=== PATIENT | male | born 1950 | race Caucasian/White ===

== ENCOUNTER → 2017-07-18 | Emergency (ER) | payer OTHER ==
[~2017-07-18] VITALS: Ht 182.9 cm; Wt 159.7 kg
--- NOTE | 2017-07-19 20:21 | EKG ---
[facility] [address] [facility] [place] [address] Signed Sinus rhythm with 1st degree AV block Nonspecific ST and T wave abnormality Abnormal ECG No previous ECGs available Confirmed by ASHIA FREEMAN MD ([id number]) on 07/19/2017 8:21:39 PM Electronically Signed By: ASHIA FREEMAN MD 07/19/172020 PATIENT NAME: ADI KHAN Electrocardiogram DATE OF : 48 PHYSICIAN: ASHIA FREEMAN MD REPORT #: [id number] REPORT IS CONFIDENTIAL AND NOT TO BE RELEASED WITHOUT AUTHORIZATION
--- NOTE | 2017-07-19 20:21 | EKG ---
[facility] [address] [facility] [place] [address] Signed Sinus rhythm with 1st degree AV block Nonspecific ST and T wave abnormality Abnormal ECG When compared with ECG of 18-JUL-2017 17:08, (Unconfirmed) No significant change was found Confirmed by ASHIA FREEMAN MD ([id number]) on 07/19/2017 8:21:43 PM Electronically Signed By: ASHIA FREEMAN MD 07/19/172020 PATIENT NAME: ADI KHAN Electrocardiogram DATE OF : 48 PHYSICIAN: ASHIA FREEMAN MD REPORT #: [id number] REPORT IS CONFIDENTIAL AND NOT TO BE RELEASED WITHOUT AUTHORIZATION
== END | disposition home or self-care (01) ==
LOC: ED 17:04
DX: R07.2 Precordial pain (principal); Z88.8 Allergy status to other drugs, medicaments and biological substances; E66.9 Obesity, unspecified; Z68.42 Body mass index [BMI] 45.0-49.9, adult
CPT/HCPCS: 71010; 80053; 83880; 84484; 85025; 93005; 93010; 96372; 96374; 96375; 99285; J1650; J2270; J3010

== ENCOUNTER 2018-05-07 17:43 | Emergency (ER) | payer OTHER ==
[~2018-05-07] VITALS: Ht 182.9 cm; Wt 149.7 kg
--- OUTSIDE RECORDS SUMMARY | ~2018-05-07 | XMS | Encounter Summary ---
Demographics + + + | Address | [address] | | | [place] [address] | + + + | Home Phone | | + + + | Preferred Language | Unknown | + + + | Marital Status | | + + + | Yarsani Affiliation | [id number] | + + + | Race | Unknown | + + + | Ethnic Group | Unknown | + + + Author + + + | Author | [facility] | | | and [place] | + + + | Organization | [facility] | | | and [place] | + + + | Address | Unknown | + + + | Phone | Unavailable | + + + Support + + + + + | Name | Relationship | Address | Phone | + + + + + | Rosa Fiore | GLENDY | [address] | | | | | [place] [address] | | + + + + + Care Team Providers + +------+ + | Care Roofing Plant Supervisor Name | Role | Phone | + +------+ + | Doug Servin | PCP | | + +------+ + Reason for Visit + + + | Reason | Comments | + + + | Chest Pain | | + + + Encounter Details +--------+ + + + + | Date | Type | Department | Care Team | Description | +--------+ + + + + | 05/06/ | Emergency | [facility] | Masoud Lamb, | Chest pain at rest | | 2018 - | [facility] | MD [address] | (Primary Dx) | | | | CENTER [address] | [place], [place] | | | 05/07/ | | [place], [place] | [address] | | | 2017 | | [address] | | | | | | [phone] | | | +--------+ + + + + Social History + +-------+ +--------+ + | Tobacco Use | Types | Packs/Day | Years | Date | | | | | Used | | + +-------+ +--------+ + | Former Smoker | | 1 | 32 | Quit: 03/21/1998 | + +-------+ +--------+ + + +---+---+---+ | Smokeless Tobacco: | | | | | Never Used | | | | + +---+---+---+ + + +---------+ + | Alcohol Use | Drinks/We | oz/Week | Comments | | | ek | | | + + +---------+ + | No | | | | + + +---------+ + + + + | Sex Assigned at | Date Recorded | | | | + + + | Not on file | | + + + as of this encounter Last Filed Vital Signs + + + + | Vital Sign | Reading | Time Taken | + + + + | Blood Pressure | 143/68 | 05/07/2018299 PDT | + + + + | Pulse | 78 | 05/07/2018326 PDT | + + + + | Temperature | 36.6 C (97.9 F) | 05/07/20188 PDT | + + + + | Respiratory Rate | 15 | 05/07/2018326 PDT | + + + + | Oxygen Saturation | 100% | 05/07/2018326 PDT | + + + + | Inhaled Oxygen | - | - | | Concentration | | | + + + + | Weight | 149.7 kg (330 lb) | 05/07/20188 PDT | + + + + | Height | 182.9 cm (6') | 05/07/20188 PDT | + + + + | Body Mass Index | 44.76 | 05/07/20188 PDT | + + + + in this encounter Discharge Instructions Masoud Lamb MD - 05/07/2018Kelsi if new concerning symptoms Follow-up with primary carein this encounter Medications at Time of Discharge + + +--------+---------+ + + | Medication | Sig. | Disp. | Refills | Start | End Date | | | | | | Date | | + + +--------+---------+ + + | | Take 3 mLs by | | | | | | albuterol-ipratropiu | nebulization 4 times | | | | | | m (DUONEB) 2.5-0.5 | daily as needed. | | | | | | mg/3 mL SOLN | | | | | | + + +--------+---------+ + + | ascorbic acid | Take 500 mg by mouth | | | | | | (VITAMIN C) 500 mg | Daily. | | | | | | tablet | | | | | | + + +--------+---------+ + + | aspirin 81 MG | Take 81 mg by mouth | | | | | | tablet | 2 times daily. | | | | | + + +--------+---------+ + + | | Inhale 2 puffs into | | | | | | budesonide-formotero | the lungs 2 times | | | | | | l (SYMBICORT) | daily. | | | | | | 160-4.5 mcg/puff | | | | | | | inhaler | | | | | | + + +--------+---------+ + + | buPROPion | Take 200 mg by mouth | | | | | | (WELLBUTRIN SR) 200 | Daily. | | | | | | MG 12 hr tablet | | | | | | + + +--------+---------+ + + | carBAMazepine | Take 200 mg by mouth | | | | | | (TEGRETOL XR) 200 mg | 3 times daily. For | | | | | | 12 hr tablet | mood | | | | | + + +--------+---------+ + + | cholecalciferol | Take 1,000 Units by | | | | | | (VITAMIN D-3) 1,000 | mouth 2 times daily. | | | | | | units capsule | | | | | | + + +--------+---------+ + + | cyanocobalamin | Take 500 mcg by | | | | | | (VITAMIN B-12) 500 | mouth Daily. | | | | | | mcg tablet | | | | | | + + +--------+---------+ + + | docusate-senna | Take 1 tablet by | | | | | | (SENOKOT-S) 50-8.6 | mouth Twice daily | | | | | | mg per tablet | breakfast/Bedtime. | | | | | + + +--------+---------+ + + | ferrous sulfate | Take 325 mg by mouth | | | | | | 325 mg tablet | 3 times daily. | | | | | + + +--------+---------+ + + | fish oil 1,000 mg | Take 1,000 mg by | | | | | | capsule | mouth 2 times daily. | | | | | + + +--------+---------+ + + | FLUoxetine | Take 20 mg by mouth | | | | | | (PROZAC) 20 mg | every morning. | | | | | | capsule | | | | | | + + +--------+---------+ + + | insulin aspart | Inject 38 Units | | | | | | (NOVOLOG PENFILL) | under the skin 3 | | | | | | 100 units/mL | times daily (before | | | | | | injection cartridge | meals). 07/19/17 - | | | | | | | recent reduction in | | | | | | | dose to 25 units TID | | | | | | | with meals | | | | | + + +--------+---------+ + + | insulin NPH | Inject 56 Units | | | | | | (HUMULIN N KWIKPEN) | under the skin 2 | | | | | | 100 units/mL | times daily (before | | | | | | injection pen | meals). Recent | | | | | | | reduction in dose to | | | | | | | 40 units twice | | | | | | | daily | | | | | + + +--------+---------+ + + | | Inhale 1 puff into | | | | | | Ipratropium-Albutero | the lungs 4 times | | | | | | l (COMBIVENT IN) | daily. May take 2 | | | | | | | extra puffs per day | | | | | | | as needed | | | | | + + +--------+---------+ + + | isosorbide | Take 120 mg by mouth | | | | | | mononitrate (IMDUR) | Daily. | | | | | | 60 mg ER tablet | | | | | | + + +--------+---------+ + + | liraglutide | Inject 1.2 mg under | | | | | | (VICTOZA) 18 mg/3 mL | the skin Daily. | | | | | | injection | | | | | | + + +--------+---------+ + + | metoprolol | Take 100 mg by mouth | | | | | | succinate | Daily. | | | | | | (TOPROL-XL) 200 mg | | | | | | | ER tablet | | | | | | + + +--------+---------+ + + | morphine (MSIR) 15 | Take 0.5-1 tablets | 30 | 0 | 11/20 | | | mg tablet | by mouth every 4 | tablet | | 17 | | | | hours as needed for | | | | | | | Pain. | | | | | + + +--------+---------+ + + | Multiple Vitamin | Take 1 capsule by | | | | | | (MULTIVITAMIN) | mouth Daily. | | | | | | capsule | | | | | | + + +--------+---------+ + + | nitroglycerin | Place 0.4 mg under | | | | | | (NITROSTAT) 0.4 mg | the tongue every 5 | | | | | | SL tablet | minutes as needed | | | | | | | for Chest pain. | | | | | + + +--------+---------+ + + | nortriptyline | Take 25 mg by mouth | | | | | | (PAMELOR) 25 mg | nightly. | | | | | | capsule | | | | | | + + +--------+---------+ + + | pantoprazole | Take 40 mg by mouth | | | | | | (PROTONIX) 40 mg | 2 times daily | | | | | | tablet | (before meals). | | | | | + + +--------+---------+ + + | rosuvastatin | Take 40 mg by mouth | | | | | | (CRESTOR) 40 MG | nightly. | | | | | | tablet | | | | | | + + +--------+---------+ + + | torsemide | Take 1 tablet by | 30 | 4 | 04/07/20 | | | (DEMADEX) 10 mg | mouth Daily. | tablet | | 17 | | | tablet | | | | | | + + +--------+---------+ + + as of this encounter Plan of Treatment + +--------+ + + | Name | Priori | Associated Diagnoses | Date/Time | | | ty | | | + +--------+ + + | ED INFORMATION EXCHANGE | Routin | | 05/07/2018 0002 PDT | | | e | | | + +--------+ + + as of this encounter Procedures + +--------+ + + + | Procedure Name | Priori | Date/Time | Associated Diagnosis | Comments | | | ty | | | | + +--------+ + + + | TROPONIN I | Add-On | 05/07/2018 | | Results for this | | | | 0233 PDT | | procedure are in the | | | | | | results section. | + +--------+ + + + | XR CHEST AP PORTABLE | STAT | 05/07/2018 | | Results for this | | | | 0044 PDT | | procedure are in the | | | | | | results section. | + +--------+ + + + | EXTRA BLUE TOP TUBE | Routin | 05/07/2018 | | Results for this | | | e | 0032 PDT | | procedure are in the | | | | | | results section. | + +--------+ + + + | ECG 12 LEAD | STAT | 05/07/2018 | | Results for this | | | | 0025 PDT | | procedure are in the | | | | | | results section. | + +--------+ + + + | TROPONIN I | STAT | 05/07/2018 | | Results for this | | | | 0015 PDT | | procedure are in the | | | | | | results section. | + +--------+ + + + | CBC WITH | STAT | 05/07/2018 | | Results for this | | DIFFERENTIAL | | 0015 PDT | | procedure are in the | | | | | | results section. | + +--------+ + + + | B TYPE NATRIURETIC | STAT | 05/07/2018 | | Results for this | | PEPTIDE | | 0015 PDT | | procedure are in the | | | | | | results section. | + +--------+ + + + | COMPREHENSIVE | STAT | 05/07/2018 | | Results for this | | METABOLIC PANEL | | 0015 PDT | | procedure are in the | | | | | | results section. | + +--------+ + + + | ED INFORMATION | Routin | 05/07/2018 | | | | EXCHANGE | e | 0002 PDT | | | + +--------+ + + + +---+--------+ | | | | | Proced | | | ure | | | Note - | | | Matthew, | | | Lab In | | | | | | Hlseve | | | n - | | | | | | 2017 | | | 0003 | | | PDT | | | Format | | | ting | | | of | | | this | | | note | | | may be | | | | | | differ | | | ent | | | from | | | the | | | origin | | | al.MATTHEW | | | [id number] | | | ADI | | | [id number] | | | [id number] | | | This | | | patien | | | t has | | | regist | | | ered | | | at the | | | | | | Provid | | | ence | | | [facility] | [facility] | [facility] | [facility] | | | [facility] | | | | | | Emerge | | | ncy | | | Depart | | | ment | | | For | | | more | | | inform | | | ation | | | visit: | | | | | | https: | | | //secu | | | [email or web address] | | | ecarep | | | [email or web address] | | | m/[email or web address] | | | ent/2a | | | [id number] | | | -a3ce- | | | [id number] | | | 3f0-bb | | | [id number] | | | [id number] | | | Securi | | | ty | | | Events | | | No | | | recent | | | | | | Securi | | | ty | | | Events | | | | | | curren | | | tly on | | | | | | fileED | | | Care | | | Guidel | | | nubia | | | from | | | Good | | | [facility] | | | rd | | | Health | | | Care | | | System | | | Last | | | Update | | | d: | | | 5/16/1 | | | 7 1:11 | | | PM | | | Care | | | Coordi | | | nation | | | :This | | | patien | | | t has | | | been | | | identi | | | fied | | | as | | | having | | | or | | | moreDe | | | partme | | | nt | | | visits | | | in | | | this | | | calend | | | ar | | | year.P | | | atient | | | | | | requir | | | es | | | educat | | | ion on | | | | | | approp | | | riate | | | ED | | | usage. | | | Emphas | | | ize | | | the | | | import | | | ance | | | of | | | using | | | outpat | | | ient | | | medica | | | l | | | servic | | | es for | | | the | | | treatm | | | ent of | | | | | | chroni | | | c | | | condit | | | ions.P | | | lease | | | contac | | | t | | | Commun | | | ity | | | Health | | | | | | Worker | | | , | | | Summer | | | , at | | | [phone] | | | [phone] | | | or | | | [phone] | | | [phone] | | | if | | | patien | | | t is | | | seen | | | in | | | ED.The | | | se are | | | | | | guidel | | | nubia | | | and | | | the | | | provid | | | er | | | should | | | | | | exerci | | | se | | | clinic | | | al | | | judgme | | | nt | | | when | | | provid | | | ing | | | care.R | | | ecent | | | Emerge | | | ncy | | | Depart | | | ment | | | Visit | | | Summar | | | yAdmit | | | Date | | | Facili | | | ty | | | City | | | State | | | Type | | | Major | | | Type | | | Diagno | | | ses or | | | Chief | | | | | | Compla | | | int | | | Aug | | | 22, | | | 2018 | | | Provid | | | ence | | | [facility] | [place] | | | [place] | | | Emerge | | | ncy | | | Emerge | | | ncy | | | Aug | | | 21, | | | 2018 | | | [facility] | | | r | | | [facility] | | | [facility] | | | - | | | [place] | | | [place] | | | [facility] | | | [place] | | | Emerge | | | ncy | | | Emerge | | | ncy | | | Chief | | | Compla | | | int: | | | High | | | blood | | | pressu | | | re | | | Aug | | | 17, | | | 2018 | | | [place] | | | r | | | [facility] | | | [facility] | | | - | | | [place] | | | r | | | [facility] 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 | | | es | | | mellit | | | us | | | withou | | | t | | | compli | | | cation | | | s | | | Athero | | | sclero | | | tic | | | heart | | | diseas | | | e of | | | [place] | | | | | | fletcher | | | ry | | | artery | | | | | | withou | | | t | | | angina | | | | | | pector | | | is | | | Locali | | | zed | | | edema | | | | | | Gastro | | | -esoph | | | ageal | | | reflux | | | | | | diseas | | | e | | | withou | | | t | | | esopha | | | gitis | | | | | | Hyperl | | | ipidem | | | ia, | | | unspec | | | ified | | | | | | Other | | | long | | | term | | | (curre | | | nt) | | | drug | | | therap | | | y | | | Chroni | | | c | | | obstru | | | ctive | | | pulmon | | | gideon | | | diseas | | | e, | | | unspec | | | ified | | | | | | Periph | | | eral | | | vascul | | | ar | | | diseas | | | e, | | | unspec | | | ified | | | | | | Morbid | | | | | | (sever | | | e) | | | obesit | | | y due | | | to | | | excess | | | | | | calori | | | es | | | Aug | | | 14, | | | 2018 | | | [facility] | | | r | | | [facility] | | | [facility] | | | - | | | [place] | | | [place] | | | [facility] | [place] | | | Emerge | | | ncy | | | Emerge | | | ncy | | | | | | Allerg | | | y | | | status | | | to | | | other | | | drugs, | | | | | | medica | | | ments | | | and | | | biolog | | | ical | | | substa | | | nces | | | status | | | | | | Athero | | | sclero | | | tic | | | heart | | | diseas | | | e of | | | [place] | | | | | | fletcher | | | ry | | | artery | | | with | | | unspec | | | ified | | | angina | | | | | | pector | | | is | | | Gastro | | | -esoph | | | ageal | | | reflux | | | | | | diseas | | | e | | | withou | | | t | | | esopha | | | gitis | | | | | | Chroni | | | c | | | obstru | | | ctive | | | pulmon | | | gideon | | | diseas | | | e, | | | unspec | | | ified | | | | | | Other | | | long | | | term | | | (curre | | | nt) | | | drug | | | therap | | | y | | | Hyperl | | | ipidem | | | ia, | | | unspec | | | ified | | | | | | Obesit | | | y, | | | unspec | | | ified | | | | | | Venous | | | | | | insuff | | | icienc | | | y | | | (chron | | | ic) | | | (perip | | | heral) | | | | | | Locali | | | zed | | | edema | | | | | | Long | | | term | | | (curre | | | nt) | | | use of | | | | | | insuli | | | n Aug | | | 1, | | | 2018 | | | [facility] | | | r | | | [facility] | | | [facility] | | | - | | | [place] | | | [place] | | | [facility] | [place] | | | Emerge | | | ncy | | | Emerge | | | ncy | | | Long | | | term | | | (curre | | | nt) | | | use of | | | | | | insuli | | | n | | | Obesit | | | y, | | | unspec | | | ified | | | | | | Other | | | long | | | term | | | (curre | | | nt) | | | drug | | | therap | | | y | | | Chroni | | | c | | | obstru | | | ctive | | | pulmon | | | gideon | | | diseas | | | e, | | | unspec | | | ified | | | | | | Allerg | | | y | | | status | | | to | | | other | | | drugs, | | | | | | medica | | | ments | | | and | | | biolog | | | ical | | | substa | | | nces | | | status | | | | | | Type 2 | | | | | | diabet | | | es | | | mellit | | | us | | | withou | | | t | | | compli | | | cation | | | s | | | Venous | | | | | | insuff | | | icienc | | | y | | | (chron | | | ic) | | | (perip | | | heral) | | | | | | Hyperl | | | ipidem | | | ia, | | | unspec | | | ified | | | | | | Locali | | | zed | | | edema | | | | | | Athero | | | sclero | | | tic | | | heart | | | diseas | | | e of | | | [place] | | | | | | fletcher | | | ry | | | artery | | | with | | | other | | | forms | | | of | | | angina | | | | | | pector | | | is | | | Jose | | | 15, | | | 2018 | | | [facility] | | | r | | | [facility] | | | [facility] | | | - | | | [facility] | | | [place] | | | [facility] | [place] | | | Emerge | | | ncy | | | Emerge | | | ncy | | | | | | Chroni | | | c | | | obstru | | | ctive | | | pulmon | | | gideon | | | diseas | | | e, | | | unspec | | | ified | | | | | | Long | | | term | | | (curre | | | nt) | | | use of | | | | | | insuli | | | n | | | Weakne | | | ss | | | Depend | | | ence | | | on | | | supple | | | mental | | | | | | oxygen | | | | | | Fall | | | from | | | chair, | | | | | | initia | | | l | | | encoun | | | ter | | | | | | Unspec | | | ified | | | place | | | in | | | unspec | | | ified | | | non-in | | | stitut | | | ional | | | (priva | | | te) | | | reside | | | nce as | | | the | | | place | | | of | | | occurr | | | ence | | | of the | | | | | | thermostat machine tender | | | al | | | cause | | | | | | Athero | | | sclero | | | tic | | | heart | | | diseas | | | e of | | | [place] | | | | | | fletcher | | | ry | | | artery | | | | | | withou | | | t | | | angina | | | | | | pector | | | is | | | Dehydr | | | ation | | | | | | Type 2 | | | | | | diabet | | | es | | | mellit | | | us | | | withou | | | t | | | compli | | | cation | | | s | | | Unspec | | | ified | | | abdomi | | | nal | | | pain | | | Jose | | | 13, | | | 2018 | | | [facility] | | | [facility] | | | [facility] | | | [facility] | | | - | | | [facility] | | | [facility] | | | [facility] | [place] | | | Emerge | | | ncy | | | Emerge | | | ncy | | | | | | Dorsal | | | nasrin, | | | unspec | | | ified | | | | | | Athero | | | sclero | | | tic | | | heart | | | diseas | | | e of | | | [place] | | | | | | fletcher | | | ry | | | artery | | | | | | withou | | | t | | | angina | | | | | | pector | | | is | | | Urinar | | | y | | | tract | | | infect | | | ion, | | | site | | | not | | | specif | | | ied | | | | | | Depend | | | ence | | | on | | | supple | | | mental | | | | | | oxygen | | | | | | Chroni | | | c | | | obstru | | | ctive | | | pulmon | | | gideon | | | diseas | | | e, | | | unspec | | | ified | | | Low | | | back | | | pain | | | | | | Morbid | | | | | | (sever | | | e) | | | obesit | | | y due | | | to | | | excess | | | | | | calori | | | es | | | Type 2 | | | | | | diabet | | | es | | | mellit | | | us | | | withou | | | t | | | compli | | | cation | | | s Jose | | | 6, | | | 2018 | | | [facility] | | | [facility] | | [facility] | | | [facility] | | | [facility] | | | [facility] | | | | | | [facility] | | | [place] | | | Emerge | | | ncy | | | Emerge | | | ncy | | | Chief | | | Compla | | | int: | | | CHEST | | | PAIN | | | Jose 2, | | | 2018 | | | [facility] | | | | | | [facility] | | | [facility] | | | [facility] | [place] | | | [place] | | | Emerge | | | ncy | | | Emerge | | | ncy | | | Flank | | | Pain | | | | | | Tubulo | | | -inter | | | stitia | | | l | | | nephri | | | tis, | | | not | | | specif | | | ied as | | | acute | | | or | | | chroni | | | c | | | Hyperk | | | alemia | | | | | | Chroni | | | c | | | kidney | | | | | | diseas | | | e, | | | unspec | | | ified | | | [place] | | | 30, | | | 2018 | | | [facility] | | | r | | | [facility] | | | [facility] | | | - | | | [facility] | | | [facility] | | | [facility] | [place] | | | Emerge | | | ncy | | | Emerge | | | ncy | | | Other | | | long | | | term | | | (curre | | | nt) | | | drug | | | therap | | | y | | | Epista | | | xis | | | Type | | | 2 | | | diabet | | | es | | | mellit | | | us | | | withou | | | t | | | compli | | | cation | | | s | | | Chroni | | | c | | | obstru | | | ctive | | | pulmon | | | gideon | | | diseas | | | e, | | | unspec | | | ified | | | | | | Long | | | term | | | (curre | | | nt) | | | use of | | | | | | insuli | | | n | | | Other | | | hyperl | | | ipidem | | | ia | | | Athero | | | sclero | | | tic | | | heart | | | diseas | | | e of | | | [place] | | | | | | fletcher | | | ry | | | artery | | | | | | withou | | | t | | | angina | | | | | | pector | | | is | | | [place] | | | 25, | | | 2018 | | | [facility] | | | r | | | [facility] | | | [facility] | | | - | | | [facility] | | | [facility] | | | [facility] | [place] | | | Emerge | | | ncy | | | Emerge | | | ncy | | | | | | Headac | | | he | | | Type 2 | | | | | | diabet | | | es | | | mellit | | | us | | | with | | | hypogl | | | ycemia | | | | | | withou | | | t coma | | | | | | Cerebr | | | al | | | infarc | | | tion, | | | unspec | | | ified | | | | | | Chroni | | | c | | | obstru | | | ctive | | | pulmon | | | gideon | | | diseas | | | e, | | | unspec | | | ified | | | | | | Long | | | term | | | (curre | | | nt) | | | use of | | | | | | insuli | | | n | | | Gastro | | | -esoph | | | ageal | | | reflux | | | | | | diseas | | | e | | | withou | | | t | | | esopha | | | gitis | | | | | | Locali | | | zed | | | edema | | | | | | Essent | | | ial | | | (prima | | | ry) | | | hypert | | | ension | | | | | | Hyperl | | | ipidem | | | ia, | | | unspec | | | ified | | | | | | Athero | | | sclero | | | tic | | | heart | | | diseas | | | e of | | | [place] | | | | | | fletcher | | | ry | | | artery | | | | | | withou | | | t | | | angina | | | | | | pector | | | is | | | [place] | | | 18, | | | 2018 | | | [facility] | | | r | | | [facility] | | | [facility] | | | - | | | [facility] | | | r | | | [place] | [place] | [place] | | | Emerge | | | ncy | | | Emerge | | | ncy | | | | | | Gastro | | | -esoph | | | ageal | | | reflux | | | | | | diseas | | | e | | | withou | | | t | | | esopha | | | gitis | | | | | | Allerg | | | y | | | status | | | to | | | other | | | drugs, | | | | | | medica | | | ments | | | and | | | biolog | | | ical | | | substa | | | nces | | | status | | | | | | Hyperl | | | ipidem | | | ia, | | | unspec | | | ified | | | | | | Other | | | long | | | term | | | (curre | | | nt) | | | drug | | | therap | | | y | | | Chroni | | | c | | | obstru | | | ctive | | | pulmon | | | gideon | | | diseas | | | e, | | | unspec | | | ified | | | | | | 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 | | | [place] | | | Emerge | | | ncy | | | Emerge | | | ncy | | | Chief | | | Compla | | | int: | | | CHEST | | | PAIN | | | May | | | 27, | | | 2018 | | | [facility] | | | r | | | [facility] | | | [facility] | | | - | | | [facility] | | | r | | | [facility] | | | [place] | | | Emerge | | | ncy | | | Emerge | | | ncy | | | | | | Chroni | | | c | | | obstru | | | ctive | | | pulmon | | | gideon | | | diseas | | | e, | | | unspec | | | ified | | | | | | Athero | | | sclero | | | tic | | | heart | | | diseas | | | e of | | | [place] | | | | | | fletcher | | | ry | | | artery | | | | | | withou | | | t | | | angina | | | | | | pector | | | is | | | Other | | | chest | | | pain | | | | | | Cough | | | | | | Type 2 | | | | | | diabet | | | es | | | mellit | | | us | | | withou | | | t | | | compli | | | cation | | | s | | | Hyperl | | | ipidem | | | ia, | | | unspec | | | ified | | | | | | Other | | | long | | | term | | | (curre | | | nt) | | | drug | | | therap | | | y | | | Venous | | | | | | insuff | | | icienc | | | y | | | (chron | | | ic) | | | (perip | | | heral) | | | | | | Locali | | | zed | | | edema | | | | | | Allerg | | | y | | | status | | | to | | | other | | | drugs, | | | | | | medica | | | ments | | | and | | | biolog | | | ical | | | substa | | | nces | | | status | | | E.D. | | | Visit | | | Count | | | (12 | | | mo.)Fa | | | cility | | | | | | Visits | | | Low | | | Acuity | | | Good | | | [facility] | | | rd | | | Health | | | Care | | | System | | | 6 0 | | | [facility] | | | | | | Region | | | al | | | Medica | | | l | | | Center | | | 1 0 | | | [facility] | | | r | | | [facility] | | | al | | | Hospit | | | al - | | | [facility] | | | r 19 0 | | | | | | Provid | | | ence | | | [facility] | | | [facility] | [facility] | [facility] | | | l | | | Center | | | 2 0 | | | [facility] [place] | | | y | | | Hospit | | | al 1 0 | | | Total | | | 29 0 | | | Note: | | | Visits | | | | | | indica | | | te | | | total | | | known | | | visits | | | . | | | Medica | | | id Low | | | | | | Acuity | | | Dx | | | are | | | the | | | number | | | of | | | primar | | | y | | | diagno | | | ses on | | | the | | | Medica | | | id's | | | Low | | | Acuity | | | dx | | | list. | | | | | | Recent | | | | | | Inpati | | | ent | | | Visit | | | [place] | | | yAdmit | | | Date | | | Facili | | | ty | | | City | | | State | | | Type | | | Major | | | Type | | | Diagno | | | ses or | | | Chief | | | | | | Compla | | | int | | | Jose 2, | | | 2018 | | | [facility] | | | | | | [facility] | | | al | | | [facility] | | | [place] | | | [place] | | | Genera | | | l | | | Medici | | | ne | | | Inpati | | | ent | | | | | | Hyperk | | | alemia | | | | | | Tubulo | | | -inter | | | stitia | | | l | | | nephri | | | tis, | | | not | | | specif | | | ied as | | | acute | | | or | | | chroni | | | c | | | Chroni | | | c | | | kidney | | | | | | diseas | | | e, | | | unspec | | | ified | | | [place] | | | 25, | | | 2018 | | | [facility] | | | | | | [facility] | | | al | | | [facility] | | | [place] | | | [place] | | | Genera | | | l | | | Medici | | | ne | | | Inpati | | | ent | | | | | | stroke | | | | | | Illnes | | | s, | | | unspec | | | ified | | | | | | Hyperk | | | alemia | | | PDMP | | | | | | Report | | | PDMP | | | query | | | found | | | no | | | report | | | .Care | | | Provid | | | ersPro | | | vider | | | PRC | | | Type | | | Phone | | | Fax | | | Servic | | | e | | | Dates | | | Summer | | | | | | Martinez, | | | CHW | | | Case | | | or | | | Care | | | Manage | | | r | | | [phone] | | | [phone] | | | 04 | | | [phone] | | | [phone] | | | 10 | | | Curren | | | t | | | Criter | | | ia met | | | Care | | | | | | Guidel | | | nubia | | | 4 | | | visits | | | in 60 | | | 3 | | | Facili | | | ties | | | in | | | 60Know | | | n | | | Aliase | | | sNo | | | known | | | aliase | | | s. The | | | above | | | | | | inform | | | ation | | | is | | | provid | | | ed for | | | the | | | sole | | | purpos | | | e of | | | patien | | | t | | | treatm | | | ent. | | | Use of | | | this | | | inform | | | ation | | | beyond | | | the | | | terms | | | of | | | Data | | | Sharin | | | g | | | Memora | | | ndum | | | of | | | Unders | | | tandin | | | g and | | | Licens | | | e | | | Agreem | | | ent is | | | | | | prohib | | | ited. | | | In | | | certai | | | n | | | cases | | | not | | | all | | | visits | | | may | | | be | | | repres | | | ented. | | | | | | Consul | | | t the | | | aforem | | | ention | | | ed | | | facili | | | ties | | | for | | | additi | | | onal | | | inform | | | ation. | | | 2018 | | | [facility] | | | tive | | | Medica | | | l | | | [employer] | | | logies | | | , [employer] | | | - | | | [place] | | | [place] | | | [place], | | | [place] - | | | [email or web address] | | | ollect | | | ivemed | | | icalte | | | [email or web address] | | | | +---+--------+ in this encounter Results Troponin I (05/07/2018 0233) + + + + + | Component | Value | Ref Range | Performed At | + + + + + | Troponin I | 0.01Comment: Reference | <0.06 ng/mL | [facility] | | | Ranges:0.00-0.06 = | | [facility] | | | NORMAL>0.06 = | | CENTER - | | | SUSPICIOUS FOR | | LABORATORY | | | MYOCARDIAL DAMAGE NOTE: | | | | | Values greater than 0.50 | | | | | ng/mL have been shown | | | | | to be strongly | | | | | associated with acute | | | | | myocardial infarction. | | | | | The [employer] | | | | | Cardiology (ACC) | | | | | recommends a decision | | | | | limit of 0.06 ng/mL for | | | | | this assay. Results | | | | | greater than 0.06 can | | | | | reflect a pre-infarct | | | | | acute coronary syndrome, | | | | | but can also reflect | | | | | myocardial necrosis or | | | | | injury that is not due | | | | | to coronary artery | | | | | disease. Some of | | | | | these causes are sepsis, | | | | | hypocolemia, atrial | | | | | fibrillation, heart | | | | | failure, pulmonary | | | | | embolism, myocarditis, | | | | | myocardial contusion, | | | | | and renal | | | | | failure. The | | | | | diagnosis of myocardial | | | | | infarction should be | | | | | based on a combination | | | | | of the patient's | | | | | clinical presentation | | | | | and the clinical | | | | | laboratory test results | | | | | (especially serial | | | | | troponin levels). | | | + + + + + + + | Specimen | + + | Blood | + + + + + + + | Performing | Address | City/State/Zipcode | Phone Number | | Organization | | | | + + + + + | [facility] | [address] | [place], [place] | [phone] | | [facility] | | [address] | | | - LABORATORY | | | | + + + + + | [facility] | [address] | [place], [place] | | | [facility] | | [address] | | | - LABORATORY | | | | + + + + + XR Chest AP Portable (05/07/2018 0044) + + + | Narrative | Performed At | + + + | XR CHEST AP PORTABLE 05/07/2018 12:44 AM HISTORY: CHEST PAIN. | [facility] | | COMPARISON: 05/07/2017 Findings: The bilateral lungs are clear | | | with no evidence for pleural effusion or pneumothorax. Heart is | | | mildly enlarged. Evidence of prior cardiac surgery. Aortic | | | calcifications are present. Mediastinum is unremarkable. No acute | | | osseous or soft tissue abnormality identified. IMPRESSION - No | | | acute intrathoracic abnormality identified. Stable mild | | | cardiomegaly. No evidence of pulmonary edema at this time. | | | Dictated and Signed by: Yayo Mota MD Electronically signed: | | | 05/07/2018 9:49 AM | | + + + + + | Procedure Note | + + | Matthew, Rad Results In - 05/07/2018 0952 PDT XR CHEST AP PORTABLE 05/07/2018 12:44 AM | | | | HISTORY: CHEST PAIN. | | | | COMPARISON: 05/07/2017 | | | | Findings: | | The bilateral lungs are clear with no evidence for pleural effusion or | | pneumothorax. Heart is mildly enlarged. Evidence of prior cardiac surgery. | | Aortic calcifications are present. Mediastinum is unremarkable. No acute osseous | | or soft tissue abnormality identified. | | | | IMPRESSION - | | No acute intrathoracic abnormality identified. | | | | Stable mild cardiomegaly. No evidence of pulmonary edema at this time. | | | | Dictated and Signed by: Yayo Mota MD | | Electronically signed: 05/07/2018 9:49 AM | + + + +---------+ + + | Performing | Address | City/State/[facility] | Phone Number | | Organization | | | | + +---------+ + + | [facility] | | | | + +---------+ + + Extra Blue Top Tube (05/07/2018 0032) + +-------+ + + | Component | Value | Ref Range | Performed At | + +-------+ + + | Extra Blue Top Tube | Done | | [facility] | | | | | [facility] | | | | | CENTER - | | | | | LABORATORY | + +-------+ + + + + | Specimen | + + | Blood | + + + + + + + | Performing | Address | City/State/Zipcode | Phone Number | | Organization | | | | + + + + + | [facility] | [address] | [place] | [phone] | | [facility] | | [address] | | | - LABORATORY | | | | + + + + + | [facility] | [address] | [place] | | | [facility] | | [address] | | | - LABORATORY | | | | + + + + + ECG 12 lead (05/07/2018 0025) + + + + + | Component | Value | Ref Range | Performed At | + + + + + | VENTRICULAR RATE EKG | 92 | BPM | [facility] | + + + + + | ATRIAL RATE | 92 | BPM | [facility] | + + + + + | P-R INTERVAL | 240 | ms | [facility] | + + + + + | QRS DURATION | 100 | ms | [facility] | + + + + + | Q-T INTERVAL | 382 | ms | [facility] | + + + + + | Q-T INTERVAL | 472 | ms | [facility] | | (CORRECTED) | | | | + + + + + | QRS AXIS | -21 | degrees | [facility] | + + + + + | T AXIS | 66 | degrees | [facility] | + + + + + | INTERPRETATION TEXT | Normal sinus rhythm with | | [facility] | | | 1st degree AV blockWhen | | | | | compared with ECG of | | | | | 07-MAY-2017 | | | | | 19:35,Borderline | | | | | criteria for Inferior | | | | | infarct , age | | | | | undetermined is no | | | | | longer present Confirmed | | | | | by RADHA UMANZOR MD | | | | | ([id number]) on 05/07/2018 | | | | | 7:13:32 AM | | | + + + + + + + + | Narrative | Performed At | + + + | | | + + + + +---------+ + + | Performing | Address | City/State/Zipcode | Phone Number | | Organization | | | | + +---------+ + + | [facility] | | | | + +---------+ + + Troponin I (05/07/201814) + + + + + | Component | Value | Ref Range | Performed At | + + + + + | Troponin I | 0.01Comment: Reference | <0.06 ng/mL | [facility] | | | Ranges:0.00-0.06 = | | [facility] | | | NORMAL>0.06 = | | CENTER - | | | SUSPICIOUS FOR | | LABORATORY | | | MYOCARDIAL DAMAGE NOTE: | | | | | Values greater than 0.50 | | | | | ng/mL have been shown | | | | | to be strongly | | | | | associated with acute | | | | | myocardial infarction. | | | | | The [employer] | | | | | Cardiology (ACC) | | | | | recommends a decision | | | | | limit of 0.06 ng/mL for | | | | | this assay. Results | | | | | greater than 0.06 can | | | | | reflect a pre-infarct | | | | | acute coronary syndrome, | | | | | but can also reflect | | | | | myocardial necrosis or | | | | | injury that is not due | | | | | to coronary artery | | | | | disease. Some of | | | | | these causes are sepsis, | | | | | hypocolemia, atrial | | | | | fibrillation, heart | | | | | failure, pulmonary | | | | | embolism, myocarditis, | | | | | myocardial contusion, | | | | | and renal | | | | | failure. The | | | | | diagnosis of myocardial | | | | | infarction should be | | | | | based on a combination | | | | | of the patient's | | | | | clinical presentation | | | | | and the clinical | | | | | laboratory test results | | | | | (especially serial | | | | | troponin levels). | | | + + + + + + + | Specimen | + + | Blood | + + + + + + + | Performing | Address | City/State/Zipcode | Phone Number | | Organization | | | | + + + + + | [facility] | [address] | [place] | [phone] | | [facility] | | [address] | | | - LABORATORY | | | | + + + + + | [facility] | [address] | [place], [place] | | | [facility] | | [address] | | | - LABORATORY | | | | + + + + + B Type Natriuretic Peptide (05/07/2018 0015) + +-------+ + + | Component | Value | Ref Range | Performed At | + +-------+ + + | BNP | 94 | <100 pg/mL | [facility] | | | | | [facility] | | | | | CENTER - | | | | | LABORATORY | + +-------+ + + + + | Specimen | + + | Blood | + + + + + + + | Performing | Address | City/State/Zipcode | Phone Number | | Organization | | | | + + + + + | [facility] | [address] | [place] | [phone] | | [facility] | | [address] | | | - LABORATORY | | | | + + + + + | [facility] | [address] | [place] | | | [facility] | | [address] | | | - LABORATORY | | | | + + + + + Comprehensive Metabolic Panel (05/07/2018 0015) + + + + + | Component | Value | Ref Range | Performed At | + + + + + | NA | 139 | 136 - 149 mmol/L | [facility] | | | | | [facility] | | | | | CENTER - | | | | | LABORATORY | + + + + + | K | 4.8 | 3.5 - 5.1 mmol/L | [facility] | | | | | [facility] | | | | | CENTER - | | | | | LABORATORY | + + + + + | CL | 105 | 98 - 109 mmol/L | [facility] | | | | | [facility] | | | | | CENTER - | | | | | LABORATORY | + + + + + | CO2 | 27 | 24 - 31 mmol/L | [facility] | | | | | [facility] | | | | | CENTER - | | | | | LABORATORY | + + + + + | ANION GAP | 7 | 3 - 16 mmol/L | [facility] | | | | | [facility] | | | | | CENTER - | | | | | LABORATORY | + + + + + | GLUCOSE | 228 (H) | 70 - 109 mg/dL | [facility] | | | | | [facility] | | | | | CENTER - | | | | | LABORATORY | + + + + + | BUN | 15 | 7 - 18 mg/dL | [facility]. | | | | | [facility] | | | | | CENTER - | | | | | LABORATORY | + + + + + | Creatinine, | 1.29 | 0.60 - 1.30 mg/dL | [facility]. | | Serum/Plasma | | | [facility] | | | | | CENTER - | | | | | LABORATORY | + + + + + | eGFR if not | 55 (L)Comment: | >=60 mL/min/1.73m2 | [facility]. | | TANZANIAN | GLOMERULAR FILTRATION | | [facility] | | | RATE,ESTIMATED mL/min | | CENTER - | | | /1.94e3Owcj than 60 | | LABORATORY | | | Chronic kidney | | | | | disease,if found over a | | | | | 3-month period.Less than | | | | | 15 Kidney | | | | | failureFor | | | | | Americans,multiply the | | | | | calculated GFR by 1.21. | | | | | | | | + + + + + | CALCIUM | 8.4 | 8.3 - 10.5 mg/dL | [facility] | | | | | [facility] | | | | | CENTER - | | | | | LABORATORY | + + + + + | ALBUMIN | 2.9 (L) | 3.2 - 5.0 g/dL | [facility] | | | | | [facility] | | | | | CENTER - | | | | | LABORATORY | + + + + + | Bilirubin Total | 0.6Comment: This is an | 0.1 - 1.5 mg/dL | [facility] | | | appended report. These | | [facility] | | | results have been | | CENTER - | | | appended to a previously | | LABORATORY | | | preliminary verified | | | | | report. | | | + + + + + | Total protein | 5.7 (L) | 6.0 - 7.8 g/dL | [facility] | | | | | [facility] | | | | | CENTER - | | | | | LABORATORY | + + + + + | AST | 29Comment: This is an | 10 - 42 U/L | [facility] | | | appended report. These | | [facility] | | | results have been | | CENTER - | | | appended to a previously | | LABORATORY | | | preliminary verified | | | | | report. | | | + + + + + | ALT | 17Comment: This is an | 6 - 45 U/L | [facility] | | | appended report. These | | [facility] | | | results have been | | CENTER - | | | appended to a previously | | LABORATORY | | | preliminary verified | | | | | report. | | | + + + + + | ALK PHOS | 75Comment: This is an | 40 - 110 U/L | [facility] | | | appended report. These | | [facility] | | | results have been | | CENTER - | | | appended to a previously | | LABORATORY | | | preliminary verified | | | | | report. | | | + + + + + | GLOBULIN | 2.8 | 2.1 - 3.8 g/dL | [facility] | | | | | [facility] | | | | | CENTER - | | | | | LABORATORY | + + + + + | Albumin/Globulin | 1.0 | 0.8 - 2.0 | [facility] | | ratio | | | [facility] | | | | | CENTER - | | | | | LABORATORY | + + + + + | BUN/CREA | 11.6 | | [facility] | | | | | [facility] | | | | | CENTER - | | | | | LABORATORY | + + + + + + + | Specimen | + + | Blood | + + + + + + + | Performing | Address | City/State/Zipcode | Phone Number | | Organization | | | | + + + + + | [facility] | [address] | [place], [place] | [phone] | | [facility] | | [address] | | | - LABORATORY | | | | + + + + + | [facility] | [address] | [place], [place] | | | [facility] | | [address] | | | - LABORATORY | | | | + + + + + CBC with Differential (05/07/2018 0015) + + + + + | Component | Value | Ref Range | Performed At | + + + + + | WBC | 8.0 | 4.0 - 11.0 K/uL | [facility] | | | | | [facility] | | | | | CENTER - | | | | | LABORATORY | + + + + + | RBC | 3.85 (L) | 4.30 - 5.70 M/uL | [facility] | | | | | [facility] | | | | | CENTER - | | | | | LABORATORY | + + + + + | Hgb | 12.6 (L) | 13.5 - 18.0 g/dL | [facility] | | | | | [facility] | | | | | CENTER - | | | | | LABORATORY | + + + + + | Hct | 36.6 (L) | 40.0 - 51.0 % | [facility] | | | | | [facility] | | | | | CENTER - | | | | | LABORATORY | + + + + + | MCV | 95.0 | 83.0 - 101.0 fL | [facility] | | | | | [facility] | | | | | CENTER - | | | | | LABORATORY | + + + + + | MCH | 32.7 | 28.0 - 35.0 pg | [facility] | | | | | [facility] | | | | | CENTER - | | | | | LABORATORY | + + + + + | MCHC | 34.4 | 32.0 - 36.0 g/dL | [facility] | | | | | [facility] | | | | | CENTER - | | | | | LABORATORY | + + + + + | RDW-CV | 13.9 | <15.0 % | [facility] | | | | | [facility] | | | | | CENTER - | | | | | LABORATORY | + + + + + | Platelet Count | 133 (L) | 140 - 440 K/uL | [facility] | | | | | [facility] | | | | | CENTER - | | | | | LABORATORY | + + + + + | MPV | 8.7 | fL | [facility] | | | | | [facility] | | | | | CENTER - | | | | | LABORATORY | + + + + + | % Neutrophils | 69.4 | 45.0 - 82.0 % | [facility] | | | | | [facility] | | | | | CENTER - | | | | | LABORATORY | + + + + + | % Lymphocytes | 17.2 (L) | 20.0 - 45.0 % | [facility] | | | | | [facility] | | | | | CENTER - | | | | | LABORATORY | + + + + + | % Monocytes | 10.2 | 4.0 - 12.0 % | [facility] | | | | | [facility] | | | | | CENTER - | | | | | LABORATORY | + + + + + | % Eosinophils | 2.5 | 0.0 - 5.0 % | [facility] | | | | | [facility] | | | | | CENTER - | | | | | LABORATORY | + + + + + | % Basophils | 0.7 | 0.0 - 1.0 % | [facility] | | | | | [facility] | | | | | CENTER - | | | | | LABORATORY | + + + + + | Absolute Neutrophils | 5.50 | 1.80 - 8.50 K/uL | [facility] | | | | | [facility] | | | | | CENTER - | | | | | LABORATORY | + + + + + | Absolute Lymphocytes | 1.40 | 0.60 - 3.20 K/uL | [facility] | | | | | [facility] | | | | | CENTER - | | | | | LABORATORY | + + + + + | Absolute Monocytes | 0.80 | 0.00 - 1.00 K/uL | [facility] | | | | | [facility] | | | | | CENTER - | | | | | LABORATORY | + + + + + | Absolute Eosinophils | 0.20 | 0.00 - 0.40 K/uL | [facility] | | | | | [facility] | | | | | CENTER - | | | | | LABORATORY | + + + + + | Absolute Basophils | 0.10 | 0.00 - 0.10 K/uL | [facility] | | | | | [facility] | | | | | CENTER - | | | | | LABORATORY | + + + + + + + | Specimen | + + | Blood | + + + + + + + | Performing | Address | City/State/Zipcode | Phone Number | | Organization | | | | + + + + + | [facility] | [address] | [place] | [phone] | | [facility] | | [address] | | | - LABORATORY | | | | + + + + + | [facility] | [address] | [place] | | | [facility] | | [address] | | | - LABORATORY | | | | + + + + + in this encounter Visit Diagnoses + + | Diagnosis | + + | Chest pain at rest - Primary | + + | Chest pain, unspecified | + + Administered Medications + +--------+ +--------+------+------+ | Medication Order | MAR | Action | Dose | Rate | Site | | | Action | Date | | | | + +--------+ +--------+------+------+ | fentaNYL (PF) injection 50 mcg | Given | | 50 mcg | | | | 50 mcg, Intravenous, EVERY 30 | | 8 1:01 | | | | | MIN PRN, Pain, Starting Araceli | | PDT | | | | | 05/07/18 at 0018 | | | | | | + +--------+ +--------+------+------+ +-------+ +--------+---+---+ | Given | | 50 mcg | | | | | 8 2:35 | | | | | | PDT | | | | +-------+ +--------+---+---+ +---+---+ | | | +---+---+ in this encounter"
--- OUTSIDE RECORDS SUMMARY | ~2018-05-07 | XMS | Encounter Summary ---
Demographics + + + | Address | [address] | | | [place] [address] | + + + | Home Phone | | + + + | Preferred Language | Unknown | + + + | Marital Status | | + + + | Hinduism Affiliation | 1073 | + + + | Race | Unknown | + + + | Ethnic Group | Unknown | + + + Author + + + | Author | [facility] [employer] | + + + | Organization | [email or web address] | + + + | Address | Unknown | + + + | Phone | Unavailable | + + + Support + + + + + | Name | Relationship | Address | Phone | + + + + + | Rosa Fiore | ECON | [address] | | | | | [place] [address] | | + + + + + Care Team Providers + +------+ + | Care Technology Adoption Manager Name | Role | Phone | + +------+ + | Vincent Finch | PCP | | + +------+ + Reason for Visit MRI/CAT Scan (Routine) + +--------+ + + + + | Status | Reason | Specialty | Diagnoses / | Referred By | Referred To | | | | | Procedures | Contact | Contact | + +--------+ + + + + | Pending | | Radiology | Diagnoses | See, | | | Review | | | Other | Medical | | | | | | headache | Record | | | | | | syndrome | | | | | | | Procedures | | | | | | | CT head | | | | | | | without | | | | | | | contrast | | | + +--------+ + + + + Encounter Details +--------+ + + + + | Date | Type | Department | Care Team | Description | +--------+ + + + + | 03/09/ | Hospital | [facility] | See, Medical | Other headache | | 2018 | Encounter | [facility] | Record | syndrome | | | | RADIOLOGY [address] | | | | | | [place] [address] | | | | | | [phone] | | | +--------+ + + + + Social History + +-------+ +--------+ + | Tobacco Use | Types | Packs/Day | Years | Date | | | | | Used | | + +-------+ +--------+ + | Former Smoker | | | | Quit: 12/23/1997 | + +-------+ +--------+ + + +---+---+---+ [...] + + + as of this encounter Medications at Time of Discharge + + + +---------+ + + | Medication | Sig. | Disp. | Refills | Start | End Date | | | | | | Date | | + + + +---------+ + + | acetaminophen | Take 1,000 mg by | | | | | | (TYLENOL) 500 MG | mouth daily. | | | | | | tablet | | | | | | + + + +---------+ + + | | Inhale 2 puffs into | | | | | | budesonide-formotero | the lungs 2 (two) | | | | | | l (SYMBICORT) | times daily as | | | | | | 160-4.5 MCG/ACT | needed. | | | | | | inhaler | | | | | | + + + +---------+ + + | buPROPion | Take 200 mg by mouth | | | | | | (WELLBUTRIN SR) 200 | every morning. | | | | | | MG 12 hr tablet | | | | | | + + + +---------+ + + | carBAMazepine | Take 200 mg by mouth | | | | | | (TEGRETOL) 200 MG | 3 (three) times | | | | | | tablet | daily. | | | | | + + + +---------+ + + | Cholecalciferol | Take 1,000 Units by | | | | | | 1000 UNITS capsule | mouth daily. | | | | | + + + +---------+ + + | cyanocobalamin | Take 1,000 mcg by | | | | | | (VITAMIN B-12) 500 | mouth daily. | | | | | | MCG tablet | | | | | | + + + +---------+ + + | ferrous sulfate, | Take 325 mg by mouth | | | | | | 65 FE, 325 (65 FE) | 2 (two) times | | | | | | MG tablet | daily. | | | | | + + + +---------+ + + | fluoxetine | Take 20 mg by mouth | | | | | | (PROZAC) 20 MG | daily. | | | | | | tablet | | | | | | + + + +---------+ + + | insulin aspart | Inject 35 Units into | | | | | | (NOVOLOG) 100 | the skin 3 (three) | | | | | | UNIT/ML injection | times daily before | | | | | | | meals. | | | | | + + + +---------+ + + | isosorbide | Take 1 tablet by | 30 | 11 | 03/06/20 | | | mononitrate (IMDUR) | mouth daily. | tablet | | 17 | | | 120 MG 24 hr tablet | | | | | | + + + +---------+ + + | liraglutide | Inject 1.2 mg into | | | | | | (VICTOZA) 18 MG/3ML | the skin daily. | | | | | | injection | | | | | | + + + +---------+ + + | metoprolol | Take 100 mg by mouth | | | | | | (TOPROL-XL) 200 MG | daily. | | | | | | 24 hr tablet | | | | | | + + + +---------+ + + | Multiple Vitamin | Take 1 capsule by | | | | | | (MULTIVITAMIN) | mouth daily. | | | | | | capsule | | | | | | + + + +---------+ + + | nortriptyline | Take 25 mg by mouth | | | | | | (PAMELOR) 25 MG | nightly. | | | | | | capsule | | | | | | + + + +---------+ + + | pantoprazole | Take 40 mg by mouth | | | | | | (PROTONIX) 40 MG | 2 (two) times daily. | | | | | | tablet | | | | | | + + + +---------+ + + | rosuvastatin | Take 40 mg by mouth | | | | | | (CRESTOR) 40 MG | daily. | | | | | | tablet | | | | | | + + + +---------+ + + | tamsulosin | Take 1 capsule by | 30 | 0 | 03/12/20 | | | (FLOMAX) 0.4 MG | mouth After dinner | capsule | | 18 | | | capsule | for 30 days. | | | | | + + + +---------+ + + | nitroGLYCERIN | Place 1 tablet under | 30 | 0 | 04/30/20 | | | (NITROSTAT) 0.4 MG | the tongue every 5 | tablet | | 17 | | | SL tablet | (five) minutes as | | | | | | | needed for Chest | | | | | | | pain (hold for SBP | | | | | | | less than 100). | | | | | + + + +---------+ + + | | Take 3 mLs by | 360 mL | 0 | 03/12/20 | | | ipratropium-albutero | nebulization every 6 | | | 18 | 8 | | l (DUO-NEB) 0.5-2.5 | (six) hours as | | | | | | mg/3mL | needed for up to 30 | | | | | | | days. | | | | | + + + +---------+ + + | insulin NPH, | Inject 25 Units into | | | | | | human, (HUMULIN) 100 | the skin 2 (two) | | | | 8 | | UNIT/ML injection | times daily before | | | | | | | meals. | | | | | + + + +---------+ + + | predniSONE | Take 2 tablets by | 20 | 0 | 03/12/20 | | | (DELTASONE) 20 MG | mouth daily with | tablet | | 18 | 8 | | tablet | breakfast for 10 | | | | | | | days. 40mg x 2days, | | | | | | | 30mg x2 days, 20mg | | | | | | | x2 days, 10mg x2 | | | | | | | days. 10mg qod x2 | | | | | | | doses. Then stop. | | | | | + + + +---------+ + + | amLODIPine | Take 1 tablet by | 30 | 11 | 03/06/20 | | | (NORVASC) 10 MG | mouth daily. | tablet | | 17 | 8 | | tablet | | | | | | + + + +---------+ + + | ammonium lactate | Apply topically | 385 g | | 01/10/20 | | | (AMLACTIN) 12 % | daily. Apply to | | | 14 | 8 | | cream | bilateral legs daily | | | | | | | after cleaning with | | | | | | | skin wipes. | | | | | + + + +---------+ + + | ascorbic acid | Take 500 mg by mouth | | | | | | (VITAMIN C) 500 MG | daily. | | | | 8 | | tablet | | | | | | + + + +---------+ + + | Ascorbic Acid | Take 500 mg by mouth | | | | | | (VITAMIN C) 500 MG | daily. | | | | 8 | | tablet | | | | | | + + + +---------+ + + | aspirin 81 MG | Take 81 mg by mouth | | | | | | tablet | daily. | | | | 8 | + + + +---------+ + + | aspirin 81 MG | Take 81 mg by mouth | | | | | | tablet | every morning. | | | | 8 | + + + +---------+ + + | clopidogrel | Take 1 tablet by | 30 | 0 | 04/30/20 | | | (PLAVIX) 75 MG | mouth daily. | tablet | | 17 | 8 | | tablet | | | | | | + + + +---------+ + + | famotidine | Take 1 tablet by | 60 | 11 | 01/10/20 | | | (PEPCID) 20 MG | mouth 2 (two) times | tablet | | 14 | 8 | | tablet | daily. | | | | | + + + +---------+ + + | fish oil-omega-3 | Take 1 g by mouth 2 | | | | | | fatty acids 1000 MG | (two) times daily. | | | | 8 | | capsule | | | | | | + + + +---------+ + + | guaifenesin | Take 200 mg by mouth | | | | | | (MUCINEX) 600 MG 12 | as needed. | | | | 8 | | hr tablet | | | | | | + + + +---------+ + + | insulin aspart | Inject 38 Units into | | | | | | (NOVOLOG) 100 | the skin. | | | | 8 | | UNIT/ML injection | | | | | | + + + +---------+ + + | insulin glargine | Inject 43 Units into | 15 mL | 0 | 03/12/20 | | | (LANTUS) 100 UNIT/ML | the skin nightly | | | 18 | 8 | | injection | for 30 days. | | | | | + + + +---------+ + + | insulin lispro, | Inject 30 Units into | 27 mL | 0 | 03/12/20 | | | human, (HUMALOG) 100 | the skin 3 (three) | | | 18 | 8 | | UNIT/ML injection | times daily before | | | | | | | meals for 30 days. | | | | | + + + +---------+ + + | insulin NPH | Inject 66 Units into | 15 mL | | 01/10/20 | | | (NOVOLIN N) 100 | the skin 2 (two) | | | 14 | 8 | | UNIT/ML | times daily before | | | | | | injectionIndications | meals. Indications: | | | | | | : Type 2 Diabetes | Type 2 Diabetes | | | | | | Mellitus | | | | | | + + + +---------+ + + | | Inhale 1 puff into | | | | | | ipratropium-albutero | the lungs. | | | | 8 | | l (DUO-NEB) 0.5-2.5 | | | | | | | mg/3mL | | | | | | + + + +---------+ + + | | Take 3 mLs by | | | | | | ipratropium-albutero | nebulization 4 | | | | 8 | | l (DUONEB) 0.5-2.5 | (four) times daily | | | | | | mg/3mL | as needed. | | | | | + + + +---------+ + + | metoprolol 75 MG | Take 150 mg by mouth | 120 | 5 | 03/06/20 | | | TABSIndications: | 2 (two) times | tablet | | 17 | 8 | | Essential | daily. | | | | | | hypertension | | | | | | + + + +---------+ + + | morphine (MSIR) 15 | Take 7.5-15 mg by | | | 07/20/20 | | | MG tablet | mouth every 4 (four) | | | 17 | 8 | | | hours as needed. | | | | | + + + +---------+ + + | nortriptyline | Take 25 mg by mouth | | | | | | (PAMELOR) 25 MG | nightly. | | | | 8 | | capsule | | | | | | + + + +---------+ + + | omeprazole | Take 40 mg by mouth | | | | | | (PRILOSEC) 40 MG | 2 (two) times daily | | | | 8 | | capsule | before meals. | | | | | + + + +---------+ + + | ranolazine | Take 1 tablet by | 60 | 0 | 03/06/20 | | | (RANEXA) 500 MG 12 | mouth 2 (two) times | tablet | | 17 | 8 | | hr tablet | daily. | | | | | + + + +---------+ + + | senna (SENOKOT) | Take 1 tablet by | | | | | | 8.6 MG tablet | mouth 2 (two) times | | | | 8 | | | daily. | | | | | + + + +---------+ + + | senna-docusate | Take 1 tablet by | | | | | | (PERICOLACE) 8.6-50 | mouth. | | | | 8 | | MG per tablet | | | | | | + + + +---------+ + + | torsemide | Take 10 mg by mouth. | | | 04/07/20 | | | (DEMADEX) 10 MG | | | | 17 | 8 | | tablet | | | | | | + + + +---------+ + + as of this encounter Plan of Treatment Not on fileas of this encounter Procedures + +--------+ + + + | Procedure Name | Priori | Date/Time | Associated Diagnosis | Comments | | | ty | | | | + +--------+ + + + | CT HEAD WO CONTRAST | Routin | 03/09/2018 | Other headache | Results for this | | | e | 11:56 AM | syndrome | procedure are in the | | | | PDT | | results section. | + +--------+ + + + in this encounter Results CT head without contrast (03/09/2018 11:56 AM) + + + | Narrative | Performed At | + + + | This is a non-reportable procedure without a radiologist report and | [facility] | | is used for image storage only | RADIOLOGY | + + + + + + + + | Performing | Address | City/State/Zipcode | Phone Number | | Organization | | | | + + + + + | [facility] | [address] | [place] [address] | | + + + + + in this encounter Visit Diagnoses + + | Diagnosis | + + | Other headache syndrome | + +"
--- OUTSIDE RECORDS SUMMARY | ~2018-05-07 | XMS | Clinical Summary ---
Demographics + + + | Address | [address] | | | [place] [address] | + + + | Home Phone | | + + + | Preferred Language | Unknown | + + + | Marital Status | | + + + | Congregation Affiliation | 1073 | + + + | Race | Unknown | + + + | Ethnic Group | Unknown | + + + Author + + + | Author | [facility] | + + + | Organization | [facility] | + + + | Address | Unknown | + + + | Phone | Unavailable | + + + Support + + + + + | Name | Relationship | Address | Phone | + + + + + | Rosa Fiore | ECON | [address] | | | | | [place] [address] | | + + + + + Care Team Providers + +------+ + | Care Green House Manager Name | Role | Phone | + +------+ + | Vincent Finch | PP | | + +------+ + Allergies + + + + + + | Active Allergy | Reactions | Severity | Noted | Comments | | | | | Date | | + + + + + + | Diltiazem | Syncope | Low | 09/15/19 | | | | | | 13 | | + + + + + + | Hydrochlorothiazide | Other (See Comments) | High | 12/24/19 | collapses | | | | | 12 | | + + + + + + | Metformin | Other (See Comments) | Medium | 01/01/20 | Unknown to pt | | | | | 14 | | + + + + + + | Nitrous Oxide | Anaphylaxis | High | 12/24/19 | | | | | | 12 | | + + + + + + | Carisoprodol | Hallucinations | High | 12/24/19 | | | | | | 12 | | + + + + + + Current Medications + + + +---------+------+------+-------+ | Prescription | Sig. | Disp. | Refills | Star | End | Statu | | | | | | t | Date | s | | | | | | Date | | | + + + +---------+------+------+-------+ | buPROPion | Take 200 mg by mouth | | | | | Activ | | (WELLBUTRIN SR) 200 | every morning. | | | | | e | | MG 12 hr tablet | | | | | | | + + + +---------+------+------+-------+ | Multiple Vitamin | Take 1 capsule by | | | | | Activ | | (MULTIVITAMIN) | mouth daily. | | | | | e | | capsule | | | | | | | + + + +---------+------+------+-------+ | acetaminophen | Take 1,000 mg by | | | | | Activ | | (TYLENOL) 500 MG | mouth daily. | | | | | e | | tablet | | | | | | | + + + +---------+------+------+-------+ | fluoxetine | Take 20 mg by mouth | | | | | Activ | | (PROZAC) 20 MG | daily. | | | | | e | | tablet | | | | | | | + + + +---------+------+------+-------+ | rosuvastatin | Take 40 mg by mouth | | | | | Activ | | (CRESTOR) 40 MG | daily. | | | | | e | | tablet | | | | | | | + + + +---------+------+------+-------+ | ferrous sulfate, | Take 325 mg by mouth | | | | | Activ | | 65 FE, 325 (65 FE) | 2 (two) times | | | | | e | | MG tablet | daily. | | | | | | + + + +---------+------+------+-------+ | | Inhale 2 puffs into | | | | | Activ | | budesonide-formotero | the lungs 2 (two) | | | | | e | | l (SYMBICORT) | times daily as | | | | | | | 160-4.5 MCG/ACT | needed. | | | | | | | inhaler | | | | | | | + + + +---------+------+------+-------+ | Cholecalciferol | Take 1,000 Units by | | | | | Activ | | 1000 UNITS capsule | mouth daily. | | | | | e | + + + +---------+------+------+-------+ | carBAMazepine | Take 200 mg by mouth | | | | | Activ | | (TEGRETOL) 200 MG | 3 (three) times | | | | | e | | tablet | daily. | | | | | | + + + +---------+------+------+-------+ | cyanocobalamin | Take 1,000 mcg by | | | | | Activ | | (VITAMIN B-12) 500 | mouth daily. | | | | | e | | MCG tablet | | | | | | | + + + +---------+------+------+-------+ | insulin aspart | Inject 35 Units into | | | | | Activ | | (NOVOLOG) 100 | the skin 3 (three) | | | | | e | | UNIT/ML injection | times daily before | | | | | | | | meals. | | | | | | + + + +---------+------+------+-------+ | liraglutide | Inject 1.2 mg into | | | | | Activ | | (VICTOZA) 18 MG/3ML | the skin daily. | | | | | e | | injection | | | | | | | + + + +---------+------+------+-------+ | isosorbide | Take 1 tablet by | 30 | 11 | 06/2 | | Activ | | mononitrate (IMDUR) | mouth daily. | tablet | | 2/20 | | e | | 120 MG 24 hr tablet | | | | 17 | | | + + + +---------+------+------+-------+ | nitroGLYCERIN | Place 1 tablet under | 30 | 0 | 08/1 | | Activ | | (NITROSTAT) 0.4 MG | the tongue every 5 | tablet | | 6/20 | | e | | SL tablet | (five) minutes as | | | 17 | | | | | needed for Chest | | | | | | | | pain (hold for SBP | | | | | | | | less than 100). | | | | | | + + + +---------+------+------+-------+ | tamsulosin | Take 1 capsule by | 30 | 0 | 06/2 | | Activ | | (FLOMAX) 0.4 MG | mouth After dinner | capsule | | 8/20 | | e | | capsule | for 30 days. | | | 18 | | | + + + +---------+------+------+-------+ | metoprolol | Take 100 mg by mouth | | | | | Activ | | (TOPROL-XL) 200 MG | daily. | | | | | e | | 24 hr tablet | | | | | | | + + + +---------+------+------+-------+ | pantoprazole | Take 40 mg by mouth | | | | | Activ | | (PROTONIX) 40 MG | 2 (two) times daily. | | | | | e | | tablet | | | | | | | + + + +---------+------+------+-------+ | nortriptyline | Take 25 mg by mouth | | | | | Activ | | (PAMELOR) 25 MG | nightly. | | | | | e | | capsule | | | | | | | + + + +---------+------+------+-------+ | aspirin 81 MG | Take 81 mg by mouth | | | | | Activ | | tablet | daily. | | | | | e | + + + +---------+------+------+-------+ | ranitidine | Take 150 mg by mouth | | | | | Activ | | (ZANTAC) 150 MG | 2 (two) times | | | | | e | | tablet | daily. | | | | | | + + + +---------+------+------+-------+ | Probiotic Product | Take 2 tablets by | | | | | Activ | | (ACIDOPHILUS) CHEW | mouth 3 (three) | | | | | e | | | times daily. | | | | | | + + + +---------+------+------+-------+ | Magnesium Oxide | Take 420 mg by mouth | | | | | Activ | | 420 MG TABS | 2 (two) times | | | | | e | | | daily. | | | | | | + + + +---------+------+------+-------+ | morphine (MSIR) 15 | Take 15 mg by mouth | | | | | Activ | | MG tablet | every 4 (four) hours | | | | | e | | | as needed for Pain. | | | | | | + + + +---------+------+------+-------+ | insulin NPH, | Inject 30 Units into | 15 mL | 12 | 07/0 | | Activ | | human, (HUMULIN) 100 | the skin 2 (two) | | | 5/20 | | e | | UNIT/ML injection | times daily before | | | 18 | | | | | meals. | | | | | | + + + +---------+------+------+-------+ | doxycycline | Take 1 tablet by | 20 | 0 | 07/0 | | Activ | | (ADOXA) 100 MG | mouth 2 (two) times | tablet | | 5/20 | | e | | tablet | daily. | | | 18 | | | + + + +---------+------+------+-------+ | | Take 3 mLs by | 360 mL | 0 | 06/2 | 07/2 | Expir | | ipratropium-albutero | nebulization every 6 | | | 8/20 | 8/20 | ed | | l (DUO-NEB) 0.5-2.5 | (six) hours as | | | 18 | 18 | | | mg/3mL | needed for up to 30 | | | | | | | | days. | | | | | | + + + +---------+------+------+-------+ Active Problems + + + | Problem | Noted Date | + + + | Pyelonephritis | 03/16/2018 | + + + | IDDM (insulin dependent diabetes mellitus) (HCC) | 03/16/2018 | + + + | Morbid obesity (HCC) | 03/16/2018 | + + + | COPD (chronic obstructive pulmonary disease) (HCC) | 03/16/2018 | + + + | HTN (hypertension) | 03/16/2018 | + + + | CKD (chronic kidney disease) stage 3, GFR 30-59 ml/min | 03/16/2018 | + + + | CAD (coronary artery disease) | 03/16/2018 | + + + | CORDELL (obstructive sleep apnea) | 03/16/2018 | + + + | Hyperkalemia | 03/16/2018 | + + + | Slurred speech | 03/09/2018 | + + + | Morbid obesity (HCC) | 03/09/2018 | + + + | Urinary tract infection, site not specified | 04/29/2017 | + + + | Angina at rest (HCC) | 03/06/2017 | + + + | Precordial pain | 03/03/2017 | + + + | COPD (chronic obstructive pulmonary disease) | 03/03/2017 | + + + | Chronic kidney disease, stage III (moderate) | 03/03/2017 | + + + | Syncope and collapse | 03/03/2017 | + + + | BMI 45.0-49.9, adult | 03/03/2017 | + + + | Infection of skin of toes | 03/03/2017 | + + + | CORDELL (obstructive sleep apnea) | 03/03/2017 | + + + | Prolonged Q-T interval on ECG | 03/03/2017 | + + + | Acute chest pain | 06/13/2016 | + + + | Coronary artery disease involving coronary bypass graft of diomede | 06/13/2016 | | heart with angina pectoris (HCC) | | + + + | Venous ulcer of right leg | 06/13/2016 | + + + | Thrombocytopenia, unspecified | 06/13/2016 | + + + | Chronic diastolic heart failure (HCC) | 06/13/2016 | + + + | DJD (degenerative joint disease) Chronic Back Pain | 12/02/2014 | + + + | HLD (hyperlipidemia) | 12/02/2014 | + + + | S/P CABG (coronary artery bypass graft) 1997 [facility] cath 2 | 12/02/2014 | | years ago no stents | | + + + | CKD (chronic kidney disease) stage 3, GFR 30-59 ml/min | 10/01/2013 | + + + | CKD (chronic kidney disease) stage 3, GFR 30-59 ml/min | 10/01/2013 | + + + | H/O asbestosis | 07/12/2013 | + + + | COPD bronchitis (HCC) | 12/24/2011 | + + + | DM (diabetes mellitus) | 12/24/2011 | + + + | HTN (hypertension) | 12/24/2011 | + + + Resolved Problems + + + + | Problem | Noted | Resolved | | | Date | Date | + + + + | Septic shock(785.52) | 12/03/19 | | | | 15 | 5 | + + + + | Fever, unspecified | 12/03/19 | | | | 15 | 5 | + + + + | MEAGAN (acute kidney injury) | 01/06/20 | | | | 14 | 5 | + + + + | Hyperkalemia | 01/06/20 | | | | 14 | 5 | + + + + | Elevated LFTs | 01/05/20 | | | | 14 | 5 | + + + + | Pulmonary nodule | 01/05/20 | | | | 14 | 5 | + + + + | Fadia infection of flexural skin | 10/04/19 | | | | 14 | 5 | + + + + | Acute bronchitis | 10/03/19 | | | | 14 | 5 | + + + + | Angina pectoris (HCC) | 10/03/19 | | | | 14 | 5 | + + + + | Leukocytosis, unspecified | 10/01/19 | | | | 14 | 4 | + + + + | Thrombocytopenia, unspecified | 10/01/19 | | | | 14 | 5 | + + + + | CORDELL (obstructive sleep apnea) | 10/01/19 | | | | 14 | 5 | + + + + | Bacterial pneumonia, unspecified | 09/30/19 | | | | 14 | 4 | + + + + | CAD (coronary artery disease) | 09/30/19 | | | | 14 | 5 | + + + + | COPD exacerbation | 09/30/19 | | | | 14 | 5 | + + + + | Seizure disorder (HCC) | 09/30/19 | | | | 14 | 5 | + + + + | Left leg cellulitis | 09/30/19 | | | | 14 | 4 | + + + + | NSTEMI (non-ST elevated myocardial infarction) | 07/10/20 | | | | 13 | 5 | + + + + | Altered mental status | 09/15/19 | | | | 13 | 5 | + + + + | Seizure (HCC) | 09/15/19 | | | | 13 | 5 | + + + + | Cardiac enzymes elevated | 12/25/19 | | | | 12 | 5 | + + + + | Acute posthemorrhagic anemia | 12/24/19 | | | | 12 | 5 | + + + + | GIB (gastrointestinal bleeding) | 12/24/19 | | | | 12 | 5 | + + + + | CAD of autologous bypass graft | 12/24/19 | | | | 12 | 5 | + + + + Encounters +--------+ + + + + | Date | Type | Specialty | Care Team | Description | +--------+ + + + + | 03/16/ | Hospital | | Ryley Stafford | Pyelonephritis | | 2018 - | Encounter | | MD Fadi Owens | (Primary Dx); | | | | | Orlando Gama MD | Chronic kidney | | 03/19/ | | | | disease, unspecified | | 2017 | | | | CKD stage; | | | | | | Hyperkalemia | +--------+ + + + + +---+ + | | Discharge | | | Summaries | | | - Fadi | | | Orlando | | | MD Natan - | | | 03/19/2018 | | | 2:27 PM | | | PDT | | | Formatting | | | of this | | | note may be | | | different | | | from the | | | original.[facility] | [facility]: | | | Hospitalist | | | Physician | | | Discharge | | | Summary Pt: | | | Adi A | | | White | | | AGE/SEX: 67 | | | y.o. | | | male | | | MRN: | | | [id number] | | | OM: | | | [id number] | | | PCP: | | | Vincent | | | Stef | | | | | | : | | | 1950 | | | Admit date: | | | | | | 03/16/2018Dis | | | charge date | | | and time: | | | 03/19/18 | | | Admitting | | | Physician: | | | Abir S | | | Oskar-Kader | | | , MD | | | Discharge | | | Physician: | | | Orlando K | | | Piryani, | | | MDConsults: | | | Primary | | | Discharge | | | Diagnoses: | | | Principal | | | Problem: | | | Pyelonephri | | | tisActive | | | Problems: | | | IDDM | | | (insulin | | | dependent | | | diabetes | | | mellitus) | | | (HCC) | | | Morbid | | | obesity | | | (HCC) COPD | | | (chronic | | | obstructive | | | pulmonary | | | disease) | | | (HCC) HTN | | | (hypertensi | | | on) CKD | | | (chronic | | | kidney | | | disease) | | | stage 3, | | | GFR 30-59 | | | ml/min CAD | | | (coronary | | | artery | | | disease) | | | CORDELL | | | (obstructiv | | | e sleep | | | apnea) | | | Hyperkalemi | | | aResolved | | | Problems: | | | * No | | | resolved | | | hospital | | | problems. | | | *Secondary | | | Discharge | | | Diagnoses: | | | Discharged | | | Condition: | | | | | | stableSigni | | | ficant | | | Diagnostic | | | Studies: | | | Ct Renal | | | Stone | | | StudyAddend | | | um Date: | | | 03/16/2018 | | | Addendum: | | | There is a | | | typographic | | | al error. | | | Patient is | | | male gender | | | and | | | therefore | | | has not had | | | a | | | hysterectom | | | y. Seminal | | | vesicles | | | and limited | | | portions | | | the base | | | the penis | | | visualized | | | are grossly | | | normal. | | | Electronica | | | lly signed | | | by Prashant T | | | Laron, | | | MD on | | | 03/16/2018 | | | 9:06 | | | PMResult | | | Date: | | | 03/16/20181. | | | No | | | calcified | | | stones or | | | hydronephro | | | sis. 2. | | | Bilateral | | | perinephric | | | stranding | | | and | | | infiltrativ | | | e change | | | could | | | suggest a | | | bilateral | | | pyelonephri | | | tis. | | | Correlate | | | with | | | urinalysis. | | | 3. | | | Exophytic | | | cyst right | | | kidney | | | lower pole | | | 4. Sigmoid | | | | | | diverticulo | | | sis. 5. | | | Bibasilar | | | subsegmenta | | | l | | | atelectasis | | | 6. Prior | | | cholecystec | | | ariana and | | | hysterectom | | | y. | | | Electronica | | | lly signed | | | by Prashant T | | | Laron, | | | MD on | | | 03/16/2018 | | | 8:39 PMHPI | | | and | | | Hospital | | | Course: | | | Mr. 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 At that | | | time he had | | | a Novoa | | | catheter | | | for urinary | | | retention. | | | He | | | presented | | | to | | | emergency | | | department | | | 3 days ago | | | with | | | bilateral | | | flank pain | | | and | | | difficult | | | urination. | | | He denied | | | any fever. | | | White count | | | was | | | minimally | | | elevated at | | | 14.98 with | | | left | | | shift. CT | | | of abdomen | | | showed | | | evidence of | | | bilateral | | | perinephric | | | stranding | | | and | | | infiltrativ | | | e changes | | | suggesting | | | bilateral | | | pyelonephri | | | tis. Urine | | | was also | | | suggestive | | | of UTI and | | | in fact | | | culture | | | grew | | | Staphylococ | | | cus lentus. | | | There was | | | no evidence | | | of | | | hydronephro | | | sis.HOSPITA | | | L COURSE: | | | The | | | patient | | | was | | | initially | | | started on | | | IV | | | ceftriaxone | | | . Novoa | | | catheter | | | was | | | reinserted. | | | This | | | improved | | | the | | | patient's | | | symptoms | | | and flank | | | pain | | | resolved. | | | White count | | | also | | | normalized. | | | This | | | morning | | | Novoa | | | catheter | | | was removed | | | and the | | | patient | | | has since | | | removal | | | patient has | | | urinated | | | multiple | | | times | | | without | | | much | | | difficulty. | | | In my | | | opinion the | | | patient | | | developed | | | complicated | | | UTI and | | | bilateral | | | pyelonephri | | | tis due to | | | recent | | | catheter | | | placement. | | | Plan is to | | | send the | | | patient | | | home on | | | oral | | | doxycycline | | | as per | | | urine | | | culture | | | sensitivity | | | report. He | | | will | | | receive 10 | | | days of | | | oral | | | doxycycline | | | to | | | complete a | | | 2-week | | | course of | | | antibiotics | | | for his | | | pyelonephri | | | tis. The | | | patient | | | has | | | elevation | | | of blood | | | sugars and | | | most | | | readings | | | are around | | | 200. The | | | patient | | | does not | | | follow diet | | | and I | | | advised him | | | to be | | | compliant | | | with | | | dietary | | | management | | | of | | | diabetes. I | | | will | | | increase | | | the dose of | | | Humulin-N | | | from 25 | | | units to 30 | | | units and | | | will resume | | | Victoza | | | upon | | | discharge. | | | The | | | patient's | | | potassium | | | was 5.6 but | | | then | | | normalized | | | and most | | | recent | | | potassium | | | yesterday | | | was 4.6. | | | The patient | | | is much | | | improved | | | hence is | | | discharged | | | home on | | | oral | | | doxycycline | | | . The | | | patient is | | | advised to | | | come to | | | the | | | emergency | | | department | | | in case he | | | goes into | | | acute | | | urinary | | | retention, | | | otherwise | | | he will | | | follow with | | | primary | | | care | | | physician | | | in about 1 | | | week from | | | now and I | | | will | | | instruct | | | PCP to | | | refer him | | | to | | | urologist | | | for further | | | management | | | of | | | urologic | | | symptoms.Di | | | scharge | | | Vitals: | | | Vitals: | | | 03/19/18 | | | 0320 | | | 03/19/18 | | | 0742 | | | 03/19/18 | | | 0829 | | | 03/19/18 | | | 1207 BP: | | | 166/79 | | | 137/65 | | | 151/78 BP | | | Location: | | | Right | | | forearm | | | Right upper | | | arm Right | | | forearm | | | Pulse: 73 | | | 53 77 72 | | | Resp: 20 16 | | | 20 Temp: | | | 98.2 F | | | (36.8 C) | | | 98.2 F | | | (36.8 C) | | | 97.8 F | | | (36.6 C) | | | TempSrc: | | | Oral Oral | | | Oral SpO2: | | | 94% 94% | | | 98% Weight: | | | 153.3 kg | | | (337 lb | | | 14.4 oz) | | | Height: | | | Discharge | | | Exam: | | | Constitutio | | | nal: Alert | | | and | | | oriented to | | | person, | | | place, and | | | time. | | | Appears | | | well-develo | | | ped and | | | well-nouris | | | hed. Obese. | | | | | | Cardiovascu | | | lar: Normal | | | rate, | | | regular | | | rhythm, | | | normal | | | heart | | | sounds with | | | S1 and S2 | | | and intact | | | distal | | | pulses. | | | Exam | | | reveals no | | | gallop and | | | no friction | | | rub. No | | | murmur | | | heard.Pulmo | | | nary/Chest: | | | Effort | | | normal and | | | breath | | | sounds | | | normal. No | | | stridor. No | | | | | | respiratory | | | distress. | | | no | | | wheezes. no | | | rales. | | | exhibits no | | | | | | tenderness. | | | Abdominal: | | | Soft. | | | Bowel | | | sounds are | | | normal. | | | exhibits no | | | distension | | | and no | | | mass. There | | | is no | | | tenderness. | | | There is | | | no rebound | | | and no | | | guarding. | | | Musculoskel | | | etal: | | | Normal | | | range of | | | motion.exhi | | | bits no | | | tenderness. | | | exhibits | | | trace | | | bilateral | | | LE edema. | | | | | | Neurologica | | | l: Alert | | | and | | | oriented to | | | person, | | | place, and | | | time. No | | | cranial | | | nerve | | | deficit. | | | Exhibits | | | diminished | | | muscle | | | tone. | | | Coordinatio | | | n | | | normal.Skin | | | : Skin is | | | warm and | | | dry. No | | | rash noted. | | | No | | | erythema. | | | No pallor. | | | Psychiatric | | | : Has a | | | normal mood | | | and | | | affect. | | | Behavior is | | | normal. | | | Judgment | | | normal. | | | LABS: | | | Recent | | | LabsLab | | | | | | 0 | | | | | | 8 | | | | | | 5 WBC 9.01 | | | 11.53* | | | 14.98* HGB | | | 12.7* 12.4* | | | 12.0* HCT | | | 37.4* 37.3* | | | 35.9* PLT | | | 113* 117* | | | 110* | | | NEUTOPHILPC | | | T 69.14 | | | 79.60 89.10 | | | MONOPCT | | | 9.99 7.38 | | | 5.19 Recent | | | [facility] | | | | | | 0 | | | | | | 8 | | | | | | 5 NA 137 | | | 137 137 K | | | 4.6 4.5 | | | 5.6* CL 103 | | | 103 103 | | | CO2 27 25 | | | 27 BUN 33* | | | 35* 34* | | | CREATININE | | | 1.5* 1.5* | | | 1.5* PROT | | | -- -- | | | 6.0* | | | BILITOT -- | | | -- 0.2 | | | ALT -- | | | -- 51 AST | | | -- -- | | | 29 Invalid | | | input(s): | | | LABALBURece | | | nt LabsLab | | | | | | 8 MG 2.0 No | | | results | | | for | | | input(s): | | | AMYLASE in | | | the last | | | 168 | | | hours.No | | | results for | | | input(s): | | | PHART, | | | PO2ART, | | | [id number], | | | [id number], | | | BEART in | | | the last | | | 168 | | | hours.Recen | | | t [facility] | | | | | | 5 APTT 26 | | | INR 0.9 | | | Recent | | | LabsLab | | | | | | 1 | | | | | | 0 | | | | | | 4 | | | | | | 5 CKTOTAL | | | -- -- | | | -- 149 | | | TROPONINI | | | <0.020 | | | <0.020 | | | <0.020 0.02 | | | CKMBINDEX | | | -- -- | | | -- 5.0 | | | Disposition | | | : Home or | | | Self | | | CarePatient | | | | | | Instruction | | | s: | | | Medication | | | List You | | | have not | | | been | | | prescribed | | | any | | | medications | | | . Activity: | | | activity | | | as | | | toleratedDi | | | et: | | | diabetic | | | dietWound | | | Care: not | | | applicableT | | | otal time | | | of | | | discharge: | | | 35 minutes. | | | This | | | included | | | talking to | | | patient, | | | examining | | | patient, | | | discussing | | | outpatient | | | plan of | | | care, | | | reconciling | | | home | | | medications | | | and | | | dictating | | | discharge | | | summary.Fol | | | low-up with | | | PCP in 1 | | | week. | | | Signed:Sure | | | sh K | | | Minhi, | | | MD | | | :27 PM | +---+ + +--------+ +---+ + + | 03/09/ | Hospital | | Bruce Anne MD | Hyperkalemia | | 2017 - | Encounter | | | (Primary Dx); | | | | | | Diagnosis unknown | | 03/13/ | | | | | | 2017 | | | | | +--------+ +---+ + + +---+ + | | Discharge | | | Summaries | | | - Ton, Bruce | | | A, MD - | | | 03/12/2018 | | | 12:19 PM | | | PDT | | | Formatting | | | of this | | | note may be | | | different | | | from the | | | original.[facility] | | [facility]: | | | Hospitalist | | | Discharge | | | SummaryDate | | | of | | | Admission: | | | | | | 03/09/2018Da | | | te of | | | Discharge: | | | | | | 03/12/2018.D | | | ischarge | | | Provider: | | | Bruce A Ton, | | | | | | MDTreatment | | | Team: | | | Consulting | | | Physician: | | | Sai | | | Arif, | | | MDAdmitting | | | Provider: | | | Bruce A Ton, | | | | | | MDDischarge | | | Diagnoses: | | | | | | Principal | | | Problem: | | | Slurred | | | speechActiv | | | e Problems: | | | DM | | | (diabetes | | | mellitus) | | | HTN | | | (hypertensi | | | on) | | | Coronary | | | artery | | | disease | | | involving | | | coronary | | | bypass | | | graft of | | | diomede | | | heart with | | | angina | | | pectoris | | | (HCC) | | | Chronic | | | diastolic | | | heart | | | failure | | | (HCC) | | | Morbid | | | obesity | | | (HCC) CKD | | | (chronic | | | kidney | | | disease) | | | stage 3, | | | GFR 30-59 | | | ml/minResol | | | bharath | | | Problems: | | | Seizure | | | disorder | | | (HCC)Proced | | | ures: * No | | | surgery | | | found | | | *BRIEF | | | HISTORY OF | | | PRESENTATIO | | | N: | | | Adi A | | | White is a | | | 67 y.o. | | | male who | | | per H&P: | | | The patient | | | is a 67 | | | y.o. male | | | with | | | significant | | | past | | | medical | | | history of | | | CAD with | | | CABG x4, | | | COPD and | | | asthma with | | | a | | | stenosis, | | | hearing | | | loss, HTN, | | | T2DM, h/o | | | seizures, | | | CKD stage | | | III, | | | presented | | | with direct | | | [facility] | | [facility] [place] | | | for the | | | concern of | | | stroke. | | | There was | | | also | | | concern | | | that it | | | could also | | | be | | | hypoglycemi | | | c event. | | | There's no | | | MRI | | | capability | | | there and | | | so pt came | | | to [facility] | | | for MRI | | | capability. | | | He started | | | having | | | garbled | | | speech | | | since last | | | night, and | | | presented | | | to ER in | | | [place] | | | around 0300 | | | hours with | | | | | | significant | | | garbled | | | speech. | | | Patient was | | | able to | | | follow | | | commands | | | weakly but | | | equally, | | | according | | | to their | | | record. | | | Generalized | | | and not | | | focal | | | weakness | | | was noted | | | on initial | | | presentatio | | | n. | | | According | | | to patient | | | he did not | | | feel | | | weakness of | | | one side | | | versus the | | | other | | | during this | | | morning. | | | He does not | | | recall | | | dropping | | | things. | | | Denies any | | | fever or | | | chills he | | | denies any | | | diaphoresis | | | with this, | | | he denies | | | any chest | | | pain with | | | this.Pt | | | with | | | history of | | | CVAs x4 in | | | the past. | | | Pt denies | | | any Nausea, | | | vomiting, | | | fever, | | | chills, wt | | | loss, wt | | | gain. In | | | Rogers | | | last was | | | done and | | | shows CK of | | | 268, | | | troponin | | | was | | | negative. | | | D-dimer in | | | the normal | | | range. UA | | | was | | | relatively | | | normal. The | | | rest of | | | CBC BMP | | | were | | | relatively | | | normal. No | | | leukocytosi | | | s noted. No | | | renal | | | insufficien | | | cy noted. | | | EKG shows | | | first-degre | | | e AV block | | | otherwise | | | sinus.On | | | review of | | | system | | | patient | | | denies any | | | weight loss | | | or weight | | | gain. | | | Although he | | | is quite | | | debilitated | | | . He can | | | only walk | | | about 5-10 | | | feet. | | | Sleep, | | | appetite, | | | has been | | | relatively | | | the same. | | | Although he | | | sleeps at | | | times are | | | not good. | | | He is not | | | aware of | | | any | | | snoring. | | | Patient | | | occasionall | | | y complains | | | of pain in | | | the left | | | side of | | | abdomen.He | | | uses I | | | wheelchair | | | for | | | mobility. | | | Patient | | | rarely | | | leaves his | | | house. | | | does most | | | cooking.Dur | | | ing my | | | encounter | | | patient in | | | room 7122 | | | he was | | | quite | | | shortness | | | of breath | | | and quite | | | dyspneic | | | just laying | | | in bed. | | | Audible | | | wheezes | | | were noted. | | | Use of | | | accessory | | | muscles | | | were also | | | evident. | | | Although | | | patient can | | | still | | | speaks in | | | complete | | | sentences. | | | Both are | | | encounter | | | patient he | | | speech is | | | much clear | | | and very | | | HOSPITAL | | | COURSE: | | | Slurred | | | speech: | | | Resolved on | | | | | | presentatio | | | n | | | yesterday. | | | aspirin and | | | Plavix | | | that he has | | | been | | | taking from | | | home. | | | Pending MRI | | | study. | | | However | | | renal | | | status is | | | compromised | | | . Plan for | | | MRI of the | | | head | | | 03/10.03/11: | | | MRI | | | negative | | | for acute | | | strokes. H | | | yperkalemia | | | : 03/10 | | | Status post | | | Lasix and | | | Kayexalate. | | | Still | | | elevated. | | | Will give | | | another | | | dose of | | | lasix and | | | check pot | | | at 1800 | | | hours. 03/11 | | | improved | | | with lasix. | | | Will give | | | another | | | dose today. | | | Recheck | | | bmp at | | | 1500. MRI | | | done and | | | showed no | | | acute | | | ischemic | | | changes. | | | 03/12: | | | Resolved.Re | | | nal | | | insufficien | | | cy: On | | | chronic | | | kidney | | | disease: | | | 03/10 | | | Continue IV | | | fluids for | | | now.03/11 | | | Stop IVFs, | | | give | | | another | | | dose of | | | lasix. | | | Renal | | | status | | | improving. | | | Hypertensi | | | on: | | | Presently | | | controlled | | | at this | | | time. Not | | | elevated as | | | would be | | | expected in | | | subacute | | | stroke.Urin | | | gideon | | | retention: | | | We will | | | need to | | | continue | | | with Novoa | | | catheter. | | | Flomax was | | | added by | | | nephrology | | | Dr. Keys. | | | Will need | | | to see | | | urology DrKaden | | | Jamel in | | | an | | | outpatient | | | basis for | | | further | | | evaluations | | | . Chest | | | pain: | | | Patient | | | repeatedly | | | complain of | | | chest pain | | | at times, | | | workup has | | | been | | | negative; | | | most likely | | | esophageal | | | spasms. | | | Patient | | | continues | | | to have | | | intermitten | | | t pain | | | chest pain | | | during the | | | hospital | | | stay | | | despite | | | being on | | | Ranexa. | | | Therefore | | | in the | | | setting of | | | recurrent | | | chest pain | | | most likely | | | of | | | esophageal | | | and GI | | | source | | | rather than | | | cardiac. | | | We will | | | stop Ranexa | | | due to | | | risks and | | | benefits of | | | | | | polypharmac | | | y. Type II | | | diabetes: | | | Continue | | | blood sugar | | | checks; | | | A1c 7.9. | | | Consult | | | diabetic | | | education.H | | | istory of | | | Renal | | | insufficien | | | cy; | | | continue to | | | monitor | | | renal | | | status. BS | | | quite | | | elevated; | | | pt is also | | | eating. | | | Will start | | | lantus 40 | | | units bid. | | | Pt takes 66 | | | units NPH | | | bid. 03/11: | | | Blood sugar | | | still | | | quite | | | elevated. | | | We will add | | | daytime | | | insulin | | | Humalog of | | | 30 units | | | for meals | | | and | | | decrease | | | Lantus to | | | daily bid | | | 43 | | | units.03/12: | | | Insulin | | | regimen was | | | changed to | | | Lantus | | | with 3 | | | times a day | | | short | | | acting | | | insulin. | | | Will | | | continue | | | this in an | | | outpatient | | | basis since | | | it appears | | | that his | | | NPH twice a | | | day may | | | not be a | | | sufficient. | | | He will | | | need to | | | continue | | | blood sugar | | | checks at | | | least 3 | | | times a day | | | prior to | | | short | | | acting | | | insulin | | | injection. | | | COPD | | | exacerbatio | | | n: We will | | | start | | | DuoNeb's. | | | Add | | | steroids | | | IV. | | | Improving. | | | Changed to | | | q12 hours.. | | | Stable. | | | Patient has | | | been on | | | Florinef. | | | IV steroid | | | be stopped | | | prior to | | | discharge | | | and | | | continue | | | with | | | prednisone | | | taper. We | | | will also | | | prescribe | | | DuoNeb an | | | outpatient | | | basis. | | | Patient | | | initially | | | presented | | | with | | | significant | | | | | | respiratory | | | | | | difficulty. | | | Coronary | | | artery | | | disease | | | with | | | history of | | | CABG | | | 1997 5 | | | vessels. L | | | ast echo | | | was March | | | 2014. Last | | | heart | | | catheter | | | was [place] | | | 2016. | | | Repeated | | | echo on | | | 03/03/2017 | | | shows | | | normal EF | | | with mild | | | concentric | | | left | | | ventricular | | | | | | hypertrophy | | | . Mild | | | stenosis. | | | Will repeat | | | echo | | | today. EF | | | then was | | | 60-65 | | | percent.Cruz | | | ypharmacy: | | | This is a | | | quite | | | significant | | | concern | | | and | | | therefore | | | will try to | | | taper down | | | some his | | | medications | | | . Disposit | | | ion: | | | resolution | | | of renal | | | function | | | and | | | hyperkalemi | | | a, possibly | | | discharge | | | 03/12. | | | However I | | | am quite | | | concerned | | | about his | | | overall | | | medical and | | | clinical | | | condition | | | as he can | | | decompensat | | | e quite | | | rapidly and | | | an | | | outpatient | | | basis. | | | Patient is | | | a fragile | | | individual | | | with | | | multiple | | | medical | | | issues | | | chronically | | | .Past | | | Medical | | | History | | | Diagnosis | | | Date | | | Anxiety | | | | | | | | | Asbestosis( | | | 501) | | | Asthma | | | | | | CHF | | | (congestive | | | heart | | | failure) | | | (HCC) | | | CKD | | | (chronic | | | kidney | | | disease) | | | stage 3, | | | GFR 30-59 | | | ml/min | | | 10/01/2013 | | | | | | COPD | | | (chronic | | | obstructive | | | pulmonary | | | disease) | | | (HCC) | | | Coronary | | | artery | | | disease | | | Diabetes | | | mellitus | | | type II | | | H/O | | | asbestosis | | | 07/12/2013 | | | | | | Hearing | | | loss | | | | | | Hemorrhage | | | of | | | gastrointes | | | tinal | | | tract, | | | unspecified | | | | | | HLD | | | (hyperlipid | | | emia) | | | 12/02/2014 | | | | | | | | | Hypertensio | | | n | | | Joint | | | pain | | | [place], old | | | | | | Other | | | chronic | | | pain | | | Seizure | | | (HCC) | | | 09/15/2012 | | | Sleep | | | apnea | | | | | | Unspecified | | | visual | | | disturbance | | | Past | | | Surgical | | | History | | | Procedure | | | Laterality | | | Date | | | CARDIAC | | | SURGERY | | | | | | | | | CHOLECYSTEC | | | ARIANA | | | | | | COLONOSCOPY | | | | | | | | | COLONOSCOPY | | | WITH EGD | | | N/A | | | 12/25/2011 | | | Procedure: | | | COLONOSCOPY | | | W/ EGD; | | | Surgeon: | | | Hoyeol | | | MD Hardik; | | | Location: | | | [facility] | | | ENDOSCOPY; | | | Service: | | | Gastroenter | | | ology; | | | Laterality: | | | N/A; | | | CORONARY | | | ARTERY | | | BYPASS | | | GRAFT | | | HARDWARE | | | REMOVAL | | | | | | HERNIA | | | REPAIR | | | INGUINAL | | | HERNIA | | | REPAIR | | | SHOULDER | | | SURGERY | | | | | | | | | TONSILLECTO | | | MY | | | | | | undescended | | | testicle | | | surgery | | | | | | UNLISTED | | | PROCEDURE | | | ARTHROSCOPY | | | r | | | shoulder | | | Allergies | | | Allergen | | | Reactions | | | | | | | | | Hydrochloro | | | thiazide | | | Other (See | | | Comments) | | | collapses | | | | | | Nitrous | | | Oxide | | | Anaphylaxis | | | | | | Soma | | | [Carisoprod | | | ol] | | | Hallucinati | | | ons | | | Metformin | | | Other (See | | | Comments) | | | Unknown | | | to pt | | | Diltiazem | | | Syncope | | | Prescriptio | | | ns Prior to | | | Admission | | | Medication | | | Sig | | | Dispense | | | Refill Last | | | Dose | | | | | | acetaminoph | | | en | | | (TYLENOL) | | | 500 MG | | | tablet Take | | | 1,000 mg | | | by mouth 3 | | | (three) | | | times | | | daily. | | | at unknown | | | | | | | | | amLODIPine | | | (NORVASC) | | | 10 MG | | | tablet Take | | | 1 tablet | | | by mouth | | | daily. 30 | | | tablet 11 | | | at unknown | | | | | | ammonium | | | lactate | | | (AMLACTIN) | | | 12 % cream | | | Apply | | | topically | | | daily. | | | Apply to | | | bilateral | | | legs daily | | | after | | | cleaning | | | with skin | | | wipes. 385 | | | g Unknown | | | at Unknown | | | time | | | ascorbic | | | acid | | | (VITAMIN C) | | | 500 MG | | | tablet Take | | | 500 mg by | | | mouth | | | daily. | | | at unknown | | | | | | aspirin | | | 81 MG | | | tablet Take | | | 81 mg by | | | mouth | | | daily. | | | at unknown | | | | | | | | | budesonide- | | | formoterol | | | (SYMBICORT) | | | 160-4.5 | | | MCG/ACT | | | inhaler | | | Inhale 2 | | | puffs into | | | the lungs 2 | | | (two) | | | times | | | daily. | | | at unknown | | | | | | buPROPion | | | | | | (WELLBUTRIN | | | SR) 100 MG | | | 12 hr | | | tablet Take | | | 200 mg by | | | mouth every | | | morning. | | | at | | | unknown | | | | | | carBAMazepi | | | ne | | | (TEGRETOL) | | | 200 MG | | | tablet Take | | | 200 mg by | | | mouth 3 | | | (three) | | | times | | | daily. | | | at unknown | | | | | | | | | Cholecalcif | | | jessica 1000 | | | UNITS | | | capsule | | | Take 1,000 | | | Units by | | | mouth 2 | | | (two) times | | | daily. | | | at unknown | | | | | | | | | clopidogrel | | | (PLAVIX) | | | 75 MG | | | tablet Take | | | 1 tablet | | | by mouth | | | daily. 30 | | | tablet 0 | | | | | | | | | cyanocobala | | | min | | | (VITAMIN | | | B-12) 500 | | | MCG tablet | | | Take 500 | | | mcg by | | | mouth | | | daily. | | | at unknown | | | | | | FERROUS | | | SULFATE PO | | | Take 325 mg | | | by mouth 3 | | | (three) | | | times | | | daily. | | | at unknown | | | | | | fish | | | oil-omega-3 | | | fatty | | | acids 1000 | | | MG capsule | | | Take 1 g by | | | mouth 2 | | | (two) times | | | daily. | | | at unknown | | | | | | | | | fluoxetine | | | (PROZAC) 20 | | | MG tablet | | | Take 20 mg | | | by mouth | | | daily. | | | at unknown | | | | | | | | | guaifenesin | | | (MUCINEX) | | | 600 MG 12 | | | hr tablet | | | Take 200 mg | | | by mouth | | | as needed. | | | at | | | unknown | | | insulin | | | aspart | | | (NOVOLOG) | | | 100 UNIT/ML | | | injection | | | Inject 36 | | | Units into | | | the skin 3 | | | (three) | | | times daily | | | before | | | meals. | | | at unknown | | | | | | | | | ipratropium | | | -albuterol | | | (DUONEB) | | | 0.5-2.5 | | | mg/3mL Take | | | 3 mLs by | | | nebulizatio | | | n 4 (four) | | | times daily | | | as needed. | | | at | | | unknown | | | | | | isosorbide | | | mononitrate | | | (IMDUR) | | | 120 MG 24 | | | hr tablet | | | Take 1 | | | tablet by | | | mouth | | | daily. 30 | | | tablet 11 | | | at unknown | | | | | | | | | liraglutide | | | (VICTOZA) | | | 18 MG/3ML | | | injection | | | Inject 1.2 | | | mg into the | | | skin | | | daily. | | | at unknown | | | | | | | | | metoprolol | | | 75 MG TABS | | | Take 150 mg | | | by mouth 2 | | | (two) | | | times | | | daily. 120 | | | tablet 5 | | | at unknown | | | | | | Multiple | | | Vitamin | | | (MULTIVITAM | | | IN) capsule | | | Take 1 | | | capsule by | | | mouth | | | daily. | | | at unknown | | | | | | | | | nitroGLYCER | | | IN | | | (NITROSTAT) | | | 0.4 MG SL | | | tablet | | | Place 1 | | | tablet | | | under the | | | tongue | | | every 5 | | | (five) | | | minutes as | | | needed for | | | Chest pain | | | (hold for | | | SBP less | | | than 100). | | | 30 tablet 0 | | | | | | | | | omeprazole | | | (PRILOSEC) | | | 40 MG | | | capsule | | | Take 40 mg | | | by mouth 2 | | | (two) times | | | daily | | | before | | | meals. | | | at unknown | | | | | | | | | rosuvastati | | | n (CRESTOR) | | | 40 MG | | | tablet Take | | | 40 mg by | | | mouth | | | daily. | | | at unknown | | | | | | senna | | | (SENOKOT) | | | 8.6 MG | | | tablet Take | | | 1 tablet | | | by mouth 2 | | | (two) times | | | daily. | | | at unknown | | | DISCHARGE | | | EXAMVital | | | Signs:BP | | | 140/70 (BP | | | Location: | | | Right upper | | | arm) | | | | Pulse 86 | | | | Temp 97.7 | | | F (36.5 | | | C) (Oral) | | | | Resp 22 | | | | Ht | | | 1.829 m | | | (6') | Wt | | | 157.4 kg | | | (347 lb) | | | | SpO2 98% | | | | BMI 47.06 | | | kg/m | | | General | | | Appearance: | | | | | | Encountered | | | patient in | | | room 7122 | | | sitting in | | | bed eating | | | and | | | comfortable | | | . No | | | apparent | | | distress. | | | Conversive | | | and | | | appropriate | | | to place | | | and | | | person.HEEN | | | T: | | | Normocephal | | | ic, | | | atraumatic, | | | pupils | | | EOMI, | | | PERRLA. | | | Nose: no | | | septal | | | deviation | | | or | | | discharge | | | noted. | | | Ears: | | | normal | | | size, | | | location, | | | and | | | contour. | | | Throat dry | | | and without | | | | | | exudates.NE | | | CK: is | | | supple, | | | full ROM, | | | nontender.L | | | UNGS: | | | Difficult | | | to assess | | | habitus to | | | auscultatio | | | n | | | bilaterally | | | with no | | | obvious | | | wheezing, | | | No rales or | | | rhonchi | | | audible. No | | | | | | tachypneaHE | | | ART: S1S2, | | | Regular | | | rate and | | | rhythm | | | without | | | murmurs, | | | gallops or | | | rubs.ABDOME | | | N: Morbidly | | | obese | | | Bowel sound | | | is | | | normoactive | | | , abdomen | | | is soft, | | | non-tender | | | non-distend | | | ed ,no mass | | | | | | palpable.EX | | | TREMITIES: | | | Mild | | | pitting | | | lateral | | | lower | | | extermity | | | edema, | | | Muscle | | | strength | | | quite weak | | | bilaterally | | | . | | | Hyperkerato | | | sis of the | | | lower | | | extremity | | | skin.NEURO: | | | Cranial | | | Nerves 2-12 | | | appears | | | intact, | | | Gait not | | | tested, | | | PSYCH: | | | Alert, | | | awake and | | | Oriented | | | x3. SKIN: | | | No | | | significant | | | bruises, | | | rashes, | | | lesions, or | | | | | | ulcers.DATA | | | Recent | | | [facility] | | | 03/10/17653 | | | 6 | | | 03/09/28537 | | | 4 WBC 9.23 | | | 6.22 RBC | | | 4.37 4.17* | | | HGB 14.2 | | | 13.4 HCT | | | 42.3 40.1 | | | MCV 96.8 | | | 96.3 MCH | | | 32.6 32.2 | | | MCHC 33.6 | | | 33.4 RDW | | | 47.7 49.0 | | | PLT 144* | | | 120* MPV | | | 10.1 8.0 | | | NEUTOPHILPC | | | T 89.64 -- | | | MONOPCT | | | 1.59 -- | | | Recent | | | [facility] | | | | | | 8 | | | | | | 1 | | | | | | 3 NA 133* | | | < > -- < | | | > -- K | | | 4.7 < > | | | -- < > | | | -- CL 100 | | | < > -- | | | < > -- | | | CO2 27 < > | | | -- < > | | | -- | | | ANIONGAP 11 | | | < > -- | | | < > -- | | | GLUF 230* | | | < > -- < | | | > -- BUN | | | 33* < > | | | -- < > | | | -- | | | CREATININE | | | 1.5* < > | | | -- < > | | | -- BCR 22 | | | < > -- | | | < > -- CA | | | 8.2* < > | | | -- < > | | | -- EGFR | | | 47* < > | | | -- < > | | | -- PHOS | | | -- -- | | | -- -- | | | 3.4 MG -- | | | -- -- | | | -- 2.0 | | | BNP -- | | | -- 480* | | | -- -- < | | | > = values | | | in this | | | interval | | | not | | | displayed.R | | | ecent | | | [facility] | | | | | | 6 HGBA1C | | | 7.6* | | | LABGLYC 171 | | | No results | | | for | | | input(s): | | | APTT, INR, | | | PTT in the | | | last 168 | | | hours.No | | | results for | | | input(s): | | | TSH, | | | T3FREE, | | | FREET4 in | | | the last | | | 168 | | | hours.Recen | | | t [facility] | | | | | | 9 | | | | | | 4 CKTOTAL | | | -- -- | | | 192 | | | TROPONINI | | | <0.020 < > | | | <0.020 < > | | | = values | | | in this | | | interval | | | not | | | displayed.H | | | DL CHOL | | | Date Value | | | Ref Range | | | Status | | | 04/29/2017 | | | 39 (L) >40 | | | mg/dL Final | | | | | | CHOLESTEROL | | | Date Value | | | Ref Range | | | Status | | | 04/29/2017 | | | 150 <200 | | | mg/dL Final | | | Ct Head | | | Without | | | ContrastRes | | | ult Date: | | | 03/09/2018Th | | | is is a | | | non-reporta | | | ble | | | procedure | | | without a | | | radiologist | | | report and | | | is used | | | for image | | | storage | | | onlyMri | | | Brain | | | Without | | | ContrastRes | | | ult Date: | | | 03/10/2018MA | | | RK A WHITE | | | MRI BRAIN | | | WO CONTRAST | | | 03/10/2018 | | | 3:45 PM | | | HISTORY: 67 | | | years. | | | Male. | | | Garbled | | | speech. | | | Assess for | | | stroke. | | | TECHNIQUE: | | | Imaging was | | | performed | | | on a 1.5 | | | Karen MRI | | | system. | | | Multiplanar | | | sequences | | | were | | | acquired | | | according | | | to a | | | standard | | | department | | | protocol | | | without | | | contrast. | | | COMPARISON: | | | Outside CT | | | head | | | 03/09/2018 | | | [facility] | | [facility] stroke | | | 09/15/2012 | | | FINDINGS: | | | Moderate | | | diffuse | | | cerebral | | | atrophy is | | | seen with | | | enlarged | | | cisterns | | | and sulci. | | | The DWI | | | sequence | | | shows no | | | evidence of | | | acute | | | ischemia or | | | infarct. | | | The T2* GRE | | | sequence | | | does not | | | show low | | | signal | | | material to | | | suggest | | | microhemorr | | | hages or | | | calcificati | | | on within | | | the brain | | | parenchyma. | | | A few | | | scattered | | | foci of | | | chronic | | | microvascul | | | ar ischemic | | | gliosis | | | are noted | | | in the | | | bihemispher | | | ic frontal | | | lobe white | | | matter and | | | central | | | nicholas | | | typical of | | | the | | | combination | | | of | | | long-standi | | | ng | | | hypertensio | | | n and | | | diabetes. | | | This is | | | concordant | | | with the | | | patient's | | | medical | | | history and | | | appears | | | largely | | | unchanged | | | from | | | September | | | 2012. No | | | extraaxial | | | fluid | | | collections | | | are noted. | | | The | | | midline | | | structures | | | including | | | the corpus | | | callosum, | | | nicholas, | | | cerebellar | | | vermis, | | | pineal | | | gland and | | | pituitary | | | are normal. | | | No masses | | | are seen | | | in the | | | region of | | | the | | | cerebellopo | | | ntine | | | angles or | | | internal | | | auditory | | | canals. | | | The orbits | | | and their | | | contents | | | are normal. | | | The | | | paranasal | | | sinuses are | | | well | | | aerated. | | | No | | | air-fluid | | | levels or | | | mucosal | | | thickening | | | is noted. | | | No fluid | | | seen in the | | | mastoids. | | | The | | | osseous | | | structures | | | of the | | | calvaria | | | and upper | | | cervical | | | spine | | | demonstrate | | | normal | | | bone marrow | | | signal | | | intensity. | | | The soft | | | tissues of | | | the | | | oropharynx | | | and upper | | | neck appear | | | normal on | | | the | | | sagittal | | | sequences. | | | The | | | intracrania | | | l arteries | | | demonstrate | | | normal | | | flow voids | | | on the T2 | | | sequence. | | | No large | | | aneurysm is | | | noted. | | | The dural | | | venous | | | sinuses | | | also | | | demonstrate | | | normal | | | flow-voids. | | | 1. No | | | acute | | | intracrania | | | l finding | | | such as | | | infarct, | | | ischemia or | | | | | | hemorrhage. | | | 2. | | | Minimal | | | chronic | | | microvascul | | | ar ischemic | | | scoliosis | | | in the | | | frontal | | | lobe white | | | matter and | | | central | | | nicholas | | | largely | | | unchanged | | | from | | | September | | | 2012. This | | | is | | | concordant | | | with the | | | patient's | | | history of | | | diabetes | | | and | | | hypertensio | | | n. 3. | | | Moderate | | | cerebral | | | atrophy. | | | [employer] | | | lly signed | | | by Naga | | | Iuliano, DO | | | on | | | 03/10/2018 | | | 4:38 PMXr | | | Chest 1 | | | ViewResult | | | Date: | | | 03/09/2018MA | | | RK A WHITE | | | XR CHEST 1 | | | VIEW | | | 03/09/2018 | | | 10:19 PM | | | HISTORY: | | | Chest pain. | | | TECHNIQUE: | | | Frontal | | | chest | | | radiograph | | | 2209 hours. | | | | | | COMPARISON: | | | Chest | | | radiographs | | | , most | | | recent | | | April 28, | | | 2016. | | | FINDINGS: | | | Low lung | | | volumes. | | | Mild | | | strandy | | | opacities | | | at the lung | | | bases | | | suggesting | | | subsegmenta | | | l | | | atelectasis | | | . No lung | | | mass or | | | significant | | | focal | | | region of | | | consolidati | | | on. Normal | | | pulmonary | | | vasculature | | | when | | | accounting | | | for low | | | lung | | | volumes. | | | Intact | | | median | | | sternotomy | | | wires and | | | left | | | mediastinal | | | clips. | | | Suture | | | anchors in | | | the right | | | humerus | | | proximally. | | | Probable | | | surgical | | | foreshorten | | | ing of the | | | right | | | distal | | | clavicle. | | | 1. Chronic | | | findings, | | | as above | | | without | | | acute | | | disease. | | | Electronica | | | lly signed | | | by Raf C | | | Koskinen, | | | MD on | | | 03/09/2018 | | | 10:29 PMUs | | | Kidneys And | | | | | | BladderResu | | | lt Date: | | | 03/09/2018MA | | | RK A WHITE | | | US KIDNEYS | | | AND BLADDER | | | 03/09/2018 | | | 11:25 PM | | | HISTORY: 67 | | | years. | | | Male. | | | Acute renal | | | | | | insufficien | | | cy. | | | TECHNIQUE: | | | Sonographic | | | evaluation | | | of the | | | kidneys and | | | urinary | | | bladder, | | | using a | | | 4-MHz | | | curved | | | array | | | transducer. | | | | | | COMPARISON: | | | CT abdomen | | | dated | | | October 13, | | | 2012.. | | | FINDINGS: | | | Imaging is | | | very | | | limited due | | | to patient | | | body | | | habitus and | | | overlying | | | bowel gas. | | | Right | | | Kidney: | | | 12.1 cm | | | greatest | | | longitudina | | | l | | | dimension. | | | There is no | | | gross | | | evidence of | | | | | | hydronephro | | | sis or | | | renal mass. | | | No large | | | nephroliths | | | are | | | identified. | | | Left | | | Kidney: | | | 12.6 cm | | | greatest | | | longitudina | | | l | | | dimension. | | | There is no | | | gross | | | evidence of | | | | | | hydronephro | | | sis or | | | renal mass. | | | No large | | | nephroliths | | | are | | | identified. | | | The | | | urinary | | | bladder is | | | nondistende | | | d due to an | | | indwelling | | | Novoa | | | catheter. | | | 1. Very | | | limited | | | study due | | | to patient | | | body | | | habitus and | | | overlying | | | bowel gas. | | | 2. No | | | gross | | | evidence of | | | | | | hydronephro | | | sis. 3. | | | Indwelling | | | Novoa | | | catheter | | | with | | | nondistende | | | d urinary | | | bladder. | | | Electronica | | | lly signed | | | by Raf C | | | Koskinen, | | | MD on | | | 03/09/2018 | | | 11:35 | | | PMEcho | | | Cardiac | | | Adult With | | | ContrastRes | | | ult Date: | | | 03/10/2018Pa | | | tient Name: | | | WHITE, | | | ADI Date | | | of : | | | 1950 | | | Accession: | | | [id number] | | | Performing | | | Physician: | | | Dejan | | | Zuroske MD | | | | | | | | | | | | | | | | | | | | | INDICATIONS | | | | | | | | | SHORTNESS | | | OF BREATH | | | CONCLUSIONS | | | | | | | | | 1. This | | | was a | | | technically | | | difficult | | | study with | | | suboptimal | | | views. 2. | | | Overall | | | left | | | ventricular | | | systolic | | | function is | | | normal | | | with, an EF | | | between 60 | | | - 65 %. 3. | | | The right | | | ventricle | | | is normal | | | in size. 4. | | | The left | | | atrial size | | | is normal. | | | 5. Trace | | | amount of | | | aortic | | | regurgitati | | | on. 6. | | | Moderate | | | aortic | | | stenosis | | | with | | | peak/mean | | | pressure | | | gradient of | | | 35.26mmHg | | | / | | | 22.84mmHg, | | | the aortic | | | valve area | | | by | | | continuity | | | equation is | | | | | | 1.2cm | | | . 7. Mild | | | mitral | | | regurgitati | | | on is | | | present. 8. | | | There is | | | mild | | | pulmonary | | | hypertensio | | | n. 9. The | | | right | | | ventricular | | | systolic | | | pressure | | | (pulmonary | | | artery | | | systolic | | | pressure), | | | as measured | | | by | | | Doppler, is | | | 36-41 | | | mmHg. 10. | | | Compared to | | | the | | | findings of | | | the prior | | | study | | | 02/2017, | | | the degree | | | of aortic | | | stenosis | | | has | | | increased. | | | FINDINGS | | | -------- | | | ECG rhythm: | | | Sinus | | | rhythm. | | | Study: A | | | 2-dimension | | | al | | | transthorac | | | ic | | | echocardiog | | | raheem with | | | m-mode, | | | spectral | | | and color | | | flow | | | Doppler was | | | perfomed. | | | Study: This | | | was a | | | technically | | | difficult | | | study with | | | suboptimal | | | views. Left | | | Ventricle: | | | Overall | | | left | | | ventricular | | | systolic | | | function is | | | normal | | | with, an EF | | | between 60 | | | - 65 %. | | | Left | | | Ventricle: | | | The left | | | ventricle | | | cavity size | | | is normal. | | | Left | | | Ventricle: | | | Left | | | ventricular | | | wall | | | thickness | | | is normal. | | | Left | | | Ventricle: | | | Poor tissue | | | doppler | | | signal | | | prevents | | | accurate | | | assessment | | | of | | | diastolic | | | function. | | | Right | | | Ventricle: | | | The right | | | ventricle | | | is normal | | | in size. | | | Left | | | Atrium: The | | | left | | | atrial size | | | is normal | | | Left | | | Atrium: , | | | and the LA | | | measures | | | 4.8cm. | | | Right | | | Atrium: The | | | right | | | atrium is | | | normal in | | | size. | | | Aortic | | | Valve: The | | | aortic | | | valve is | | | trileaflet. | | | Aortic | | | Valve: The | | | aortic | | | valve is | | | moderately | | | calcified. | | | Aortic | | | Valve: | | | Trace | | | amount of | | | aortic | | | regurgitati | | | on. Aortic | | | Valve: | | | Moderate | | | aortic | | | stenosis | | | with | | | peak/mean | | | pressure | | | gradient of | | | 35.26mmHg | | | / | | | 22.84mmHg, | | | the aortic | | | valve area | | | by | | | continuity | | | equation is | | | | | | 1.2cm | | | . Mitral | | | Valve: The | | | mitral | | | valve is | | | normal. | | | Mitral | | | Valve: Mild | | | mitral | | | regurgitati | | | on is | | | present. | | | Mitral | | | Valve: | | | Moderate | | | mitral | | | annular | | | calcificati | | | on present. | | | Tricuspid | | | Valve: The | | | tricuspid | | | valve | | | appears | | | structurall | | | y normal. | | | Tricuspid | | | Valve: Mild | | | tricuspid | | | regurgitati | | | on present. | | | Tricuspid | | | Valve: | | | There is | | | mild | | | pulmonary | | | hypertensio | | | n. | | | Tricuspid | | | Valve: The | | | right | | | ventricular | | | systolic | | | pressure | | | (pulmonary | | | artery | | | systolic | | | pressure), | | | as measured | | | by | | | Doppler, is | | | 36-41 | | | mmHg. | | | Pulmonic | | | Valve: The | | | pulmonic | | | valve was | | | not well | | | visualized. | | | Pulmonic | | | Valve: | | | Trace | | | pulmonic | | | regurgitati | | | on. | | | Pericardium | | | : There is | | | a trivial | | | echo free | | | space | | | (possibly | | | fat pad) or | | | | | | pericardial | | | effusion | | | present. | | | Pericardium | | | : Anterior | | | echo free | | | space | | | present. | | | IVC/Hepatic | | | Veins: The | | | IVC is | | | normal size | | | | | | (1.5-2.5cm) | | | and | | | collapses | | | >50% | | | with sniff, | | | consistent | | | with | | | central | | | venous | | | pressures | | | of | | | 5-10mmHg. | | | Contrast: | | | Poor | | | visualizati | | | on. | | | Definity | | | was used to | | | opacify | | | the left | | | ventricular | | | chamber | | | and improve | | | | | | delineation | | | of the | | | endocardial | | | border. | | | General | | | comments: | | | Compared to | | | the | | | findings of | | | the prior | | | study | | | 02/2017, | | | the degree | | | of aortic | | | stenosis | | | has | | | increased. | | | MEASUREMENT | | | S | | | | | | -- MOIRA | | | Planimetry: | | | 1.82 cm2 | | | AVAI | | | Planimetry: | | | 0.00 | | | cm2/m2 Ao | | | asc: 2.54 | | | cm Ao | | | sinus: | | | 3.23 cm Ao | | | st junct: | | | 2.79 cm | | | IVC: 2.01 | | | cm LA | | | Major: | | | 5.03 cm | | | EDV(Teich): | | | 88.54 ml | | | IVSd: | | | 1.22 cm | | | LVIDd: | | | 4.41 cm | | | LVPWd: | | | 1.30 cm | | | LVOT Diam: | | | 2.11 cm | | | %FS: | | | 33.08 % | | | EF(Teich): | | | 61.85 % | | | ESV(Teich): | | | 33.77 ml | | | IVSs: | | | 1.41 cm | | | LVIDs: | | | 2.95 cm | | | LVPWs: | | | 1.61 cm | | | SV(Teich): | | | 54.77 ml | | | RA Major: | | | 4.34 cm | | | RVIDd: | | | 3.26 cm | | | LAESV(A-L): | | | 60.29 ml | | | LAESV | | | Index | | | (A-L): | | | 22.58 ml/m2 | | | LAAs A2C: | | | 19.85 cm2 | | | LAESV A-L | | | A2C: | | | 61.06 ml | | | LALs A2C: | | | 5.48 cm | | | LAAs A4C: | | | 19.60 cm2 | | | LAESV A-L | | | A4C: | | | 57.28 ml | | | LALs A4C: | | | 5.69 cm Ao | | | Diam: | | | 4.03 cm AV | | | Cusp: | | | 1.26 cm LA | | | Diam: | | | 4.75 cm | | | LA/Ao: | | | 1.17 IVC | | | diameter: | | | 2.12 cm | | | IVC | | | collapse: | | | 0.84 cm | | | IVC % | | | collapse: | | | 57.87 % | | | HR: 95.98 | | | BPM AV | | | maxPG: | | | 35.25 mmHg | | | AV meanPG: | | | 22.83 | | | mmHg AV | | | Vmax: | | | 2.96 m/s AV | | | Vmean: | | | 2.31 m/s AV | | | VTI: | | | 66.03 cm | | | MOIRA Vmax: | | | 1.35 cm2 | | | MOIRA (VTI): | | | 1.17 cm2 | | | AVAI Vmax: | | | 0.00 | | | cm2/m2 AVAI | | | (VTI): | | | 0.00 cm2/m2 | | | LVCI Dopp: | | | 2.85 | | | l/minm2 | | | LVCO Dopp: | | | 7.63 | | | l/min HR: | | | 98.22 BPM | | | LVOT maxPG: | | | 5.26 | | | mmHg LVOT | | | meanPG: | | | 3.37 mmHg | | | LVSI Dopp: | | | 29.11 | | | ml/m2 LVSV | | | Dopp: | | | 77.72 ml | | | LVOT Vmax: | | | 1.14 m/s | | | LVOT Vmean: | | | 0.87 m/s | | | LVOT VTI: | | | 22.19 cm | | | MV maxPG: | | | 19.60 mmHg | | | MV meanPG: | | | 9.70 | | | mmHg MV | | | Vmax: | | | 2.21 m/s MV | | | Vmean: | | | 1.39 m/s MV | | | VTI: | | | 39.72 cm | | | MVA (VTI): | | | 1.95 cm2 | | | Septal e': | | | 0.12 m/s | | | Lateral e': | | | 0.15 m/s | | | HR: | | | 95.98 BPM | | | PV maxPG: | | | 2.98 mmHg | | | PV meanPG: | | | 1.64 mmHg | | | PV Vmax: | | | 0.86 m/s | | | PV Vmean: | | | 0.60 m/s | | | PV VTI: | | | 15.97 cm | | | RAP: 3 | | | mmHg RVSP: | | | 34.04 | | | mmHg TR | | | maxPG: | | | 31.04 mmHg | | | TR Vmax: | | | 2.78 m/s | | | [employer] Engineer | | | : K[facility] | | | Authenticat | | | ed by: Dejan | | | Jyotike MD | | | Report | | | Date/Time: | | | 03-10-2018 | | | 17:45:14 1. | | | This was a | | | | | | technically | | | difficult | | | study with | | | suboptimal | | | views. 2. | | | Overall | | | left | | | ventricular | | | systolic | | | function is | | | normal | | | with, an EF | | | between 60 | | | - 65 %. 3. | | | The right | | | ventricle | | | is normal | | | in size. 4. | | | The left | | | atrial size | | | is normal. | | | 5. Trace | | | amount of | | | aortic | | | regurgitati | | | on. 6. | | | Moderate | | | aortic | | | stenosis | | | with | | | peak/mean | | | pressure | | | gradient of | | | 35.26mmHg | | | / | | | 22.84mmHg, | | | the aortic | | | valve area | | | by | | | continuity | | | equation is | | | | | | 1.2cm | | | . 7. Mild | | | mitral | | | regurgitati | | | on is | | | present. 8. | | | There is | | | mild | | | pulmonary | | | hypertensio | | | n. 9. The | | | right | | | ventricular | | | systolic | | | pressure | | | (pulmonary | | | artery | | | systolic | | | pressure), | | | as measured | | | by | | | Doppler, is | | | 36-41 | | | mmHg. 10. | | | Compared to | | | the | | | findings of | | | the prior | | | study | | | 02/2017, | | | the degree | | | of aortic | | | stenosis | | | has | | | increased.P | | | LANDischarg | | | e to home | | | in stable | | | condition.C | | | ode Status: | | | Full | | | CodeDischar | | | ge | | | Instruction | | | sBasic | | | metabolic | | | panel | | | Standing | | | Status: | | | Future | | | Standing | | | Exp. Date: | | | 03/12/19 | | | Follow | | | up:Vincent | | | Stef, | | | PA[address] | | | [place] | | | [address] | | | [place] | | | [phone] | | | [phone] | | | weekPatrick | | | W Jamel, | | | [address] | | [address] | | | [address] | | | [place] | | | [id number] | | | [phone] | | | weekurinary | | | | | | retentionFa | | | napoleon Arif, | | | [id number] | | | [place] | | | [place] | | | [place] | | | [phone] | | | [phone] | | | weeksCKD | | | Medication | | | List START | | | taking | | | these | | | medications | | | insulin | | | glargine | | | 100 UNIT/ML | | | | | | injectionQT | | | Y: 15 | | | mLRefills: | | | 0Commonly | | | known as: | | | LANTUSInjec | | | t 43 Units | | | into the | | | skin | | | nightly for | | | 30 days. | | | insulin | | | lispro | | | (human) 100 | | | UNIT/ML | | | injectionQT | | | Y: 27 | | | mLRefills: | | | 0Commonly | | | known as: | | | HUMALOGInje | | | ct 30 Units | | | into the | | | skin 3 | | | (three) | | | times daily | | | before | | | meals for | | | 30 days. | | | predniSONE | | | 20 MG | | | tabletQTY: | | | 20 | | | tabletRefil | | | ls: | | | 0Commonly | | | known as: | | | DELTASONETa | | | ke 2 | | | tablets by | | | mouth daily | | | with | | | breakfast | | | for 10 | | | days. 40mg | | | x 2days, | | | 30mg x2 | | | days, 20mg | | | x2 days, | | | 10mg x2 | | | days. 10mg | | | qod x2 | | | doses. Then | | | stop. | | | tamsulosin | | | 0.4 MG | | | capsuleQTY: | | | 30 | | | capsuleRefi | | | lls: | | | 0Commonly | | | known as: | | | FLOMAXTake | | | 1 capsule | | | by mouth | | | After | | | dinner for | | | 30 days. | | | CHANGE how | | | you take | | | these | | | medications | | | * DUONEB | | | 0.5-2.5 | | | mg/3mLRefil | | | ls: | | | 0Generic | | | drug: | | | ipratropium | | | -albuterolW | | | hat | | | changed: | | | Another | | | medication | | | with the | | | same name | | | was added. | | | Make sure | | | you | | | understand | | | how and | | | when to | | | take each. | | | * | | | ipratropium | | | -albuterol | | | 0.5-2.5 | | | mg/3mLQTY: | | | 360 | | | mLRefills: | | | 0Doctor's | | | comments: | | | Please | | | provide | | | home | | | deviceCommo | | | nly known | | | as: | | | DUO-NEBTake | | | 3 mLs by | | | nebulizatio | | | n every 6 | | | (six) hours | | | as needed | | | for up to | | | 30 | | | days.What | | | changed: | | | You were | | | already | | | taking a | | | medication | | | with the | | | same name, | | | and this | | | prescriptio | | | n was | | | added. Make | | | sure you | | | understand | | | how and | | | when to | | | take each. | | | * This | | | list has 2 | | | medication( | | | s) that are | | | the same | | | as other | | | medications | | | prescribed | | | for you. | | | Read the | | | directions | | | carefully, | | | and ask | | | your doctor | | | or other | | | care | | | provider to | | | review | | | them with | | | you. | | | CONTINUE | | | taking | | | these | | | medications | | | | | | acetaminoph | | | en 500 MG | | | tabletRefil | | | ls: | | | 0Commonly | | | known as: | | | TYLENOL | | | amLODIPine | | | 10 MG | | | tabletQTY: | | | 30 | | | tabletRefil | | | ls: | | | 11Commonly | | | known as: | | | NORVASCTake | | | 1 tablet | | | by mouth | | | daily. | | | ammonium | | | lactate 12 | | | % creamQTY: | | | 385 | | | gRefills: | | | 0Commonly | | | known as: | | | AMLACTINApp | | | ly | | | topically | | | daily. | | | Apply to | | | bilateral | | | legs daily | | | after | | | cleaning | | | with skin | | | wipes. | | | ascorbic | | | acid 500 MG | | | | | | tabletRefil | | | ls: | | | 0Commonly | | | known as: | | | VITAMIN C | | | aspirin 81 | | | MG | | | tabletRefil | | | ls: 0 | | | budesonide- | | | formoterol | | | 160-4.5 | | | MCG/ACT | | | inhalerRefi | | | lls: | | | 0Commonly | | | known as: | | | SYMBICORT | | | buPROPion | | | 100 MG 12 | | | hr | | | tabletRefil | | | ls: | | | 0Commonly | | | known as: | | | WELLBUTRIN | | | SR | | | carBAMazepi | | | ne 200 MG | | | tabletRefil | | | ls: | | | 0Commonly | | | known as: | | | TEGretol | | | Cholecalcif | | | jessica 1000 | | | units | | | capsuleRefi | | | lls: 0 | | | clopidogrel | | | 75 MG | | | tabletQTY: | | | 30 | | | tabletRefil | | | ls: | | | 0Commonly | | | known as: | | | PLAVIXTake | | | 1 tablet by | | | mouth | | | daily. | | | cyanocobala | | | min 500 MCG | | | | | | tabletRefil | | | ls: | | | 0Commonly | | | known as: | | | VITAMIN | | | B-12 | | | FERROUS | | | SULFATE | | | PORefills: | | | 0 fish | | | oil-omega-3 | | | fatty | | | acids 1000 | | | MG | | | capsuleRefi | | | lls: 0 | | | FLUoxetine | | | 20 MG | | | tabletRefil | | | ls: | | | 0Commonly | | | known as: | | | PROzac | | | guaiFENesin | | | 600 MG 12 | | | hr | | | tabletRefil | | | ls: | | | 0Commonly | | | known as: | | | MUCINEX | | | insulin | | | aspart 100 | | | UNIT/ML | | | injectionRe | | | fills: | | | 0Commonly | | | known as: | | | NOVOLOG | | | isosorbide | | | mononitrate | | | 120 MG 24 | | | hr | | | tabletQTY: | | | 30 | | | tabletRefil | | | ls: | | | 11Commonly | | | known as: | | | IMDURTake 1 | | | tablet by | | | mouth | | | daily. | | | liraglutide | | | 18 MG/3ML | | | injectionRe | | | fills: | | | 0Commonly | | | known as: | | | VICTOZA | | | Metoprolol | | | Tartrate 75 | | | MG | | | TabsQTY: | | | 120 | | | tabletRefil | | | ls: 5For | | | diagnoses: | | | Essential | | | hypertensio | | | nTake 150 | | | mg by mouth | | | 2 (two) | | | times | | | daily. | | | multivitami | | | n | | | capsuleRefi | | | lls: 0 | | | nitroGLYCER | | | IN 0.4 MG | | | SL | | | tabletQTY: | | | 30 | | | tabletRefil | | | ls: | | | 0Commonly | | | known as: | | | NITROSTATPl | | | nicki 1 | | | tablet | | | under the | | | tongue | | | every 5 | | | (five) | | | minutes as | | | needed for | | | Chest pain | | | (hold for | | | SBP less | | | than 100). | | | omeprazole | | | 40 MG | | | capsuleRefi | | | lls: | | | 0Commonly | | | known as: | | | PRILOSEC | | | rosuvastati | | | n 40 MG | | | tabletRefil | | | ls: | | | 0Commonly | | | known as: | | | CRESTOR | | | senna 8.6 | | | MG | | | tabletRefil | | | ls: | | | 0Commonly | | | known as: | | | SENOKOT | | | You might | | | also be | | | taking | | | other | | | medications | | | not listed | | | above. If | | | you have | | | questions | | | about any | | | of your | | | other | | | medications | | | , talk to | | | the person | | | who | | | prescribed | | | them or | | | your | | | Primary | | | Care | | | Provider. | | | STOP | | | taking | | | these | | | medications | | | | | | famotidine | | | 20 MG | | | tabletCommo | | | nly known | | | as: PEPCID | | | insulin | | | NPH 100 | | | UNIT/ML | | | injectionCo | | | mmonly | | | known as: | | | HUMULIN | | | N,NOVOLIN N | | | | | | nortriptyli | | | ne 25 MG | | | capsuleComm | | | only known | | | as: | | | PAMELOR | | | ranolazine | | | 500 MG 12 | | | hr | | | tabletCommo | | | nly known | | | as: RANEXA | | | Where to | | | Get Your | | | Medications | | | You can | | | get these | | | medications | | | from any | | | pharmacy | | | Bring a | | | paper | | | prescriptio | | | n for each | | | of these | | | medications | | | insulin | | | glargine | | | 100 UNIT/ML | | | | | | injection | | | insulin | | | lispro | | | (human) 100 | | | UNIT/ML | | | injection | | | | | | ipratropium | | | -albuterol | | | 0.5-2.5 | | | mg/3mL | | | predniSONE | | | 20 MG | | | tablet | | | tamsulosin | | | 0.4 MG | | | capsule | | | Discharge | | | took 58 | | | minutes, to | | | include | | | final | | | examination | | | , | | | discussion | | | of | | | admission, | | | and | | | preparation | | | of | | | prescriptio | | | ns, | | | instruction | | | s for | | | on-going | | | care, | | | follow-up | | | and | | | documentati | | | on of | | | discharge | | | summary.Tereso | | | t A Ton, | | | MD03/12/2018 | +---+ + +--------+ +---+ + + | 03/09/ | Hospital | | See, Medical | Other headache | | 2018 | Encounter | | Record | syndrome | +--------+ +---+ + + | 03/09/ | Procedure | | | | | 2017 | Pass | | | | +--------+ +---+ + + | 03/09/ | Ancillary | | See, Medical | Other headache | | 2018 | Orders | | Record | syndrome | +--------+ +---+ + + from Last 3 Months Immunizations + + + + | Name | Dates Previously Given | Next Due | + + + + | INFLUENZA PF, | 06/15/2016 | | | QUADRIVALENT | | | | (PED/ADOL/ADULT) | | | + + + + | Influenza Split | 07/11/2013 | | + + + + | Influenza, PF | 07/11/2013 | | | Trivalent | | | + + + + Family History + + +------+ + | Medical History | Relation | Name | Comments | + + +------+ + | Coronary art dis | Father | | | + + +------+ + | Coronary art dis | Mother | | | + + +------+ + | Kidney disease | Mother | | required hd then stop it | + + +------+ + + +------+ + + | Relation | Name | Status | Comments | + +------+ + + | Father | | | | + +------+ + + | Mother | | | | + +------+ + + Social History + +-------+ +--------+ [...] | | | + +---+---+---+ + + | Tobacco Cessation: Counseling Given: Yes | + + + + +---------+ + | Alcohol Use | Drinks/We | oz/Week | Comments | | | ek | | | + + +---------+ + | No | | | | + + +---------+ + + + + | Sex Assigned at | Date Recorded | | | | + + + | Not on file | | + + + Last Filed Vital Signs + + + + | Vital Sign | Reading | Time Taken | + + + + | Blood Pressure | 148/64 | 03/19/2018 3:35 PM PDT | + + + + | Pulse | 69 | 03/19/2018 4:02 PM PDT | + + + + | Temperature | 36.8 C (98.2 F) | 03/19/2018 3:35 PM PDT | + + + + | Respiratory Rate | 20 | 03/19/2018 4:02 PM PDT | + + + + | Oxygen Saturation | 98% | 03/19/2018 4:02 PM PDT | + + + + | Inhaled Oxygen | - | - | | Concentration | | | + + + + | Weight | 153.3 kg (337 lb | 03/19/2018 3:20 AM PDT | | | 14.4 oz) | | + + + + | Height | 182.9 cm (6') | 03/16/2018 10:18 PM PDT | + + + + | Body Mass Index | 45.83 | 03/19/2018 3:20 AM PDT | + + + + Plan of Treatment + + + + + | Health Maintenance | Due Date | Last Done | Comments | + + + + + | Diabetic Eye Exam | | | | | | 9 | | | + + + + + | Diabetic Foot Exam | | | | | | 9 | | | + + + + + | Vaccine: | | | | | Dtap/Tdap/Td (1 - | 8 | | | | Tdap) | | | | + + + + + | Vaccine: | | | | | Pneumococcal 65+ | 4 | | | | Low/Medium Risk (1 | | | | | of 2 - PCV13) | | | | + + + + + | Vaccine: Influenza | | 06/15/2016, 07/11/2013 | | | (#1) | 8 | | | + + + + + | Hemoglobin A1c | | 03/17/2018, 03/10/2018, | | | | 8 | 04/29/2017, Additional history | | | | | exists | | + + + + + | Microalbumin | | 03/10/2018 | | | Screening | 9 | | | + + + + + | Colon Cancer | | 12/25/2011 | | | Screening | 2 | | | | (Colonoscopy) | | | | + + + + + Procedures + +--------+ + + + | Procedure Name | Priori | Date/Time | Associated Diagnosis | Comments | | | ty | | | | + +--------+ + + + | POCT GLUCOSE | Routin | 03/19/2018 | | Results for this | | | e | 4:35 PM | | procedure are in the | | | | PDT | | results section. | + +--------+ + + + | POCT GLUCOSE | Routin | 03/19/2018 | | Results for this | | | e | 11:58 AM | | procedure are in the | | | | PDT | | results section. | + +--------+ + + + | POCT GLUCOSE | Routin | 03/19/2018 | | Results for this | | | e | 5:53 AM | | procedure are in the | | | | PDT | | results section. | + +--------+ + + + | POCT GLUCOSE | Routin | 03/18/2018 | | Results for this | | | e | 9:06 PM | | procedure are in the | | | | PDT | | results section. | + +--------+ + + + | POCT GLUCOSE | Routin | 03/18/2018 | | Results for this | | | e | 4:47 PM | | procedure are in the | | | | PDT | | results section. | + +--------+ + + + | POCT GLUCOSE | Routin | 03/18/2018 | | Results for this | | | e | 12:00 PM | | procedure are in the | | | | PDT | | results section. | + +--------+ + + + | TROPONIN I | Timed | 03/18/2018 | | Results for this | | | | 11:51 AM | | procedure are in the | | | | PDT | | results section. | + +--------+ + + + | POCT GLUCOSE | Routin | 03/18/2018 | | Results for this | | | e | 6:30 AM | | procedure are in the | | | | PDT | | results section. | + +--------+ + + + | TROPONIN I | Timed | 03/18/2018 | | Results for this | | | | 6:10 AM | | procedure are in the | | | | PDT | | results section. | + +--------+ + + + | CBC W/AUTO DIFF | Routin | 03/18/2018 | | Results for this | | (REFLEX TO MANUAL) | e - AM | 6:10 AM | | procedure are in the | | | | PDT | | results section. | + +--------+ + + + | BASIC METABOLIC | Routin | 03/18/2018 | | Results for this | | PANEL | e - AM | 6:10 AM | | procedure are in the | | | | PDT | | results section. | + +--------+ + + + | TROPONIN I | Timed | 03/17/2018 | | Results for this | | | | 11:44 PM | | procedure are in the | | | | PDT | | results section. | + +--------+ + + + | POCT GLUCOSE | Routin | 03/17/2018 | | Results for this | | | e | 9:18 PM | | procedure are in the | | | | PDT | | results section. | + +--------+ + + + | EKG STANDARD 12 LEAD | Routin | 03/17/2018 | | Results for this | | | e | 6:40 PM | | procedure are in the | | | | PDT | | results section. | + +--------+ + + + | POCT GLUCOSE | Routin | 03/17/2018 | | Results for this | | | e | 4:07 PM | | procedure are in the | | | | PDT | | results section. | + +--------+ + + + | POCT GLUCOSE | Routin | 03/17/2018 | | Results for this | | | e | 11:40 AM | | procedure are in the | | | | PDT | | results section. | + +--------+ + + + | POCT GLUCOSE | Routin | 03/17/2018 | | Results for this | | | e | 6:36 AM | | procedure are in the | | | | PDT | | results section. | + +--------+ + + + | HEMOGLOBIN A1C | Routin | 03/17/2018 | | Results for this | | | e - AM | 5:58 AM | | procedure are in the | | | | PDT | | results section. | + +--------+ + + + | PHOSPHOROUS | Routin | 03/17/2018 | | Results for this | | | e - AM | 5:58 AM | | procedure are in the | | | | PDT | | results section. | + +--------+ + + + | MAGNESIUM | Routin | 03/17/2018 | | Results for this | | | e - AM | 5:58 AM | | procedure are in the | | | | PDT | | results section. | + +--------+ + + + | BASIC METABOLIC | Routin | 03/17/2018 | | Results for this | | PANEL | e - AM | 5:58 AM | | procedure are in the | | | | PDT | | results section. | + +--------+ + + + | CBC W/AUTO DIFF | Routin | 03/17/2018 | | Results for this | | (REFLEX TO MANUAL) | e - AM | 5:58 AM | | procedure are in the | | | | PDT | | results section. | + +--------+ + + + | POCT GLUCOSE | Routin | 03/17/2018 | | Results for this | | | e | 5:04 AM | | procedure are in the | | | | PDT | | results section. | + +--------+ + + + | POCT GLUCOSE | Routin | 03/16/2018 | | Results for this | | | e | 11:48 PM | | procedure are in the | | | | PDT | | results section. | + +--------+ + + + | POCT GLUCOSE | Routin | 03/16/2018 | | Results for this | | | e | 10:31 PM | | procedure are in the | | | | PDT | | results section. | + +--------+ + + + | POCT GLUCOSE | Routin | 03/16/2018 | | Results for this | | | e | 9:51 PM | | procedure are in the | | | | PDT | | results section. | + +--------+ + + + | CT URINARY TRACT | [facility] | 03/16/2018 | | Results for this | | ABDOMEN PELVIS WO | | 8:00 PM | | procedure are in the | | CONTRAST | | PDT | | results section. | + +--------+ + + + | [facility] CARDIAC PANEL | STAT | 03/16/2018 | | Results for this | | ([facility] ONLY) | | 7:25 PM | | procedure are in the | | | | PDT | | results section. | + +--------+ + + + | EKG 12 LEAD UNIT | Routin | 03/16/2018 | | Results for this | | PERFORMED | e | 6:47 PM | | procedure are in the | | | | PDT | | results section. | + +--------+ + + + | URINALYSIS (REFLEX | STAT | 03/16/2018 | | Results for this | | TO | | 6:44 PM | | procedure are in the | | MICROSCOPIC/REFLEX | | PDT | | results section. | | TO CULTURE) | | | | | + +--------+ + + + | URINE CULTURE | Routin | 03/16/2018 | | Results for this | | | e | 6:44 PM | | procedure are in the | | | | PDT | | results section. | + +--------+ + + + | ED INFORMATION | Routin | 03/16/2018 | | Results for this | | EXCHANGE | e | 5:44 PM | | procedure are in the | | | | PDT | | results section. | + +--------+ + + + | BASIC METABOLIC | STAT | 03/13/2018 | | Results for this | | PANEL | | 8:05 AM | | procedure are in the | | | | PDT | | results section. | + +--------+ + + + | POCT GLUCOSE | Routin | 03/13/2018 | | Results for this | | | e | 5:39 AM | | procedure are in the | | | | PDT | | results section. | + +--------+ + + + | POCT GLUCOSE | Routin | 03/12/2018 | | Results for this | | | e | 9:47 PM | | procedure are in the | | | | PDT | | results section. | + +--------+ + + + | POCT GLUCOSE | Routin | 03/12/2018 | | Results for this | | | e | 5:38 PM | | procedure are in the | | | | PDT | | results section. | + +--------+ + + + | POCT GLUCOSE | Routin | 03/12/2018 | | Results for this | | | e | 4:44 PM | | procedure are in the | | | | PDT | | results section. | + +--------+ + + + | POCT GLUCOSE | Routin | 03/12/2018 | | Results for this | | | e | 1:04 PM | | procedure are in the | | | | PDT | | results section. | + +--------+ + + + | POCT GLUCOSE | Routin | 03/12/2018 | | Results for this | | | e | 11:16 AM | | procedure are in the | | | | PDT | | results section. | + +--------+ + + + | BASIC METABOLIC | [facility] | 03/12/2018 | | Results for this | | PANEL | | 8:18 AM | | procedure are in the | | | | PDT | | results section. | + +--------+ + + + | POCT GLUCOSE | Routin | 03/12/2018 | | Results for this | | | e | 5:38 AM | | procedure are in the | | | | PDT | | results section. | + +--------+ + + + | POCT GLUCOSE | Routin | 03/11/2018 | | Results for this | | | e | 9:02 PM | | procedure are in the | | | | PDT | | results section. | + +--------+ + + + | CONFIRMATION GLUCOSE | STAT | 03/11/2018 | | Results for this | | | | 4:50 PM | | procedure are in the | | | | PDT | | results section. | + +--------+ + + + | POCT GLUCOSE | Routin | 03/11/2018 | | Results for this | | | e | 4:31 PM | | procedure are in the | | | | PDT | | results section. | + +--------+ + + + | BASIC METABOLIC | Routin | 03/11/2018 | | Results for this | | PANEL | e | 2:49 PM | | procedure are in the | | | | PDT | | results section. | + +--------+ + + + | CONFIRMATION GLUCOSE | STAT | 03/11/2018 | | Results for this | | | | 12:08 PM | | procedure are in the | | | | PDT | | results section. | + +--------+ + + + | POCT GLUCOSE | Routin | 03/11/2018 | | Results for this | | | e | 11:42 AM | | procedure are in the | | | | PDT | | results section. | + +--------+ + + + | BASIC METABOLIC | Routin | 03/11/2018 | | Results for this | | PANEL | e - AM | 5:10 AM | | procedure are in the | | | | PDT | | results section. | + +--------+ + + + | POCT GLUCOSE | Routin | 03/11/2018 | | Results for this | | | e | 5:02 AM | | procedure are in the | | | | PDT | | results section. | + +--------+ + + + | CONFIRMATION GLUCOSE | STAT | 03/10/2018 | | Results for this | | | | 9:00 PM | | procedure are in the | | | | PDT | | results section. | + +--------+ + + + | POCT GLUCOSE | Routin | 03/10/2018 | | Results for this | | | e | 8:45 PM | | procedure are in the | | | | PDT | | results section. | + +--------+ + + + | POTASSIUM | [facility] | 03/10/2018 | | Results for this | | | | 5:53 PM | | procedure are in the | | | | PDT | | results section. | + +--------+ + + + | POCT GLUCOSE | Routin | 03/10/2018 | | Results for this | | | e | 4:24 PM | | procedure are in the | | | | PDT | | results section. | + +--------+ + + + | MRI BRAIN WO | Routin | 03/10/2018 | | Results for this | | CONTRAST | e | 3:45 PM | | procedure are in the | | | | PDT | | results section. | + +--------+ + + + | BRAIN NATRIURETIC | Routin | 03/10/2018 | | Results for this | | PEPTIDE | e | 2:01 PM | | procedure are in the | | | | PDT | | results section. | + +--------+ + + + | EKG STANDARD 12 LEAD | STAT | 03/10/2018 | | Results for this | | | | 1:26 PM | | procedure are in the | | | | PDT | | results section. | + +--------+ + + + | TROPONIN I | STAT | 03/10/2018 | | Results for this | | | | 1:19 PM | | procedure are in the | | | | PDT | | results section. | + +--------+ + + + | POCT GLUCOSE | Routin | 03/10/2018 | | Results for this | | | e | 11:35 AM | | procedure are in the | | | | PDT | | results section. | + +--------+ + + + | POCT GLUCOSE | Routin | 03/10/2018 | | Results for this | | | e | 11:28 AM | | procedure are in the | | | | PDT | | results section. | + +--------+ + + + | ECHO CARDIAC ADULT | Routin | 03/10/2018 | | Results for this | | WITH CONTRAST | e | 10:15 AM | | procedure are in the | | | | PDT | | results section. | + +--------+ + + + | BASIC METABOLIC | STAT | 03/10/2018 | | Results for this | | PANEL | | 9:55 AM | | procedure are in the | | | | PDT | | results section. | + +--------+ + + + | POCT GLUCOSE | Routin | 03/10/2018 | | Results for this | | | e | 5:38 AM | | procedure are in the | | | | PDT | | results section. | + +--------+ + + + | BASIC METABOLIC | STAT | 03/10/2018 | | Results for this | | PANEL | | 4:51 AM | | procedure are in the | | | | PDT | | results section. | + +--------+ + + + | TROPONIN I | STAT | 03/10/2018 | | Results for this | | | | 3:16 AM | | procedure are in the | | | | PDT | | results section. | + +--------+ + + + | HEMOGLOBIN A1C | Routin | 03/10/2018 | | Results for this | | | e - AM | 3:16 AM | | procedure are in the | | | | PDT | | results section. | + +--------+ + + + | CBC W/AUTO DIFF | [facility] | 03/10/2018 | | Results for this | | (REFLEX TO MANUAL) | | 3:06 AM | | procedure are in the | | | | PDT | | results section. | + +--------+ + + + | MICROALBUMIN / | Timed | 03/10/2018 | | Results for this | | CREATININE URINE | | 1:05 AM | | procedure are in the | | RATIO | | PDT | | results section. | + +--------+ + + + | POCT GLUCOSE | Routin | 03/10/2018 | | Results for this | | | e | 12:48 AM | | procedure are in the | | | | PDT | | results section. | + +--------+ + + + | POTASSIUM | [facility] | 03/10/2018 | | Results for this | | | | 12:00 AM | | procedure are in the | | | | PDT | | results section. | + +--------+ + + + | TROPONIN I | STAT | 03/10/2018 | | Results for this | | | | 12:00 AM | | procedure are in the | | | | PDT | | results section. | + +--------+ + + + | US KIDNEYS AND | Routin | 03/09/2018 | | Results for this | | BLADDER | e | 11:25 PM | | procedure are in the | | | | PDT | | results section. | + +--------+ + + + | XR CHEST 1 VIEW | STAT | 03/09/2018 | | Results for this | | | | 10:19 PM | | procedure are in the | | | | PDT | | results section. | + +--------+ + + + | EKG STANDARD 12 LEAD | STAT | 03/09/2018 | | Results for this | | | | 10:10 PM | | procedure are in the | | | | PDT | | results section. | + +--------+ + + + | POCT GLUCOSE | Routin | 03/09/2018 | | Results for this | | | e | 9:38 PM | | procedure are in the | | | | PDT | | results section. | + +--------+ + + + | CK | STAT | 03/09/2018 | | Results for this | | | | 8:44 PM | | procedure are in the | | | | PDT | | results section. | + +--------+ + + + | BASIC METABOLIC | STAT | 03/09/2018 | | Results for this | | PANEL | | 8:44 PM | | procedure are in the | | | | PDT | | results section. | + +--------+ + + + | TROPONIN I | STAT | 03/09/2018 | | Results for this | | | | 8:44 PM | | procedure are in the | | | | PDT | | results section. | + +--------+ + + + | EK STANDARD 12 LEAD | STAT | 03/09/2018 | | Results for this | | | | 8:37 PM | | procedure are in the | | | | PDT | | results section. | + +--------+ + + + | POCT GLUCOSE | Routin | 03/09/2018 | | Results for this | | | e | 4:24 PM | | procedure are in the | | | | PDT | | results section. | + +--------+ + + + | PROCALCITONIN | STAT | 03/09/2018 | | Results for this | | | | 3:26 PM | | procedure are in the | | | | PDT | | results section. | + +--------+ + + + | BASIC METABOLIC | STAT | 03/09/2018 | | Results for this | | PANEL | | 2:34 PM | | procedure are in the | | | | PDT | | results section. | + +--------+ + + + | CBC W/NO DIFF | STAT | 03/09/2018 | | Results for this | | | | 2:34 PM | | procedure are in the | | | | PDT | | results section. | + +--------+ + + + | PHOSPHOROUS | STAT | 03/09/2018 | | Results for this | | | | 2:33 PM | | procedure are in the | | | | PDT | | results section. | + +--------+ + + + | MAGNESIUM | STAT | 03/09/2018 | | Results for this | | | | 2:33 PM | | procedure are in the | | | | PDT | | results section. | + +--------+ + + + | POCT GLUCOSE | Routin | 03/09/2018 | | Results for this | | | e | 2:08 PM | | procedure are in the | [...] section. | + +--------+ + + + from Last 3 Months Results POCT glucose (03/19/2018 4:35 PM)Only the most recent of 35 results within the time period is included. + + + + + | Component | Value | Ref Range | Performed At | + + + + + | GLUCOSE,POC SCREEN | 98Comment: Testing | 65 - 99 mg/dL | [facility] | | | performed at [facility];[address] | | | | | [address];[place] | | | | | [address] | | | + + + + + + + + + + | Performing | Address | City/State/Zipcode | Phone Number | | Organization | | | | + + + + + | [facility] | [address] | [place] [address] | | + + + + + Troponin I (03/18/2018 11:51 AM)Only the most recent of 7 results within the time period is included. + + + + + | Component | Value | Ref Range | Performed At | + + + + + | TROPONIN I | <0.020Comment: 0.00 to | 0.00 - 0.10 ng/mL | [facility] | | | 0.10 CONSISTENT | | | | | WITH NORMAL | | | | | POPULATION0.11 to | | | | | 0.60 CONSISTENT WITH | | | | | INCREASED RISK FOR | | | | | ADVERSE OUTCOMES> | | | | | 0.60 | | | | | CONSISTENT WITH WHO | | | | | CRITERIA FOR ACUTE [place] | | | | | Testing performed at | | | | | [facility];[address] [place] [address] | | | | | [facility];[place] [address] | | | + + + + + + + | Specimen | + + | Blood | + + + + + + + | Performing | Address | City/State/Zipcode | Phone Number | | Organization | | | | + + + + + | [facility] | [address] | [place] [address] | | + + + + + CBC W/Auto Diff (Reflex to Manual) (03/18/2018 6:10 AM)Only the most recent of 3 results w judiin the time period is included. + + + + + | Component | Value | Ref Range | Performed At | + + + + + | WBC | 9.01 | 3.80 - 11.00 K/uL | [facility] | | | | | LABORATORY | + + + + + | RBC | 3.89 (L) | 4.20 - 5.70 M/uL | [facility] | | | | | LABORATORY | + + + + + | HGB | 12.7 (L) | 13.2 - 17.0 g/dL | [facility] | | | | | LABORATORY | + + + + + | HCT | 37.4 (L) | 39.0 - 50.0 % | [facility] | | | | | LABORATORY | + + + + + | MCV | 96.1 | 80.0 - 100.0 fl | [facility] | | | | | LABORATORY | + + + + + | MCH | 32.7 | 27.0 - 34.0 pg | [facility] | | | | | LABORATORY | + + + + + | MCHC | 34.1 | 32.0 - 35.5 g/dL | [facility] | | | | | LABORATORY | + + + + + | RDW SD | 47.7 | 37 - 53 fl | [facility] | | | | | LABORATORY | + + + + + | PLT | 113 (L) | 150 - 400 K/uL | [facility] | | | | | LABORATORY | + + + + + | MPV | 8.9 | fl | [facility] | | | | | LABORATORY | + + + + + | DIFF TYPE | AUTOMATED | | [facility] | | | | | LABORATORY | + + + + + | NEUTROPHILS | 69.14 | % | [facility] | | | | | LAB[facility]AT[facility] | + + + + + | LYMPHOCYTES | 17.95 | % | [facility] | | | | | LABORATORY | + + + + + | MONOCYTES | 9.99 | % | [facility] | | | | | LABORAT[facility] | + + + + + | EOSINOPHILS | 2.68 | % | [facility] | | | | | LABORAT[facility] | + + + + + | BASOPHILS | 0.24 | % | [facility] | | | | | LABORATORY | + + + + + | NEUTROPHILS ABS | 6.23 | 1.90 - 7.40 K/uL | [facility] | | | | | LAB[facility]AT[facility] | + + + + + | LYMPHOCYTES ABS | 1.62 | 1.00 - 3.90 K/uL | [facility] | | | | | LABORATORY | + + + + + | MONOCYTES ABS | 0.90 (H) | 0.00 - 0.80 K/uL | [facility] | | | | | LABORATORY | + + + + + | EOSINOPHILS ABS | 0.24 | 0.00 - 0.50 K/uL | [facility] | | | | | LABORATORY | + + + + + | BASOPHILS ABS | 0.02Comment: Testing | 0.00 - 0.10 K/uL | [facility] | | | performed at [facility], [address] | | LABORATORY | | | [address], | | | | | [place] [address] | | | + + + + + + + | Specimen | + + | Blood | + + + + + + + | Performing | Address | City/State/Zipcode | Phone Number | | Organization | | | | + + + + + | [facility] | [address] | [place] [address] | [phone] | | LABORATORY | [address] | | | + + + + + Basic metabolic panel (03/18/2018 6:10 AM)Only the most recent of 10 results within the period is included. + + + + + | Component | Value | Ref Range | Performed At | + + + + + | SODIUM | 137 | 135 - 145 mmol/L | [facility] | | | | | LABORATORY | + + + + + | POTASSIUM | 4.6 | 3.5 - 4.9 mmol/L | [facility] | | | | | LABORATORY | + + + + + | CHLORIDE | 103 | 99 - 109 mmol/L | [facility] | | | | | LABORATORY | + + + + + | CO2 | 27 | 23 - 32 mmol/L | [facility] | | | | | LABORATORY | + + + + + | ANION GAP AGAP | 12 | 5 - 20 mmol/L | [facility] | | | | | LABORATORY | + + + + + | GLUCOSE | 242 (H) | 65 - 99 mg/dL | [facility] | | | | | LABORATORY | + + + + + | BUN | 33 (H) | 8 - 25 mg/dL | [facility] | | | | | LABORATORY | + + + + + | CREATININE | 1.5 (H) | 0.70 - 1.30 mg/dL | [facility] | | | | | LABORATORY | + + + + + | BUN/CREAT | 22 | | [facility] | | | | | LABORATORY | + + + + + | CALCIUM | 8.7 | 8.5 - 10.5 mg/dL | [facility] | | | | | LABORATORY | + + + + + | EGFR | 47 (L)Comment: GFR <60: | >60 mL/min/1.73m2 | [facility] | | | CHRONIC KIDNEY DISEASE, | | LABORATORY | | | IF FOUND OVER A 3 MONTH | | | | | PERIOD.GFR <15: KIDNEY | | | | | FAILURE.FOR | | | | | AMERICANS, MULTIPLY THE | | | | | CALCULATED GFR BY | | | | | 1.210.This eGFR is | | | | | calculated using the | | | | | MDRD IDMS traceable | | | | | equation.Testing | | | | | performed at [facility], [address] | | | | [facility], | | | | | [place] [address] | | | + + + + + + + | Specimen | + + | Blood | + + + + + + + | Performing | Address | City/State/Zipcode | Phone Number | | Organization | | | | + + + + + | [facility] | [address] | [place] [address] | [phone] | | LABORATORY | [address] | | | + + + + + EKG STANDARD 12 LEAD (03/17/2018 6:40 PM)Only the most recent of 4 results within the time period is included. + + + + + | Component | Value | Ref Range | Performed At | + + + + + | Ventricular Rate | 81 | BPM | [facility] | + + + + + | Atrial Rate | 81 | BPM | [facility] | + + + + + | P-R Interval | 248 | ms | [facility] | + + + + + | QRS Duration | 100 | ms | [facility] | + + + + + | Q-T Interval | 386 | ms | [facility] | + + + + + | QTC Calculation | 448 | ms | [facility] | | (Bezet) | | | | + + + + + | Calculated P Troy | 47 | degrees | [facility] | + + + + + | Calculated R Troy | -7 | degrees | [facility] | + + + + + | Calculated T Troy | 109 | degrees | [facility] | + + + + + | Diagnosis | Sinus rhythm with 1st | | [facility] | | | degree A-V | | | | | blockNonspecific ST and | | | | | T wave | | | | | abnormalityAbnormal | | | | | ECGWhen compared with | | | | | ECG of 16-MAR-2018 | | | | | 18:47,No significant | | | | | change was | | | | | foundConfirmed by | | | | | Manuel Arroyo MD | | | | | ([id number]) on 03/18/2018 | | | | | 2:45:09 PM | | | + + + + + + + + + + | Performing | Address | City/State/Zipcode | Phone Number | | Organization | | | | + + + + + | [facility] | [address] | [place] [address] | | + + + + + Phosphorus (03/17/2018 5:58 AM)Only the most recent of 2 results within the time period is included. + + + + + | Component | Value | Ref Range | Performed At | + + + + + | PHOSPHORUS | 4.2Comment: Testing | 2.3 - 4.8 mg/dL | [facility] | | | performed at [facility], [address] | | LABORATORY | | | [facility] [address], | | | | | [place] [address] | | | + + + + + + + | Specimen | + + | Blood | + + + + + + + | Performing | Address | City/State/Zipcode | Phone Number | | Organization | | | | + + + + + | [facility] | [address] | [place] [address] | [phone] | | LABORATORY | [address] | | | + + + + + Magnesium (03/17/2018 5:58 AM)Only the most recent of 2 results within the time period is included. + + + + + | Component | Value | Ref Range | Performed At | + + + + + | MAGNESIUM | 2.0Comment: Testing | 1.7 - 2.4 mg/dL | [facility] | | | performed at [facility], [address] | | LABORATORY | | | [facility], | | | | | [place] [address] | | | + + + + + + + | Specimen | + + | Blood | + + + + + + + | Performing | Address | City/State/Zipcode | Phone Number | | Organization | | | | + + + + + | [facility] | [address] | [place] [address] | [phone] | | LABORATORY | [address] | | | + + + + + Glycohemoglobin A1c (03/17/2018 5:58 AM)Only the most recent of 2 results within the time period is included. + + + + + | Component | Value | Ref Range | Performed At | + + + + + | HEMOGLOBIN A1C | 7.3 (H)Comment: The | 4.0 - 6.0 % | [facility] | | | [place] [employer] | | LABORATORY | | | Association considers a | | | | | hemoglobin A1c result of | | | | | <7.0% to be the goal of | | | | | diabetic | | | | | therapy. When results | | | | | are consistently >8.0%, | | | | | the ADA suggests | | | | | reevaluation of the | | | | | treatment | | | | | regimen. The testing | | | | | method used is certified | | | | | traceable to the | | | | | Diabetes Control and | | | | | Complications Trial | | | | | reference method. | | | + + + + + | ESTIMATED AVG | 163Comment: The ADA | mg/dL | [facility] | | GLUCOSE | considers an eAG result | | LABORATORY | | | of LT 154 mg/dL to be | | | | | the goal of diabetic | | | | | therapy. Estimated | | | | | Average Glucose | | | | | calculated from | | | | | hemoglobin A1c by use of | | | | | the ADA recommended | | | | | formula.Testing | | | | | performed at [facility], [address] | | | | [facility], | | | | | [place] [address] | | | + + + + + + + | Specimen | + + | Blood | + + + + + + + | Performing | Address | City/State/Zipcode | Phone Number | | Organization | | | | + + + + + | [facility] | [address] | [place] [address] | [phone] | | LABORATORY | [address] | | | + + + + + CT Renal Stone Study (03/16/2018 8:00 PM) + + | Addenda | + + | Addendum by Prashant Larry MD on 03/16/2018 9:06 PM Addendum: There is a | | typographical error. Patient is male gender and therefore has not had a hysterectomy. | | Seminal vesicles and limited portions the base the penis visualized are grossly | | normal. | + + + + + | Impressions | Performed At | + + + | 1. No calcified stones or hydronephrosis. 2. Bilateral | [facility] | | perinephric stranding and infiltrative change could suggest a | RAD[facility]OLOGY | | bilateral pyelonephritis. Correlate with urinalysis. 3. Exophytic | | | cyst right kidney lower pole 4. Sigmoid diverticulosis. | | | 5. Bibasilar subsegmental atelectasis 6. Prior cholecystectomy | | | and hysterectomy. Electronically signed by Prashant Larry MD on | | | 03/16/2018 8:39 PM | | + + + + + + | Narrative | Performed At | + + + | ADI A WHITE CT URINARY TRACT ABDOMEN PELVIS WO CONTRAST 03/16/2018 | [facility] | | 8:00 PM HISTORY: 67 years. Male. Bilateral flank pain . | RADIOLOGY | | TECHNIQUE: Helically acquired axial images were acquired through | | | the abdomen and pelvis for evaluation of the urinary tract. No oral or | | | IV contrast was used. ?Dose reduction techniques were used | | | including automated exposure control (AEC), iterative reconstruction | | | technique, and/or mA and/or kV dose adjustments based on patient size? | | | COMPARISON: Images from a outside facility dated 12/30/2013 | | | FINDINGS: Limited view the lung bases demonstrates suggestion of | | | prior sternotomy. Heavy calcification of the mitral annulus partially | | | visualized. Cardiac size appears within the range of normal no | | | pericardial effusion. Limited view the lung bases has mild bibasilar | | | atelectasis. The distal esophagus is normal. Lack of IV | | | contrast hampers evaluation of the solid viscera but the liver, | | | biliary tree, spleen, pancreas, adrenal glands are grossly normal in | | | appearance. Kidneys are symmetric in size no calcified stones or | | | hydronephrosis evident. The exophytic cyst from the lower pole of the | | | right kidney is again noted. There is mild bilateral perinephric | | | stranding and infiltrative change possibility of | | | inflammation/infection could be considered. No stones along the course | | | of either left or right ureter nor within the contracted urinary | | | bladder. Bladder wall is not well seen and may be mildly thickened. | | | The aorta and vena cava are normal in caliber throughout their | | | visualized course including the iliac and femoral vessels. No free | | | fluid or free air is seen in the abdomen or pelvis. No adenopathy | | | is seen in the abdomen or pelvis. Luminal GI tract evaluation is | | | hampered by the lack of enteric contrast but there is a nonobstructive | | | pattern. No obvious bowel wall thickening or mass. Appendix not | | | confidently identified but no pericecal inflammatory change. Moderate | | | amount of sigmoid diverticulosis but no evidence of diverticulitis at | | | this point in time. Uterus and ovaries appear to be surgically | | | absent. The muscles of the abdomen and pelvis are symmetric. No | | | focal atrophy or soft tissue mass is seen. No hernias are | | | identified. Multilevel degenerative changes of the lumbar spine | | | but no lytic or blastic lesions worrisome for bony metastatic disease. | | | | | + + + + + | Procedure Note | + + | Ad, Rad Results In - 03/16/2018 8:44 PM PDT [facility] A WHITECT URINARY TRACT ABDOMEN | | PELVIS WO CONTRAST03/16/2018 8:00 PMHISTORY:67 years. Male. Bilateral flank | | pain.TECHNIQUE:Helically acquired axial images were acquired through the abdomen and | | pelvis for evaluation of the urinary tract. No oral or IV contrast was used.?Dose | | reduction techniques were used including automated exposure control (AEC), iterative | | reconstruction technique, and/or mA and/or kV dose adjustments based on patient | | size?COMPARISON:Images from a outside facility dated 12/30/2013FINDINGS:Limited view the | | lung bases demonstrates suggestion of prior sternotomy. Heavy calcification of the | | mitral annulus partially visualized. Cardiac size appears within the range of normal no | | pericardial effusion. Limited view the lung bases has mild bibasilar atelectasis.The | | distal esophagus is normal.Lack of IV contrast hampers evaluation of the solid viscera | | but the liver, biliary tree, spleen, pancreas, adrenal glands are grossly normal in | | appearance.Kidneys are symmetric in size no calcified stones or hydronephrosis evident. | | The exophytic cyst from the lower pole of the right kidney is again noted. There is mild | | bilateral perinephric stranding and infiltrative change possibility of | | inflammation/infection could be considered. No stones along the course of either left or | | right ureter nor within the contracted urinary bladder. Bladder wall is not well seen | | and may be mildly thickened.The aorta and vena cava are normal in caliber throughout | | their visualized course including the iliac and femoral vessels.No free fluid or free | | air is seen in the abdomen or pelvis.No adenopathy is seen in the abdomen or | | pelvis.Luminal GI tract evaluation is hampered by the lack of enteric contrast but there | | is a nonobstructive pattern. No obvious bowel wall thickening or mass. Appendix not | | confidently identified but no pericecal inflammatory change. Moderate amount of sigmoid | | diverticulosis but no evidence of diverticulitis at this point in time.Uterus and | | ovaries appear to be surgically absent.The muscles of the abdomen and pelvis are | | symmetric. No focal atrophy or soft tissue mass is seen. No hernias are | | identified.Multilevel degenerative changes of the lumbar spine but no lytic or blastic | | lesions worrisome for bony metastatic disease.IMPRESSION:1. No calcified stones or | | hydronephrosis.2. Bilateral perinephric stranding and infiltrative change could suggest | | a bilateral pyelonephritis. Correlate with urinalysis.3. Exophytic cyst right kidney | | lower pole4. Sigmoid diverticulosis.5. Bibasilar subsegmental atelectasis6. Prior | | cholecystectomy and hysterectomy.Electronically signed by Prashant Larry MD on | | 03/16/2018 8:39 PM | |Luminal GI tract evaluation is hampered by the lack of enteric contrast but there is a nono bstructive pattern. No obvious bowel wall thickening or mass. Appendix not confidently ident ified but no pericecal inflammatory | |change. Moderate amount of sigmoid diverticulosis but no evidence of diverticulitis at this point in time. | | | |Uterus and ovaries appear to be surgically absent. | | | |The muscles of the abdomen and pelvis are symmetric. No focal atrophy or soft tissue mass is seen. No hernias are identified. | | | |Multilevel degenerative changes of the lumbar spine but no lytic or blastic lesions worriso me for bony metastatic disease. | | | |IMPRESSION: | |1. No calcified stones or hydronephrosis. | |2. Bilateral perinephric stranding and infiltrative change could suggest a bilateral pyelo nephritis. Correlate with urinalysis. | |3. Exophytic cyst right kidney lower pole | |4. Sigmoid diverticulosis. | |5. Bibasilar subsegmental atelectasis | |6. Prior cholecystectomy and hysterectomy. | | | | | + + + + + + + | Performing | Address | City/State/Zipcode | Phone Number | | Organization | | | | + + + + + | [facility] | [address] | [place] [address] | | + + + + + [facility] Cardiac Panel ([facility]) (03/16/2018 7:25 PM) + + + + + | Component | Value | Ref Range | Performed At | + + + + + | WBC | 14.98 (H) | 3.80 - 11.00 K/uL | [facility] | + + + + + | RBC | 3.72 (L) | 4.20 - 5.70 M/uL | [facility] | + + + + + | HGB | 12.0 (L) | 13.2 - 17.0 g/dL | [facility] | + + + + + | HCT | 35.9 (L) | 39.0 - 50.0 % | [facility] | + + + + + | MCV | 96.4 | 80.0 - 100.0 fl | [facility] | + + + + + | MCH | 32.2 | 27.0 - 34.0 pg | [facility] | + + + + + | MCHC | 33.4 | 32.0 - 35.5 g/dL | [facility] | + + + + + | RDW SD | 49.0 | 37 - 53 fl | [email or web address] | + + + + + | PLT | 110 (L) | 150 - 400 K/uL | [email or web address] | + + + + + | MPV | 8.4 | fl | [email or web address] | + + + + + | DIFF TYPE | AUTOMATED | | [email or web address] | + + + + + | NEUTROPHILS | 89.10 | % | [facility] | + + + + + | LYMPHOCYTES | 4.84 | % | [facility] | + + + + + | MONOCYTES | 5.19 | % | [facility] | + + + + + | EOSINOPHILS | 0.44 | % | [facility] | + + + + + | BASOPHILS | 0.43 | % | [facility] | + + + + + | NEUTROPHILS ABS | 13.35 (H) | 1.90 - 7.40 K/uL | [facility] | + + + + + | LYMPHOCYTES ABS | 0.73 (L) | 1.00 - 3.90 K/uL | [facility] | + + + + + | MONOCYTES ABS | 0.78 | 0.00 - 0.80 K/uL | [facility] | + + + + + | EOSINOPHILS ABS | 0.07 | 0.00 - 0.50 K/uL | [facility] | + + + + + | BASOPHILS ABS | 0.06 | 0.00 - 0.10 K/uL | [facility] | + + + + + | MORPHOLOGY | RBC AND PLT MORPHOLOGY | | [facility] | | | APPEAR NORMAL | | | + + + + + | Platelet Estimate | ADEQUATE | | [facility] | + + + + + | Diff Comment | SLIDE SCANNED, AGREES | | [facility] | | | WITH AUTOMATED RESULTS. | | | + + + + + | SODIUM | 137 | 135 - 145 mmol/L | [facility] | + + + + + | POTASSIUM | 5.6 (H) | 3.5 - 4.9 mmol/L | [facility] | + + + + + | CHLORIDE | 103 | 99 - 109 mmol/L | [facility] | + + + + + | CO2 | 27 | 23 - 32 mmol/L | [facility] | + + + + + | ANION GAP AGAP | 12 | 5 - 20 mmol/L | [facility] | + + + + + | GLUCOSE | 225 (H) | 65 - 99 mg/dL | [facility] | + + + + + | BUN | 34 (H) | 8 - 25 mg/dL | [facility] | + + + + + | CREATININE | 1.5 (H) | 0.70 - 1.30 mg/dL | [facility] | + + + + + | BUN/CREAT | 23 | | [facility] | + + + + + | CALCIUM | 8.4 (L) | 8.5 - 10.5 mg/dL | [facility] | + + + + + | TOTAL PROTEIN | 6.0 (L) | 6.3 - 8.2 g/dL | [facility] | + + + + + | Albumin | 2.7 (L) | 3.3 - 4.8 g/dL | [facility] | + + + + + | GLOBULIN | 3.4 | 1.3 - 4.9 g/dL | [facility] | + + + + + | A/G | 0.8 (L) | 1.0 - 2.4 | [facility] | + + + + + | TBIL | 0.2 | 0.1 - 1.5 mg/dL | [facility] | + + + + + | ALK PHOS | 88 | 35 - 115 U/L | [facility] | + + + + + | AST | 29 | 10 - 45 U/L | [facility] | + + + + + | ALT | 51 | 10 - 65 U/L | [facility] | + + + + + | EGFR | 47 (L)Comment: GFR <60: | >60 mL/min/1.73m2 | [facility] | | | CHRONIC KIDNEY DISEASE, | | | | | IF FOUND OVER A 3 MONTH | | | | | PERIOD.GFR <15: KIDNEY | | | | | FAILURE.FOR | | | | | AMERICANS, MULTIPLY THE | | | | | CALCULATED GFR BY | | | | | 1.210.This eGFR is | | | | | calculated using the | | | | | MDRD IDMS traceable | | | | | equation. | | | + + + + + | CPK | 149 | 55 - 400 U/L | [facility] | + + + + + | TROPONIN I | 0.02Comment: 0.00 to | 0.00 - 0.10 ng/mL | [facility] | | | 0.10 CONSISTENT WITH | | | | | NORMAL POPULATION0.11 | | | | | to 0.60 CONSISTENT | | | | | WITH INCREASED RISK FOR | | | | | ADVERSE OUTCOMES> | | | | | 0.60 | | | | | CONSISTENT WITH WHO | | | | | CRITERIA FOR ACUTE [place] | | | + + + + + | INR | 0.9Comment: REFERENCE | | [facility] | | | RANGE:0.9 - | | | | | 1.2 NON-ANTICOAGULATE | | | | | D2.0 - 3.0 ALL OTHER | | | | | THERAPEUTIC | | | | | INDICATIONS2.5 - 3.5 | | | | | MECHANICAL HEART VALVES, | | | | | RECURRENT OR SYSTEMIC | | | | | EMBOLISM | | | + + + + + | APTT | 26 | 23 - 32 seconds | [facility] | + + + + + | MMB | 7.4 (H) | 0.5 - 3.6 ng/mL | [facility] | + + + + + | CK-MB Index | 5.0Comment: CK INDEX | | [facility] | | | INTERPRETATION: | | | | | MMB | | | | | ng/mL & Relative | | | | | IndexNon-AMI | | | | | < or = | | | | | 5.0 N | | | | | AGray Zone | | | | | >5.0 < | | | | | or = | | | | | 4.0AMI | | | | | | | | | | >5.0 | | | | | >4.0Testing | | | | | performed at [facility] | | | | | [address];[place], [place] | | | | | [address] | | | + + + + + + + + + + | Performing | Address | City/State/Zipcode | Phone Number | | Organization | | | | + + + + + | [facility] | [address] | [place] [address] | | + + + + + EKG 12 LEAD UNIT PERFORMED (03/16/2018 6:47 PM) + + + + + | Component | Value | Ref Range | Performed At | + + + + + | Ventricular Rate | 82 | BPM | [facility] | + + + + + | Atrial Rate | 82 | BPM | [facility] | + + + + + | P-R Interval | 266 | ms | [facility] | + + + + + | QRS Duration | 100 | ms | [facility] | + + + + + | Q-T Interval | 384 | ms | [facility] | + + + + + | QTC Calculation | 448 | ms | [facility] | | (Bezet) | | | | + + + + + | Calculated P Troy | 49 | degrees | [facility] | + + + + + | Calculated R Troy | -31 | degrees | [facility] | + + + + + | Calculated T Troy | 81 | degrees | [facility] | + + + + + | Diagnosis | Sinus rhythm with 1st | | [facility] | | | degree A-V blockLeft | | | | | axis | | | | | deviationNonspecific T | | | | | wave abnormalityAbnormal | | | | | ECGWhen compared with | | | | | ECG of 10-MAR-2018 | | | | | 13:26,Nonspecific T wave | | | | | abnormality now evident | | | | | in Anterior leadsThis | | | | | ECG contains Unconfirmed | | | | | Interpretation | | | | | Statements. See ED | | | | | Record for Physician | | | | | Interpretation. | | | | | Confirmed by MUSE READ | | | | | ONLY, -COMPUTER ([id number]), | | | | | news video editor Jak Davis | | | | | Tristan ([id number]) on 03/17/2018 | | | | | 2:29:46 AM | | | + + + + + + + + + + | Performing | Address | City/State/Zipcode | Phone Number | | Organization | | | | + + + + + | [facility] | [address] | [place] [address] | | + + + + + Urinalysis (reflex to microscopic/reflex to culture) (03/16/2018 6:44 PM) + + + + + | Component | Value | Ref Range | Performed At | + + + + + | COLOR UA | YELLOW | | [facility] | + + + + + | CLARITY | CLOUDY | | [email or web address] | + + + + + | Specific [place], UA | 1.018 | 1.002 - 1.030 | [email or web address] | + + + + + | LEUKOCYTE ESTERASE | LARGE (A) | NEGATIVE | [email or web address] | + + + + + | NITRITE | NEGATIVE | NEGATIVE | [email or web address] | + + + + + | UROBILINOGEN | NORMAL | <1.1 mg/dL | [email or web address] | + + + + + | PROTEIN | 100 (A) | NEGATIVE mg/dL | [facility] | + + + + + | PH,URINE | 5.0 | 5.0 - 8.0 | [facility] | + + + + + | BLOOD | MODERATE (A) | NEGATIVE | [facility] | + + + + + | KETONES | NEGATIVE | NEGATIVE mg/dL | [facility] | + + + + + | BILIRUBIN | NEGATIVE | NEGATIVE | [facility] | + + + + + | GLUCOSE | 50 (A) | NEGATIVE mg/dL | [facility] | + + + + + | WBC | >100 | 0 - 5 /hpf | [facility] | + + + + + | RBC | >100 | 0 - 2 /hpf | [facility] | + + + + + | BACTERIA | 1+ (A) | NONE SEEN | [facility] | + + + + + | EPITHELIAL | 11-15Comment: Testing | /lpf | [facility] | | | performed at [facility];[address] | | | | [address];[place] | | | | | [address] | | | + + + + + + + | Specimen | + + | Urine, Catheter | + + + + + + + | Performing | Address | City/State/Zipcode | Phone Number | | Organization | | | | + + + + + | [facility] | [address] | [place] [address] | | + + + + + Urine culture (03/16/2018 6:44 PM) + + + + + | Component | Value | Ref Range | Performed At | + + + + + | Specimen Description | CATHETERIZED URINE | | [facility] | | | | | [facility] | + + + + + | CULTURE | >100,000 CFU/ML | | [facility] | | | | | [facility] | + + + + + | CULTURE | STAPHYLOCOCCUS LENTUS | | [facility] | | | (A) | | [facility] | + + + + + + + | Specimen | + + | Urine, Catheter | + + + + +--------+ + | Organism | Antibiotic | Method | Susceptibility | + + +--------+ + | Staphylococcus | Penicillin G | [facility] | RESISTANT: | | lentus | | | Resistant | + + +--------+ + | Staphylococcus | Gentamicin | [facility] | SUSCEPTIBLE: | | lentus | | | Sensitive | + + +--------+ + | Staphylococcus | Levofloxacin | [facility] | SUSCEPTIBLE: | | lentus | | | Sensitive | + + +--------+ + | Staphylococcus | Moxifloxacin | [facility] | SUSCEPTIBLE: | | lentus | | | Sensitive | + + +--------+ + | Staphylococcus | Nitrofurantoin | [facility] | SUSCEPTIBLE: | | lentus | | | Sensitive | + + +--------+ + | Staphylococcus | Oxacillin | [facility] | RESISTANT: | | lentus | | | Resistant | + + +--------+ + | Staphylococcus | Tetracycline | [facility] | SUSCEPTIBLE: | | lentus | | | Sensitive | + + +--------+ + | Staphylococcus | Trimethoprim + | [facility] | SUSCEPTIBLE: | | lentus | Sulfamethoxazole | | Sensitive | + + +--------+ + | Staphylococcus | Vancomycin | [facility] | SUSCEPTIBLE: | | lentus | | | Sensitive | + + +--------+ + + + + + + | Performing | Address | City/State/Zipcode | Phone Number | | Organization | | | | + + + + + | [facility] | [address] | [place] [address] | [phone] | | LABORATORY | [address] | | | + + + + + ED INFORMATION EXCHANGE (03/16/2018 5:44 PM) + + + | Narrative | Performed At | + + + | [id number] This patient has registered at the | ED | | [facility] Emergency Department For more | INFORMATION | | information visit: | EXCHANGE | | [id number] | | | [id number] Security Events No recent Security Events currently on file | | | ED Care Guidelines from [facility] Last | | | Updated: 01/28/17 1:11 PM Care Coordination: This patient has | | | been identified as havingor moreDepartment visits in this calendar | | | year.Patient requires education on appropriate ED usage.Emphasize the | | | importance of using outpatient medical services for the treatment of | | | chronic conditions. Please contact [facility], | | | at [phone] or [phone] if patient is seen in ED. These are | | | guidelines and the provider should exercise clinical judgment when | | | providing care. Recent Emergency Department Visit Summary Admit | | | Date Facility City State Type Major Type Diagnoses or Chief Complaint | | | [facility] [place] [facility] [place] [facility] Chief Complaint: | | | NOSEBLEED [facility] 09[facility] [place] 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 Emergency Emergency Chief | | | Complaint: CHEST PAIN [facility] 08[facility] [place] [facility] 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 | | | Emergency Emergency Chief Complaint: CHEST PAIN January 25, | | | 2017 [facility] 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 | | | Emergency Emergency Acute upper respiratory infection, | | | unspecified Dependence on supplemental oxygen | | | Atherosclerotic heart disease of [place] coronary artery without angina | | | pectoris Hyperlipidemia, unspecified Other intermediate | | | (current) drug therapy Chronic obstructive pulmonary disease, | | | unspecified Dyspnea, unspecified Gastro-esophageal | | | reflux disease without esophagitis ad terminal makeup operator (current) use of | | | insulin Acute tracheitis without obstruction E.D. | | | Visit Count (12 mo.) Facility Visits Low Acuity [facility] [place] | | | [facility] 6 0 [facility] 1 0 [place] | | | [facility] 16 0 [facility] | | | [address] [facility] 1 0 Total 25 0 Note: Visits | | | indicate total known visits. Medicaid Low Acuity Dx are the number of | | | primary diagnoses on the Medicaid's Low Acuity dx list. Recent | | | Inpatient Visit Summary Admit Date Facility City State Type Major | | | Type Diagnoses or Chief Complaint Mar 09, 2018 [facility] | | | [facility] General Medicine Inpatient stroke | | | Illness, unspecified Hyperkalemia PDMP Report PDMP | | | query found no report. Care Providers Provider PRC Type Phone Fax | | | Service Dates YORDY Mike Case or [facility] Consultant | | | Current Known Aliases No known aliases. | | | Criteria met Care Guidelines 10 in 12 3 in 60 2 | | | in 2 The above information is provided for the sole purpose of | | | patient treatment. Use of this information beyond the terms of Data | | | Sharing Memorandum of Understanding and License Agreement is | | | prohibited. In certain cases not all visits may be represented. | | | Consult the aforementioned facilities for additional information. | | | 2018 [facility] [place], [place] - | | | [email or web address] | | + + + + + | Procedure Note | + + | Interface, Lab - 03/16/2018 5:44 PM PDT Formatting of this note may be different | | from the original.[id number] patient has registered at the [facility] | | [facility] Emergency Department For more information visit: | | [email or web address] Security | | EventsNo recent Security Events currently on fileED Care Guidelines from [facility] | | [facility] Updated: 01/28/17 1:11 PM Care Coordination:This patient has been | | identified as havingor moreDepartment visits in this calendar year.Patient requires | | education on appropriate ED usage.Emphasize the importance of using outpatient medical | | services for the treatment of chronic conditions.Please contact Community Health Worker, | | Summer, at [phone] or [phone] if patient is seen in ED.These are guidelines | | and the provider should exercise clinical judgment when providing care.Recent Emergency | | Department Visit SummaryAdmit Date Facility City State Type Major Type Diagnoses or | | Chief Complaint Mar 16, 2018 [facility] [place] Emergency Emergency [place] | | 2017 [facility] [place] Emergency Emergency Chief Complaint: | | NOSEBLEED Mar 09, 2018 [facility] [place] Emergency Emergency | | Headache Type 2 diabetes mellitus with hypoglycemia without coma Cerebral | | infarction, unspecified Chronic obstructive pulmonary disease, unspecified Long | | term (current) use of insulin Gastro-esophageal reflux disease without esophagitis | | Localized edema Essential (primary) hypertension Hyperlipidemia, unspecified | | Atherosclerotic heart disease of [place] coronary artery without angina pectoris Mar 02, | | 2017 [facility] [place] Emergency Emergency Gastro-esophageal | | reflux disease without esophagitis Allergy status to other drugs, medicaments and | | biological substances status Hyperlipidemia, unspecified Other intermediate (current) | | drug therapy Chronic obstructive pulmonary disease, unspecified Type 2 diabetes | | mellitus without complications ad terminal makeup operator (current) use of aspirin Localized edema | | alf (current) use of insulin Venous insufficiency (chronic) (peripheral) | | Feb 17, 2018 [facility] [place] Emergency Emergency Chief | | Complaint: CHEST PAIN February 08, 2018 [facility] [place] Emergency | | Emergency Chronic obstructive pulmonary disease, unspecified Atherosclerotic heart | | disease of [place] coronary artery without angina pectoris Other chest pain Cough | | Type 2 diabetes mellitus without complications Hyperlipidemia, unspecified | | Other intermediate (current) drug therapy Venous insufficiency (chronic) (peripheral) | | Localized edema Allergy status to other drugs, medicaments and biological substances | | status January 27, 2018 [facility] [place] Emergency Emergency | | Chief Complaint: CHEST PAIN January 25, 2018 [facility] 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 [place] Emergency Emergency Unspecified open wound, | | unspecified foot, initial encounter alf (current) use of insulin alf | | (current) use of aspirin Other chest pain Atherosclerotic heart disease of [place] | | coronary artery without angina pectoris Dyspnea, unspecified Other intermediate | | (current) drug therapy Type 2 diabetes mellitus without complications | | Atrioventricular block, first degree Chronic obstructive pulmonary disease, | | unspecified Dec 28, 2017 [facility] [place] Emergency Emergency | | Other intermediate (current) drug therapy Chronic obstructive pulmonary disease, | | unspecified Atherosclerotic heart disease of [place] coronary artery without angina | | pectoris Type 2 diabetes mellitus without complications ad terminal makeup operator (current) use of | | insulin Other specified symptoms and signs involving the circulatory and respiratory | | systems Dependence on supplemental oxygen Wheezing Cough Hyperlipidemia, | | unspecified Dec 20, 2017 [facility] 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 Visit Count (12 mo.)Facility Visits Low Acuity [facility] | | [facility] 6 0 [facility] 1 0 [facility] | | [facility] 16 0 [facility] [address] [facility] | | 1 0 Total 25 0 Note: Visits indicate total known visits. Medicaid Low Acuity Dx are the | | number of primary diagnoses on the Medicaid's Low Acuity dx list. Recent Inpatient | | Visit SummaryAdmit Date Facility City State Type Major Type Diagnoses or Chief Complaint | | Mar 09, 2018 [facility] In[facility] | | Illness, unspecified Hyperkalemia PDMP ReportPDMP query found no report.Care | | ProvidersProvider PRC Type Phone Fax Service Dates YORDY Mike Case or Care | | Appellate Court Judge Current Known AliasesNo known aliases. Criteria | | met Care Guidelines 10 in 12 3 in 60 2 in 2The above information is provided for the | | sole purpose of patient treatment. Use of this information beyond the terms of Data | | Sharing Memorandum of Understanding and License Agreement is prohibited. In certain | | cases not all visits may be represented. Consult the aforementioned facilities for | | additional information. 2018 [employer]. 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 Visit Count (12 mo.) | |Facility Visits Low Acuity | |[facility] 6 0 | |[facility] 1 0 | |[facility] 16 0 | |[facility] 1 0 | |[facility] 1 0 | |Total 25 0 | |Note: Visits indicate total known visits. Medicaid Low Acuity Dx are the number of primary diagnoses on the Medicaid's Low Acuity dx list. | | | |Recent Inpatient Visit Summary | |Admit Date Facility City State Type Major Type Diagnoses or Chief Complaint | |Mar 09, 2018 [facility] Kevin Trivedi. [place] General Medicine Inpatient | | stroke | | Illness, unspecified | | Hyperkalemia | | | | | | | |PDMP Report | |PDMP query found no report. | | | |Care Providers | |Provider PRC Type Phone Fax Service Dates | |YORDY Mike Case or [employer] Consultant Current | | | |Known Aliases | |No known aliases. | |Criteria met | | | | Care Guidelines | | 10 in 12 | | 3 in 60 | | 2 in 2 | | | |The above information is provided for the sole purpose of patient treatment. Use of this in formation beyond the terms of Data Sharing Memorandum of Understanding and License Agreement is prohibited. In | |certain cases not all visits may be represented. Consult the aforementioned facilities for additional information. | |2018 [employer] - [place], [place] - [email or web address] | + + + +---------+ + + | Performing | Address | City/State/Zipcode | Phone Number | | Organization | | | | + +---------+ + + | ED INFORMATION | | | | | EXCHANGE | | | | + +---------+ + + Confirmation glucose (03/11/2018 4:50 PM)Only the most recent of 3 results within the time period is included. + + + + + | Component | Value | Ref Range | Performed At | + + + + + | GLUCOSE | 450 (H)Comment: Testing | 65 - 99 mg/dL | [facility] | | | performed at [facility];[address] | | | | | [address];[place] | | | | | [phone] | | | + + + + + + + + + + | Performing | Address | City/State/Zipcode | Phone Number | | Organization | | | | + + + + + | [facility] | [address] | [place] [address] | | + + + + + Potassium (03/10/2018 5:53 PM)Only the most recent of 2 results within the time period is included. + + + + + | Component | Value | Ref Range | Performed At | + + + + + | POTASSIUM | 5.4 (H)Comment: SLT | 3.5 - 4.9 mmol/L | [facility] | | | HEMOLYSISTesting | | | | | performed at [facility];[address] | | | | | [address];[place] | | | | | [address] | | | + + + + + + + | Specimen | + + | Blood | + + + + + + + | Performing | Address | City/State/Zipcode | Phone Number | | Organization | | | | + + + + + | [facility] | [address] | [place] [address] | | + + + + + MRI brain without contrast (03/10/2018 3:45 PM) + + + | Impressions | Performed At | + + + | 1. No acute intracranial finding such as infarct, ischemia or | [facility] | | hemorrhage. 2. Minimal chronic microvascular ischemic scoliosis in | RADIOLOGY | | the frontal lobe white matter and central nicholas largely unchanged from | | | September 2012. This is concordant with the patient's history of | | | diabetes and hypertension. 3. Moderate cerebral atrophy. | | | | | + + + + + + | Narrative | Performed At | + + + | [facility] A [facility] MRI BRAIN WO CONTRAST 03/10/2018 3:45 PM HISTORY: | [facility] | | 67 years. Male. Garbled speech. Assess for stroke. | RADIOLOGY | | TECHNIQUE: Imaging was performed on a 1.5 Karen MRI | | | system. Multiplanar sequences were acquired according to a standard | | | department protocol without contrast. COMPARISON: Outside CT | | | head 03/09/2018 performed at [facility]. MRI stroke | | | 09/15/2012 FINDINGS: Moderate diffuse cerebral atrophy is seen | | | with enlarged cisterns and sulci. The DWI sequence shows no | | | evidence of acute ischemia or infarct. The T2* GRE sequence does | | | not show low signal material to suggest microhemorrhages or | | | calcification within the brain parenchyma. A few scattered foci of | | | chronic microvascular ischemic gliosis are noted in the bihemispheric | | | frontal lobe white matter and central nicholas typical of the combination | | | of long-standing hypertension and diabetes. This is concordant with | | | the patient's medical history and appears largely unchanged from | | | September 2012. No extraaxial fluid collections are noted. The | | | midline structures including the corpus callosum, nicholas, cerebellar | | | vermis, pineal gland and pituitary are normal. No masses are seen | | | in the region of the cerebellopontine angles or internal auditory | | | canals. The orbits and their contents are normal. The paranasal | | | sinuses are well aerated. No air-fluid levels or mucosal thickening | | | is noted. No fluid seen in the mastoids. The osseous structures | | | of the calvaria and upper cervical spine demonstrate normal bone | | | marrow signal intensity. The soft tissues of the oropharynx and | | | upper neck appear normal on the sagittal sequences. The | | | intracranial arteries demonstrate normal flow voids on the T2 | | | sequence. No large aneurysm is noted. The dural venous sinuses | | | also demonstrate normal flow-voids. | | + + + + + | Procedure Note | + + | Ad, Rad Results In - 03/10/2018 4:43 PM PDT ADI A WHITEI BRAIN WO | | CONTRAST03/10/2018 3:45 PMHISTORY:67 years. Male. Garbled speech. Assess for | | stroke.TECHNIQUE:Imaging was performed on a 1.5 Karen MRI system. Multiplanar sequences | | were acquired according to a standard department protocol without | | contrast.COMPARISON:Outside CT head 03/09/2018 performed at [facility]. | | MRI stroke 09/15/2012FINDINGS:Moderate diffuse cerebral atrophy is seen with enlarged | | cisterns and sulci. The DWI sequence shows no evidence of acute ischemia or infarct. | | The T2* GRE sequence does not show low signal material to suggest microhemorrhages or | | calcification within the brain parenchyma. A few scattered foci of chronic | | microvascular ischemic gliosis are noted in the bihemispheric frontal lobe white matter | | and central nicholas typical of the combination of long-standing hypertension and diabetes. | | This is concordant with the patient's medical history and appears largely unchanged | | from September 2012. No extraaxial fluid collections are noted. The midline structures | | including the corpus callosum, nicholas, cerebellar vermis, pineal gland and pituitary are | | normal. No masses are seen in the region of the cerebellopontine angles or internal | | auditory canals. The orbits and their contents are normal. The paranasal sinuses are | | well aerated. No air-fluid levels or mucosal thickening is noted. No fluid seen in the | | mastoids. The osseous structures of the calvaria and upper cervical spine demonstrate | | normal bone marrow signal intensity. The soft tissues of the oropharynx and upper neck | | appear normal on the sagittal sequences. The intracranial arteries demonstrate normal | | flow voids on the T2 sequence. No large aneurysm is noted. The dural venous sinuses | | also demonstrate normal flow-voids.IMPRESSION:1. No acute intracranial finding such as | | infarct, ischemia or hemorrhage.2. Minimal chronic microvascular ischemic scoliosis in | | the frontal lobe white matter and central nicholas largely unchanged from September 2012. | | This is concordant with the patient's history of diabetes and hypertension.3. Moderate | | cerebral atrophy. | | | | | + + + + + + + | Performing | Address | City/State/Zipcode | Phone Number | | Organization | | | | + + + + + | [facility] | [address] | [place] [address] | | + + + + + Brain natriuretic peptide (03/10/2018 2:01 PM) + + + + + | Component | Value | Ref Range | Performed At | + + + + + | BRAIN NATRIURETIC | 480 (H)Comment: Testing | 0 - 100 pg/mL | [facility] | | PEPTIDE | performed at [facility];[address] | | | | | [address];[place] | | | | | [address] | | | + + + + + + + | Specimen | + + | Blood | + + + + + + + | Performing | Address | City/State/Zipcode | Phone Number | | Organization | | | | + + + + + | [facility] | [address] | [place] [address] | | + + + + + Echo cardiac adult with contrast (03/10/2018 10:15 AM) + +-------+ + + | Component | Value | Ref Range | Performed At | + +-------+ + + | LV EF | 65 | 50 - 70 % | [facility] | | | | | RADIOLOGY | + +-------+ + + + + + | Impressions | Performed At | + + + | 1. This was a technically difficult study with suboptimal views. 2. | [facility] | | Overall left ventricular systolic function is normal with, an EF | RADIOLOGY | | between 60 - 65 %. 3. The right ventricle is normal in size. 4. The | | | left atrial size is normal. 5. Trace amount of aortic regurgitation. | | | 6. Moderate aortic stenosis with peak/mean pressure gradient of | | | 35.26mmHg / 22.84mmHg, the aortic valve area by continuity equation is | | | 1.2cm . 7. Mild mitral regurgitation is present. 8. There is | | | mild pulmonary hypertension. 9. The right ventricular systolic | | | pressure (pulmonary artery systolic pressure), as measured by Doppler, | | | is 36-41 mmHg. 10. Compared to the findings of the prior study | | | 02/2017, the degree of aortic stenosis has increased. | | + + + + + + | Narrative | Performed At | + + + | Patient Name: ADI FIORE Date of : 1950 | [facility] | | Performing Physician: Dejan Shell MD | RADIOLOGY | | | | | INDICATIONS SHORTNESS OF BREATH CONCLUSIONS | | | 1. This was a technically difficult study with suboptimal | | | views. 2. Overall left ventricular systolic function is normal with, | | | an EF between 60 - 65 %. 3. The right ventricle is normal in size. | | | 4. The left atrial size is normal. 5. Trace amount of aortic | | | regurgitation. 6. Moderate aortic stenosis with peak/mean pressure | | | gradient of 35.26mmHg / 22.84mmHg, the aortic valve area by continuity | | | equation is 1.2cm . 7. Mild mitral regurgitation is present. | | | 8. There is mild pulmonary hypertension. 9. The right ventricular | | | systolic pressure (pulmonary artery systolic pressure), as measured by | | | Doppler, is 36-41 mmHg. 10. Compared to the findings of the prior | | | study 02/2017, the degree of aortic stenosis has increased. | | | FINDINGS -------- ECG rhythm: Sinus rhythm. Study: A 2-dimensional | | | transthoracic echocardiogram with m-mode, spectral and color flow | | | Doppler was perfomed. Study: This was a technically difficult study | | | with suboptimal views. Left Ventricle: Overall left ventricular | | | systolic function is normal with, an EF between 60 - 65 %. Left | | | Ventricle: The left ventricle cavity size is normal. Left Ventricle: | | | Left ventricular wall thickness is normal. Left Ventricle: Poor | | | tissue doppler signal prevents accurate assessment of diastolic | | | function. Right Ventricle: The right ventricle is normal in size. | | | Left Atrium: The left atrial size is normal Left Atrium: , and the LA | | | measures 4.8cm. Right Atrium: The right atrium is normal in size. | | | Aortic Valve: The aortic valve is trileaflet. Aortic Valve: The | | | aortic valve is moderately calcified. Aortic Valve: Trace amount of | | | aortic regurgitation. Aortic Valve: Moderate aortic stenosis with | | | peak/mean pressure gradient of 35.26mmHg / 22.84mmHg, the aortic | | | valve area by continuity equation is 1.2cm . Mitral Valve: The | | | mitral valve is normal. Mitral Valve: Mild mitral regurgitation is | | | present. Mitral Valve: Moderate mitral annular calcification | | | present. Tricuspid Valve: The tricuspid valve appears structurally | | | normal. Tricuspid Valve: Mild tricuspid regurgitation present. | | | Tricuspid Valve: There is mild pulmonary hypertension. Tricuspid | | | Valve: The right ventricular systolic pressure (pulmonary artery | | | systolic pressure), as measured by Doppler, is 36-41 mmHg. Pulmonic | | | Valve: The pulmonic valve was not well visualized. Pulmonic Valve: | | | Trace pulmonic regurgitation. Pericardium: There is a trivial echo | | | free space (possibly fat pad) or pericardial effusion present. | | | Pericardium: Anterior echo free space present. IVC/Hepatic Veins: The | | | IVC is normal size (1.5-2.5cm) and collapses >50% with sniff, | | | consistent with central venous pressures of 5-10mmHg. Contrast: Poor | | | visualization. Definity was used to opacify the left ventricular | | | chamber and improve delineation of the endocardial border. General | | | comments: Compared to the findings of the prior study 02/2017, the | | | degree of aortic stenosis has increased. MEASUREMENTS | | | [facility]IRA Planimetry: 1.82 cm2 AVAI Planimetry: 0.00 | | | cm2/m2 Ao asc: 2.54 cm Ao sinus: 3.[address] junct: | | | 2.79 cm IVC: 2.01 cm LA Major: 5.03 cm EDV(Teich): | | | 88.54 ml IVSd: 1.22 cm LVIDd: 4.41 cm LVPWd: 1.30 cm | | | LVOT Diam: 2.11 cm %FS: 33.08 % EF(Teich): 61.85 % | | | ESV(Teich): 33.77 ml IVSs: 1.41 cm LVIDs: 2.95 cm | | | LVPWs: 1.61 cm SV(Teich): 54.77 ml RA Major: 4.34 cm | | | RVIDd: 3.26 cm LAESV(A-L): 60.29 ml LAESV Index (A-L): | | | 22.58 ml/m2 LAAs A2C: 19.85 cm2 LAESV A-L A2C: 61.06 ml | | | LALs A2C: 5.48 cm LAAs A4C: 19.60 cm2 LAESV A-L A4C: | | | 57.28 ml LALs A4C: 5.69 cm Ao Diam: 4.03 cm AV Cusp: | | | 1.26 cm LA Diam: 4.75 cm LA/Ao: 1.17 IVC diameter: | | | 2.12 cm IVC collapse: 0.84 cm IVC % collapse: 57.87 % | | | HR: 95.98 BPM AV maxP.25 mmHg AV meanP.83 mmHg | | | AV Vmax: 2.96 m/s AV Vmean: 2.31 m/s AV VTI: 66.03 cm | | | MOIRA Vmax: 1.35 cm2 MOIRA (VTI): 1.17 cm2 AVAI Vmax: 0.00 | | | cm2/m2 AVAI (VTI): 0.00 cm2/m2 LVCI Dopp: 2.85 l/minm2 LVCO | | | Dopp: 7.63 l/min HR: 98.22 BPM LVOT maxP.26 mmHg | | | LVOT meanP.37 mmHg LVSI Dopp: 29.11 ml/m2 LVSV Dopp: | | | 77.72 ml LVOT Vmax: 1.14 m/s LVOT Vmean: 0.87 m/s LVOT | | | VTI: 22.19 cm MV maxP.60 mmHg MV meanP.70 mmHg | | | MV Vmax: 2.21 m/s MV Vmean: 1.39 m/s MV VTI: 39.72 cm | | | MVA (VTI): 1.95 cm2 Septal e': 0.12 m/s Lateral e': 0.15 | | | m/s HR: 95.98 BPM PV maxP.98 mmHg PV meanP.64 | | | mmHg PV Vmax: 0.86 m/s PV Vmean: 0.60 m/s PV VTI: 15.97 | | | cm RAP: 3 mmHg RVSP: 34.04 mmHg TR maxP.04 mmHg | | | TR Vmax: 2.78 m/s Nuclear Reactor Engineer: CHRISTOFER Authenticated by: Dejan | | | Suleman WASSERMAN Report Date/Time: 03-10-2018 17:45:14 | | + + + + + | Procedure Note | + + | Steven Duong In - 03/10/2018 5:50 PM PDT Patient Name: Kevin FIORE of | | : 1950ccession: [id number] Physician: Dejan Shell | | MD INDICATIONS S | | HORTNESS OF BREATHCONCLUSIONS 1. This was a technically difficult study with | | suboptimal views.2. Overall left ventricular systolic function is normal with, an EF | | between 60 - 65 %.3. The right ventricle is normal in size.4. The left atrial size is | | normal.5. Trace amount of aortic regurgitation. 6. Moderate aortic stenosis with | | peak/mean pressure gradient of 35.26mmHg / 22.84mmHg, the aortic valve area by | | continuity equation is 1.2cm .7. Mild mitral regurgitation is present.8. There is | | mild pulmonary hypertension.9. The right ventricular systolic pressure (pulmonary artery | | systolic pressure), as measured by Doppler, is 36-41 mmHg.10. Compared to the findings | | of the prior study 02/2017, the degree of aortic stenosis has | | increased.FINDINGS--------ECG rhythm: Sinus rhythm.Study: A 2-dimensional transthoracic | | echocardiogram with m-mode, spectral and color flow Doppler was perfomed. Study: This | | was a technically difficult study with suboptimal views.Left Ventricle: Overall left | | ventricular systolic function is normal with, an EF between 60 - 65 %. Left Ventricle: | | The left ventricle cavity size is normal. Left Ventricle: Left ventricular wall | | thickness is normal. Left Ventricle: Poor tissue doppler signal prevents accurate | | assessment of diastolic function.Right Ventricle: The right ventricle is normal in | | size.Left Atrium: The left atrial size is normalLeft Atrium: , and the LA measures | | 4.8cm.Right Atrium: The right atrium is normal in size. Aortic Valve: The aortic valve | | is trileaflet. Aortic Valve: The aortic valve is moderately calcified. Aortic Valve: | | Trace amount of aortic regurgitation. Aortic Valve: Moderate aortic stenosis with | | peak/mean pressure gradient of 35.26mmHg / 22.84mmHg, the aortic valve area by | | continuity equation is 1.2cm .Mitral Valve: The mitral valve is normal. Mitral | | Valve: Mild mitral regurgitation is present. Mitral Valve: Moderate mitral annular | | calcification present.Tricuspid Valve: The tricuspid valve appears structurally normal. | | Tricuspid Valve: Mild tricuspid regurgitation present. Tricuspid Valve: There is mild | | pulmonary hypertension. Tricuspid Valve: The right ventricular systolic pressure | | (pulmonary artery systolic pressure), as measured by Doppler, is 36-41 mmHg.Pulmonic | | Valve: The pulmonic valve was not well visualized. Pulmonic Valve: Trace pulmonic | | regurgitation.Pericardium: There is a trivial echo free space (possibly fat pad) or | | pericardial effusion present. Pericardium: Anterior echo free space present.IVC/Hepatic | | Veins: The IVC is normal size (1.5-2.5cm) and collapses >50% with sniff, consistent with | | central venous pressures of 5-10mmHg.Contrast: Poor visualization. Definity was used to | | opacify the left ventricular chamber and improve delineation of the endocardial | | border.General comments: Compared to the findings of the prior study 02/2017, the degree | | of aortic stenosis has increased.MEASUREMENTS [facility] Planimetry: 1.82 | | [id number] Planimetry: 0.00 cm2/m2Ao asc: 2.54 cmAo sinus: 3.[address] junct: 2.79 | | cmIVC: 2.01 cmLA Major: 5.03 cmEDV(Teich): 88.54 mlIVSd: 1.22 cmLVIDd: 4.41 | | cmLVPWd: 1.30 cmLVOT Diam: 2.11 cm%FS: 33.08 %EF(Teich): 61.85 %ESV(Teich): | | 33.77 mlIVSs: 1.41 cmLVIDs: 2.95 cmLVPWs: 1.61 cmSV(Teich): 54.77 mlRA Major: | | 4.34 cmRVIDd: 3.26 cmLAESV(A-L): 60.29 mlLAESV Index (A-L): 22.58 ml/m2LAAs A2C: | | 19.85 [id number] A-L A2C: 61.06 mlLALs A2C: 5.48 cmLAAs A4C: 19.60 [id number] A-L | | A4C: 57.28 mlLALs A4C: 5.69 cmAo Diam: 4.03 cmAV Cusp: 1.26 cmLA Diam: 4.75 | | cmLA/Ao: 1.17 IVC diameter: 2.12 cmIVC collapse: 0.84 cmIVC % collapse: 57.87 | | %HR: 95.98 BPMAV maxP.25 mmHgAV meanP.83 mmHgAV Vmax: 2.96 m/Silva | | Vmean: 2.31 m/Silva VTI: 66.03 cmAVA Vmax: 1.35 cm2AVA (VTI): 1.17 [id number] Vmax: | | 0.00 cm2/m2AVAI (VTI): 0.00 cm2/m2LVCI Dopp: 2.85 l/[id number] Dopp: 7.63 l/minHR: | | 98.22 BPMLVOT maxP.26 mmHgLVOT meanP.37 mmHgLVSI Dopp: 29.11 ml/m2LVSV | | Dopp: 77.72 mlLVOT Vmax: 1.14 m/sLVOT Vmean: 0.87 m/sLVOT VTI: 22.19 cmMV maxPG: | | 19.60 mmHgMV meanP.70 mmHgMV Vmax: 2.21 m/sMV Vmean: 1.39 m/sMV VTI: | | 39.72 cmMVA (VTI): 1.95 [id number] e': 0.12 m/sLateral e': 0.15 m/sHR: 95.98 | | BPMPV maxP.98 mmHgPV meanP.64 mmHgPV Vmax: 0.86 m/sPV Vmean: 0.60 m/sPV | | VTI: 15.97 cmRAP: 3 mmHgRVSP: 34.04 mmHgTR maxP.04 mmHgTR Vmax: 2.78 | | m/sSonographer: KVWAuthenticated by: Dejan Shell MDReport Date/Time: 03-10-2018 | | 17:45:14IMPRESSION:1. This was a technically difficult study with suboptimal views.2. | | Overall left ventricular systolic function is normal with, an EF between 60 - 65 %.3. | | The right ventricle is normal in size.4. The left atrial size is normal.5. Trace amount | | of aortic regurgitation. 6. Moderate aortic stenosis with peak/mean pressure gradient of | | 35.26mmHg / 22.84mmHg, the aortic valve area by continuity equation is 1.2cm .7. | | Mild mitral regurgitation is present.8. There is mild pulmonary hypertension.9. The | | right ventricular systolic pressure (pulmonary artery systolic pressure), as measured by | | Doppler, is 36-41 mmHg.10. Compared to the findings of the prior study 02/2017, the | | degree of aortic stenosis has increased. | |LA Major: 5.03 cm | |EDV(Teich): 88.54 ml | |IVSd: 1.22 cm | |LVIDd: 4.41 cm | |LVPWd: 1.30 cm | |LVOT Diam: 2.11 cm | |%FS: 33.08 % | |EF(Teich): 61.85 % | |ESV(Teich): 33.77 ml | |IVSs: 1.41 cm | |LVIDs: 2.95 cm | |LVPWs: 1.61 cm | |SV(Teich): 54.77 ml | |RA Major: 4.34 cm | |RVIDd: 3.26 cm | |LAESV(A-L): 60.29 ml | |LAESV Index (A-L): 22.58 ml/m2 | |LAAs A2C: 19.85 cm2 | |LAESV A-L A2C: 61.06 ml | |LALs A2C: 5.48 cm | |LAAs A4C: 19.60 cm2 | |LAESV A-L A4C: 57.28 ml | |LALs A4C: 5.69 cm | |Ao Diam: 4.03 cm | |AV Cusp: 1.26 cm | |LA Diam: 4.75 cm | |LA/Ao: 1.17 | |IVC diameter: 2.12 cm | |IVC collapse: 0.84 cm | |IVC % collapse: 57.87 % | |HR: 95.98 BPM | |AV maxP.25 mmHg | |AV meanP.83 mmHg | |AV Vmax: 2.96 m/s | |AV Vmean: 2.31 m/s | |AV VTI: 66.03 cm | |MOIRA Vmax: 1.35 cm2 | |MOIRA (VTI): 1.17 cm2 | |AVAI Vmax: 0.00 cm2/m2 | |AVAI (VTI): 0.00 cm2/m2 | |LVCI Dopp: 2.85 l/minm2 | |LVCO Dopp: 7.63 l/min | |HR: 98.22 BPM | |LVOT maxP.26 mmHg | |LVOT meanP.37 mmHg | |LVSI Dopp: 29.11 ml/m2 | |LVSV Dopp: 77.72 ml | |LVOT Vmax: 1.14 m/s | |LVOT Vmean: 0.87 m/s | |LVOT VTI: 22.19 cm | |MV maxP.60 mmHg | |MV meanP.70 mmHg | |MV Vmax: 2.21 m/s | |MV Vmean: 1.39 m/s | |MV VTI: 39.72 cm | |MVA (VTI): 1.95 cm2 | |Septal e': 0.12 m/s | |Lateral e': 0.15 m/s | |HR: 95.98 BPM | |PV maxP.98 mmHg | |PV meanP.64 mmHg | |PV Vmax: 0.86 m/s | |PV Vmean: 0.60 m/s | |PV VTI: 15.97 cm | |RAP: 3 mmHg | |RVSP: 34.04 mmHg | |TR maxP.04 mmHg | |TR Vmax: 2.78 m/s | | | |Nuclear Reactor Engineer: KVW | |Authenticated by: Dejan Shell MD | |Report Date/Time: 03-10-2018 17:45:14 | | | |IMPRESSION: | |1. This was a technically difficult study with suboptimal views. | |2. Overall left ventricular systolic function is normal with, an EF between 60 - 65 %. | |3. The right ventricle is normal in size. | |4. The left atrial size is normal. | |5. Trace amount of aortic regurgitation. | |6. Moderate aortic stenosis with peak/mean pressure gradient of 35.26mmHg / 22.84mmHg, the aortic valve area by continuity equation is 1.2cm . | |7. Mild mitral regurgitation is present. | |8. There is mild pulmonary hypertension. | |9. The right ventricular systolic pressure (pulmonary artery systolic pressure), as measure d by Doppler, is 36-41 mmHg. | |10. Compared to the findings of the prior study 02/2017, the degree of aortic stenosis has increased. | + + + + + + + | Performing | Address | City/State/Zipcode | Phone Number | | Organization | | | | + + + + + | [facility] | [address] | [place] [address] | | + + + + + Albumin / creat ratio (03/10/2018 1:05 AM) + + + + + | Component | Value | Ref Range | Performed At | + + + + + | ALBUMIN/CREAT RATIO | 2,800 (H)Comment: | <30 mg/g | [facility] | | | >300 Two of three A/C | | LABORATORY | | | ratios in this range | | | | | confirms overt clinical | | | | | nephropathy.Testing | | | | | performed at [facility], [address] | | | | [facility], | | | | | [place] [address] | | | + + + + + + + | Specimen | + + | Urine - Urine, | | Catheter | + + + + + + + | Performing | Address | City/State/Zipcode | Phone Number | | Organization | | | | + + + + + | [facility] | [address] | [place] [address] | [phone] | | LABORATORY | [address] | | | + + + + + US kidneys and bladder (03/09/2018 11:25 PM) + + + | Impressions | Performed At | + + + | 1. Very limited study due to patient body habitus and overlying | [facility] | | bowel gas. 2. No gross evidence of hydronephrosis. | RADIOLOGY | | 3. Indwelling Novoa catheter with nondistended urinary bladder. | | | | | + + + + + + | Narrative | Performed At | + + + | [facility] US KIDNEYS AND BLADDER 03/09/2018 11:25 PM | [facility] | | HISTORY: 67 years. Male. Acute renal insufficiency. | RADIOLOGY | | TECHNIQUE: Sonographic evaluation of the kidneys and urinary bladder, | | | using a 4-MHz curved array transducer. COMPARISON: CT abdomen | | | dated October 13, 2012.. FINDINGS: Imaging is very limited due | | | to patient body habitus and overlying bowel gas. Right Kidney: | | | 12.1 cm greatest longitudinal dimension. There is no gross evidence of | | | hydronephrosis or renal mass. No large nephroliths are identified. | | | Left Kidney: 12.6 cm greatest longitudinal dimension. There is no | | | gross evidence of hydronephrosis or renal mass. No large nephroliths | | | are identified. The urinary bladder is nondistended due to an | | | indwelling Novoa catheter. | | + + + + + | Procedure Note | + + | Ad, Rad Results In - 03/09/2018 11:40 PM PDT [facility] WHITEUS KIDNEYS AND | | BLADDER03/09/2018 11:25 PMHISTORY:67 years. Male. Acute renal | | insufficiency.TECHNIQUE:Sonographic evaluation of the kidneys and urinary bladder, using | | a 4-MHz curved array transducer.COMPARISON:CT abdomen dated October 13, | | 2012..FINDINGS:Imaging is very limited due to patient body habitus and overlying bowel | | gas.Right Kidney: 12.1 cm greatest longitudinal dimension. There is no gross evidence of | | hydronephrosis or renal mass. No large nephroliths are identified.Left Kidney: 12.6 cm | | greatest longitudinal dimension. There is no gross evidence of hydronephrosis or renal | | mass. No large nephroliths are identified.The urinary bladder is nondistended due to an | | indwelling Novoa catheter.IMPRESSION:1. Very limited study due to patient body habitus | | and overlying bowel gas.2. No gross evidence of hydronephrosis.3. Indwelling Novoa | | catheter with nondistended urinary bladder. | |FINDINGS: | | | |Imaging is very limited due to patient body habitus and overlying bowel gas. | | | |Right Kidney: 12.1 cm greatest longitudinal dimension. There is no gross evidence of hydron ephrosis or renal mass. No large nephroliths are identified. | | | |Left Kidney: 12.6 cm greatest longitudinal dimension. There is no gross evidence of hydrone phrosis or renal mass. No large nephroliths are identified. | | | |The urinary bladder is nondistended due to an indwelling Novoa catheter. | | | |IMPRESSION: | |1. Very limited study due to patient body habitus and overlying bowel gas. | | | |2. No gross evidence of hydronephrosis. | | | |3. Indwelling Novoa catheter with nondistended urinary bladder. | | | | | + + + + + + + | Performing | Address | City/State/Zipcode | Phone Number | | Organization | | | | + + + + + | [facility] | [address] | [place] [address] | | + + + + + XR chest 1 view (03/09/2018 10:19 PM) + + + | Impressions | Performed At | + + + | 1. Chronic findings, as above without acute disease. | [facility] | | | RADIOLOG[facility] | + + + + + + | Narrative | Performed At | + + + | [facility]I A WH[facility] XR CHEST 1 VIEW 03/09/2018 10:19 PM HISTORY: | [facility] | | Chest pain. TECHNIQUE: Frontal chest radiograph 2209 hours. | RADIOLOGY | | COMPARISON: Chest radiographs, most recent April 28, 2017. | | | FINDINGS: Low lung volumes. Mild strandy opacities at the lung bases | | | suggesting subsegmental atelectasis. No lung mass or significant focal | | | region of consolidation. Normal pulmonary vasculature when accounting | | | for low lung volumes. Intact median sternotomy wires and left | | | mediastinal clips. Suture anchors in the right humerus proximally. | | | Probable surgical foreshortening of the right distal clavicle. | | + + + + + | Procedure Note | + + | Ad, Rad Results In - 03/09/2018 10:34 PM PDT [facility] WHITEXR CHEST 1 VIEW03/09/2018 | | 10:19 PMHISTORY:Chest pain.TECHNIQUE:Frontal chest radiograph 2208 | | hours.COMPARISON:Chest radiographs, most recent April 28, 2017.FINDINGS:Low lung | | volumes. Mild strandy opacities at the lung bases suggesting subsegmental atelectasis. | | No lung mass or significant focal region of consolidation. Normal pulmonary vasculature | | when accounting for low lung volumes. Intact median sternotomy wires and left | | mediastinal clips. Suture anchors in the right humerus proximally. Probable surgical | | foreshortening of the right distal clavicle.IMPRESSION:1. Chronic findings, as above | | without acute disease. | | | |COMPARISON: | |Chest radiographs, most recent April 28, 2017. | | | |FINDINGS: | |Low lung volumes. Mild strandy opacities at the lung bases suggesting subsegmental atelecta sis. No lung mass or significant focal region of consolidation. Normal pulmonary vasculature when accounting for low lung | |volumes. Intact median sternotomy wires and left mediastinal clips. Suture anchors in the r ight humerus proximally. Probable surgical foreshortening of the right distal clavicle. | | | |IMPRESSION: | |1. Chronic findings, as above without acute disease. | | | | | + + + + + + + | Performing | Address | City/State/Zipcode | Phone Number | | Organization | | | | + + + + + | [facility] | [address] | [place] [address] | | + + + + + CPK (03/09/2018 8:44 PM) + + + + + | Component | Value | Ref Range | Performed At | + + + + + | CPK | 192Comment: Testing | 55 - 400 U/L | [facility] | | | performed at [facility];[address];[place] | | | | | [address] | | | + + + + + + + + + + | Performing | Address | City/State/Zipcode | Phone Number | | Organization | | | | + + + + + | [facility] | [address] | [facility] [place] [address] | | + + + + + PROCALCITONIN (03/09/2018 3:26 PM) + + + + + | Component | Value | Ref Range | Performed At | + + + + + | PROCALCITONIN | <0.05Comment: | <0.5 ng/mL | [facility] | | | INTERPRETIVE | | | | | INFORMATION: PROCALCI | | | | | TONIN PCT <= 0.5 | | | | | ng/mL: Low risk | | | | | for progression to | | | | | severe | | | | | systemic bacteria | | | | | l infection (severe | | | | | sepsis/septic | | | | | shock). Does not | | | | | exclude an infection, | | | | | because | | | | | localized infecti | | | | | ons may be associated | | | | | with such low | | | | | levels. If PCT is | | | | | measured very early | | | | | after | | | | | bacterial challen | | | | | ge (usually <6 hours), | | | | | results may still | | | | | be low and should | | | | | re-assess PCT 6-24 | | | | | hours later. PCT >0.5 | | | | | and <= 2 | | | | | ng/mL: Moderate | | | | | risk for progression to | | | | | severe | | | | | systemic infectio | | | | | n (severe sepsis/septic | | | | | shock). Other | | | | | conditions are known to | | | | | elevate PCT, patient | | | | | should be | | | | | closely monitored both | | | | | clinically and | | | | | by re-assessing | | | | | PCT within 6-24 hours. | | | | | PCT > 2 | | | | | ng/mL: High | | | | | likelihood for | | | | | progression to severe | | | | | systemic bacteria | | | | | l infection (severe | | | | | sepsis/septic shock). | | | | | PCT >= 10 | | | | | ng/mL: High | | | | | likelihood of severe | | | | | sepsis or septic | | | | | shock.Testing performed | | | | | at [facility];[address] [place] [address] | | | | | Blvd;[place] [address] | | | + + + + + + + + + + | Performing | Address | City/State/Zipcode | Phone Number | | Organization | | | | + + + + + | [facility] | [address] | [facility] [address] | | + + + + + CBC w/no Diff (03/09/2018 2:34 PM) + + + + + | Component | Value | Ref Range | Performed At | + + + + + | WBC | 6.22 | 3.80 - 11.00 K/uL | [email or web address] | + + + + + | RBC | 4.17 (L) | 4.20 - 5.70 M/uL | [facility] | + + + + + | HGB | 13.4 | 13.2 - 17.0 g/dL | [facility] | + + + + + | HCT | 40.1 | 39.0 - 50.0 % | [facility] | + + + + + | MCV | 96.3 | 80.0 - 100.0 fl | [facility] | + + + + + | MCH | 32.2 | 27.0 - 34.0 pg | [facility] | + + + + + | MCHC | 33.4 | 32.0 - 35.5 g/dL | [email or web address] | + + + + + | RDW SD | 49.0 | 37 - 53 fl | [facility] | + + + + + | PLT | 120 (L) | 150 - 400 K/uL | [facility] | + + + + + | MPV | 8.0Comment: Testing | fl | [facility] | | | performed at [facility];[address];[place] | | | | | [address] | | | + + + + + + + + + + | Performing | Address | City/State/Zipcode | Phone Number | | Organization | | | | + + + + + | [facility] | [address] | [place] [address] | | + + + + + CT head without contrast (03/09/2018 11:56 AM) + + + | Narrative | Performed At | + + + | This is a non-reportable procedure without a radiologist report and | [facility] | | is used for image storage only | RADIOLOGY | + + + + + + + + | Performing | Address | City/State/Zipcode | Phone Number | | Organization | | | | + + + + + | [facility] | [address] | [place] [address] | | + + + + + from Last 3 Months Insurance + +--------+ +------+ + + | Payer | Benefi | Subscriber | Type | Phone | Address | | | t Plan | ID | | | | | | / | | | | | | | Group | | | | | + +--------+ +------+ + + | [employer] | [facility] | [id number] | | +- | [employer]EE [id number] | | ADMINISTRATION | [place] | | | [id number] | | | [address] | | | | [address] [place], [place] | | | [place]AT[place] | | | | [phone] | | | ON | | | | | + +--------+ +------+ + + | [employer] | [place] | [phone] | | +- | [id number] | | ADMINISTRATION | CHOICE | | | [id number] | | | | | | [address] [place], [place] | | | | | | | [phone] | + +--------+ +------+ + + | MEDICARE | MEDICA | [id number] | | | [address] | | | RE | | | | [place] [address] | | | PART A | | | | | | | ONLY | | | | | + +--------+ +------+ + + | [employer] | [place] | [id number] | [phone] | [id number] | | ADMINISTRATION | CHOICE | | | [id number] | | | | | | [address] [place] | | | | | | | [phone] | + +--------+ +------+ + + + +--------+ +--------+ + + | Guarantor Name | Accoun | Relation to | Date | Phone | Billing Address | | | t Type | Patient | of | | | | | | | | | | + +--------+ +--------+ + + | ADI FIORE | Person | Self [birth year] | Home: | [address] | | | al/Fam | | 1950 | [phone] [place] | | | [place] | | | [phone] | [phone] | + +--------+ +--------+ + + | ADI FIORE | Person | Self | [birth year] | Home: | [address] | | | al/Fam | | 1950 | +- | [place], [place] | | | [place] | | | [address] | [phone] | + +--------+ +--------+ + + | ADI FIORE | Vetera | Self | [birth year] | Home: | [address] | | | ns | | 1950 | +- | [place], [place] | | | Admini | | | [address] | [phone] | | | strati | | | | | | | on | | | | | + +--------+ +--------+ + +"
--- OUTSIDE RECORDS SUMMARY | ~2018-05-07 | XMS | Encounter Summary ---
Demographics + + + | Address | [address] | | | [place] [address] | + + + | Home Phone | | + + + | Preferred Language | Unknown | + + + | Marital Status | | + + + | Anglican Affiliation | [id number] | + + + | Race | Unknown | + + + | Ethnic Group | Unknown | + + + Author + + + | Author | Brian Camerama | + + + | Organization | [employer] | + + + | Address | Unknown | + + + | Phone | Unavailable | + + + Support + + + + + | Name | Relationship | Address | Phone | + + + + + | Rosa Fiore | ECON | [address] | | | | | [place] [address] | | + + + + + Care Team Providers + +------+ + | Care Race And Sports Book Writer Name | Role | Phone | + +------+ + | Vincent Finch | PCP | | + +------+ + Reason for Visit + + + | Reason | Comments | + + + | Flank Pain | bilateral | + + + Auth/Cert +--------+--------+ + + + + | Status | Reason | Specialty | Diagnoses / | Referred By | Referred To | | | | | Procedures | Contact | Contact | +--------+--------+ + + + + | | | | Diagnoses | | | | | | | | | | | | | | Hyperkalemia | | | | | | | | | | | | | | Pyelonephrit | | | | | | | is Chronic | | | | | | | kidney | | | | | | | disease, | | | | | | | unspecified | | | | | | | CKD stage | | | | | | | | | | +--------+--------+ + + + + Encounter Details +--------+ + + + + | Date | Type | Department | Care Team | Description | +--------+ + + + + | 03/16/ | Hospital | [facility] | Ryley Stafford | Pyelonephritis | | 2018 - | Encounter | [facility] 8th | MD Valerie Owens | (Primary Dx); | | | | [address] | [address] [place], [place] | Chronic kidney | | 03/19/ | | Valerie Zuniga [facility] | [id number] | disease, unspecified | | 2018 | | [place] [address] | | CKD stage; | | | | [phone] | Orlando Aponte | Hyperkalemia | | | | | MD Valerie Gama | | | | | | [address] [place], [place] | | | | | | [address] | | | | | | | | +--------+ + + + [...] AM PDT | + + + + in this encounter Discharge Summaries Orlando Aponte MD - 03/19/2018 2:27 PM PDTFormatting of this note may be different from the original. [facility] Service: Hospitalist Physician Discharge Summary Pt: Adi Agudelo White AGE/SEX: 67 y.o. male ROOM: 8118/8118-1 PCP: Vincent Finch : 1950 Admit date: 03/16/2018 Discharge date and time: 03/19/18 Admitting Physician: Ryley Stafford MD Discharge Physician: Orlando Aponte MD Consults: Primary Discharge Diagnoses: Principal Problem: Pyelonephritis Active Problems: IDDM (insulin dependent diabetes mellitus) ([facility]LY [facility]) Morbid obesity (HCC) COPD (chronic obstructive pulmonary disease) ([facility]) HTN (hypertension) CKD (chronic kidney disease) stage 3, GFR 30-59 ml/min CAD (coronary artery disease) CORDELL (obstructive sleep apnea) Hyperkalemia Resolved Problems: * No resolved hospital problems. * Secondary Discharge Diagnoses: Discharged Condition: stable Significant Diagnostic Studies: Ct Renal Stone Study Addendum Date: 03/16/2018 Addendum: There is a typographical error. Patient is male gender and therefore has not had a hysterectomy. Seminal vesicles and limited portions the base the penis visualized are giles sly normal. Result Date: 03/16/2018 1. No calcified stones or hydronephrosis. 2. Bilateral perinephric stranding and infiltra tive change could suggest a bilateral pyelonephritis. Correlate with urinalysis. 3. Exophyt ic cyst right kidney lower pole 4. Sigmoid diverticulosis. 5. Bibasilar subsegmental atele ctasis 6. Prior cholecystectomy and hysterectomy. and Hospital Course: Mr. Fiore is a 67-year-old male who has history of coronary artery disease and underwent C ABG a few years ago, history of COPD and asthma, hypertension, type 2 diabetes mellitus, sei zure disorder, chronic kidney disease stage III, recently admitted to this hospital for COPD exacerbation. At that time he had a Novoa catheter for urinary retention. He presented to e mergency department 3 days ago with bilateral flank pain and difficult urination. He denied any fever. White count was minimally elevated at 14.[address] of abdomen showed evidence of bilateral perinephric stranding and infiltrative changes suggesting bilateral p yelonephritis. Urine was also suggestive of UTI and in fact culture grew Staphylococcus lent us. There was no evidence of hydronephrosis. HOSPITAL COURSE: The patient was initially started on IV ceftriaxone. Novoa catheter was reinserted. This improved the patient's symptoms and flank pain resolved. White count also normalized. This morning Novoa catheter was removed and the patient has since removal madeleine ent has urinated multiple times without much difficulty. In my opinion the patient develope d complicated UTI and bilateral pyelonephritis due to recent catheter placement. Plan is to send the patient home on oral doxycycline as per urine culture sensitivity report. He will receive 10 days of oral doxycycline to complete a 2-week course of antibiotics for his pyelo nephritis. The patient has elevation of blood sugars and most readings are around 200. The patient does not follow diet and I advised him to be compliant with dietary management of d iabetes. I will increase the dose of Humulin-N from 25 units to 30 units and will resume Napoleon toza upon discharge. The patient's potassium was 5.6 but then normalized and most recent pot assium yesterday was 4.6. The patient is much improved hence is discharged home on oral dox ycycline. The patient is advised to come to the emergency department in case he goes into a cute urinary retention, otherwise he will follow with primary care physician in about 1 week from now and I will instruct PCP to refer him to urologist for further management of urolog ic symptoms. Discharge Vitals: Vitals: 03/19/18 0320 03/19/18 0742 03/19/18 0829 03/19/18 1207 BP: 166/79 137/65 151/78 BP Location: Right forearm Right upper arm Right forearm Pulse: 73 53 77 72 Resp: 20 16 20 Temp: 98.2 F (36.8 C) 98.2 F (36.8 C) 97.8 F (36.6 C) TempSrc: Oral Oral Oral SpO2: 94% 94% 98% Weight: 153.3 kg (337 lb 14.4 oz) Height: Discharge Exam: Constitutional: Alert and oriented to person, place, and time. Appears well-developed and w ell-nourished. Obese. Cardiovascular: Normal rate, regular rhythm, normal heart sounds with S1 and S2 and intact distal pulses. Exam reveals no gallop and no friction rub. No murmur heard. Pulmonary/Chest: Effort normal and breath sounds normal. No stridor. No respiratory distres s. no wheezes. no rales. exhibits no tenderness. Abdominal: Soft. Bowel sounds are normal. exhibits no distension and no mass. There is no t enderness. There is no rebound and no guarding. Musculoskeletal: Normal range of motion.exhibits no tenderness. exhibits trace bilateral L E edema. Neurological: Alert and oriented to person, place, and time. No cranial nerve deficit. Ex hibits diminished muscle tone. Coordination normal. Skin: Skin is warm and dry. No rash noted. No erythema. No pallor. Psychiatric: Has a normal mood and affect. Behavior is normal. Judgment normal. LABS: Recent Labs Lab 03/18/18 0610 03/17/18 0558 03/16/18 1925 WBC 9.01 11.53* 14.98* HGB 12.7* 12.4* 12.0* HCT 37.4* 37.3* 35.9* PLT 113* 117* 110* NEUTOPHILPCT 69.14 79.60 89.10 MONOPCT 9.99 7.38 5.19 Recent Labs Lab 03/18/18 0610 03/17/18 0558 03/16/181924 NA 137 137 137 K 4.6 4.5 5.6* CL 103 103 103 CO2 27 25 27 BUN 33* 35* 34* CREATININE 1.5* 1.5* 1.5* PROT -- -- 6.0* BILITOT -- -- 0.2 ALT -- -- 51 AST -- -- 29 Invalid input(s): LABALBU Recent Labs Lab 03/17/18 05 MG 2.0 No results for input(s): AMYLASE in the last 168 hours. No results for input(s): PHART, PO2ART, LNA8ACN, M4CXUOOT, BEART in the last 168 hours. Recent Labs Lab 03/16/181924 APTT 26 INR 0.9 Recent Labs Lab 03/18/18 1151 03/18/18 0610 03/17/18 2344 03/16/181924 CKTOTAL -- -- -- 149 TROPONINI <0.020 <0.020 <0.020 0.02 CKMBINDEX -- -- -- 5.0 Disposition: Home or Self Care Patient Instructions: Medication List You have not been prescribed any medications. Activity: activity as tolerated Diet: diabetic diet Wound Care: not applicable Total time of discharge: 35 minutes. This included talking to patient, examining patient, d iscussing outpatient plan of care, reconciling home medications and dictating discharge summ gideon. Follow-up with PCP in 1 week. Signed: Orlando Aponte MD 03/19/2018 2:27 PMin this encounter Medications at Time of Discharge [...] + + + +---------+ + + | Magnesium Oxide | Take 420 mg by mouth | | | | | | 420 MG TABS | 2 (two) times | | | | | | | daily. | | | | | + + + +---------+ + + | metoprolol | Take 100 mg by mouth | | | | | | (TOPROL-XL) 200 MG | daily. | | | | | | 24 hr tablet | | | | | | + + + +---------+ + + | morphine (MSIR) 15 | Take 15 mg by mouth | | | | | | MG tablet | every 4 (four) hours | | | | | | | as needed for Pain. | | | | | + [...] + + + +---------+ + + | Probiotic Product | Take 2 tablets by | | | | | | (ACIDOPHILUS) CHEW | mouth 3 (three) | | | | | | | times daily. | | | | | + + + +---------+ + + | ranitidine | Take 150 mg by mouth | | | | | | (ZANTAC) 150 MG | 2 [...] + + + +---------+ + + | doxycycline | Take 1 tablet by | 20 | 0 | 03/19/20 | | | (ADOXA) 100 MG | mouth 2 (two) times | tablet | | 18 | | | tablet | daily. | | | | | + + + +---------+ + + | insulin NPH, | Inject 30 Units into | 15 mL | 12 | 03/19/20 | | | human, (HUMULIN) 100 | the skin 2 (two) | | | 18 | | | UNIT/ML injection | times [...] +---------+ + + as of this encounter Progress Notes Orlando Aponte MD - 03/18/2018 11:21 AM PDTFormatting of this note may be different from the original. [facility] Service: Hospitalist Progress Note Hospital Day: LOS: 2 days Post-Op Day: * No surgery found * SUBJECTIVE Patient Summary: Events Overnight: Patient had episode of chest pain last night, resolved with SL nitr oglycerin. Patient still C/O mild bilateral flank pain. Mild nausea. No vomiting. No fever o r chills. Novoa draining cleve colored urine. Around 900 ml of urine since yesterday. No hem aturia. Still C/O cough but no SOB. Scheduled Medications aspirin 81 mg Oral Daily with breakfast budesonide-formoterol 2 puff Inhalation BID buPROPion 200 mg Oral QAM carBAMazepine 200 mg Oral TID cefTRIAXone 1 g Intravenous Q24H cyanocobalamin 1,000 mcg Oral Daily ferrous sulfate (65 FE) 325 mg Oral 3 times daily FLUoxetine 20 mg Oral Daily heparin (porcine) 5000 unit/0.5mL 5,000 Units Subcutaneous 2 times per day insulin lispro (human) 0-10 Units Subcutaneous TID AC insulin lispro (human) 0-5 Units Subcutaneous Nightly insulin lispro (human) 20 Units Subcutaneous TID AC insulin NPH (human) 25 Units Subcutaneous BID AC isosorbide mononitrate 120 mg Oral Daily metoprolol 100 mg Oral Daily pantoprazole 40 mg Oral BID AC rosuvastatin 40 mg Oral Daily senna 1 tablet Oral BID sodium chloride 10 mL Intravenous Q8H tamsulosin 0.4 mg Oral after dinner Continuous Infusions dextrose PRN Medications acetaminophen OR acetaminophen, dextrose, dextrose, dextrose, glucagon, glucagon, HYDRO morphone, ipratropium-albuterol, nitroGLYCERIN, ondansetron OR ondansetron, polyethylene glycol OBJECTIVE Vital Signs: BP 135/72 (BP Location: Right upper arm) | Pulse 81 | Temp 98.4 F (36.9 C) (Oral) | Resp 16 | Ht 1.829 m (6') | Wt 153.8 kg (339 lb) | SpO2 96% | BMI 45.98 kg/m Temp: [97.7 F (36.5 C)-98.8 F (37.1 C)] 98.4 F (36.9 C) (03/18 728) BP: (135-158)/(62-95) 135/72 (03/18 728) Heart Rate: [76-83] 81 (03/18 728) Resp: [16-22] 16 (03/18 728) SpO2: [94 %-96 %] 96 % (03/18 728) Weight: [153.8 kg (339 lb)] 153.8 kg (339 lb) (03/18 030) Intake/Output Summary (Last 24 hours) at 03/18/18 1121 Last data filed at 03/18/18 0735 Gross per 24 hour Intake 610 ml Output 2375 ml Net -1765 ml Physical Exam Constitutional: He is oriented to person, place, and time. He appears well-developed and we ll-nourished. No distress. Obese. HENT: Head: Normocephalic. Mouth/Throat: Oropharynx is clear and moist. No oropharyngeal exudate. Eyes: Pupils are equal, round, and reactive to light. No scleral icterus. Neck: Neck supple. No JVD present. Cardiovascular: Normal rate, regular rhythm, normal heart sounds and intact distal pulses. Exam reveals no gallop and no friction rub. No murmur heard. Pulmonary/Chest: Effort normal and breath sounds normal. No respiratory distress. He has no wheezes. He has no rales. He exhibits no tenderness. Prolonged vesicular breathing right base. Abdomina/Gl: Soft. Bowel sounds are normal. He exhibits no distension and no mass. There is no rebound and no guarding. No hernia. Mild right CVA tenderness. Musculoskeletal: He exhibits no tenderness or deformity. Trace bilateral LE edema. Neurological: He is alert and oriented to person, place, and time. No cranial nerve deficit . Skin: Skin is warm and dry. No rash noted. He is not diaphoretic. No erythema. No pallor. Psychiatric: He has a normal mood and affect. His behavior is normal. Judgment and thought content normal. Nursing note and vitals reviewed. DATA CBC: Lab Results Component Value Date WBC 9.01 03/18/2018 RBC 3.89 (L) 03/18/2018 HGB 12.7 (L) 03/18/2018 HCT 37.4 (L) 03/18/2018 MCV 96.1 03/18/2018 MCH 32.7 03/18/2018 MCHC 34.1 03/18/2018 RDW 47.7 03/18/2018 PLT 113 (L) 03/18/2018 MPV 8.9 03/18/2018 DIFFTYPE AUTOMATED 03/18/2018 CMP: Lab Results Component Value Date NA 137 03/18/2018 K 4.6 03/18/2018 CL 103 03/18/2018 CO2 27 03/18/2018 ANIONGAP 12 03/18/2018 GLUF 242 (H) 03/18/2018 BUN 33 (H) 03/18/2018 CREATININE 1.5 (H) 03/18/2018 BCR 22 03/18/2018 CA 8.7 03/18/2018 PROT 6.0 (L) 03/16/2018 ALB 2.7 (L) 03/16/2018 GLOB 3.4 03/16/2018 BILITOT 0.2 03/16/2018 ALP 88 03/16/2018 AST 29 03/16/2018 ALT 51 03/16/2018 EGFR 47 (L) 03/18/2018 Magnesium: Lab Results Component Value Date MG 2.0 03/17/2018 Phosphorus: Lab Results Component Value Date PHOS 4.2 03/17/2018 U/A: Lab Results Component Value Date COLORU YELLOW 09/15/2012 CLARITYU CLOUDY 03/16/2018 MEROPENEM 1.020 02/18/2011 LEUKOCYTESUR LARGE (A) 03/16/2018 NITRITE NEGATIVE 03/16/2018 UROBILINOGEN NORMAL 03/16/2018 UPRO 100 (A) 03/16/2018 UPRO >300 (A) 02/18/2011 PHUR 5.0 03/16/2018 BLOODU MODERATE (A) 03/16/2018 KETONES NEGATIVE 03/16/2018 BILIRUBINUR NEGATIVE 03/16/2018 GLUCOSEU 50 (A) 03/16/2018 EPIS 11-15 03/16/2018 Mri Brain Without Contrast Result Date: 03/10/2018 1. No acute intracranial finding such as infarct, ischemia or hemorrhage. 2. Minimal behavioral health professional zenon microvascular ischemic scoliosis in the frontal lobe white matter and central nicholas large ly unchanged from September 2012. This is concordant with the patient's history of diabetes a nd hypertension. 3. Moderate cerebral atrophy. Ct Renal Stone Study Addendum Date: 03/16/2018 Addendum: There is a typographical error. Patient is male gender and therefore has not had a hysterectomy. Seminal vesicles and limited portions the base the penis visualized are giles sly normal. Result Date: 03/16/2018 1. No calcified stones or hydronephrosis. 2. Bilateral perinephric stranding and infiltra tive change could suggest a bilateral pyelonephritis. Correlate with urinalysis. 3. Exophyt ic cyst right kidney lower pole 4. Sigmoid diverticulosis. 5. Bibasilar subsegmental atele ctasis 6. Prior cholecystectomy and hysterectomy. LEM LIST Principal Problem: Pyelonephritis Active Problems: IDDM (insulin dependent diabetes mellitus) ([facility]LY [facility]) Morbid obesity (HCC) COPD (chronic obstructive pulmonary disease) ([facility]) HTN (hypertension) CKD (chronic kidney disease) stage 3, GFR 30-59 ml/min CAD (coronary artery disease) CORDELL (obstructive sleep apnea) Hyperkalemia ASSESSMENT & PLAN Bilateral pyelonephritis. Likely catheter associated UTI as patient was recently discharged from this hospital with Novoa catheter. Urine and blood cultures are still pending. Meanwhi le will continue ceftriaxone. CKD stage III. Stable renal function. Hyperkalemia. Resolved. Urinary retention. Novoa cathter to be continued. Patient is on Flomax. May consider removi ng Novoa on the day of discharge. Recent COPD exacerbation. Improving. On prednisone. Will continue for one more day. DM type with complications. Blood sugars are not well controlled. Will decrease the dose of prednisone. Will increase dose of NPH. CORDELL. Intolerant to CPAP. States he has panic disorder and can not handle CPAP mask. Essential hypertension. On metoprolol. CAD. Stable angina. Had chest pain last night resolved with SL NTG. EKG did not show any ne w changes and troponin was negative. On metoprolol, aspirin and Imdur. DVT prophylaxis with SQ heparin. Disposition: Pending clinical course. Likely discharge home tomorrow. Code Status: Full Code Orlando Aponte MD 03/18/2018Piani, Orlando Gama MD - 03/17/2018 11:50 AM PDTFormatting of this note may be d ifferent from the original. [facility] Service: Hospitalist Progress Note Hospital Day: LOS: 1 day Post-Op Day: * No surgery found * SUBJECTIVE Patient Summary: Events Overnight: Patient still has mild bilateral flank pain. Mild nausea. No vomiti ng. No fever or chills. Novoa draining cleve colored urine. Around 1 liter of urine since ad [place]. No hematuria. C/O cough but no SOB. Scheduled Medications aspirin 81 mg Oral Daily with breakfast budesonide-formoterol 2 puff Inhalation BID buPROPion 200 mg Oral QAM carBAMazepine 200 mg Oral TID cefTRIAXone 1 g Intravenous Q24H cyanocobalamin 1,000 mcg Oral Daily ferrous sulfate (65 FE) 325 mg Oral 3 times daily FLUoxetine 20 mg Oral Daily heparin (porcine) 5000 unit/0.5mL 5,000 Units Subcutaneous 2 times per day insulin lispro (human) 0-10 Units Subcutaneous TID AC insulin lispro (human) 0-5 Units Subcutaneous Nightly insulin lispro (human) 20 Units Subcutaneous TID AC insulin NPH (human) 25 Units Subcutaneous BID AC isosorbide mononitrate 120 mg Oral Daily metoprolol 100 mg Oral Daily predniSONE 10 mg Oral Daily with breakfast rosuvastatin 40 mg Oral Daily senna 1 tablet Oral BID sodium chloride 10 mL Intravenous Q8H tamsulosin 0.4 mg Oral after dinner Continuous Infusions dextrose PRN Medications acetaminophen OR acetaminophen, dextrose, dextrose, dextrose, glucagon, glucagon, HYDRO morphone, ipratropium-albuterol, ondansetron OR ondansetron, polyethylene glycol OBJECTIVE Vital Signs: BP 140/81 (BP Location: Right forearm) | Pulse 83 | Temp 97.7 F (36.5 C) (Oral) | Re sp 22 | Ht 1.829 m (6') | Wt 153.6 kg (338 lb 11.2 oz) | SpO2 95% | BMI 45.94 kg/m Temp: [96.9 F (36.1 C)-97.8 F (36.6 C)] 97.7 F (36.5 C) (03/17 1136) BP: (125-155)/(58-88) 140/81 (03/17 1136) Heart Rate: [79-87] 83 (03/17 1136) Resp: [14-22] 22 (03/17 1136) SpO2: [94 %-98 %] 95 % (03/17 1136) Height: [182.9 cm (6')] 182.9 cm (6') (03/16 2218) Weight: [153.6 kg (338 lb 11.2 oz)-156 kg (343 lb 14.7 oz)] 153.6 kg (338 lb 11.2 oz) (2217) BMI (Calculated): [46] 46 (03/16 2218) Intake/Output Summary (Last 24 hours) at 03/17/18 1153 Last data filed at 03/17/18 1128 Gross per 24 hour Intake 700 ml Output 1075 ml Net -375 ml Physical Exam Constitutional: He is oriented to person, place, and time. He appears well-developed and we ll-nourished. No distress. Obese. HENT: Head: Normocephalic. Mouth/Throat: No oropharyngeal exudate. Eyes: Pupils are equal, round, and reactive to light. No scleral icterus. Neck: Neck supple. No JVD present. Cardiovascular: Normal rate, regular rhythm, normal heart sounds and intact distal pulses. Exam reveals no gallop and no friction rub. No murmur heard. Pulmonary/Chest: Effort normal and breath sounds normal. No respiratory distress. He has no wheezes. He has no rales. He exhibits no tenderness. Prolonged vesicular breathing right base. Abdomina/Gl: Soft. Bowel sounds are normal. He exhibits no distension and no mass. There is no rebound and no guarding. No hernia. Mild bilateral CVA tenderness. Musculoskeletal: He exhibits no tenderness or deformity. Trace bilateral LE edema. Neurological: He is alert and oriented to person, place, and time. No cranial nerve deficit . Skin: Skin is warm and dry. No rash noted. He is not diaphoretic. No erythema. No pallor. Psychiatric: He has a normal mood and affect. His behavior is normal. Judgment and thought content normal. Nursing note and vitals reviewed. DATA CBC: Lab Results Component Value Date WBC 11.53 (H) 03/17/2018 RBC 3.87 (L) 03/17/2018 HGB 12.4 (L) 03/17/2018 HCT 37.3 (L) 03/17/2018 MCV 96.4 03/17/2018 MCH 32.0 03/17/2018 MCHC 33.2 03/17/2018 RDW 48.1 03/17/2018 PLT 117 (L) 03/17/2018 MPV 8.8 03/17/2018 DIFFTYPE AUTOMATED 03/17/2018 CMP: Lab Results Component Value Date NA 137 03/17/2018 K 4.5 03/17/2018 CL 103 03/17/2018 CO2 25 03/17/2018 ANIONGAP 14 03/17/2018 GLUF 243 (H) 03/17/2018 BUN 35 (H) 03/17/2018 CREATININE 1.5 (H) 03/17/2018 BCR 23 03/17/2018 CA 8.9 03/17/2018 PROT 6.0 (L) 03/16/2018 ALB 2.7 (L) 03/16/2018 GLOB 3.4 03/16/2018 BILITOT 0.2 03/16/2018 ALP 88 03/16/2018 AST 29 03/16/2018 ALT 51 03/16/2018 EGFR 47 (L) 03/17/2018 Magnesium: Lab Results Component Value Date MG 2.0 03/17/2018 Phosphorus: Lab Results Component Value Date PHOS 4.2 03/17/2018 U/A: Lab Results Component Value Date COLORU YELLOW 09/15/2012 CLARITYU CLOUDY 03/16/2018 MEROPENEM 1.020 02/18/2011 LEUKOCYTESUR LARGE (A) 03/16/2018 NITRITE NEGATIVE 03/16/2018 UROBILINOGEN NORMAL 03/16/2018 UPRO 100 (A) 03/16/2018 UPRO >300 (A) 02/18/2011 PHUR 5.0 03/16/2018 BLOODU MODERATE (A) 03/16/2018 KETONES NEGATIVE 03/16/2018 BILIRUBINUR NEGATIVE 03/16/2018 GLUCOSEU 50 (A) 03/16/2018 EPIS 11-15 03/16/2018 Mri Brain Without Contrast Result Date: 03/10/2018 1. No acute intracranial finding such as infarct, ischemia or hemorrhage. 2. Minimal behavioral health professional zenon microvascular ischemic scoliosis in the frontal lobe white matter and central nicholas large ly unchanged from September 2012. This is concordant with the patient's history of diabetes a nd hypertension. 3. Moderate cerebral atrophy. Ct Renal Stone Study Addendum Date: 03/16/2018 Addendum: There is a typographical error. Patient is male gender and therefore has not had a hysterectomy. Seminal vesicles and limited portions the base the penis visualized are giles sly normal. Result Date: 03/16/2018 1. No calcified stones or hydronephrosis. 2. Bilateral perinephric stranding and infiltra tive change could suggest a bilateral pyelonephritis. Correlate with urinalysis. 3. Exophyt ic cyst right kidney lower pole 4. Sigmoid diverticulosis. 5. Bibasilar subsegmental atele ctasis 6. Prior cholecystectomy and hysterectomy. LEM LIST Principal Problem: Pyelonephritis Active Problems: IDDM (insulin dependent diabetes mellitus) ([facility]) Morbid obesity ([facility]) COPD (chronic obstructive pulmonary disease) ([facility]) HTN (hypertension) CKD (chronic kidney disease) stage 3, GFR 30-59 ml/min CAD (coronary artery disease) CORDELL (obstructive sleep apnea) Hyperkalemia ASSESSMENT & PLAN Bilateral pyelonephritis. Likely catheter associated UTI as patient was recently discharged from this hospital with Novoa catheter. Will follow urine and blood cultures. Meanwhile kayli l continue ceftriaxone. CKD stage III. Stable renal function. Hyperkalemia. Resolved. Urinary retention. Novoa cathter to be continued. Patient is on Flomax. May consider removi ng Novoa on the day of discharge. Recent COPD exacerbation. Improving. On prednisone. Will continue for two more days. DM type with complications. Blood sugars are not well controlled. Will decrease the dose of prednisone. CORDELL. Intolerant to CPAP. States he has panic disorder and can not handle CPAP mask. Essential hypertension. On metoprolol. CAD. Stable on metoprolol, aspirin and Imdur. DVT prophylaxis with SQ heparin. Disposition: Pending clinical course. Code Status: Full Code Orlando Aponte MD 03/17/2018Peter Nelson, [facility] - 03/16/2018 10:57 PM PDTNote ccl 72ml/min meds reviewed ph vivi will follow [facility] [address], SAFETY AND HEALTH MANAGER - 03/16/2018 9:32 PM PDTAerosol tx given by Gmea Maldonado this encounter Plan of Treatment Not on [...] | + +--------+ + + + | [facility] | STAT | 03/16/2018 | | Results for this | | ([facility] ONLY) | | 7:25 PM | | [...] + + + in this encounter Results POCT glucose (03/19/2018 4:35 PM) + + + + + | Component | Value | Ref Range | Performed At | + + + + + | GLUCOSE,POC SCREEN | 98Comment: Testing | 65 - 99 mg/dL | [facility] | | | performed at [facility];[address] | | | | | [address];[place], [place] | | | | | [address] | | | + + + + + + + + + + | Performing | Address | City/State/Zipcode | Phone Number | | Organization | | | | + + + + + | [facility] | [address] | [place] [address] | | + + + + + POCT glucose (03/19/2018 11:58 AM) + + + + + | Component | Value | Ref Range | Performed At | + + + + + | GLUCOSE,POC SCREEN | 146 (H)Comment: Testing | 65 - 99 mg/dL | [facility] | | | performed at [facility];[address] | | | | | [address];[place] | | | | | [address] | | | + + + + + + + + + + | Performing | Address | City/State/Zipcode | Phone Number | | Organization | | | | + + + + + | [facility] | [address] | [facility] [place] [address] | | + + + + + POCT glucose (03/19/2018 5:53 AM) + + + + + | Component | Value | Ref Range | Performed At | + + + + + | GLUCOSE,POC SCREEN | 134 (H)Comment: Testing | 65 - 99 mg/dL | [facility] | | | performed at [facility];[address] | | | | | [address];[place] | | | | | [address] | | | + + + + + + + + + + | Performing | Address | City/State/Zipcode | Phone Number | | Organization | | | | + + + + + | [facility] | [address] | [place] [address] | | + + + + + POCT glucose (03/18/2018 9:06 PM) + + + + + | Component | Value | Ref Range | Performed At | + + + + + | GLUCOSE,POC SCREEN | 162 (H)Comment: Testing | 65 - 99 mg/dL | [facility] | | | performed at [facility];[address] | | | | | [address];[place] | | | | | [address] | | | + + + + + + + + + + | Performing | Address | City/State/Zipcode | Phone Number | | Organization | | | | + + + + + | [facility] | [address] | [place] [address] | | + + + + + POCT glucose (03/18/2018 4:47 PM) + + + + + | Component | Value | Ref Range | Performed At | + + + + + | GLUCOSE,POC SCREEN | 206 (H)Comment: Testing | 65 - 99 mg/dL | [facility] | | | performed at [facility];[address] | | | | | [facility];[place] | | | | | [address] | | | + + + + + + + + + + | Performing | Address | City/State/Zipcode | Phone Number | | Organization | | | | + + + + + | [facility] | [address] | [place] [address] | | + + + + + POCT glucose (03/18/2018 12:00 PM) + + + + + | Component | Value | Ref Range | Performed At | + + + + + | GLUCOSE,POC SCREEN | 208 (H)Comment: Testing | 65 - 99 mg/dL | [facility] | | | performed at [facility];[address] | | | | | [address];[place] | | | | | [address] | | | + + + + + + + + + + | Performing | Address | City/State/Zipcode | Phone Number | | Organization | | | | + + + + + | [facility] | [address] | [place] [address] | | + + + + + Troponin I (03/18/2018 11:51 AM) + + + + + | Component | Value | Ref Range | Performed At | + + + + + | TROPONIN I | <0.020Comment: 0.00 to | 0.00 - 0.10 ng/mL | [facility] | | | 0.10 CONSISTENT | [...] | | | | CRITERIA FOR ACUTE DC | | | | | Testing performed at | | | | | [facility];[address] | | | | | [address];[place] [address] | | | + + + + + + + | Specimen | + + | Blood | + + + + + + + | Performing | Address | City/State/Zipcode | Phone Number | | Organization | | | | + + + + + | [facility] | [address] | [place] [address] | | + + + + + POCT glucose (03/18/2018 6:30 AM) + + + + + | Component | Value | Ref Range | Performed At | + + + + + | GLUCOSE,POC SCREEN | 223 (H)Comment: Testing | 65 - 99 mg/dL | [facility] | | | performed at [facility];[address] | | | | | [address];[place], [place] | | | | | [address] | | | + + + + + + + + + + | Performing | Address | City/State/Zipcode | Phone Number | | Organization | | | | + + + + + | [facility] | [address] | [place] [address] | | + + + + + Troponin I (03/18/2018 6:10 AM) + + + + + | Component | Value | Ref Range | Performed At | + + + + + | TROPONIN I | <0.020Comment: 0.00 to | 0.00 - 0.10 ng/mL | [facility] | | | 0.10 CONSISTENT | [...] | | | | CRITERIA FOR ACUTE DC | | | | | Testing performed at | | | | | [facility];[address];[place] [address] | | | + + + + + + + | Specimen | + + | Blood | + + + + + + + | Performing | Address | City/State/Zipcode | Phone Number | | Organization | | | | + + + + + | [facility] | [address] | [place] [address] | | + + + + + CBC W/Auto Diff (Reflex to Manual) (03/18/2018 6:10 AM) + + + + + | [...] | [facility] | | | performed at [facility], [address] | | LABORATORY | | | [facility], | | | | | [place] [address] | | | + + + + + + + | Specimen | + + | Blood | + + + + + + + | Performing | Address | City/State/Zipcode | Phone Number | | Organization | | | | + + + + + | [facility] | [address] | [place] [address] | [phone] | | LABORATORY | [address] | | | + + + + + Basic metabolic panel (03/18/2018 6:10 AM) + + + + + | [...] (H) | 0.70 - 1.30 mg/dL | [facility] | | | | | LABORATORY | + + + + + | BUN/CREAT | 22 | | [facility] | | | | | LABORATORY | + + + + + | CALCIUM | 8.7 | 8.5 - 10.5 mg/dL | [facility] | | | | | LABORATORY | + + + + + | EGFR | 47 (L)Comment: GFR <60: | >60 mL/min/1.73m2 | [facility] | | | CHRONIC KIDNEY DISEASE, | [...] | | | | | performed at [facility], [address] | | | | | [facility], | | | | | [place] [address] | | | + + + + + + + | Specimen | + + | Blood | + + + + + + + | Performing | Address | City/State/Zipcode | Phone Number | | Organization | | | | + + + + + | [facility] | [address] | [place] [address] | [phone] | | LABORATORY | [address] | | | + + + + + Troponin I (03/17/2018 11:44 PM) + + + + + | Component | Value | Ref Range | Performed At | + + + + + | TROPONIN I | <0.020Comment: 0.00 to | 0.00 - 0.10 ng/mL | [facility] | | | 0.10 CONSISTENT | [...] | | | | CRITERIA FOR ACUTE DC | | | | | Testing performed at | | | | | [facility];[address] [place] [address] | | | | | [facility];[place] [address] | | | + + + + + + + | Specimen | + + | Blood | + + + + + + + | Performing | Address | City/State/Zipcode | Phone Number | | Organization | | | | + + + + + | [facility] | [address] | [place] [address] | | + + + + + POCT glucose (03/17/2018 9:18 PM) + + + + + | Component | Value | Ref Range | Performed At | + + + + + | GLUCOSE,POC SCREEN | 247 (H)Comment: Testing | 65 - 99 mg/dL | [facility] | | | performed at [facility];[address] | | | | | [address];[place] | | | | | [address] | | | + + + + + + + + + + | Performing | Address | City/State/Zipcode | Phone Number | | Organization | | | | + + + + + | [facility] | [address] | [facility] [address] | | + + + + + EKG STANDARD 12 LEAD (03/17/2018 6:40 PM) + + + + + | [...] + + + + | Calculated P [place] | 47 | degrees | [facility] | + + + + + | Calculated R [place] | -7 | degrees | [facility] | + + + + + | Calculated T [place] | 109 | degrees | [facility] | + + + + + | Diagnosis | Sinus rhythm with 1st | | [facility] | | | degree A-V | [...] | + + + + + | [facility] | [address] | [place] [address] | | + + + + + POCT glucose (03/17/2018 4:07 PM) + + + + + | Component | Value | Ref Range | Performed At | + + + + + | GLUCOSE,POC SCREEN | 279 (H)Comment: Testing | 65 - 99 mg/dL | [facility] | | | performed at [facility];[address] | | | | | [address];[place] | | | | | [address] | | | + + + + + + + + + + | Performing | Address | City/State/Zipcode | Phone Number | | Organization | | | | + + + + + | [facility] | [address] | [place] [address] | | + + + + + POCT glucose (03/17/2018 11:40 AM) + + + + + | Component | Value | Ref Range | Performed At | + + + + + | GLUCOSE,POC SCREEN | 221 (H)Comment: Testing | 65 - 99 mg/dL | [facility] | | | performed at [facility];[address] | | | | | [address];[place] | | | | | [address] | | | + + + + + + + + + + | Performing | Address | City/State/Zipcode | Phone Number | | Organization | | | | + + + + + | [facility] | [address] | [place] [address] | | + + + + + POCT glucose (03/17/2018 6:36 AM) + + + + + | Component | Value | Ref Range | Performed At | + + + + + | GLUCOSE,POC SCREEN | 250 (H)Comment: Testing | 65 - 99 mg/dL | [facility] | | | performed at [facility];[address] | | | | | [facility];[place], [place] | | | | | [address] | | | + + + + + + + + + + | Performing | Address | City/State/Zipcode | Phone Number | | Organization | | | | + + + + + | [facility] | [address] | [place] [address] | | + + + + + Glycohemoglobin A1c (03/17/2018 5:58 AM) + + + + + | Component | Value | Ref Range | Performed At | + + + + + | HEMOGLOBIN A1C | 7.3 (H)Comment: The | 4.0 - 6.0 % | [facility] | | | [place] [facility] | | LABORATORY | | | [...] | | | | | performed at [facility], [address] | | | | | [facility], | | | | | [place] [address] | | | + + + + + + + | Specimen | + + | Blood | + + + + + + + | Performing | Address | City/State/Zipcode | Phone Number | | Organization | | | | + + + + + | [facility] | [address] | [place] [address] | [phone] | | LABORATORY | [address] | | | + + + + + Phosphorus (03/17/2018 5:58 AM) + + + + + | Component | Value | Ref Range | Performed At | + + + + + | PHOSPHORUS | 4.2Comment: Testing | 2.3 - 4.8 mg/dL | [facility] | | | performed at [facility], [address] | | LABORATORY | | | [facility], | | | | | [place] [address] | | | + + + + + + + | Specimen | + + | Blood | + + + + + + + | Performing | Address | City/State/Zipcode | Phone Number | | Organization | | | | + + + + + | [facility] | [address] | [place] [address] | [phone] | | LABORATORY | [address] | | | + + + + + Magnesium (03/17/2018 5:58 AM) + + + + + | Component | Value | Ref Range | Performed At | + + + + + | MAGNESIUM | 2.0Comment: Testing | 1.7 - 2.4 mg/dL | [facility] | | | performed at [facility], [address] | | LABORATORY | | | [facility] [address], | | | | | [place] [address] | | | + + + + + + + | Specimen | + + | Blood | + + + + + + + | Performing | Address | City/State/Zipcode | Phone Number | | Organization | | | | + + + + + | [facility] | [address] | [place] [address] | [phone] | | LABORATORY | [address] | | | + + + + + Basic Metabolic Panel (03/17/2018 5:58 AM) + + + + + | Component | Value | Ref Range | Performed At | + + + + + | SODIUM | 137 | 135 - 145 mmol/L | [facility] | | | | | LABORATORY | + + + + + | POTASSIUM | 4.5 | 3.5 - 4.9 mmol/L | [facility] | | | | | LABORATORY | + + + + + | CHLORIDE | 103 | 99 - 109 mmol/L | [facility] | | | | | LABORATORY | + + + + + | CO2 | 25 | 23 - 32 mmol/L | [facility] | | | | | LABORATORY | + + + + + | ANION GAP AGAP | 14 | 5 - 20 mmol/L | [facility] | | | | | LABORATORY | + + + + + | GLUCOSE | 243 (H) | 65 - 99 mg/dL | [facility] | | | | | LABORATORY | + + + + + | BUN | 35 (H) | 8 - 25 mg/dL | [facility] | | | | | LABORATORY | + + + + + | CREATININE | 1.5 (H) | 0.70 - 1.30 mg/dL | [facility] | | | | | LABORATORY | + + + + + | BUN/CREAT | 23 | | [facility] | | | | | LABORATORY | + + + + + | CALCIUM | 8.9 | 8.5 - 10.5 mg/dL | [facility] | | | | | LABORATORY | + + + + + | EGFR | 47 (L)Comment: GFR <60: | >60 mL/min/1.73m2 | [facility] | | | CHRONIC KIDNEY DISEASE, | [...] | | | | | performed at [facility], [address] | | | | | [facility], | | | | | [place] [address] | | | + + + + + + + | Specimen | + + | Blood | + + + + + + + | Performing | Address | City/State/Zipcode | Phone Number | | Organization | | | | + + + + + | [facility] | [address] | [place] [address] | [phone] | | LABORATORY | [address] | | | + + + + + CBC W/Auto Diff (Reflex to Manual) (03/17/2018 5:58 AM) + + + + + | Component | Value | Ref Range | Performed At | + + + + + | WBC | 11.53 (H) | 3.80 - 11.00 K/uL | [facility] | | | | | LABORATORY | + + + + + | RBC | 3.87 (L) | 4.20 - 5.70 M/uL | [facility] | | | | | LABORATORY | + + + + + | HGB | 12.4 (L) | 13.2 - 17.0 g/dL | [facility] | | | | | LABORATORY | + + + + + | HCT | 37.3 (L) | 39.0 - 50.0 % | [facility] | | | | | LABORATORY | + + + + + | MCV | 96.4 | 80.0 - 100.0 fl | [facility] | | | | | LABORATORY | + + + + + | MCH | 32.0 | 27.0 - 34.0 pg | [facility] | | | | | LABORATORY | + + + + + | MCHC | 33.2 | 32.0 - 35.5 g/dL | [facility] | | | | | LABORATORY | + + + + + | RDW SD | 48.1 | 37 - 53 fl | [facility] | | | | | LABORATORY | + + + + + | PLT | 117 (L) | 150 - 400 K/uL | [facility] | | | | | LABORATORY | + + + + + | MPV | 8.8 | fl | [facility] | | | | | LABORATORY | + + + + + | DIFF TYPE | AUTOMATED | | [facility] | | | | | LABORATORY | + + + + + | NEUTROPHILS | 79.60 | % | [facility] | | | | | LABORATORY | + + + + + | LYMPHOCYTES | 11.49 | % | [facility] | | | | | LABORATORY | + + + + + | MONOCYTES | 7.38 | % | [facility] | | | | | LABORATORY | + + + + + | EOSINOPHILS | 1.24 | % | [facility] | | | | | LABORATORY | + + + + + | BASOPHILS | 0.29 | % | [facility] | | | | | LABORATORY | + + + + + | NEUTROPHILS ABS | 9.18 (H) | 1.90 - 7.40 K/uL | [facility] | | | | | LABORATORY | + + + + + | LYMPHOCYTES ABS | 1.33 | 1.00 - 3.90 K/uL | [facility] | | | | | LABORATORY | + + + + + | MONOCYTES ABS | 0.85 (H) | 0.00 - 0.80 K/uL | [facility] | | | | | LABORATORY | + + + + + | EOSINOPHILS ABS | 0.14 | 0.00 - 0.50 K/uL | [facility] | | | | | LABORATORY | + + + + + | BASOPHILS ABS | 0.03Comment: Testing | 0.00 - 0.10 K/uL | [facility] | | | performed at [facility], [address] | | LABORATORY | | | [address], | | | | | [place] [address] | | | + + + + + + + | Specimen | + + | Blood | + + + + + + + | Performing | Address | City/State/Zipcode | Phone Number | | Organization | | | | + + + + + | [facility] | [address] | [place] [address] | [phone] | | LABORATORY | [address] | | | + + + + + POCT glucose (03/17/2018 5:04 AM) + + + + + | Component | Value | Ref Range | Performed At | + + + + + | GLUCOSE,POC SCREEN | 250 (H)Comment: Testing | 65 - 99 mg/dL | [facility] | | | performed at [facility];[address] | | | | | [address];[place] | | | | | [address] | | | + + + + + + + + + + | Performing | Address | City/State/Zipcode | Phone Number | | Organization | | | | + + + + + | [facility] | [address] | [place] [address] | | + + + + + POCT glucose (03/16/2018 11:48 PM) + + + + + | Component | Value | Ref Range | Performed At | + + + + + | GLUCOSE,POC SCREEN | 221 (H)Comment: Testing | 65 - 99 mg/dL | [facility] | | | performed at [facility];[address] | | | | | [address];[place] | | | | | [address] | | | + + + + + + + + + + | Performing | Address | City/State/Zipcode | Phone Number | | Organization | | | | + + + + + | [facility] | [address] | [place] [address] | | + + + + + POCT glucose (03/16/2018 10:31 PM) + + + + + | Component | Value | Ref Range | Performed At | + + + + + | GLUCOSE,POC SCREEN | 208 (H)Comment: Testing | 65 - 99 mg/dL | [facility] | | | performed at [facility];[address] | | | | | [address];[place] | | | | | [address] | | | + + + + + + + + + + | Performing | Address | City/State/Zipcode | Phone Number | | Organization | | | | + + + + + | [facility] | [address] | [place] [address] | | + + + + + POCT glucose (03/16/2018 9:51 PM) + + + + + | Component | Value | Ref Range | Performed At | + + + + + | GLUCOSE,POC SCREEN | 220 (H)Comment: Testing | 65 - 99 mg/dL | [facility] | | | performed at [facility];[address] | | | | | [address];[place] | | | | | [address] | | | + + + + + + + + + + | Performing | Address | City/State/Zipcode | Phone Number | | Organization | | | | + + + + + | [facility] | [address] | [place] [address] | | + + + + + [...] TRACT ABDOMEN PELVIS WO CONTRAST 03/16/2018 | [facility] | | 8:00 PM HISTORY: 67 years. [...] [facility] | [address] | [place] [address] | | + + + + + [facility] Cardiac Panel (DORENE Boyd) (03/16/2018 7:25 PM) + + + + + | Component | Value | Ref Range | Performed At | + + + + + | WBC | 14.98 (H) | 3.80 - 11.00 K/uL | [facility] | + + + + + | RBC | 3.72 (L) | 4.20 - 5.70 M/uL | [facility] | + + + + + | HGB | 12.0 (L) | 13.2 - 17.0 g/dL | [facility] | + + + + + | HCT | 35.9 (L) | 39.0 - 50.0 % | [facility] | + + + + + | MCV | 96.4 | 80.0 - 100.0 fl | [facility] | + + + + + | MCH | 32.2 | 27.0 - 34.0 pg | [facility] | + + + + + | MCHC | 33.4 | 32.0 - 35.5 g/dL | [facility] | + + + + + | RDW SD | 49.0 | 37 - 53 fl | [facility] | + + + + + | PLT | 110 (L) | 150 - 400 K/uL | [facility] | + + + + + | MPV | 8.4 | fl | [facility] | + + + + + | DIFF TYPE | AUTOMATED | | [facility] | + + [...] | BASOPHILS | 0.43 | % | [facility] | + + + + + | NEUTROPHILS ABS | 13.35 (H) | 1.90 - 7.40 K/uL | [facility] | + + + + + | LYMPHOCYTES ABS | 0.73 (L) | 1.00 - 3.90 K/uL | [facility] | + + + + + | MONOCYTES ABS | 0.78 | 0.00 - 0.80 K/uL | [facility] | + + + + + | EOSINOPHILS ABS | 0.07 | 0.00 - 0.50 K/uL | [facility] | + + + + + | BASOPHILS ABS | 0.06 | 0.00 - 0.10 K/uL | [facility] | + + + + + | MORPHOLOGY | RBC AND PLT MORPHOLOGY | | [facility] | | | APPEAR NORMAL | | | + + + + + | Platelet Estimate | ADEQUATE | | [facility] | + + + + + | Diff Comment | SLIDE SCANNED, AGREES | | [facility] | | | WITH AUTOMATED RESULTS. | | | + + + + + | SODIUM | 137 | 135 - 145 mmol/L | [facility] | + + + + + | POTASSIUM | 5.6 (H) | 3.5 - 4.9 mmol/L | [facility] | + + + + + | CHLORIDE | 103 | 99 - 109 mmol/L | [facility] | + + + + + | CO2 | 27 | 23 - 32 mmol/L | [facility] | + + + + + | ANION GAP AGAP | 12 | 5 - 20 mmol/L | [facility] | + + + + + | GLUCOSE | 225 (H) | 65 - 99 mg/dL | [facility] | + + [...] (L) | 8.5 - 10.5 mg/dL | [facility] | + + + + + | TOTAL PROTEIN | 6.0 (L) | 6.3 - 8.2 g/dL | [facility] | + + + + + | Albumin | 2.7 (L) | 3.3 - 4.8 g/dL | [facility] | + + + + + | GLOBULIN | 3.4 | 1.3 - 4.9 g/dL | [facility] | + + + + + | A/G | 0.8 (L) | 1.0 - 2.4 | [facility] | + + + + + | TBIL | 0.2 | 0.1 - 1.5 mg/dL | [facility] | + + + + + | ALK PHOS | 88 | 35 - 115 U/L | [facility] | + + + + + | AST | 29 | 10 - 45 U/L | [facility] | + + + + + | ALT | 51 | 10 - 65 U/L | [facility] | + + + + + | EGFR | 47 (L)Comment: GFR <60: | >60 mL/min/1.73m2 | [facility] | | | CHRONIC KIDNEY DISEASE, [...] the | | | | | MDRD [facility] traceable | | | | | equation. | | | + + + + + | CPK | 149 | 55 - 400 U/L | [facility] | + + + + + | TROPONIN I | 0.02Comment: 0.00 to | 0.00 - 0.10 ng/mL | [facility] | | | 0.10 CONSISTENT WITH | | | | | NORMAL POPULATION0.11 | | | | | to 0.60 CONSISTENT | | | | | WITH INCREASED RISK FOR | | | | | ADVERSE OUTCOMES> | | | | | 0.60 | | | | | CONSISTENT WITH WHO | | | | | CRITERIA FOR ACUTE DC | | | + + + + + | INR | 0.9Comment: REFERENCE | | [facility] | | | RANGE:0.9 - | [...] 26 | 23 - 32 seconds | [facility] | + + + + + | MMB | 7.4 (H) | 0.5 - 3.6 ng/mL | [facility] | + + + + + | CK-MB Index | 5.0Comment: CK INDEX | | [facility] | | | INTERPRETATION: | | [...] | | | | | performed at [facility] [place] | | | | | [address];[place] | | | | | [id number] | | | + + + + + + + + + + | Performing | Address | City/State/Zipcode | Phone Number | | Organization | | | | + + + + + | [facility] | [address] | [place] [address] | | + + + + + EKG 12 LEAD UNIT PERFORMED (03/16/2018 6:47 PM) + + + + + | Component | Value | Ref Range | Performed At | + + + + + | Ventricular Rate | 82 | BPM | [facility] [...] + + + + | Calculated P [place] | 49 | degrees | [facility] | + + + + + | Calculated R [place] | -31 | degrees | [facility] | + + + + + | Calculated T [place] | 81 | degrees | [facility] | + + + + + | Diagnosis | Sinus rhythm with 1st | | [facility] | | | degree A-V blockLeft [...] -COMPUTER (500), | | | | | 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 | [place] [address] | | + + + + + [...] | + + + + + | [facility] | [address] | [place] [address] | [phone] | | LABORATORY | [address] | | | + + + + + Urinalysis (reflex to microscopic/reflex to culture) (03/16/2018 6:44 PM) + + + + + | Component | Value | Ref Range | Performed At | + + + + + | COLOR UA | YELLOW | | [facility] | + + + + + | CLARITY | CLOUDY | | [facility] | + + + + + | Specific [place], UA | 1.018 | 1.002 - 1.030 | [facility] | + + + + + | LEUKOCYTE ESTERASE | LARGE (A) | NEGATIVE | [facility] | + + + + + | NITRITE | NEGATIVE | NEGATIVE | [facility] | + + + + + | UROBILINOGEN | NORMAL | <1.1 mg/dL | [facility] | + + + + + [...] KETONES | NEGATIVE | NEGATIVE mg/dL | [facility] | + + + + + | BILIRUBIN | NEGATIVE | NEGATIVE | [facility] | + + + + + | GLUCOSE | 50 (A) | NEGATIVE mg/dL | [facility] LABORATORY | + + + + + | WBC | >100 | 0 - 5 /hpf | [facility] | + + + + + | RBC | >100 | 0 - 2 /hpf | [facility] | + + + + + | BACTERIA | 1+ (A) | NONE SEEN | [facility] | + + + + + | EPITHELIAL | 11-15Comment: Testing | /lpf | [facility] | | | performed at [facility] [place] | | | | [address];[place] | | | | | [id number] | | | + + + + + + + | Specimen | + + | Urine, Catheter | + + + + + + + | Performing | Address | City/State/Zipcode | Phone Number | | Organization | | | | + + + + + | [facility] | [address] | [place] [address] | | + + + + + ED INFORMATION EXCHANGE (03/16/2018 5:44 PM) + + + | Narrative | Performed At | + + + | [id number] This patient has registered at the | ED | | [facility] Emergency Department For more | INFORMATION | | information visit: | EXCHANGE | | [email or web address] | | | [id number] Security Events No recent Security Events currently on file | | | ED Care Guidelines from [facility] Last | | | Updated: 01/28/17 1:11 PM Care Coordination: This patient has | | | been identified as havingor moreDepartment visits in this calendar | | | year.Patient requires education on appropriate ED usage.Emphasize the | | | importance of using outpatient medical services for the treatment of | | | chronic conditions. Please contact Community Health WorkerZoë, | | | at [phone] or [phone] if patient is seen in ED. These are | | | guidelines and the provider should exercise clinical judgment when | | | providing care. Recent Emergency Department Visit Summary Admit | | | Date Facility City State Type Major Type Diagnoses or Chief Complaint | | | [facility] | [facility] [place] [facility] Emergency Chief Complaint: | | | NOSEBLEED [facility] 09[facility] [place] 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 [place] Emergency Emergency Gastro-esophageal reflux disease | | | without esophagitis Allergy status to other drugs, medicaments | | | and biological substances status Hyperlipidemia, unspecified | | | Other demand planning analyst (current) drug therapy Chronic obstructive | | | pulmonary disease, unspecified Type 2 diabetes mellitus | | | without complications intermediate (current) use of aspirin | | | Localized edema intermediate (current) use of insulin | | | Venous insufficiency (chronic) (peripheral) Feb 17, 2018 [facility] | | | [facility] [place] Emergency Emergency Chief | | | Complaint: CHEST PAIN February 08, 2018 [facility] 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 | | | Emergency Emergency Chief Complaint: CHEST PAIN January 25, | | | 2017 [facility] [place] [place] | | | Emergency Emergency Atherosclerotic heart disease of | | | cheesh-na coronary artery without angina pectoris Morbid (severe) | | | obesity due to excess calories Unspecified fall, initial | | | encounter Unspecified place in unspecified non-institutional | | | (private) residence as the place of occurrence of the external cause | | | Pain in right hip intermediate (current) use of aspirin | | | manager cardiac cath (current) use of insulin Other intervertebral | | | disc degeneration, lumbar region Type 2 diabetes mellitus | | | without complications Chronic obstructive pulmonary disease, | | | unspecified January 13, 2018 [facility] [place] 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 | | | Visit Count (12 mo.) Facility Visits Low Acuity [facility] | | | [facility] Care [facility] [address] [facility] 1 0 [place] | | | [facility], [place]) 16 0 [facility] | | | 1 0 [facility] 1 0 Total 25 0 Note: Visits | | | indicate total known visits. Medicaid Low Acuity Dx are the number of | | | primary diagnoses on the Medicaid's Low Acuity dx list. Recent | | | Inpatient Visit Summary Admit Date Facility City State Type Major | | | Type Diagnoses or Chief Complaint Mar 09, 2018 [facility] | | | [facility] General Medicine Inpatient stroke | | | Illness, unspecified Hyperkalemia PDMP Report PDMP | | | query found no report. Care Providers Provider PRC Type Phone Fax | | | Service Dates YORDY Mike Case or Statistics Professor | | | Current Known Aliases No [...] for additional information. | | | 2018 [employer]. - [place], [place] - | | | [email or web address] | | + + + + + | Procedure Note | + + | Interface, Lab - 03/16/2018 5:44 PM PDT Formatting of this note may be different | | from the original.[employer] [id number] patient has registered at the [facility] | | [facility] Emergency Department For more information visit: | | [email or web address] Security | | EventsNo recent Security Events currently on fileED Care Guidelines from [facility] | | [facility] Care SystemLast Updated: 01/28/17 1:11 PM Care Coordination:This patient has been | | identified as havingor moreDepartment visits in this calendar year.Patient requires | | education on appropriate ED usage.Emphasize the importance of using outpatient medical | | services for the treatment of chronic conditions.Please contact Community Health Worker, | | Summer, at [phone] or [phone] if patient is seen in ED.These are guidelines | | and the provider should exercise clinical judgment when providing care.Recent Emergency | | Department Visit SummaryAdmit Date Facility City State Type Major Type Diagnoses or | | Chief Complaint Mar 16, 2018 [facility] Kevin [place] Emergency Emergency [place] | | 2017 [facility] [place] Emergency Emergency Chief Complaint: | | NOSEBLEED Mar 09, 2018 [facility] [place] Emergency Emergency | | Headache Type 2 diabetes mellitus with hypoglycemia without coma Cerebral | | infarction, unspecified Chronic obstructive pulmonary disease, unspecified Long | | term (current) use of insulin Gastro-esophageal reflux disease without esophagitis | | Localized edema Essential (primary) hypertension Hyperlipidemia, unspecified | | Atherosclerotic heart disease of cheesh-na coronary artery without angina pectoris Mar 02, | | 2017 [facility] [place] [place] [facility] Emergency Gastro-esophageal | | reflux disease without esophagitis Allergy status to other drugs, medicaments and | | biological substances status Hyperlipidemia, unspecified Other mcc (current) | | drug therapy Chronic obstructive pulmonary disease, unspecified Type 2 diabetes | | mellitus without complications manager cardiac cath (current) use of aspirin Localized edema | | intermediate (current) use of insulin Venous insufficiency (chronic) (peripheral) | | Feb 17, 2018 [facility] [place] Emergency Emergency Chief | | Complaint: CHEST PAIN February 08, 2018 [facility] [facility] | | Emergency Chronic obstructive pulmonary disease, unspecified Atherosclerotic heart | | disease of cheesh-na coronary artery without angina pectoris Other chest pain Cough | | Type 2 diabetes mellitus without complications Hyperlipidemia, unspecified | | Other demand planning analyst (current) drug therapy Venous insufficiency (chronic) (peripheral) | | Localized edema Allergy status to other drugs, medicaments and biological substances | | status January 27, 2018 [facility] [place] Emergency Emergency | | Chief Complaint: CHEST PAIN January 25, 2018 [facility] 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 [facility] Emergency Unspecified open wound, | | unspecified foot, initial encounter intermediate (current) use of insulin manager cardiac cath | | (current) use of aspirin Other chest pain Atherosclerotic heart disease of cheesh-na | | coronary artery without angina pectoris Dyspnea, unspecified Other mcc | | (current) drug therapy Type 2 diabetes mellitus without complications | | Atrioventricular block, first degree Chronic obstructive pulmonary disease, | | unspecified Dec 28, 2017 [facility] 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 Emergency Emergency | | Acute upper respiratory infection, unspecified Dependence on supplemental oxygen | | Atherosclerotic heart disease of cheesh-na coronary artery without angina pectoris | | Hyperlipidemia, unspecified Other mcc (current) drug therapy Chronic | | obstructive pulmonary disease, unspecified Dyspnea, unspecified Gastro-esophageal | | reflux disease without esophagitis intermediate (current) use of insulin Acute | | tracheitis without obstruction E.D. Visit Count (12 mo.)Facility Visits Low Acuity [facility] | | [facility] [address] [facility] 1 0 [facility] | | [facility] 16 0 [facility] 1 0 [facility] | | 1 0 Total 25 0 Note: Visits indicate total known visits. Medicaid Low Acuity Dx are the | | number of primary diagnoses on the Medicaid's Low Acuity dx list. Recent Inpatient | | Visit SummaryAdmit Date [facility] Type Major Type Diagnoses or Chief Complaint | | Mar 09, 2018 [facility] [place]. [place] General Medicine Inpatient stroke | | Illness, unspecified Hyperkalemia PDMP ReportPDMP query found no report.Care | | ProvidersProvider [facility] Type Phone Fax Service Dates YORDY Mike Case or Care | | Quality Technician Current Known AliasesNo known aliases. Criteria | [...] facilities for | | additional information. 2018 [employer]. [place], [place] | | - [email or web address] | | Dyspnea, unspecified | | Other mcc (current) drug therapy | | Type 2 diabetes mellitus without complications | | Atrioventricular block, first degree | | Chronic obstructive pulmonary disease, unspecified | | | |Dec 28, 2017 [facility] [place] Emergency Emergency | | Other demand planning analyst (current) drug therapy | | Chronic obstructive pulmonary disease, unspecified | | Atherosclerotic heart disease of cheesh-na coronary artery without angina pectoris | | Type 2 diabetes mellitus without complications | | intermediate (current) use of insulin | | Other specified symptoms and signs involving the circulatory and respiratory systems | | Dependence on supplemental oxygen | | Wheezing | | Cough | | Hyperlipidemia, unspecified | | | |Dec 20, 2017 [facility] [place] Emergency Emergency | | Acute upper respiratory infection, unspecified | | Dependence on supplemental oxygen | | Atherosclerotic heart disease of cheesh-na coronary artery without angina pectoris | | Hyperlipidemia, unspecified | | Other demand planning analyst (current) drug therapy | | Chronic obstructive pulmonary disease, unspecified | | Dyspnea, unspecified | | Gastro-esophageal reflux disease without esophagitis | | intermediate (current) use of insulin | | Acute tracheitis without obstruction | | | | | | | |E.D. Visit Count (12 mo.) | |Facility Visits Low Acuity | |[facility] 6 0 | |[facility] 1 0 | |[facility] 16 0 | |[facility] 1 0 | |[facility] 1 0 | |Total 25 0 | |Note: Visits indicate total known visits. Medicaid Low Acuity Dx are the number of primary diagnoses on the Medicaid's Low Acuity dx list. | | | |Recent Inpatient Visit Summary | |Admit Date Facility City State Type Major Type Diagnoses or Chief Complaint | |Mar 09, 2018 [facility] | | stroke | | Illness, unspecified | | Hyperkalemia | | | | | | | |PDMP Report | |PDMP query found no report. | | | |Care Providers | |Provider PRC Type Phone Fax Service Dates | |YORDY Mike Case or Statistics Professor Current | | | |Known Aliases | [...] aforementioned facilities for additional information. | |2018 [employer]. - [place], [place] - [email or web address] | + + + +---------+ + + | Performing | Address | City/State/Zipcode | Phone Number | | Organization | | | | + +---------+ + + | ED INFORMATION | | | | | EXCHANGE | | | | + +---------+ + + in this encounter Visit Diagnoses + + | Diagnosis | + + | Pyelonephritis - Primary | + + | Pyelonephritis, unspecified | + + | Chronic kidney disease, unspecified CKD stage | + + | Hyperkalemia | + + | Hyperpotassemia | + + | IDDM (insulin dependent diabetes mellitus) (HCC) | + + | Type II or unspecified type diabetes mellitus without mention of complication, not | | stated as uncontrolled | + + | Morbid obesity (HCC) | + + | Morbid obesity | + + | COPD (chronic obstructive pulmonary disease) (HCC) | + + | Chronic airway obstruction, not elsewhere classified | + + | HTN (hypertension) | + + | Unspecified essential hypertension | + + | CKD (chronic kidney disease) stage 3, GFR 30-59 ml/min | + + | Chronic kidney disease, Stage III (moderate) | + + | CAD (coronary artery disease) | + + | Coronary atherosclerosis of unspecified type of vessel, cheesh-na or graft | + + | CORDELL (obstructive sleep apnea) | + + | Obstructive sleep apnea (adult) (pediatric) | + + Admitting Diagnoses + + | Diagnosis | + + | Hyperkalemia | + + | Hyperpotassemia | + + | Pyelonephritis | + + | Pyelonephritis, unspecified | + + | Chronic kidney disease, unspecified CKD stage | + + Administered Medications + +--------+---------+------+------+------+ | Medication Order | MAR | Action | Dose | Rate | Site | | | Action | Date | | | | + +--------+---------+------+------+------+ + +---+ | acetaminophen (TYLENOL) | | | suppository 650 mg 650 mg, | | | Rectal, Every 6 Hours PRN, Mild | | | Pain (1-3), Fever, Starting Mon | | | 03/16/18 at 2235 | | + +---+ | | | + +---+ + +-------+ +--------+---+---+ | acetaminophen (TYLENOL) tablet | Given | 03/18/2018 | 650 mg | | | | 650 mg 650 mg, Oral, Every 6 | | 21:12 | | | | | Hours PRN, Mild Pain (1-3), | | PDT | | | | | Fever, Starting 03/16/18 at | | | | | | | 2235 | | | | | | + +-------+ +--------+---+---+ +---+---+ | | | +---+---+ + + + +-------+---+---+ | albuterol (PROVENTIL) nebulizer | Given by | 03/16/2018 | 10 mg | | | | solution 10 mg 10 mg, | Other | 21:26 | | | | | Nebulization, Once RT, 03/16/18 | | PDT | | | | | at 2055, For 1 dose | | | | | | + + + +-------+---+---+ +---+---+ | | | +---+---+ + +-------+ +-------+---+---+ | aspirin chewable tablet 81 mg | Given | 03/17/2018 | 81 mg | | | | 81 mg, Oral, Daily With | | 09:46 | | | | | Breakfast, First dose on Fri | | PDT | | | | | 03/17/18 at 0800 | | | | | | + +-------+ +-------+---+---+ +-------+ +-------+---+---+ | Given | 03/18/2018 | 81 mg | | | | | 08:59 | | | | | | PDT | | | | +-------+ +-------+---+---+ | Given | 03/19/2018 | 81 mg | | | | | 08:29 | | | | | | PDT | | | | +-------+ +-------+---+---+ +---+---+ | | | +---+---+ + +-------+ +---------+---+---+ | budesonide-formoterol | Given | 03/18/2018 | 2 puffs | | | | (SYMBICORT) 160-4.5 MCG/ACT | | 08:59 | | | | | inhaler 2 puff 2 puff, | | PDT | | | | | Inhalation, 2 Times Daily, First | | | | | | | dose on 03/16/18 at 2330 | | | | | | + +-------+ +---------+---+---+ +-------+ +---------+---+---+ | Given | 03/18/2018 | 2 puffs | | | | | 20:43 | | | | | | PDT | | | | +-------+ +---------+---+---+ | Given | 03/19/2018 | 2 puffs | | | | | 08:29 | | | | | | PDT | | | | +-------+ +---------+---+---+ +---+---+ | | | +---+---+ + +-------+ +--------+---+---+ | buPROPion (WELLBUTRIN SR) 12 hr | Given | 03/17/2018 | 200 mg | | | | tablet 200 mg 200 mg, Oral, | | 09:45 | | | | | Every Morning, First dose on Tue | | PDT | | | | | 03/17/18 at 0900 | | | | | | + +-------+ +--------+---+---+ +-------+ +--------+---+---+ | Given | 03/18/2018 | 200 mg | | | | | 08:58 | | | | | | PDT | | | | +-------+ +--------+---+---+ | Given | 03/19/2018 | 200 mg | | | | | 08:30 | | | | | | PDT | | | | +-------+ +--------+---+---+ +---+---+ | | | +---+---+ + +-------+ +--------+---+---+ | carBAMazepine (TEGretol) tablet | Given | 03/18/2018 | 200 mg | | | | 200 mg 200 mg, Oral, 3 Times | | 20:42 | | | | | Daily, First dose on Fri03/16/18 | | PDT | | | | | at 2330 | | | | | | + +-------+ +--------+---+---+ +-------+ +--------+---+---+ | Given | 03/19/2018 | 200 mg | | | | | 05:58 | | | | | | PDT | | | | +-------+ +--------+---+---+ | Given | 03/19/2018 | 200 mg | | | | | 13:09 | | | | | | PDT | | | | +-------+ +--------+---+---+ +---+---+ | | | +---+---+ + +---------+ +-----+-------+---+ | cefTRIAXone (ROCEPHIN) IVPB 1 g | New Bag | 03/16/2018 | 1 g | 100 | | | 1 g, Intravenous, Administer | | 21:12 | | mL/hr | | | over 30 Minutes, Once, Fri03/16/18 | | PDT | | | | | at 2055, For 1 dose | | | | | | + +---------+ +-----+-------+---+ +---+---+ | | | +---+---+ + +-------+ +-----+-------+---+ | cefTRIAXone (ROCEPHIN) IVPB 1 g | Given | 03/17/2018 | 1 g | 100 | | | 1 g, Intravenous, Administer | | 21:19 | | mL/hr | | | over 30 Minutes, Every 24 Hours, | | PDT | | | | | First dose on Fri03/17/18 at 2100 | | | | | | + +-------+ +-----+-------+---+ +-------+ +-----+-------+---+ | Given | 03/18/2018 | 1 g | 100 | | | | 20:41 | | mL/hr | | | | PDT | | | | +-------+ +-----+-------+---+ +---+---+ | | | +---+---+ + +-------+ +--------+---+---+ | cyanocobalamin (VITAMIN B-12) | Given | 03/17/2018 | 1,000 | | | | tablet 1,000 mcg 1,000 mcg, | | 09:46 | mcg | | | | Oral, Daily, First dose on Tue | | PDT | | | | | 03/17/18 at 0900 | | | | | | + +-------+ +--------+---+---+ +-------+ +--------+---+---+ | Given | 03/18/2018 | 1,000 | | | | | 08:59 | mcg | | | | | PDT | | | | +-------+ +--------+---+---+ | Given | 03/19/2018 | 1,000 | | | | | 08:29 | mcg | | | | | PDT | | | | +-------+ +--------+---+---+ +---+---+ | | | +---+---+ + +-------+ +--------+---+---+ | dextrose 50 % solution 12.5 g | Given | 03/16/2018 | 12.5 g | | | | 12.5 g, Intravenous, Once, Mon | | 21:07 | | | | | 03/16/18 at 2055, For 1 dose | | PDT | | | | + +-------+ +--------+---+---+ +---+---+ | | | +---+---+ + +-------+ +--------+---+---+ | fentaNYL (SUBLIMAZE) injection | Given | 03/16/2018 | 25 mcg | | | | 25 mcg 25 mcg, Intravenous, | | 19:17 | | | | | Once, 03/16/18 at 1857, For 1 | | PDT | | | | | dose | | | | | | + +-------+ +--------+---+---+ +---+---+ | | | +---+---+ + +-------+ +--------+---+---+ | ferrous sulfate (65 FE) tablet | Given | 03/18/2018 | 325 mg | | | | 325 mg 325 mg, Oral, 3 Times | | 20:42 | | | | | Daily, First dose on Fri03/16/18 | | PDT | | | | | at 2300 | | | | | | + +-------+ +--------+---+---+ +-------+ +--------+---+---+ | Given | 03/19/2018 | 325 mg | | | | | 08:30 | | | | | | PDT | | | | +-------+ +--------+---+---+ | Given | 03/19/2018 | 325 mg | | | | | 13:09 | | | | | | PDT | | | | +-------+ +--------+---+---+ +---+---+ | | | +---+---+ + +-------+ +-------+---+---+ | FLUoxetine (PROzac) capsule 20 | Given | 03/17/2018 | 20 mg | | | | mg 20 mg, Oral, Daily, First | | 09:46 | | | | | dose on Fri03/17/18 at 0900 | | PDT | | | | + +-------+ +-------+---+---+ +-------+ +-------+---+---+ | Given | 03/18/2018 | 20 mg | | | | | 08:59 | | | | | | PDT | | | | +-------+ +-------+---+---+ | Given | 03/19/2018 | 20 mg | | | | | 08:30 | | | | | | PDT | | | | +-------+ +-------+---+---+ +---+---+ | | | +---+---+ + +-------+ +--------+---+---+ | heparin (porcine) 5000 | Given | 03/18/2018 | 5,000 | | | | unit/0.5mL injection 5,000 Units | | 08:58 | Units | | | | 5,000 Units, Subcutaneous, Every | | PDT | | | | | 12 Hours Scheduled (2 times per | | | | | | | day), First dose on Fri03/17/18 at | | | | | | | 0900 | | | | | | + +-------+ +--------+---+---+ +-------+ +--------+---+---+ | Given | 03/18/2018 | 5,000 | | | | | 20:41 | Units | | | | | PDT | | | | +-------+ +--------+---+---+ | Given | 03/19/2018 | 5,000 | | | | | 08:36 | Units | | | | | PDT | | | | +-------+ +--------+---+---+ +---+---+ | | | +---+---+ + +-------+ +------+---+---+ | HYDROmorphone (DILAUDID) | Given | 03/19/2018 | 1 mg | | | | injection 0.5-1 mg 0.5-1 mg, | | 01:32 | | | | | Intravenous, Every 3 Hours PRN, | | PDT | | | | | Severe Pain (7-10), Starting Mon | | | | | | | 03/16/18 at 2231 | | | | | | + +-------+ +------+---+---+ +-------+ +------+---+---+ | Given | 03/19/2018 | 1 mg | | | | | 05:57 | | | | | | PDT | | | | +-------+ +------+---+---+ | Given | 03/19/2018 | 1 mg | | | | | 13:09 | | | | | | PDT | | | | +-------+ +------+---+---+ +---+---+ | | | +---+---+ + +-------+ +---------+---+---+ | insulin lispro (human) | Given | 03/18/2018 | 3 Units | | | | (HUMALOG) injection 0-10 Units | | 17:02 | | | | | 0-10 Units, Subcutaneous, 3 Times | | PDT | | | | | Daily Before Meals, First dose | | | | | | | on Fri03/17/18 at 0630 | | | | | | + +-------+ +---------+---+---+ +-------+ +---------+---+---+ | Given | 03/19/2018 | 1 Units | | | | | 06:05 | | | | | | PDT | | | | +-------+ +---------+---+---+ | Given | 03/19/2018 | 1 Units | | | | | 12:02 | | | | | | PDT | | | | +-------+ +---------+---+---+ +---+---+ | | | +---+---+ + +-------+ +---------+---+---+ | insulin lispro (human) | Given | 03/16/2018 | 1 Units | | | | (HUMALOG) injection 0-5 Units | | 23:52 | | | | | 0-5 Units, Subcutaneous, Nightly, | | PDT | | | | | First dose on 03/16/18 at 2300 | | | | | | + +-------+ +---------+---+---+ +-------+ +---------+---+---+ | Given | 03/17/2018 | 1 Units | | | | | 21:19 | | | | | | PDT | | | | +-------+ +---------+---+---+ +---+---+ | | | +---+---+ + +-------+ + +---+---+ | insulin lispro (human) | Given | 03/18/2018 | 20 Units | | | | (HUMALOG) injection 20 Units 20 | | 17:05 | | | | | Units, Subcutaneous, 3 Times | | PDT | | | | | Daily Before Meals, First dose on | | | | | | | 03/17/18 at 0630 | | | | | | + +-------+ + +---+---+ +-------+ + +---+---+ | Given | 03/19/2018 | 20 Units | | | | | 06:04 | | | | | | PDT | | | | +-------+ + +---+---+ | Given | 03/19/2018 | 20 Units | | | | | 12:01 | | | | | | PDT | | | | +-------+ + +---+---+ +---+---+ | | | +---+---+ + +-------+ + +---+---+ | insulin NPH (human) (HUMULIN) | Given | 03/17/2018 | 25 Units | | | | injection 25 Units 25 Units, | | 05:37 | | | | | Subcutaneous, 2 Times Daily | | PDT | | | | | Before Meals, First dose on Fri | | | | | | | 03/17/18 at 0630 | | | | | | + +-------+ + +---+---+ +-------+ + +---+---+ | Given | 03/17/2018 | 25 Units | | | | | 16:44 | | | | | | PDT | | | | +-------+ + +---+---+ | Given | 03/18/2018 | 25 Units | | | | | 06:32 | | | | | | PDT | | | | +-------+ + +---+---+ +---+---+ | | | +---+---+ + +-------+ + +---+---+ | insulin NPH (human) (HUMULIN) | Given | 03/18/2018 | 30 Units | | | | injection 30 Units 30 Units, | | 17:02 | | | | | Subcutaneous, 2 Times Daily | | PDT | | | | | Before Meals, First dose on Fri | | | | | | | 03/18/18 at 1630 | | | | | | + +-------+ + +---+---+ +-------+ + +---+---+ | Given | 03/19/2018 | 30 Units | | | | | 06:04 | | | | | | PDT | | | | +-------+ + +---+---+ +---+---+ | | | +---+---+ + +-------+ +---------+---+---+ | insulin regular (HUMULIN R) | Given | 03/16/2018 | 5 Units | | | | injection 5 Units 5 Units, | | 21:10 | | | | | Intravenous, Once, 03/16/18 at | | PDT | | | | | 5, For 1 dose | | | | | | + +-------+ +---------+---+---+ +---+---+ | | | +---+---+ + +-------+ +-------+---+---+ | ipratropium-albuterol (DUO-NEB) | Given | 03/17/2018 | 3 mLs | | | | 0.5-2.5 mg/3mL nebulizer | | 22:46 | | | | | solution 3 mL 3 mL, | | PDT | | | | | Nebulization, Every 6 Hours PRN, | | | | | | | Shortness of Breath, Starting Mon | | | | | | | 03/16/18 at 2235 | | | | | | + +-------+ +-------+---+---+ +-------+ +-------+---+---+ | Given | 03/19/2018 | 3 mLs | | | | | 16:06 | | | | | | PDT | | | | +-------+ +-------+---+---+ +---+---+ | | | +---+---+ + +-------+ +--------+---+---+ | isosorbide mononitrate (IMDUR) | Given | 03/17/2018 | 120 mg | | | | 24 hr tablet 120 mg 120 mg, | | 09:46 | | | | | Oral, Daily, First dose on Fri | | PDT | | | | | 03/17/18 at 0900 | | | | | | + +-------+ +--------+---+---+ +-------+ +--------+---+---+ | Given | 03/18/2018 | 120 mg | | | | | 08:59 | | | | | | PDT | | | | +-------+ +--------+---+---+ | Given | 03/19/2018 | 120 mg | | | | | 08:31 | | | | | | PDT | | | | +-------+ +--------+---+---+ +---+---+ | | | +---+---+ + +-------+ +---+---+---+ | lidocaine (XYLOCAINE) 2 % | Given | 03/16/2018 | | | | | uro-ject gel Urethral, Once, Mon | | 21:48 | | | | | 03/16/18 at 2129, For 1 dose | | PDT | | | | + +-------+ +---+---+---+ +---+---+ | | | +---+---+ + +-------+ +--------+---+---+ | metoprolol (TOPROL-XL) 24 hr | Given | 03/17/2018 | 100 mg | | | | tablet 100 mg 100 mg, Oral, | | 09:46 | | | | | Daily, First dose on Fri03/17/18 | | PDT | | | | | at 0900 | | | | | | + +-------+ +--------+---+---+ +-------+ +--------+---+---+ | Given | 03/18/2018 | 100 mg | | | | | 08:58 | | | | | | PDT | | | | +-------+ +--------+---+---+ | Given | 03/19/2018 | 100 mg | | | | | 08:30 | | | | | | PDT | | | | +-------+ +--------+---+---+ +---+---+ | | | +---+---+ + +-------+ +--------+---+---+ | nitroGLYCERIN (NITROSTAT) SL | Given | 03/17/2018 | 0.4 mg | | | | tablet 0.4 mg 0.4 mg, | | 18:25 | | | | | Sublingual, Every 5 Min PRN, | | PDT | | | | | Chest pain, Starting Fri03/17/18 | | | | | | | at 1818 | | | | | | + +-------+ +--------+---+---+ +-------+ +--------+---+---+ | Given | 03/17/2018 | 0.4 mg | | | | | 18:35 | | | | | | PDT | | | | +-------+ +--------+---+---+ +---+---+ | | | +---+---+ + +-------+ +------+---+---+ | ondansetron (ZOFRAN) injection | Given | 03/16/2018 | 4 mg | | | | 4 mg 4 mg, Intravenous, Once, | | 19:16 | | | | | 03/16/18 at 1857, For 1 dose | | PDT | | | | + +-------+ +------+---+---+ +---+---+ | | | +---+---+ + +-------+ +------+---+---+ | ondansetron (ZOFRAN) injection | Given | 03/17/2018 | 4 mg | | | | 4 mg 4 mg, Intravenous, Every 6 | | 09:24 | | | | | Hours PRN, Nausea, Vomiting, | | PDT | | | | | Starting 03/16/18 at 2235 | | | | | | + +-------+ +------+---+---+ +---+---+ | | | +---+---+ + +-------+ +------+---+---+ | ondansetron (ZOFRAN-ODT) | Given | 03/17/2018 | 4 mg | | | | disintegrating tablet 4 mg 4 mg, | | 17:38 | | | | | Oral, Every 6 Hours PRN, Nausea, | | PDT | | | | | Vomiting, Starting 03/16/18 at | | | | | | | 2235 | | | | | | + +-------+ +------+---+---+ +---+---+ | | | +---+---+ + +-------+ +-------+---+---+ | pantoprazole (PROTONIX) EC | Given | 03/18/2018 | 40 mg | | | | tablet 40 mg 40 mg, Oral, 2 | | 06:42 | | | | | Times Daily Before Meals, First | | PDT | | | | | dose on Fri03/18/18 at 0630 | | | | | | + +-------+ +-------+---+---+ +-------+ +-------+---+---+ | Given | 03/18/2018 | 40 mg | | | | | 17:08 | | | | | | PDT | | | | +-------+ +-------+---+---+ | Given | 03/19/2018 | 40 mg | | | | | 05:58 | | | | | | PDT | | | | +-------+ +-------+---+---+ +---+---+ | | | +---+---+ + +-------+ +-------+---+---+ | predniSONE (DELTASONE) tablet | Given | 03/17/2018 | 10 mg | | | | 10 mg 10 mg, Oral, Daily With | | 09:46 | | | | | Breakfast, First dose on Fri | | PDT | | | | | 03/17/18 at 0800, For 2 days | | | | | | + +-------+ +-------+---+---+ +---+---+ | | | +---+---+ + +-------+ +------+---+---+ | predniSONE (DELTASONE) tablet 5 | Given | 03/18/2018 | 5 mg | | | | mg 5 mg, Oral, Daily With | | 08:58 | | | | | Breakfast, First dose on Fri | | PDT | | | | | 03/18/18 at 0800, For 1 dose | | | | | | + +-------+ +------+---+---+ +---+---+ | | | +---+---+ + +-------+ +-------+---+---+ | rosuvastatin (CRESTOR) tablet | Given | 03/17/2018 | 40 mg | | | | 40 mg 40 mg, Oral, Daily, First | | 09:46 | | | | | dose on Fri03/17/18 at 0900 | | PDT | | | | + +-------+ +-------+---+---+ +-------+ +-------+---+---+ | Given | 03/18/2018 | 40 mg | | | | | 08:58 | | | | | | PDT | | | | +-------+ +-------+---+---+ | Given | 03/19/2018 | 40 mg | | | | | 08:30 | | | | | | PDT | | | | +-------+ +-------+---+---+ +---+---+ | | | +---+---+ + +-------+ +--------+---+---+ | senna (SENOKOT) 8.6 MG tablet | Given | 03/18/2018 | 8.6 mg | | | | 8.6 mg 8.6 mg (1 tablet), Oral, | | 08:59 | | | | | 2 Times Daily, First dose on Mon | | PDT | | | | | 03/16/18 at 2300 | | | | | | + +-------+ +--------+---+---+ +-------+ +--------+---+---+ | Given | 03/18/2018 | 8.6 mg | | | | | 20:41 | | | | | | PDT | | | | +-------+ +--------+---+---+ | Given | 03/19/2018 | 8.6 mg | | | | | 08:30 | | | | | | PDT | | | | +-------+ +--------+---+---+ +---+---+ | | | +---+---+ + +-------+ +--------+---+---+ | sodium chloride 0.9 % flush 10 | Given | 03/18/2018 | 10 mLs | | | | mL 10 mL, Intravenous, Every 8 | | 18:25 | | | | | Hours, First dose on 03/16/18 | | PDT | | | | | at 1851 | | | | | | + +-------+ +--------+---+---+ +-------+ +--------+---+---+ | Given | 03/19/2018 | 10 mLs | | | | | 03:00 | | | | | | PDT | | | | +-------+ +--------+---+---+ | Given | 03/19/2018 | 10 mLs | | | | | 12:02 | | | | | | PDT | | | | +-------+ +--------+---+---+ +---+---+ | | | +---+---+ + +-------+ +------+---+---+ | sodium polystyrene sulfonate | Given | 03/16/2018 | 15 g | | | | (KAYEXALATE) 15 GM/60ML | | 21:07 | | | | | suspension 15 g 15 g, Oral, | | PDT | | | | | Once, Fri03/16/18 at 2055, For 1 | | | | | | | dose | | | | | | + +-------+ +------+---+---+ +---+---+ | | | +---+---+ + +-------+ +--------+---+---+ | tamsulosin (FLOMAX) capsule 0.4 | Given | 03/16/2018 | 0.4 mg | | | | mg 0.4 mg, Oral, After Dinner, | | 23:45 | | | | | First dose on Fri03/16/18 at 2300 | | PDT | | | | + +-------+ +--------+---+---+ +-------+ +--------+---+---+ | Given | 03/17/2018 | 0.4 mg | | | | | 17:38 | | | | | | PDT | | | | +-------+ +--------+---+---+ | Given | 03/18/2018 | 0.4 mg | | | | | 17:08 | | | | | | PDT | | | | +-------+ +--------+---+---+ + +---+ | | | + +---+ | urea (CARMOL) 20 % cream | | | Topical, PRN, Dry Skin, Starting | | | [facility] 03/19/18 at 1131, Apply to | | | lymphatic buildup on bilateral | | | lower legs up to once a day only | | | when buildup occurs. | | + +---+ | | | + +---+ in this encounter"
--- OUTSIDE RECORDS SUMMARY | ~2018-05-07 | XMS | Encounter Summary ---
Demographics + + + | Address | [address] | | | [place] [address] | + + + | Home Phone | | + + + | Preferred Language | Unknown | + + + | Marital Status | | + + + | Cheondoism Affiliation | [id number] | + + + | Race | Unknown | + + + | Ethnic Group | Unknown | + + + Author + + + | Author | [facility] | + + + | Organization | [facility] [employer] | + + + | Address | Unknown | + + + | Phone | Unavailable | + + + Support + + + + + | Name | Relationship | Address | Phone | + + + + + | Rosa Fiore | ECON | [address] | | | | | [place] [address] | | + + + + + Care Team Providers + +------+ + | Care Classification Counselor Name | Role | Phone | + [...] + + | 03/16/ | Hospital | [facility] | Ryley Stafford | Pyelonephritis | | 2018 - | Encounter | [facility] 8th | MD Valerie Owens | (Primary Dx); | | | | [address] [place] | [address] [place], [place] | Chronic kidney | | 03/19/ | | Valerie Zuniga [facility] | [phone] | disease, unspecified | | 2018 | | [place] [address] | | CKD stage; | | | | [phone] | Orlando Aponte | Hyperkalemia | | | | | MD Valerie Gama | | | | | | [address] [place], [place] | | | | | | [address] | | | | | | | [...] note may be different from the original. [facility] Service: Hospitalist Physician Discharge Summary Pt: Adi Agudelo White AGE/SEX: 67 y.o. male ROOM: 8118/[id number] PCP: Vincent Finch : 1950 Admit date: 03/16/2018 Discharge date and time: 03/19/18 Admitting Physician: Ryley Stafford MD Discharge Physician: Orlando Aponte MD Consults: Primary Discharge Diagnoses: Principal Problem: Pyelonephritis Active Problems: IDDM (insulin dependent diabetes mellitus) ([facility]) Morbid obesity (HCC) COPD (chronic obstructive pulmonary disease) ([facility]) HTN (hypertension) CKD (chronic kidney disease) stage [...] hours. No results for input(s): PHART, PO2ART, PNC6FLP, S7YIHYXW, BEART in the last 168 hours. Recent [...] note may be different from the original. [facility] Service: Hospitalist Progress Note Hospital Day: LOS: [...] as infarct, ischemia or hemorrhage. 2. Minimal appeals analyst zenon microvascular ischemic scoliosis in the frontal [...] diabetes mellitus) ([facility]) Morbid obesity (HCC) COPD (chronic obstructive pulmonary disease) ([facility]) HTN (hypertension) CKD (chronic kidney disease) stage [...] may be d ifferent from the original. [facility]: Hospitalist Progress Note Hospital Day: LOS: [...] as infarct, ischemia or hemorrhage. 2. 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 - 03/16/2018 9:32 PM PDTAerosol tx given by Gema Maldonado this encounter Plan of Treatment Not [...] | + +--------+ + + + | [facility] CARDIAC PANEL | STAT | 03/16/2018 | | Results for this | | ([facility] ONLY) | | 7:25 PM | [...] Testing | 65 - 99 mg/dL | [facility] | | | performed at [facility];[address] | | | | | [address];[place], [place] | | | | | [address] | | | + + + + + + + + + + | Performing | Address | City/State/Zipcode | Phone Number | | Organization | | | | + + + + + | [facility] | [address] | [place] [address] | | + + + + + POCT glucose (03/19/2018 11:58 AM) + + + + + | Component | Value | Ref Range | Performed At | + + + + + | GLUCOSE,POC SCREEN | 146 (H)Comment: Testing | 65 - 99 mg/dL | [facility] | | | performed at [facility];[address] | | | | | [address];[place] | | | | | [address] | | | + + + + + + + + + + | Performing | Address | City/State/Zipcode | Phone Number | | Organization | | | | + + + + + | [facility] | [address] | [place] [place] [place] [address] | | + + + + + POCT glucose (03/19/2018 5:53 AM) + + + + + | Component | Value | Ref Range | Performed At | + + + + + | GLUCOSE,POC SCREEN | 134 (H)Comment: Testing | 65 - 99 mg/dL | [facility] | | | performed at [facility];[address] | | | | | [address];[place] | | | | | [address] | | | + + + + + + + + + + | Performing | Address | City/State/Zipcode | Phone Number | | Organization | | | | + + + + + | [facility] | [address] | [place] [address] | | + + + + + POCT glucose (03/18/2018 9:06 PM) + + + + + | Component | Value | Ref Range | Performed At | + + + + + | GLUCOSE,POC SCREEN | 162 (H)Comment: Testing | 65 - 99 mg/dL | [facility] | | | performed at [facility];[address] | | | | | [address];[place] | | | | | [address] | | | + + + + + + + + + + | Performing | Address | City/State/Zipcode | Phone Number | | Organization | | | | + + + + + | [facility] | [address] | [place] [address] | | + + + + + POCT glucose (03/18/2018 4:47 PM) + + + + + | Component | Value | Ref Range | Performed At | + + + + + | GLUCOSE,POC SCREEN | 206 (H)Comment: Testing | 65 - 99 mg/dL | [facility] | | | performed at [facility];[address] | | | | | [facility];[place] | | | | | [address] | | | + + + + + + + + + + | Performing | Address | City/State/Zipcode | Phone Number | | Organization | | | | + + + + + | [facility] | [address] | [place] [address] | | + + + + + POCT glucose (03/18/2018 12:00 PM) + + + + + | Component | Value | Ref Range | Performed At | + + + + + | GLUCOSE,POC SCREEN | 208 (H)Comment: Testing | 65 - 99 mg/dL | [facility] | | | performed at [facility];[address] | | | | | [address];[place] | | | | | [address] | | | + + + + + + + + + + | Performing | Address | City/State/Zipcode | Phone Number | | Organization | | | | + + + + + | [facility] | [address] | [place] [address] | | + + + + + Troponin I (03/18/2018 11:51 AM) + + + + + | Component | Value | Ref Range | Performed At | + + + + + | TROPONIN I | <0.020Comment: 0.00 to | 0.00 - 0.10 ng/mL | [facility] | | | 0.10 CONSISTENT [...] | | | | CRITERIA FOR ACUTE ND | | | | | Testing performed at | | | | | [facility];[address] | | | | | [place] [address] | | | + + + + + + + | Specimen | + + | Blood | + + + + + + + | Performing | Address | City/State/Zipcode | Phone Number | | Organization | | | | + + + + + | [facility] | [address] | [place] [address] | | + + + + + POCT glucose (03/18/2018 6:30 AM) + + + + + | Component | Value | Ref Range | Performed At | + + + + + | GLUCOSE,POC SCREEN | 223 (H)Comment: Testing | 65 - 99 mg/dL | [facility] | | | performed at [facility];[address] | | | | | [address];[place], [place] | | | | | [address] | | | + + + + + + + + + + | Performing | Address | City/State/Zipcode | Phone Number | | Organization | | | | + + + + + | [facility] | [address] | [place] [address] | | + + + + + Troponin I (03/18/2018 6:10 AM) + + + + + | Component | Value | Ref Range | Performed At | + + + + + | TROPONIN I | <0.020Comment: 0.00 to | 0.00 - 0.10 ng/mL | [facility] | | | 0.10 CONSISTENT [...] | | | | CRITERIA FOR ACUTE ND | | | | | Testing performed at | | | | | [facility];[address] | | | | [address];[place] [address] | | | + + + + + + + | Specimen | + + | Blood | + + + + + + + | Performing | Address | City/State/Zipcode | Phone Number | | Organization | | | | + + + + + | [facility] | [address] | [place] [address] | | + + + + + [...] | [facility] | | | performed at [facility], [address] | | LABORATORY | | | [facility], | | | | | [place] [address] | | | + + + + + + + | Specimen | + + | Blood | + + + + + + + | Performing | Address | City/State/Zipcode | Phone Number | | Organization | | | | + + + + + | [facility] | [address] | [place] [address] | [phone] | | LABORATORY | [address] | | [...] | | | | | performed at [facility], [address] | | | | | [facility], | | | | | [place] [address] | | | + + + + + + + | Specimen | + + | Blood | + + + + + + + | Performing | Address | City/State/Zipcode | Phone Number | | Organization | | | | + + + + + | [facility] | [address] | [place] [address] | [phone] | | LABORATORY | [address] | | | + + + + + Troponin I (03/17/2018 11:44 PM) + + + + + | Component | Value | Ref Range | Performed At | + + + + + | TROPONIN I | <0.020Comment: 0.00 to | 0.00 - 0.10 ng/mL | [facility] | | | 0.10 CONSISTENT [...] | | | | CRITERIA FOR ACUTE [place] | | | | | Testing performed at | | | | | [facility];[address] [place] [address] | | | | | [facility];[place] [address] | | | + + + + + + + | Specimen | + + | Blood | + + + + + + + | Performing | Address | City/State/Zipcode | Phone Number | | Organization | | | | + + + + + | [facility] | [address] | [place] [address] | | + + + + + POCT glucose (03/17/2018 9:18 PM) + + + + + | Component | Value | Ref Range | Performed At | + + + + + | GLUCOSE,POC SCREEN | 247 (H)Comment: Testing | 65 - 99 mg/dL | [facility] | | | performed at [facility];[address] | | | | | [address];[place] | | | | | [address] | | | + + + + + + + + + + | Performing | Address | City/State/Zipcode | Phone Number | | Organization | | | | + + + + + | [facility] | [address] | [place] [place] [facility] [address] | | + + + + + [...] + + + + | Calculated P [place] | 47 | degrees | [facility] | + + + + + | Calculated R [place] | -7 | degrees | [facility] | + + + + + | Calculated T [place] | 109 | degrees | [facility] [...] | + + + + + | [facility] | [address] | [place] [address] | | + + + + + POCT glucose (03/17/2018 4:07 PM) + + + + + | Component | Value | Ref Range | Performed At | + + + + + | GLUCOSE,POC SCREEN | 279 (H)Comment: Testing | 65 - 99 mg/dL | [facility] | | | performed at [facility];[address] | | | | | [address];[place] | | | | | [address] | | | + + + + + + + + + + | Performing | Address | City/State/Zipcode | Phone Number | | Organization | | | | + + + + + | [facility] | [address] | [place] [address] | | + + + + + POCT glucose (03/17/2018 11:40 AM) + + + + + | Component | Value | Ref Range | Performed At | + + + + + | GLUCOSE,POC SCREEN | 221 (H)Comment: Testing | 65 - 99 mg/dL | [facility] | | | performed at [facility];[address] | | | | | [address];[place] | | | | | [address] | | | + + + + + + + + + + | Performing | Address | City/State/Zipcode | Phone Number | | Organization | | | | + + + + + | [facility] | [address] | [place] [address] | | + + + + + POCT glucose (03/17/2018 6:36 AM) + + + + + | Component | Value | Ref Range | Performed At | + + + + + | GLUCOSE,POC SCREEN | 250 (H)Comment: Testing | 65 - 99 mg/dL | [facility] | | | performed at [facility];[address] | | | | | [facility];[place], [place] | | | | | [address] | | | + + + + + + + + + + | Performing | Address | City/State/Zipcode | Phone Number | | Organization | | | | + + + + + | [facility] | [address] | [place] [address] | | + + + + + [...] | | | | | performed at [facility], [address] | | | | | [facility], | | | | | [place] [address] | | | + + + + + + + | Specimen | + + | Blood | + + + + + + + | Performing | Address | City/State/Zipcode | Phone Number | | Organization | | | | + + + + + | [facility] | [address] | [place] [address] | [phone] | | LABORATORY | [address] | | | + + + + + Phosphorus (03/17/2018 5:58 AM) + + + + + | Component | Value | Ref Range | Performed At | + + + + + | PHOSPHORUS | 4.2Comment: Testing | 2.3 - 4.8 mg/dL | [facility] | | | performed at [facility], [address] | | LABORATORY | | | [facility], | | | | | [place] [address] | | | + + + + + + + | Specimen | + + | Blood | + + + + + + + | Performing | Address | City/State/Zipcode | Phone Number | | Organization | | | | + + + + + | [facility] | [address] | [place] [address] | [phone] | | LABORATORY | [address] | | | + + + + + Magnesium (03/17/2018 5:58 AM) + + + + + | Component | Value | Ref Range | Performed At | + + + + + | MAGNESIUM | 2.0Comment: Testing | 1.7 - 2.4 mg/dL | [facility] | | | performed at [facility], [address] | | LABORATORY | | | [facility] [address], | | | | | [place] [address] | | | + + + + + + + | Specimen | + + | Blood | + + + + + + + | Performing | Address | City/State/Zipcode | Phone Number | | Organization | | | | + + + + + | [facility] | [address] | [place] [address] | [phone] | | LABORATORY | [address] | | [...] 8.9 | 8.5 - 10.5 mg/dL | [facility] | | | | | LABORATORY | + + + + + | EGFR | 47 (L)Comment: GFR <60: | >60 mL/min/1.73m2 | [facility] | | | CHRONIC KIDNEY DISEASE, [...] [address] | | | | | [facility], | | | | | [place] [address] | | | + + + + + + + | Specimen | + + | Blood | + + + + + + + | Performing | Address | City/State/Zipcode | Phone Number | | Organization | | | | + + + + + | [facility] | [address] | [place] [address] | [phone] | | LABORATORY | [address]vd[address] | | [...] | [facility] | | | performed at [facility], [address] | | LABORATORY | | | [address], | | | | | [place] [address] | | | + + + + + + + | Specimen | + + | Blood | + + + + + + + | Performing | Address | City/State/Zipcode | Phone Number | | Organization | | | | + + + + + | [facility] | [address] | [place] [address] | [phone] | | LABORATORY | [address]vd[address] | | | + + + + + POCT glucose (03/17/2018 5:04 AM) + + + + + | Component | Value | Ref Range | Performed At | + + + + + | GLUCOSE,POC SCREEN | 250 (H)Comment: Testing | 65 - 99 mg/dL | [facility] | | | performed at [facility];[address] | | | | | [address];[place] | | | | | [address] | | | + + + + + + + + + + | Performing | Address | City/State/Zipcode | Phone Number | | Organization | | | | + + + + + | [facility] | [address] | [place] [address] | | + + + + + POCT glucose (03/16/2018 11:48 PM) + + + + + | Component | Value | Ref Range | Performed At | + + + + + | GLUCOSE,POC SCREEN | 221 (H)Comment: Testing | 65 - 99 mg/dL | [facility] | | | performed at [facility];[address] | | | | | [address];[place] | | | | | [address] | | | + + + + + + + + + + | Performing | Address | City/State/Zipcode | Phone Number | | Organization | | | | + + + + + | [facility] | [address] | [place] [address] | | + + + + + POCT glucose (03/16/2018 10:31 PM) + + + + + | Component | Value | Ref Range | Performed At | + + + + + | GLUCOSE,POC SCREEN | 208 (H)Comment: Testing | 65 - 99 mg/dL | [facility] | | | performed at [facility];[address] | | | | | [address];[place] | | | | | [address] | | | + + + + + + + + + + | Performing | Address | City/State/Zipcode | Phone Number | | Organization | | | | + + + + + | [facility] | [address] | [place] [address] | | + + + + + POCT glucose (03/16/2018 9:51 PM) + + + + + | Component | Value | Ref Range | Performed At | + + + + + | GLUCOSE,POC SCREEN | 220 (H)Comment: Testing | 65 - 99 mg/dL | [facility] | | | performed at [facility];[address] | | | | | [address];[place] | | | | | [address] | | | + + + + + + + + + + | Performing | Address | City/State/Zipcode | Phone Number | | Organization | | | | + + + + + | [facility] | [address] | [place] [address] | | + + + + + [...] [facility] | [address] | [place] [address] | | + + + + + [facility] Cardiac Panel (DORENE Boyd) (03/16/2018 7:25 PM) + + + + + | Component | Value | Ref Range | Performed At | + + + + + | WBC | 14.98 (H) | 3.80 - 11.00 K/uL | [facility] | + + + + + | RBC | 3.72 (L) | 4.20 - 5.70 M/uL | [facility] | + + + + + | HGB | 12.0 (L) | 13.2 - 17.0 g/dL | [facility] | + + + + + | HCT | 35.9 (L) | 39.0 - 50.0 % | [facility] | + + + + + [...] (H) | 1.90 - 7.40 K/uL | [facility] | + + + + + | LYMPHOCYTES ABS | 0.73 (L) | 1.00 - 3.90 K/uL | [facility] | + + + + + | MONOCYTES ABS | 0.78 | 0.00 - 0.80 K/uL | [facility] | + + + + + | EOSINOPHILS ABS | 0.07 | 0.00 - 0.50 K/uL | [facility] | + + + + + | BASOPHILS ABS | 0.06 | 0.00 - 0.10 K/uL | [facility] | + + + + + | MORPHOLOGY | RBC AND PLT MORPHOLOGY | | [facility] | | | APPEAR NORMAL | | | + + + + + | Platelet Estimate | ADEQUATE | | [facility] | + + + + + | Diff Comment | SLIDE SCANNED, AGREES | | [facility] | | | WITH AUTOMATED RESULTS. | | | + + + + + | SODIUM | 137 | 135 - 145 mmol/L | [facility] | + + + + + | POTASSIUM | 5.6 (H) | 3.5 - 4.9 mmol/L | [facility] | + + + + + [...] 51 | 10 - 65 U/L | [facility] | + + + + + | EGFR | 47 (L)Comment: GFR <60: | >60 mL/min/1.73m2 | [facility] | | | CHRONIC KIDNEY [...] the | | | | | MDRD [facility] traceable | | | | | equation. | | | + + + + + | CPK | 149 | 55 - 400 U/L | [facility] | + + + + + | TROPONIN I | 0.02Comment: 0.00 to | 0.00 - 0.10 ng/mL | [facility] | | | 0.10 CONSISTENT WITH | | | | | NORMAL POPULATION0.11 | | | | | to 0.60 CONSISTENT | | | | | WITH INCREASED RISK FOR | | | | | ADVERSE OUTCOMES> | | | | | 0.60 | | | | | CONSISTENT WITH WHO | | | | | CRITERIA FOR ACUTE ND | | | + + + + + | INR | 0.9Comment: REFERENCE | | [facility] | | | RANGE:0.9 - [...] 26 | 23 - 32 seconds | [facility] | + + + + + | MMB | 7.4 (H) | 0.5 - 3.6 ng/mL | [facility] | + + + + + | CK-MB Index | 5.0Comment: CK INDEX | | [facility] | | | INTERPRETATION: | [...] | | | | | performed at [facility];[address] | | | | | [address];[place] | | | | | [address] | | | + + + + + + + + + + | Performing | Address | City/State/Zipcode | Phone Number | | Organization | | | | + + + + + | [facility] | [address] | [place] [address] | | + + + + + [...] + + + + | Calculated P [place] | 49 | degrees | [facility] | + + + + + | Calculated R [place] | -31 | degrees | [facility] | + + + + + | Calculated T [place] | 81 | degrees | [facility] [...] -COMPUTER (500), | | | | | editor managing newspaper Jak Davis | | | | | Tristan (123) on 03/17/2018 | | | | | 2:29:46 AM | | | + + + + + + + + + + | Performing | Address | City/State/Zipcode | Phone Number | | Organization | | | | + + + + + | [facility] | [address] | [place] [address] | | + + + + + [...] | + + + + + | [facility] | [address] | [place] [address] | [phone] | | LABORATORY | [address] | | [...] + + + + + | Specific [place], UA | 1.018 | 1.002 - 1.030 | [facility] | + + + + + | LEUKOCYTE ESTERASE | LARGE (A) | NEGATIVE | [facility] | + + + + + | NITRITE | NEGATIVE | NEGATIVE | [facility] | + + + + + | UROBILINOGEN | NORMAL | <1.1 mg/dL | [facility] | + + + + + [...] >100 | 0 - 5 /hpf | [facility] | + + + + + | RBC | >100 | 0 - 2 /hpf | [facility] | + + + + + | BACTERIA | 1+ (A) | NONE SEEN | [facility] | + + + + + | EPITHELIAL | 11-15Comment: Testing | /lpf | [facility] | | | performed at [facility];[address] | | | | | [address];[place] | | | | | [address] | | | + + + + + + + | Specimen | + + | Urine, Catheter | + + + + + + + | Performing | Address | City/State/Zipcode | Phone Number | | Organization | | | | + + + + + | [facility] | [address] | [place] [address] | | + + + + + ED INFORMATION EXCHANGE (03/16/2018 5:44 PM) + + + | Narrative | Performed At | + + + | [id number] This patient has registered at the | ED | | [facility] For more | INFORMATION | | information visit: | EXCHANGE | | [id number] | | | [id number] Security Events No recent Security Events currently on file | | | ED Care Guidelines from [facility] Last | | | Updated: 01/28/17 1:11 PM Care Coordination: This patient has | | | been identified as havingor moreDepartment visits in this calendar | | | year.Patient requires education on appropriate ED usage.Emphasize the | | | importance of using outpatient medical services for the treatment of | | | chronic conditions. Please contact [facility], | | | at [phone] or [phone] if patient is seen in ED. These are | | | guidelines and the provider should exercise clinical judgment when | | | providing care. Recent Emergency Department Visit Summary Admit | | | Date Facility City State Type Major Type Diagnoses or Chief Complaint | | | [facility] [place] [place] [facility] Chief Complaint: | | | [facility]ED [facility] [place] [facility] 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 | | [place] Emergency Emergency Gastro-esophageal reflux disease | | | without esophagitis Allergy status to other drugs, medicaments | | | and biological substances status Hyperlipidemia, unspecified | | | Other terminal worker (current) drug therapy Chronic obstructive | | | pulmonary disease, unspecified Type 2 diabetes mellitus | | | without complications half-way (current) use of aspirin | | | Localized edema half-way (current) use of insulin | | | Venous insufficiency (chronic) (peripheral) Feb 17, 2018 Good | | | [facility] [place] Emergency Emergency Chief | | | Complaint: CHEST PAIN February 08, 2018 [facility] | | | 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 | | | Emergency Emergency Chief Complaint: CHEST PAIN January 25, | | | 2017 [facility] 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 [place] | | | Emergency Emergency Acute upper respiratory infection, | | | unspecified Dependence on supplemental oxygen | | | Atherosclerotic heart disease of [place] coronary artery without angina | | | pectoris Hyperlipidemia, unspecified Other terminal worker | | | (current) drug therapy Chronic obstructive pulmonary disease, | | | unspecified Dyspnea, unspecified Gastro-esophageal | | | reflux disease without esophagitis half-way (current) use of | | | insulin Acute tracheitis without obstruction E.D. | | | Visit Count (12 mo.) Facility Visits Low Acuity [facility] | | | [facility] 6 0 [facility] 1 0 [place] | | | [facility] 16 0 [facility] | | | [address] [facility] 1 0 Total 25 0 Note: Visits | | | indicate total known visits. Medicaid Low Acuity Dx are the number of | | | primary diagnoses on the Medicaid's Low Acuity dx list. Recent | | | Inpatient Visit Summary Admit Date Facility City State Type Major | | | Type Diagnoses or Chief Complaint Mar 09, 2018 [facility] | | | [facility] General Medicine Inpatient stroke | | | Illness, unspecified Hyperkalemia PDMP Report PDMP | | | query found no report. Care Providers Provider PRC Type Phone Fax | | | Service Dates YORDY Mike Case or Service Desk Manager | | | Current Known Aliases No [...] for additional information. | | | 2018 [employer]. - [place], [place] - | | | [email or web address] | | + + + + + | Procedure Note | + + | Interface, Lab - 03/16/2018 5:44 PM PDT Formatting of this note may be different | | from the original.[id number] patient has registered at the [facility] | | [facility] Emergency Department For more information visit: | | [id number] Security | | EventsNo recent Security Events [...] Community Health Worker, | | Summer, at [phone] or [phone] if patient is seen in ED.These are guidelines | | and the provider should exercise clinical judgment when providing care.Recent Emergency | | Department Visit SummaryAdmit Date Facility City State Type Major Type Diagnoses or | | Chief Complaint Mar 16, 2018 [facility] Emergency Emergency [place] | | 2017 [facility] [place] Emergency Emergency Chief Complaint: | | NOSEBLEED Mar 09, 2018 [facility] [place] Emergency Emergency | | Headache Type 2 diabetes mellitus with hypoglycemia without coma Cerebral | | infarction, unspecified Chronic obstructive pulmonary disease, unspecified Long | | term (current) use of insulin Gastro-esophageal reflux disease without esophagitis | | Localized edema Essential (primary) hypertension Hyperlipidemia, unspecified | | Atherosclerotic heart disease of [place] coronary artery without angina pectoris Mar 02, | | [facility] 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 Emergency Emergency Chief | | Complaint: CHEST PAIN [facility] 08[facility] [place] [facility] | | Emergency Chronic obstructive pulmonary disease, unspecified Atherosclerotic heart | | disease of [place] coronary artery without angina pectoris Other chest pain Cough | | Type 2 diabetes mellitus without complications Hyperlipidemia, unspecified | | Other terminal worker (current) drug therapy Venous insufficiency (chronic) (peripheral) | | Localized edema Allergy status to other drugs, medicaments and biological substances | | status January 27, 2018 [facility] [place] Emergency Emergency | | Chief Complaint: CHEST PAIN [facility] 25[facility] [place] | | [facility] Emergency Atherosclerotic heart disease of [place] coronary artery without | | angina pectoris Morbid (severe) obesity due to excess calories Unspecified fall, | | initial encounter Unspecified place in unspecified non-institutional (private) | | residence as the place of occurrence of the external cause Pain in right hip Long | | term (current) use of aspirin terminal worker (current) use of insulin Other | | intervertebral disc degeneration, lumbar region Type 2 diabetes mellitus without | | complications Chronic obstructive pulmonary disease, unspecified January 13, 2018 [place] | [facility] [place] [facility] Unspecified open wound, | | unspecified foot, initial encounter half-way (current) use of insulin terminal worker | | (current) use of aspirin Other chest pain Atherosclerotic heart disease of [place] | | coronary artery without angina pectoris Dyspnea, unspecified Other retirement | | (current) drug therapy Type 2 diabetes mellitus without complications | | Atrioventricular block, first degree Chronic obstructive pulmonary disease, | | unspecified Dec 28, 2017 [facility] [place] Emergency Emergency | | Other retirement (current) drug therapy Chronic obstructive pulmonary disease, | | unspecified Atherosclerotic heart disease of [place] coronary artery without angina | | pectoris Type 2 diabetes mellitus without complications terminal worker (current) use of | | insulin Other specified symptoms and signs involving the circulatory and respiratory | | systems Dependence on supplemental oxygen Wheezing Cough Hyperlipidemia, | | unspecified Dec 20, 2017 [facility] [place] Emergency Emergency | | Acute upper respiratory infection, unspecified Dependence on supplemental oxygen | | Atherosclerotic heart disease of [place] coronary artery without angina pectoris | | Hyperlipidemia, unspecified Other retirement (current) drug therapy Chronic | | obstructive pulmonary disease, unspecified Dyspnea, unspecified Gastro-esophageal | | reflux disease without esophagitis half-way (current) use of insulin Acute | | tracheitis without obstruction E.D. Visit Count (12 mo.)Facility Visits Low Acuity Good | | [facility] 6 [address] [facility] [address] [facility] | | [facility] 16 0 [facility] [address] [facility] | | 1 0 Total 25 0 Note: Visits indicate total known visits. Medicaid Low Acuity Dx are the | | number of primary diagnoses on the Medicaid's Low Acuity dx list. Recent Inpatient | | Visit SummaryAdmit Date [facility] Type Major Type Diagnoses or Chief Complaint | | Mar 09, 2018 [facility] [place] General Medicine Inpatient stroke | | Illness, unspecified Hyperkalemia PDMP ReportPDMP query found no report.Care | | ProvidersProvider [facility] Type Phone Fax Service Dates YORDY Mike Case or Care | | Night Club Manager Current Known AliasesNo known aliases. Criteria | [...] facilities for | | additional information. 2018 [employer]. [place], [place] | | - [email or web address] | | Dyspnea, unspecified | | Other retirement (current) drug therapy | | Type 2 diabetes mellitus without complications | | Atrioventricular block, first degree | | Chronic obstructive pulmonary disease, unspecified | | | |Dec 28, 2017 [facility] [place] Emergency Emergency | | Other terminal worker (current) drug therapy | | Chronic obstructive pulmonary disease, unspecified | | Atherosclerotic heart disease of [place] coronary artery without angina pectoris | | Type 2 diabetes mellitus without complications | | half-way (current) use of insulin | | Other specified symptoms and signs involving the circulatory and respiratory systems | | Dependence on supplemental oxygen | | Wheezing | | Cough | | Hyperlipidemia, unspecified | | | |Dec 20, 2017 [facility] [place] Emergency Emergency | | Acute upper respiratory infection, unspecified | | Dependence on supplemental oxygen | | Atherosclerotic heart disease of [place] coronary artery without angina pectoris | | Hyperlipidemia, unspecified | | Other terminal worker (current) drug therapy | | Chronic obstructive pulmonary disease, unspecified | | Dyspnea, unspecified | | Gastro-esophageal reflux disease without esophagitis | | half-way (current) use of insulin | | Acute tracheitis without obstruction | | | | | | | |E.D. Visit Count (12 mo.) | |Facility Visits Low Acuity | |[facility] 6 0 | |[facility] 1 0 | |[facility] 16 0 | |[facility] 1 0 | |[facility] 1 0 | |Total 25 0 | |Note: Visits indicate total known visits. Medicaid Low Acuity Dx are the number of primary diagnoses on the Medicaid's Low Acuity dx list. | | | |Recent Inpatient Visit Summary | |Admit Date Facility City State Type Major Type Diagnoses or Chief Complaint | |Mar 09, 2018 [facility] | | stroke | | Illness, unspecified | | Hyperkalemia | | | | | | | |PDMP Report | |PDMP query found no report. | | | |Care Providers | |Provider PRC Type Phone Fax Service Dates | |YORDY Mike Case or Service Desk Manager Current | | | |Known Aliases | [...] aforementioned facilities for additional information. | |2018 [employer]. - [place], [place] - [email or web address] | + + + +---------+ + + [...] Coronary atherosclerosis of unspecified type of vessel, [place] or graft | + + | CORDELL [...] PRN, Dry Skin, Starting | | | [facility] 03/19/18 at 1131, Apply to | | | lymphatic buildup on bilateral | | | lower legs up to once a day only | | | when buildup occurs. | | + +---+ | | | + +---+ in this encounter"
--- OUTSIDE RECORDS SUMMARY | ~2018-05-07 | XMS | Clinical Summary ---
Demographics + + + | Address | [address] | | | [place] [address] | + + + | Home Phone | | + + + | Preferred Language | Unknown | + + + | Marital Status | | + + + | Latter-Day Affiliation | BAP | + + + | Race | White | + + + | Ethnic Group | Not or | + + + Author + + + | Author | NON REVENUE LOCATIONS | + + + | Organization | NON REVENUE LOCATIONS | + + + | Address | Unknown | + + + | Phone | Unavailable | + + + Support + + +---------+ + | Name | Relationship | Address | Phone | + + +---------+ + | MARTINA KHAN | ECON | Unknown | | + + +---------+ + Care Team Providers + +------+ + | Care Hot Mill Shearer Name | Role | Phone | + +------+ + | No Pcp Per Patient | PP | Unavailable | + +------+ + Source Comments L[facility]II is fully live on both [facility] and [facility] Allergies Not on File Current Medications Not on file Active Problems Not on file Social History + +-------+ +--------+------+ | Tobacco Use | Types | Packs/Day | Years | Date | | | | | Used | | + +-------+ +--------+------+ | Never Assessed | | | | | + +-------+ +--------+------+ + + + | Sex Assigned at | Date Recorded | | | | + + + | Not on file | | + + + Plan of Treatment + + + + + | Health Maintenance | Due Date | Last Done | Comments | + + + + + | INFLUENZA VACCINE | | | | | (FLU SHOT) | 8 | | | + + + + + Results Not on filefrom Last 3 Months Insurance + +--------+ +--------+ + + | Payer | Benefi | Subscriber | Type | Phone | Address | | | t Plan | ID | | | | | | / | | | | | | | Group | | | | | + +--------+ +--------+ + + | [employer] [phone] | [place] | [phone] [address] | | ADMINISTRATION | COMMUN | | | [phone] | [place] [address] | | | [place] | | | | | | | [place] | | | | | | | RCE | | | | | + +--------+ +--------+ + + + +--------+ +--------+ + + | Guarantor Name | Accoun | Relation to | Date | Phone | Billing Address | | | t Type | Patient | of | | | | | | | | | | + +--------+ +--------+ + + | ADI KHAN | Person | Self [birth year] | Home: | [address] | | | al/Fam | | 9 | +- | [place] [address] | | | kaye | | | [phone] | | + +--------+ +--------+ + + | ADI KHAN | [place] | Self | [birth year] | Home: | [address] | | | [place] | | 1950 | +- | [place] [address] | | | red | | | [address] | | + +--------+ +--------+ + +"
--- OUTSIDE RECORDS SUMMARY | ~2018-05-07 | XMS | Encounter Summary ---
Demographics + + + | Address | [address] | | | [place] [address] | + + + | Home Phone | | + + + | Preferred Language | Unknown | + + + | Marital Status | | + + + | Roman Catholic Affiliation | [id number] | + + + | Race | Unknown | + + + | Ethnic Group | Unknown | + + + Author + + + | Author | [facility] | + + + | Organization | [facility] | + + + | Address | Unknown | + + + | Phone | Unavailable | + + + Support + + + + + | Name | Relationship | Address | Phone | + + + + + | Rosa Fiore | ECON | [address] | | | | | [place] [address] | | + + + + + Care Team Providers + +------+ + | Care Bill Recapitulation Clerk Name | Role | Phone | + +------+ + | Vincent Finch | PCP | | + +------+ + Reason for Visit Auth/Cert +--------+--------+ + + + + | Status | Reason | Specialty | Diagnoses / | Referred By | Referred To | | | | | Procedures | Contact | Contact | +--------+--------+ + + + + | | | Internal | Diagnoses | | [facility] | | | | Medicine | Diagnosis | | [address] [place] | | | | | unknown | | [address] | | | | | stroke | | [address]ai [address] | | | | | | | [place] | | | | | | | [address] Phone: | | | | | | | [phone] | +--------+--------+ + + + + Encounter Details +--------+ + + + + | Date | Type | Department | Care Team | Description | +--------+ + + + + | 03/09/ | Hospital | [facility] | Bruce Anne MD | Hyperkalemia | | 2018 - | Encounter | [address] | [address] | (Primary Dx); | | | | [facility] | [place] [address] | Diagnosis unknown | | 03/13/ | | [address] | [phone] | | | 2018 | | [place] [address] | | | | | | [phone] | | | +--------+ + + + [...] + + + | Blood Pressure | 154/69 | 03/13/2018 7:33 AM PDT | + + + + | Pulse | 103 | 03/13/2018 7:33 AM PDT | + + + + | Temperature | 36.2 C (97.1 F) | 03/13/2018 7:33 AM PDT | + + + + | Respiratory Rate | 22 | 03/13/2018 7:33 AM PDT | + + + + | Oxygen Saturation | 98% | 03/13/2018 7:33 AM PDT | + + + + | Inhaled Oxygen | - | - | | Concentration | | | + + + + | Weight | 156 kg (343 lb 14.7 | 03/13/2018 4:08 AM PDT | | | oz) | | + + + + | Height | 182.9 cm (6') | 03/09/2018 12:36 PM PDT | + + + + | Body Mass Index | 46.64 | 03/13/2018 4:08 AM PDT | + + + + in this encounter Discharge Summaries Bruce Anne MD - 03/12/2018 12:19 PM PDTFormatting of this note may be different from the original. [facility]: Hospitalist Discharge Summary Date of Admission: 03/09/2018 Date of Discharge: 03/12/2018. Discharge Provider: Bruce Anne MD Treatment Team: Consulting Physician: Sai Blackmon MD Admitting Provider: Bruce Anne MD Discharge Diagnoses: Principal Problem: Slurred speech Active Problems: DM (diabetes mellitus) HTN (hypertension) Coronary artery disease involving coronary bypass graft of blackfeet heart with angina pecto ris (HCC) Chronic diastolic heart failure (HCC) Morbid obesity (HCC) CKD (chronic kidney disease) stage 3, GFR 30-59 ml/min Resolved Problems: Seizure disorder (HCC) Procedures: * No surgery found * BRIEF HISTORY OF PRESENTATION: Adi Fiore is a 67 y.o. male who per H&P: The patient is a 67 y.o. male with signifi cant past medical history of CAD with CABG x4, COPD and asthma with a stenosis, hearing loss , HTN, T2DM, h/o seizures, CKD stage III, presented with direct transfer from [facility] in [facility] for the concern of stroke. There was also concern that it could also be hypoglycemic event. There's no MRI capability there and so pt came to [facility] for MRI capability. He started having garbled speech since night, and presented to ER in [place] around 0300 hours with significant garbled speech. Patient was able to follow commands weakly but equally, according to their record. Generaliz ed and not focal weakness was noted on initial presentation. According to patient he did not feel weakness of one side versus the other during this morning. He does not recall dropping things. Denies any fever or chills he denies any diaphoresis with this, he denies any chest pain wi th this. 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 Pt denies any Nausea, vomiting, fever, chills, wt l oss, wt gain. In [place] last was done and shows CK of 268, troponin was negative. D-dimer in the normal range. UA was relatively normal. The rest of CBC BMP were relatively normal. No leukocytosis noted. No renal insufficiency noted. EKG shows first-degree AV block otherwise sinus. On review of system patient denies any weight loss or weight gain. Although he is quite nikita ilitated. He can only walk about 5-10 feet. Sleep, appetite, has been relatively the same. A lthough he sleeps at times are not good. He is not aware of any snoring. Patient occasionall y complains of pain in the left side of abdomen. He uses I wheelchair for mobility. Patient rarely leaves his house. does most cooking. During my encounter patient in room 7122 he was quite shortness of breath and quite dyspnei c just laying in bed. Audible wheezes were noted. Use of accessory muscles were also evident . Although patient can still speaks in complete sentences. Both are encounter patient he spe ech is much clear and very HOSPITAL COURSE: Slurred speech: Resolved on presentation yesterday. aspirin and Plavix that he has been azar ing from home. Pending MRI study. However renal status is compromised. Plan for MRI of the h ead 03/10. 03/11: MRI negative for acute strokes. Hyperkalemia: 03/10 Status post Lasix and Kayexalate. Still elevated. Will give another dose of lasix and check pot at 1800 hours. 03/11 improved with lasix. Will give another dose today. Recheck bmp at 1500. MRI done and showed no acute ischemic changes. 03/12: Resolved. Renal insufficiency: On chronic kidney disease: 03/10 Continue IV fluids for now. 03/11 Stop IVFs, give another dose of lasix. Renal status improving. Hypertension: Presently controlled at this time. Not elevated as would be expected in subac alutiiq stroke. Urinary retention: We will need to continue with Gonzalez catheter. Flomax was added by nephro logy Dr. Blackmon. Will need to see urology Dr. Mccullough in an outpatient basis for further evaluat ions. Chest pain: Patient repeatedly complain of chest pain at times, workup has been negative; m ost likely esophageal spasms. Patient continues to have intermittent pain chest pain during the hospital stay despite being on Ranexa. Therefore in the setting of recurrent chest pain most likely of esophageal and GI source rather than cardiac. We will stop Ranexa due to risk s and benefits of polypharmacy. Type II diabetes: Continue blood sugar checks; A1c 7.9. Consult diabetic education. History of Renal insufficiency; continue to monitor renal status. BS quite elevated; pt is also eating. Will start lantus 40 units bid. Pt takes 66 units NPH bid. 03/11: Blood sugar still quite elevated. We will add daytime insulin Humalog of 30 units for meals and decrease Lantus to daily bid 43 units. 03/12: Insulin regimen was changed to Lantus with 3 times a day short acting insulin. Will c ontinue this in an outpatient basis since it appears that his NPH twice a day may not be a s ufficient. He will need to continue blood sugar checks at least 3 times a day prior to short acting insulin injection. COPD exacerbation: We will start DuoNeb's. Add steroids IV. Improving. Changed to q12 hours .. Stable. Patient has been on Florinef. IV steroid be stopped prior to discharge and contin ue with prednisone taper. We will also prescribe DuoNeb an outpatient basis. Patient initial ly presented with significant respiratory difficulty. Coronary artery disease with history of CABG [address] vessels.Last echo was November 2014. La st heart catheter was February 2017. Repeated echo on 03/03/2017 shows normal EF with mild concen tric left ventricular hypertrophy. Mild stenosis. Will repeat echo today. EF then was 60-65 percent. Polypharmacy: This is a quite significant concern and therefore will try to taper down some his medications. Disposition: resolution of renal function and hyperkalemia, possibly discharge 03/12. Joselin manriquez I am quite concerned about his overall medical and clinical condition as he can decompensa te quite rapidly and an outpatient basis. Patient is a fragile individual with multiple medi neville issues chronically. Past Medical History Diagnosis Date Anxiety Asbestosis(501) Asthma CHF (congestive heart failure) (HCC) CKD (chronic kidney disease) stage 3, GFR 30-59 ml/min 10/01/2013 COPD (chronic obstructive pulmonary disease) (HCC) Coronary artery disease Diabetes mellitus type II H/O asbestosis 07/12/2013 Hearing loss Hemorrhage of gastrointestinal tract, unspecified HLD (hyperlipidemia) 12/02/2014 Hypertension Joint pain TX, old Other chronic pain Seizure (HCC) 09/15/2012 Sleep apnea Unspecified visual disturbance Past Surgical History Procedure Laterality Date CARDIAC SURGERY CHOLECYSTECTOMY COLONOSCOPY COLONOSCOPY WITH EGD N/A 12/25/2011 Procedure: COLONOSCOPY W/ EGD; Surgeon: Keena Dye MD; Location: [facility]; Serv ice: Gastroenterology; Laterality: N/A; CORONARY ARTERY BYPASS GRAFT HARDWARE REMOVAL HERNIA REPAIR INGUINAL HERNIA REPAIR SHOULDER SURGERY TONSILLECTOMY undescended testicle surgery UNLISTED PROCEDURE ARTHROSCOPY r shoulder Allergies Allergen Reactions Hydrochlorothiazide Other (See Comments) collapses Nitrous Oxide Anaphylaxis Soma [Carisoprodol] Hallucinations Metformin Other (See Comments) Unknown to pt Diltiazem Syncope Prescriptions Prior to Admission Medication Sig Dispense Refill Last Dose acetaminophen (TYLENOL) 500 MG tablet Take 1,000 mg by mouth 3 (three) times daily. at unknown amLODIPine (NORVASC) 10 MG tablet Take 1 tablet by mouth daily. 30 tablet 11 at unknow n ammonium lactate (AMLACTIN) 12 % cream Apply topically daily. Apply to bilateral legs daily after cleaning with skin wipes. 385 g Unknown at Unknown time ascorbic acid (VITAMIN C) 500 MG tablet Take 500 mg by mouth daily. at unknown aspirin 81 MG tablet Take 81 mg by mouth daily. at unknown budesonide-formoterol (SYMBICORT) 160-4.5 MCG/ACT inhaler Inhale 2 puffs into the lungs 2 (two) times daily. at unknown buPROPion (WELLBUTRIN SR) 100 MG 12 hr tablet Take 200 mg by mouth every morning. at unknown carBAMazepine (TEGRETOL) 200 MG tablet Take 200 mg by mouth 3 (three) times daily. a t unknown Cholecalciferol 1000 UNITS capsule Take 1,000 Units by mouth 2 (two) times daily. at unknown clopidogrel (PLAVIX) 75 MG tablet Take 1 tablet by mouth daily. 30 tablet 0 cyanocobalamin (VITAMIN B-12) 500 MCG tablet Take 500 mcg by mouth daily. at unknown FERROUS SULFATE PO Take 325 mg by mouth 3 (three) times daily. at unknown fish oil-omega-3 fatty acids 1000 MG capsule Take 1 g by mouth 2 (two) times daily. at unknown fluoxetine (PROZAC) 20 MG tablet Take 20 mg by mouth daily. at unknown guaifenesin (MUCINEX) 600 MG 12 hr tablet Take 200 mg by mouth as needed. at unknown insulin aspart (NOVOLOG) 100 UNIT/ML injection Inject 36 Units into the skin 3 (three) times daily before meals. at unknown ipratropium-albuterol (DUONEB) 0.5-2.5 mg/3mL Take 3 mLs by nebulization 4 (four) times daily as needed. at unknown isosorbide mononitrate (IMDUR) 120 MG 24 hr tablet Take 1 tablet by mouth daily. 30 tab let 11 at unknown liraglutide (VICTOZA) 18 MG/3ML injection Inject 1.2 mg into the skin daily. at unkn own metoprolol 75 MG TABS Take 150 mg by mouth 2 (two) times daily. 120 tablet 5 at unknow n Multiple Vitamin (MULTIVITAMIN) capsule Take 1 capsule by mouth daily. at unknown nitroGLYCERIN (NITROSTAT) 0.[address] 1 tablet under the tongue every 5 (fiv e) minutes as needed for Chest pain (hold for SBP less than 100). 30 tablet 0 omeprazole (PRILOSEC) 40 MG capsule Take 40 mg by mouth 2 (two) times daily before meal s. at unknown rosuvastatin (CRESTOR) 40 MG tablet Take 40 mg by mouth daily. at unknown senna (SENOKOT) 8.6 MG tablet Take 1 tablet by mouth 2 (two) times daily. at unknown DISCHARGE EXAM Vital Signs: BP 140/70 (BP Location: Right upper arm) | Pulse 86 | Temp 97.7 F (36.5 C) (Oral) | Resp 22 | Ht 1.829 m (6') | Wt 157.4 kg (347 lb) | SpO2 98% | BMI 47.06 kg/m General Appearance: Encountered patient in room 7122 sitting in bed eating and comfortable. No apparent distress. Conversive and appropriate to place and person. HEENT: Normocephalic, atraumatic, pupils EOMI, PERRLA. Nose: no septal deviation or dischar ge noted. Ears: normal size, location, and contour. Throat dry and without exudates. NECK: is supple, full ROM, nontender. LUNGS: Difficult to assess habitus to auscultation bilaterally with no obvious wheezing, No rales or rhonchi audible. No tachypnea HEART: S1S2, Regular rate and rhythm without murmurs, gallops or rubs. ABDOMEN: Morbidly obese Bowel sound is normoactive, abdomen is soft, non-tender non-distend ed ,no mass palpable. EXTREMITIES: Mild pitting lateral lower extermity edema, Muscle strength quite weak bilater ally. Hyperkeratosis of the lower extremity skin. NEURO: Cranial Nerves 2-12 appears intact, Gait not tested, PSYCH: Alert, awake and Oriente d x3. SKIN: No significant bruises, rashes, lesions, or ulcers. DATA Recent Labs Lab 03/10/18 0306 03/09/18 1434 WBC 9.23 6.22 RBC 4.37 4.17* HGB 14.2 13.4 HCT 42.3 40.1 MCV 96.8 96.3 MCH 32.6 32.2 MCHC 33.6 33.4 RDW 47.7 49.0 PLT 144* 120* MPV 10.1 8.0 NEUTOPHILPCT 89.64 -- MONOPCT 1.59 -- Recent Labs Lab 03/12/18 0818 03/10/18 1401 03/09/18 1433 NA 133* < > -- < > -- K 4.7 < > -- < > -- CL 100 < > -- < > -- CO2 27 < > -- < > -- ANIONGAP 11 < > -- < > -- GLUF 230* < > -- < > -- BUN 33* < > -- < > -- CREATININE 1.5* < > -- < > -- BCR 22 < > -- < > -- CA 8.2* < > -- < > -- EGFR 47* < > -- < > -- PHOS -- -- -- -- 3.4 MG -- -- -- -- 2.0 BNP -- -- 480* -- -- < > = values in this interval not displayed. Recent Labs Lab 03/10/18 0316 HGBA1C 7.6* LABGLYC 171 No results for input(s): APTT, INR, PTT in the last 168 hours. No results for input(s): TSH, T3FREE, FREET4 in the last 168 hours. Recent Labs Lab 03/10/18 1319 03/09/18 2044 CKTOTAL -- -- 192 TROPONINI <0.020 < > <0.020 < > = values in this interval not displayed. HDL CHOL Date Value Ref Range Status 04/29/2017 39 (L) >40 mg/dL Final CHOLESTEROL Date Value Ref Range Status 04/29/2017 150 <200 mg/dL Final Ct Head Without Contrast Result Date: 03/09/2018 This is a non-reportable procedure without a radiologist report and is used for image stora ge only Mri Brain Without Contrast Result Date: 03/10/2018 ADI A WHITE MRI BRAIN WO CONTRAST 03/10/2018 3:45 PM HISTORY: 67 years. Male. Amalia hwang. Assess for stroke. TECHNIQUE: Imaging was performed on a 1.5 Karen MRI system. Multip lanar sequences were acquired according to a standard department protocol without contrast. COMPARISON: Outside CT head 03/09/2018 performed at [facility]. MRI stroke 0 09/15/2012 FINDINGS: Moderate diffuse cerebral atrophy is seen with enlarged cisterns and sul ci. The DWI sequence shows no evidence of acute ischemia or infarct. The T2* GRE sequence does not show low signal material to suggest microhemorrhages or calcification within the br ain parenchyma. A few scattered foci of chronic microvascular ischemic gliosis are noted in the bihemispheric frontal lobe white matter and central nicholas typical of the combination of long-standing hypertension and diabetes. This is concordant with the patient's medical hist ory and appears largely unchanged from September 2012. No extraaxial fluid collections are no nae. The midline structures including the corpus callosum, nicholas, cerebellar vermis, pineal gland and pituitary are normal. No masses are seen in the region of the cerebellopontine an gles or internal auditory canals. The orbits and their contents are normal. The paranasal sinuses are well aerated. No air-fluid levels or mucosal thickening is noted. No fluid see n in the mastoids. The osseous structures of the calvaria and upper cervical spine demonstr ate normal bone marrow signal intensity. The soft tissues of the oropharynx and upper neck appear normal on the sagittal sequences. The intracranial arteries demonstrate normal flow voids on the T2 sequence. No large aneurysm is noted. The dural venous sinuses also demons trate normal flow-voids. 1. No acute intracranial finding such as infarct, ischemia or hemorrhage. 2. Minimal yield loss inspector zenon microvascular ischemic scoliosis in the frontal lobe white matter and central nicholas large ly unchanged from September 2012. This is concordant with the patient's history of diabetes a nd hypertension. 3. Moderate cerebral atrophy. Xr Chest 1 View Result Date: 03/09/2018 ADI Magnus FIORE XR CHEST 1 VIEW 03/09/2018 10:19 PM HISTORY: Chest pain. TECHNIQUE: Frontal marsha st radiograph 2209 hours. COMPARISON: Chest radiographs, most recent April 28, 2017. FINDIN GS: Low lung volumes. Mild strandy opacities at the lung bases suggesting subsegmental atele ctasis. No lung mass or significant focal region of consolidation. Normal pulmonary vasculat ure when accounting for low lung volumes. Intact median sternotomy wires and left mediastina l clips. Suture anchors in the right humerus proximally. Probable surgical foreshortening of the right distal clavicle. 1. Chronic findings, as above without acute disease. Us Kidneys And Bladder Result Date: 03/09/2018 ADI FIORE US KIDNEYS AND BLADDER 03/09/2018 11:25 PM HISTORY: 67 years. Male. Acute vasile al insufficiency. TECHNIQUE: Sonographic evaluation of the kidneys and urinary bladder, usin g a 4-MHz curved array transducer. COMPARISON: CT abdomen dated October 13, 2012.. FINDINGS: Imaging is very limited due to patient body habitus and overlying bowel gas. Right Kidney: 12.1 cm greatest longitudinal dimension. There is no gross evidence of hydronephrosis or vasile al mass. No large nephroliths are identified. Left Kidney: 12.6 cm greatest longitudinal dim ension. There is no gross evidence of hydronephrosis or renal mass. No large nephroliths are identified. The urinary bladder is nondistended due to an indwelling Gonzalez catheter. 1. Very limited study due to patient body habitus and overlying bowel gas. 2. No gross ev idence of hydronephrosis. 3. Indwelling Gonzalez catheter with nondistended urinary bladder. E lectronically signed by Raf Holloway MD on 03/09/2018 11:35 PM Echo Cardiac Adult With Contrast Result Date: 03/10/2018 Patient Name: ADI FIORE Date of : 1950 Performing Physic bonifacio: Rosmery Shell MD INDIC ATIONS SHORTNESS OF BREATH CONCLUSIONS 1. This was a technically dif ficult study with suboptimal views. 2. Overall left ventricular systolic function is normal with, an EF between 60 - 65 %. 3. The right ventricle is normal in size. 4. The left atrial size is normal. 5. Trace amount of aortic regurgitation. 6. Moderate aortic stenosis with pe ak/mean pressure gradient of 35.26mmHg / 22.84mmHg, the aortic valve area by continuity equa tion is 1.2cm. 7. Mild mitral regurgitation is present. 8. There is mild pulmonary hyp ertension. 9. The right ventricular systolic pressure (pulmonary artery systolic pressure), as measured by Doppler, is 36-41 mmHg. 10. Compared to the findings of the prior study 03/04 17, the degree of aortic stenosis has increased. FINDINGS -------- ECG rhythm: Sinus rhythm. Study: A 2-dimensional transthoracic echocardiogram with m-mode, spectral and color flow Do ppler was perfomed. Study: This was a technically difficult study with suboptimal views. Lef t Ventricle: Overall left ventricular systolic function is normal with, an EF between 60 - 6 5 %. Left Ventricle: The left ventricle cavity size is normal. Left Ventricle: Left ventricu lar wall thickness is normal. Left Ventricle: Poor tissue doppler signal prevents accurate a ssessment of diastolic function. Right Ventricle: The right ventricle is normal in size. Lef t Atrium: The left atrial size is normal Left Atrium: , and the LA measures 4.8cm. Right Atr ium: The right atrium is normal in size. Aortic Valve: The aortic valve is trileaflet. Aorti c Valve: The aortic valve is moderately calcified. Aortic Valve: Trace amount of aortic regu rgitation. Aortic Valve: Moderate aortic stenosis with peak/mean pressure gradient of 35.26 mmHg / 22.84mmHg, the aortic valve area by continuity equation is 1.2cm. Mitral Valve: The mitral valve is normal. Mitral Valve: Mild mitral regurgitation is present. Mitral Valv e: Moderate mitral annular calcification present. Tricuspid Valve: The tricuspid valve appea rs structurally normal. Tricuspid Valve: Mild tricuspid regurgitation present. Tricuspid Theresa ve: There is mild pulmonary hypertension. Tricuspid Valve: The right ventricular systolic pr essure (pulmonary artery systolic pressure), as measured by Doppler, is 36-41 mmHg. Pulmonic Valve: The pulmonic valve was not well visualized. Pulmonic Valve: Trace pulmonic regurgit ation. Pericardium: There is a trivial echo free space (possibly fat pad) or pericardial eff usion present. Pericardium: Anterior echo free space present. IVC/Hepatic Veins: The IVC is normal size (1.5-2.5cm) and collapses >50% with sniff, consistent with central venous pre ssures of 5-10mmHg. Contrast: Poor visualization. Definity was used to opacify the left vent ricular chamber and improve delineation of the endocardial border. General comments: Compare d to the findings of the prior study 02/2017, the degree of aortic stenosis has increased. M EASUREMENTS MOIRA Planimetry: 1.82 cm2 AVAI Planimetry: 0.00 cm2/m2 Ao asc: 2.54 cm Ao sinus: 3.[address] junct: 2.79 cm IVC: 2.01 cm LA Major: 5.03 cm EDV( Teich): 88.54 ml IVSd: 1.22 cm LVIDd: 4.41 cm LVPWd: 1.30 cm LVOT Diam: 2.11 cm %F S: 33.08 % EF(Teich): 61.85 % ESV(Teich): 33.77 ml IVSs: 1.41 cm LVIDs: 2.95 cm LV PWs: 1.61 cm SV(Teich): 54.77 ml RA Major: 4.34 cm RVIDd: 3.26 cm LAESV(A-L): 60.2 9 ml LAESV Index (A-L): 22.58 ml/m2 LAAs A2C: 19.85 cm2 LAESV A-L A2C: 61.06 ml LALs A 2C: 5.48 cm LAAs A4C: 19.60 cm2 LAESV A-L A4C: 57.28 ml LALs A4C: 5.69 cm Ao Diam: 4.03 cm AV Cusp: 1.26 cm LA Diam: 4.75 cm LA/Ao: 1.17 IVC diameter: 2.12 cm IVC col lapse: 0.84 cm IVC % collapse: 57.87 % HR: 95.98 BPM AV maxP.25 mmHg AV meanP.83 mmHg AV Vmax: 2.96 m/s AV Vmean: 2.31 m/s AV VTI: 66.03 cm MOIRA Vmax: 1.35 c m2 MOIRA (VTI): 1.17 cm2 AVAI Vmax: 0.00 cm2/m2 AVAI (VTI): 0.00 cm2/m2 LVCI Dopp: 2.8 5 l/minm2 LVCO Dopp: 7.63 l/min HR: 98.22 BPM LVOT maxP.26 mmHg LVOT meanP.3 7 mmHg LVSI Dopp: 29.11 ml/m2 LVSV Dopp: 77.72 ml LVOT Vmax: 1.14 m/s LVOT Vmean: 0. 87 m/s LVOT VTI: 22.19 cm MV maxP.60 mmHg MV meanP.70 mmHg MV Vmax: 2.21 m/ s MV Vmean: 1.39 m/s MV VTI: 39.72 cm MVA (VTI): 1.95 cm2 Septal e': 0.12 m/s Latera l e': 0.15 m/s HR: 95.98 BPM PV maxP.98 mmHg PV meanP.64 mmHg PV Vmax: 0.8 6 m/s PV Vmean: 0.60 m/s PV VTI: 15.97 cm RAP: 3 mmHg RVSP: 34.04 mmHg TR maxP 1.04 mmHg TR Vmax: 2.78 m/s Yield Loss Inspector: CHRISTOFER Authenticated by: Rosmery Shell MD Report Date /Time: 03-10-2018 17:45:14 1. This was a technically difficult study with suboptimal views. 2. Overall left ventricula r systolic function is normal with, an EF between 60 - 65 %. 3. The right ventricle is ryan l in size. 4. The left atrial size is normal. 5. Trace amount of aortic regurgitation. 6. Mo derate aortic stenosis with peak/mean pressure gradient of 35.26mmHg / 22.84mmHg, the aortic valve area by continuity equation is 1.2cm. 7. Mild mitral regurgitation is present. 8. There is mild pulmonary hypertension. 9. The right ventricular systolic pressure (pulmona ry artery systolic pressure), as measured by Doppler, is 36-41 mmHg. 10. Compared to the bria dingjanine of the prior study 02/2017, the degree of aortic stenosis has increased. PLAN Discharge to home in stable condition. Code Status: Full Code Discharge Instructions Basic metabolic panel Standing Status: Future Standing Exp. Date: 03/12/19 Follow up: JESSE Oliver [address] M[facility] with [facility] [id number] In 1 week Allen Mccullough DO [address] [facility] [address] [facility] [id number] In 1 week urinary retention Sai Blackmon MD [address] [facility] [address] In 2 weeks CKD Medication List START taking these medications insulin glargine 100 UNIT/ML injection QTY: 15 mL Refills: 0 Commonly known as: LANTUS Inject 43 Units into the skin nightly for 30 days. insulin lispro (human) 100 UNIT/ML injection QTY: 27 mL Refills: 0 Commonly known as: HUMALOG Inject 30 Units into the skin 3 (three) times daily before meals for 30 days. predniSONE 20 MG tablet QTY: 20 tablet Refills: 0 Commonly known as: DELTASONE Take 2 tablets by mouth daily with breakfast for 10 days. 40mg x 2days, 30mg x2 days, 20mg x2 days, 10mg x2 days. 10mg qod x2 doses. Then stop. tamsulosin 0.4 MG capsule QTY: 30 capsule Refills: 0 Commonly known as: FLOMAX Take 1 capsule by mouth After dinner for 30 days. CHANGE how you take these medications * DUONEB 0.5-2.5 mg/3mL Refills: 0 Generic drug: ipratropium-albuterol What changed: Another medication with the same name was added. Make sure you understand ho w and when to take each. * ipratropium-albuterol 0.5-2.5 mg/3mL QTY: 360 mL Refills: 0 Doctor's comments: Please provide home device Commonly known as: DUO-NEB Take 3 mLs by nebulization every 6 (six) hours as needed for up to 30 days. What changed: You were already taking a medication with the same name, and this prescripti on was added. Make sure you understand how and when to take each. * This list has 2 medication(s) that are the same as other medications prescribed for you. Read the directions carefully, and ask your doctor or other care provider to review them wit h you. CONTINUE taking these medications acetaminophen 500 MG tablet Refills: 0 Commonly known as: TYLENOL amLODIPine 10 MG tablet QTY: 30 tablet Refills: 11 Commonly known as: NORVASC Take 1 tablet by mouth daily. ammonium lactate 12 % cream QTY: 385 g Refills: 0 Commonly known as: AMLACTIN Apply topically daily. Apply to bilateral legs daily after cleaning with skin wipes. ascorbic acid 500 MG tablet Refills: 0 Commonly known as: VITAMIN C aspirin 81 MG tablet Refills: 0 budesonide-formoterol 160-4.5 MCG/ACT inhaler Refills: 0 Commonly known as: SYMBICORT buPROPion 100 MG 12 hr tablet Refills: 0 Commonly known as: WELLBUTRIN SR carBAMazepine 200 MG tablet Refills: 0 Commonly known as: TEGretol Cholecalciferol 1000 units capsule Refills: 0 clopidogrel 75 MG tablet QTY: 30 tablet Refills: 0 Commonly known as: PLAVIX Take 1 tablet by mouth daily. cyanocobalamin 500 MCG tablet Refills: 0 Commonly known as: VITAMIN B-12 FERROUS SULFATE PO Refills: 0 fish oil-omega-3 fatty acids 1000 MG capsule Refills: 0 FLUoxetine 20 MG tablet Refills: 0 Commonly known as: PROzac guaiFENesin 600 MG 12 hr tablet Refills: 0 Commonly known as: MUCINEX insulin aspart 100 UNIT/ML injection Refills: 0 Commonly known as: NOVOLOG isosorbide mononitrate 120 MG 24 hr tablet QTY: 30 tablet Refills: 11 Commonly known as: IMDUR Take 1 tablet by mouth daily. liraglutide 18 MG/3ML injection Refills: 0 Commonly known as: VICTOZA Metoprolol Tartrate 75 MG Tabs QTY: 120 tablet Refills: 5 For diagnoses: Essential hypertension Take 150 mg by mouth 2 (two) times daily. multivitamin capsule Refills: 0 nitroGLYCERIN 0.4 MG SL tablet QTY: 30 tablet Refills: 0 Commonly known as: NITROSTAT Place 1 tablet under the tongue every 5 (five) minutes as needed for Chest pain (hold for S BP less than 100). omeprazole 40 MG capsule Refills: 0 Commonly known as: PRILOSEC rosuvastatin 40 MG tablet Refills: 0 Commonly known as: CRESTOR senna 8.6 MG tablet Refills: 0 Commonly known as: SENOKOT You might also be taking other medications not listed above. If you have questions about an y of your other medications, talk to the person who prescribed them or your Primary Care Pro vider. STOP taking these medications famotidine 20 MG tablet Commonly known as: PEPCID insulin NPH 100 UNIT/ML injection Commonly known as: HUMULIN N,NOVOLIN N nortriptyline 25 MG capsule Commonly known as: PAMELOR ranolazine 500 MG 12 hr tablet Commonly known as: RANEXA Where to Get Your Medications You can get these medications from any pharmacy Bring a paper prescription for each of these medications insulin glargine 100 UNIT/ML injection insulin lispro (human) 100 UNIT/ML injection ipratropium-albuterol 0.5-2.5 mg/3mL predniSONE 20 MG tablet tamsulosin 0.4 MG capsule Discharge took 58 minutes, to include final examination, discussion of admission, and prepa ration of prescriptions, instructions for on-going care, follow-up and documentation of disc harge summary. Bruce Anne MD 03/12/2018in this encounter Discharge Instructions An Grey RN - 03/12/2018Formatting of this note may be different from the origi nal. Follow-up with BMP in 1 week to monitor potassium. And renal function. Results to Dr. Blackmon of nephrology Discharge Instructions: Caring for Your Indwelling Urinary Catheter You have been discharged with an indwelling urinary catheter (also called a Gonzalez catheter) . A catheter is a thin, flexible tube. An indwelling urinary catheter has two parts. The fir st part is a tube that drains urine from your bladder. The second part is a bag or other dev ice that collects the urine. The most important thing to remember is that you want to prevent infection. Always wash you r hands before handling your catheter bag or tubing. Draining the bedside bag Wash your hands with soap and clean, running water or use an alcohol-based hand sanitize r that contains at least 60% alcohol. Hold the drainage tube over a toilet or measuring container. Unclamp the tube and let the bag drain. Don t touch the tip of the drainage tube or let it touch the toilet or container. Cleaning the drainage tube When the bag is empty, clean the tip of the drainage tube with an alcohol wipe. Clamp the tube. Reinsert the tube into the pocket on the drainage bag. Cleaning your skin and tubing Clean the skin near the catheter with soap and water. Wash your genital area from front to back. Wash the catheter tubing. Always wash the catheter in the direction away from your body. You will be told when and how to change your bag and tubing. Don t try to remove the catheter by yourself. You may shower with the catheter in place. Emptying a leg bag Wash your hands. Remove the stopper on the bag. Drain the bag into the toilet or a measuring container. Don t let the tip of the drain age tube touch anything, including your fingers. Clean the tip of the drainage tube with alcohol. Replace the stopper. Follow-up care Make a follow-up appointment as directed by your healthcare provider When to call your healthcare provider Call your healthcare provider right away if you have any of the following: Chills or fever above 100.4F (38C) Leakage around the catheter insertion site Increased spasms (uncontrollable twitching)in yourlegs, abdomen, or bladder. Occasio nal mildspasms are normal. Burning in the urinary tract, penis, or genital area Nausea and vomiting Aching in the lower back Cloudyor bloody (pink or red) urine, sediment or mucus in the urine, orfoul-smelling urine Date Last Reviewed: 09/15/[id number] [employer]. [address] [place] [address], [place] [address]. All righ ts reserved. This information is not intended as a substitute for professional medical care. Always follow your healthcare professional's instructions. Catheter-Associated Urinary Tract Infections A small balloon keeps the catheter in place inside the bladder. A catheter-associated urinary tract infection (CAUTI) is an infection of the urinary system . CAUTI is caused by bacteria that enter the urinary tract when a urinary catheter is used. This is a tube that s placed into the bladder to drain urine. The urinary system This system includes the kidneys, ureters, bladder, and urethra. The kidneys filter blood a nd make urine. The ureters carry urine from the kidneys to the bladder. The bladder stores u rine. The urethra carries urine from the bladder to the outside of the body. What is a urinary catheter? A urinary catheter is a thin, flexible tube. It is placed in the bladder to drain urine. Ur ine flows through the tube into a collecting bag outside of the body. There are different ty pes of urinary catheters. The most common type is an indwelling catheter. This is also known as a urethral catheter. This is because it s placed into the bladder through the urethra. This catheter is also called a Gonzalez catheter. Why is a urinary catheter needed? A urinary catheter is needed for any of the following: You can t get up to use the toilet because your mobility is limited. This may be due t o surgery, an injury, or illness. You have a blockage in your urinary system. Your healthcare provider needs to measure the amount of urine you pass. The function of your kidneys and bladder is being tested. You re not able to control your bladder (incontinence). In most cases, the urinary catheter is temporary. You'll need it only until the problem river t requires it is resolved. How does a CAUTI develop? Bacteria can enter the urinary tract as the catheter is put into the urethra. Bacteria can also get into the urinary tract while the catheter is in place. The common bacteria that cau se a CAUTI are ones that live in the intestine. These bacteria don t normally cause proble ms in the intestine. But when they get into the urinary tract, a CAUTI can result. Why is a CAUTI of concern? Left untreated, a CAUTI can lead to health problems. These problems may include bladder inf ection, prostate infection, and kidney infection. A CAUTI can prolong your hospital stay. If the infection is not treated in time, serious health complications may occur. What are the symptoms of a CAUTI? A burning feeling, pressure, or pain in your lower abdomen Fever or chills Urine in the collecting bag is cloudy or bloody (pink or red) Burning feeling in the urethra or genital area Aching in the back (kidney area) Nausea and vomiting Person is confused, or is not alert, or has a change in behavior (mainly affects older p atients) Note that sometimes a person won t have any symptoms but may still have a CAUTI. Tell a healthcare provider right away if you or your loved one has any of these symptoms. How is CAUTI diagnosed? If you have symptoms of CAUTI your healthcare provider will order tests. These include a ur ine test, blood tests, and other tests as needed. How is CAUTI treated? Treatment may involve any of the following: Antibiotics. Your healthcare provider will likely prescribe antibiotics if you have symp toms. Be aware that if you don t have symptoms, you may not be given antibiotics. This is to prevent an increase in bacteria that resist (can t be killed by) certain antibiotics. Removing the catheter. The catheter will be removed when your healthcare provider decide s it s no longer needed. This usually helps stop the infection. Changing the catheter. If you still need a catheter, the old one will be removed. A new one will be put in. This may help stop the infection. How do hospital and long-term facility staff prevent CAUTI? To keep patients from getting a CAUTI, the staff follow certain procedures: Prescribe a catheter only when it s needed. It is removed as soon as it s no longer needed. Use sterile (clean) technique when placing the catheter into the urinary tract. This julio c ns before putting the catheter in, the caregiver washes his or her hands with soap and water . He or she then puts on sterile gloves. A sterile catheter kit that has cleansers is used t o cleanse the patient s genital area. Before performing catheter care, caregivers also wash their hands or use an alcohol-base d hand cleanser. Hang the bag lower than your bladder. This prevents urine from flowing back into your bl adder. Ensure that the bag is emptied regularly. What you can do as a patient to prevent CAUTI You can help prevent yourself from getting a CAUTI by doing the following: Every day ask your healthcare provider how long you need to have the catheter. The longe r you have a catheter, the higher your chance of getting a CAUTI. If a caregiver doesn t clean his or her hands and put on gloves before touching your c atheter, ask them to do so. If you ve been taught how to care for your catheter, be sure to wash your hands before and after each session. Make sure your bag is lower than your bladder. If it s not, tell your caregiver. Don t disconnect the catheter and drain tube. Doing so allows germs to get into the ca theter. Cleansing of the genital and perineal areas is very important to help decrease bacteria in areas surrounding the catheter. Ask your doctor what you should use and how often to joão n these areas. If you are discharged with an indwelling catheter Before you leave the hospital, make sure you understand the instructions on how to care for your catheter at home. Ask your healthcare provider how long you need the catheter. Also ask if you need to osiris e a follow-up appointment to have the catheter removed. Always use sterile (clean) technique when caring for your catheter. Wash your hands befo re and after doing any catheter care. Call your healthcare provider right away if you develop symptoms of a CAUTI (see above). Date Last Reviewed: 09/15/[id number] [employer]. [address] [place] [address]. All righ ts reserved. This information is not intended as a substitute for professional medical care. Always follow your healthcare professional's instructions. in this encounter Medications at Time of Discharge [...] tablet by | 30 | 11 | 03/06/ | | | mononitrate (IMDUR) | mouth [...] + as of this encounter Progress Notes Sai Blackmon MD - 03/12/2018 10:55 AM PDTFormatting of this note may be different from the original. [facility] Service: NEPHROLOGY Progress Note Adi Fiore 67 y.o. [id number] male [facility] Day: LOS: 3 days 67-year-old male with past medical history significant for coronary artery disease status p ost CABG 4 vessels done in the past, history of multiple CVAs, COPD, hearing loss, type II diabetes, hypertension, history of seizures, CKD-3 per records reviewed transferred from [facility] in [facility] due to concern for CVA. Labs showed potassium 6.7, sodium 134, creatinine 1.7 Gonzalez placed 500 mls urine came out Nephrology consulted for evaluation and management ofHyperkalemia/ CKD-3 per records ONSET Acute severity severe, worsening potentially life threatening Associated with fluid electrolyte acid base imbalances RF: likely element of pre-renal/ urinary retention/ high potassium diet contributing Patient seen and examined Says feel weak, no chest pain today Denies any urinary symptoms Denies sob, nausea, vomiting, diarrhea, fever, headache Past Medical History Diagnosis Date Anxiety Asbestosis(501) Asthma CHF (congestive heart failure) ([facility]) CKD (chronic kidney disease) stage 3, GFR 30-59 ml/min 10/01/2013 COPD (chronic obstructive pulmonary disease) ([facility]) Coronary artery disease Diabetes mellitus type II H/O asbestosis 07/12/2013 Hearing loss Hemorrhage of gastrointestinal tract, unspecified HLD (hyperlipidemia) 12/02/2014 Hypertension Joint pain TX, old Other chronic pain Seizure ([facility]) 09/15/2012 Sleep apnea Unspecified visual disturbance Past Surgical History Procedure Laterality Date CARDIAC SURGERY CHOLECYSTECTOMY COLONOSCOPY COLONOSCOPY WITH EGD N/A 12/25/2011 Procedure: COLONOSCOPY W/ EGD; Surgeon: Keena Dye MD; Location: [facility]; Serv ice: Gastroenterology; Laterality: N/A; CORONARY ARTERY BYPASS GRAFT HARDWARE REMOVAL HERNIA REPAIR INGUINAL HERNIA REPAIR SHOULDER SURGERY TONSILLECTOMY undescended testicle surgery UNLISTED PROCEDURE ARTHROSCOPY r shoulder Prescriptions Prior to Admission Medication Sig Dispense Refill Last Dose nortriptyline (PAMELOR) 25 MG capsule Take 25 mg by mouth nightly. Taking at Unknown time acetaminophen (TYLENOL) 500 MG tablet Take 1,000 mg by mouth 3 (three) times daily. at unknown amLODIPine (NORVASC) 10 MG tablet Take 1 tablet by mouth daily. 30 tablet 11 at unknow n ammonium lactate (AMLACTIN) 12 % cream Apply topically daily. Apply to bilateral legs daily after cleaning with skin wipes. 385 g Unknown at Unknown time ascorbic acid (VITAMIN C) 500 MG tablet Take 500 mg by mouth daily. at unknown aspirin 81 MG tablet Take 81 mg by mouth daily. at unknown budesonide-formoterol (SYMBICORT) 160-4.5 MCG/ACT inhaler Inhale 2 puffs into the lungs 2 (two) times daily. at unknown buPROPion (WELLBUTRIN SR) 100 MG 12 hr tablet Take 200 mg by mouth every morning. at unknown carBAMazepine (TEGRETOL) 200 MG tablet Take 200 mg by mouth 3 (three) times daily. a t unknown Cholecalciferol 1000 UNITS capsule Take 1,000 Units by mouth 2 (two) times daily. at unknown clopidogrel (PLAVIX) 75 MG tablet Take 1 tablet by mouth daily. 30 tablet 0 cyanocobalamin (VITAMIN B-12) 500 MCG tablet Take 500 mcg by mouth daily. at unknown famotidine (PEPCID) 20 MG tablet Take 1 tablet by mouth 2 (two) times daily. (Patient t aking differently: Take 40 mg by mouth 2 (two) times daily.) 60 tablet 11 Unknown at Unknown time FERROUS SULFATE PO Take 325 mg by mouth 3 (three) times daily. at unknown fish oil-omega-3 fatty acids 1000 MG capsule Take 1 g by mouth 2 (two) times daily. at unknown fluoxetine (PROZAC) 20 MG tablet Take 20 mg by mouth daily. at unknown guaifenesin (MUCINEX) 600 MG 12 hr tablet Take 200 mg by mouth as needed. at unknown insulin aspart (NOVOLOG) 100 UNIT/ML injection Inject 36 Units into the skin 3 (three) times daily before meals. at unknown insulin NPH (NOVOLIN N) 100 UNIT/ML injection Inject 66 Units into the skin 2 (two) julia es daily before meals. Indications: Type 2 Diabetes (Patient taking differently: Inject 56 U nits into the skin 2 (two) times daily before meals. Indications: Type 2 Diabetes) 15 mL Un known at Unknown time ipratropium-albuterol (DUONEB) 0.5-2.5 mg/3mL Take 3 mLs by nebulization 4 (four) times daily as needed. at unknown isosorbide mononitrate (IMDUR) 120 MG 24 hr tablet Take 1 tablet by mouth daily. 30 tab let 11 at unknown liraglutide (VICTOZA) 18 MG/3ML injection Inject 1.2 mg into the skin daily. at unkn own metoprolol 75 MG TABS Take 150 mg by mouth 2 (two) times daily. 120 tablet 5 at unknow n Multiple Vitamin (MULTIVITAMIN) capsule Take 1 capsule by mouth daily. at unknown nitroGLYCERIN (NITROSTAT) 0.[address] 1 tablet under the tongue every 5 (fiv e) minutes as needed for Chest pain (hold for SBP less than 100). 30 tablet 0 omeprazole (PRILOSEC) 40 MG capsule Take 40 mg by mouth 2 (two) times daily before meal s. at unknown ranolazine (RANEXA) 500 MG 12 hr tablet Take 1 tablet by mouth 2 (two) times daily. 60 tablet 0 rosuvastatin (CRESTOR) 40 MG tablet Take 40 mg by mouth daily. at unknown senna (SENOKOT) 8.6 MG tablet Take 1 tablet by mouth 2 (two) times daily. at unknown Allergies Allergen Reactions Hydrochlorothiazide Other (See Comments) collapses Nitrous Oxide Anaphylaxis Soma [Carisoprodol] Hallucinations Metformin Other (See Comments) Unknown to pt Diltiazem Syncope Family History Problem Relation Age of Onset Coronary art dis Mother Kidney disease Mother required hd then stop it Coronary art dis Father Mother has hypertension and kidney disease, father had cancers 2 1st was lymphoma other time prostate, both Social History Social History Marital status: Spouse name: N/A Number of children: 3 Years of education: N/A Occupational History Not on file. Social History Main Topics Smoking status: Former Smoker Quit date: 12/23/1997 Smokeless tobacco: Never Used Alcohol use No Drug use: No Sexual activity: No Other Topics Concern Not on file Social History Narrative Lives in [place], [place], with spouse, walker and wheel chair , had mechanical fall 3 wks ago, full code. 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 Scheduled Medications aspirin 81 mg Oral Daily budesonide-formoterol 2 puff Inhalation BID buPROPion 200 mg Oral QAM carBAMazepine 200 mg Oral TID clopidogrel 75 mg Oral Daily docusate sodium 100 mg Oral BID famotidine 20 mg Oral BID Or famotidine 20 mg Intravenous BID fludrocortisone 0.1 mg Oral Daily FLUoxetine 20 mg Oral Daily insulin glargine 43 Units Subcutaneous Nightly insulin lispro (human) 0-14 Units Subcutaneous TID AC insulin lispro (human) 0-7 Units Subcutaneous Nightly insulin lispro (human) 30 Units Subcutaneous TID AC methylPREDNISolone 81.25 mg Intravenous Q12H nystatin Topical BID polyethylene glycol 17 g Oral BID ranolazine 500 mg Oral BID rosuvastatin 40 mg Oral Daily senna 1 tablet Oral BID sodium chloride (PF) 10 mL Intravenous Q8H tamsulosin 0.4 mg Oral after dinner urea Topical Daily Continuous Infusions dextrose sodium chloride (IV) 100 mL/hr at 03/11/18 2305 PRN Medications acetaminophen OR acetaminophen, aluminum-magnesium hydroxide-simethicone, calcium carbo wyatt, dextrose, dextrose, dextrose, fywkkijizxORLLH-pycufh-bjpbsbvbw, glucagon, glucagon, ip ratropium-albuterol, morphine OR morphine OR morphine, nitroGLYCERIN, polyethylene g lycol, sodium chloride 0.9 % Allergy: Allergies Allergen Reactions Hydrochlorothiazide Other (See Comments) collapses Nitrous Oxide Anaphylaxis Soma [Carisoprodol] Hallucinations Metformin Other (See Comments) Unknown to pt Diltiazem Syncope OBJECTIVE Vital Signs: BP 162/72 (BP Location: Right upper arm) | Pulse 85 | Temp 97.7 F (36.5 C) (Oral) | Resp 23 | Ht 1.829 m (6') | Wt 157.4 kg (347 lb) | SpO2 98% | BMI 47.06 kg/m I&O Detailed Table: I/O last 3 completed shifts: In: 4759.5 [P.O.:2140; I.V.:2619.5] Out: 7800 [Urine:7800] Weight change: -0.902 kg (-1 lb 15.8 oz) Examination: APPEARANCE: The patient is a pleasant lying comfortably, answering appropriately VITALS: Reviewed as listed. Non-icteric sclera LUNGS: Clear to auscultation bilaterally, no respiratory distress HEART: S1, S2, no pericardial rub noted. ABDOMEN: obese, soft, no tenderness EXTREMITIES:no pedal edema/ chronic stasis changes noted. NEUROLOGIC: No gross focal motor deficitnoted. PSYCH: The patient is alert and oriented x3 LABS: Recent Results (from the past 24 hour(s)) POCT glucose Collection Time: 03/11/18 11:42 AM Result Value Ref Range GLUCOSE,POC SCREEN >400 (H) 65 - 99 mg/dL Confirmation glucose Collection Time: 03/11/18 12:08 PM Result Value Ref Range GLUCOSE 413 (H) 65 - 99 mg/dL Basic metabolic panel Collection Time: 03/11/18 2:49 PM Result Value Ref Range SODIUM 130 (L) 135 - 145 mmol/L POTASSIUM 5.6 (H) 3.5 - 4.9 mmol/L CHLORIDE 97 (L) 99 - 109 mmol/L CO2 23 23 - 32 mmol/L ANION GAP AGAP 16 5 - 20 mmol/L GLUCOSE 408 (H) 65 - 99 mg/dL BUN 37 (H) 8 - 25 mg/dL CREATININE 1.7 (H) 0.70 - 1.30 mg/dL BUN/CREAT 22 CALCIUM 8.5 8.5 - 10.5 mg/dL EGFR 40 (L) >60 mL/min/1.73m2 POCT glucose Collection Time: 03/11/18 4:31 PM Result Value Ref Range GLUCOSE,POC SCREEN >400 (H) 65 - 99 mg/dL Confirmation glucose Collection Time: 03/11/18 4:50 PM Result Value Ref Range GLUCOSE 450 (H) 65 - 99 mg/dL POCT glucose Collection Time: 03/11/18 9:02 PM Result Value Ref Range GLUCOSE,POC SCREEN 275 (H) 65 - 99 mg/dL Basic metabolic panel Collection Time: 03/12/18 8:18 AM Result Value Ref Range SODIUM 133 (L) 135 - 145 mmol/L POTASSIUM 4.7 3.5 - 4.9 mmol/L CHLORIDE 100 99 - 109 mmol/L CO2 27 23 - 32 mmol/L ANION GAP AGAP 11 5 - 20 mmol/L GLUCOSE 230 (H) 65 - 99 mg/dL BUN 33 (H) 8 - 25 mg/dL CREATININE 1.5 (H) 0.70 - 1.30 mg/dL BUN/CREAT 22 CALCIUM 8.2 (L) 8.5 - 10.5 mg/dL EGFR 47 (L) >60 mL/min/1.73m2 IMAGING: Ct Head Without Contrast Result Date: 03/09/2018 This is a non-reportable procedure without a radiologist report and is used for image [facility] only Mri Brain Without Contrast Result Date: 03/10/2018 ADI A WHITE MRI BRAIN WO CONTRAST 03/10/2018 3:45 PM HISTORY: 67 years. Male. Garbled spe ech. Assess for stroke. TECHNIQUE: Imaging was performed on a 1.5 Karen MRI system. Multip lanar sequences were acquired according to a standard department protocol without contrast. COMPARISON: Outside CT head 03/09/2018 performed at [facility]. MRI stroke 0 09/15/2012 FINDINGS: Moderate diffuse cerebral atrophy is seen with enlarged cisterns and sul ci. The DWI sequence shows no evidence of acute ischemia or infarct. The T2* GRE sequence does not show low signal material to suggest microhemorrhages or calcification within the br ain parenchyma. A few scattered foci of chronic microvascular ischemic gliosis are noted in the bihemispheric frontal lobe white matter and central nicholas typical of the combination of long-standing hypertension and diabetes. This is concordant with the patient's medical hist ory and appears largely unchanged from September 2012. No extraaxial fluid collections are no nae. The midline structures including the corpus callosum, nicholas, cerebellar vermis, pineal gland and pituitary are normal. No masses are seen in the region of the cerebellopontine an gles or internal auditory canals. The orbits and their contents are normal. The paranasal sinuses are well aerated. No air-fluid levels or mucosal thickening is noted. No fluid see n in the mastoids. The osseous structures of the calvaria and upper cervical spine demonstr ate normal bone marrow signal intensity. The soft tissues of the oropharynx and upper neck appear normal on the sagittal sequences. The intracranial arteries demonstrate normal flow voids on the T2 sequence. No large aneurysm is noted. The dural venous sinuses also demons trate normal flow-voids. 1. No acute intracranial finding such as infarct, ischemia or hemorrhage. 2. Minimal yield loss inspector zenon microvascular ischemic scoliosis in the frontal lobe white matter and central nicholas large ly unchanged from September 2012. This is concordant with the patient's history of diabetes a nd hypertension. 3. Moderate cerebral atrophy. Xr Chest 1 View Result Date: 03/09/2018 ADI FIORE XR CHEST 1 VIEW 03/09/2018 10:19 PM HISTORY: Chest pain. TECHNIQUE: Frontal marsha st radiograph 2209 hours. COMPARISON: Chest radiographs, most recent April 28, 2017. FINDIN GS: Low lung volumes. Mild strandy opacities at the lung bases suggesting subsegmental atele ctasis. No lung mass or significant focal region of consolidation. Normal pulmonary vasculat ure when accounting for low lung volumes. Intact median sternotomy wires and left mediastina l clips. Suture anchors in the right humerus proximally. Probable surgical foreshortening of the right distal clavicle. 1. Chronic findings, as above without acute disease. Us Kidneys And Bladder Result Date: 03/09/2018 ADI FIORE US KIDNEYS AND BLADDER 03/09/2018 11:25 PM HISTORY: 67 years. Male. Acute vasile al insufficiency. TECHNIQUE: Sonographic evaluation of the kidneys and urinary bladder, usin g a 4-MHz curved array transducer. COMPARISON: CT abdomen dated October 13, 2012.. FINDINGS: Imaging is very limited due to patient body habitus and overlying bowel gas. Right Kidney: 12.1 cm greatest longitudinal dimension. There is no gross evidence of hydronephrosis or vasile al mass. No large nephroliths are identified. Left Kidney: 12.6 cm greatest longitudinal dim ension. There is no gross evidence of hydronephrosis or renal mass. No large nephroliths are identified. The urinary bladder is nondistended due to an indwelling Gonzalez catheter. 1. Very limited study due to patient body habitus and overlying bowel gas. 2. No gross ev idence of hydronephrosis. 3. Indwelling Gonzalez catheter with nondistended urinary bladder. E lectronically signed by Raf Holloway MD on 03/09/2018 11:35 PM Echo Cardiac Adult With Contrast Result Date: 03/10/2018 Patient Name: ADI FIORE Date of : 1950 Performing Physic bonifacio: Rosmery Shell MD INDIC ATIONS SHORTNESS OF BREATH CONCLUSIONS 1. This was a technically dif ficult study with suboptimal views. 2. Overall left ventricular systolic function is normal with, an EF between 60 - 65 %. 3. The right ventricle is normal in size. 4. The left atrial size is normal. 5. Trace amount of aortic regurgitation. 6. Moderate aortic stenosis with pe ak/mean pressure gradient of 35.26mmHg / 22.84mmHg, the aortic valve area by continuity equa tion is 1.2cm. 7. Mild mitral regurgitation is present. 8. There is mild pulmonary hyp ertension. 9. The right ventricular systolic pressure (pulmonary artery systolic pressure), as measured by Doppler, is 36-41 mmHg. 10. Compared to the findings of the prior study 03/04 17, the degree of aortic stenosis has increased. FINDINGS -------- ECG rhythm: Sinus rhythm. Study: A 2-dimensional transthoracic echocardiogram with m-mode, spectral and color flow Do ppler was perfomed. Study: This was a technically difficult study with suboptimal views. Lef t Ventricle: Overall left ventricular systolic function is normal with, an EF between 60 - 6 5 %. Left Ventricle: The left ventricle cavity size is normal. Left Ventricle: Left ventricu lar wall thickness is normal. Left Ventricle: Poor tissue doppler signal prevents accurate a ssessment of diastolic function. Right Ventricle: The right ventricle is normal in size. Lef t Atrium: The left atrial size is normal Left Atrium: , and the LA measures 4.8cm. Right Atr ium: The right atrium is normal in size. Aortic Valve: The aortic valve is trileaflet. Aorti c Valve: The aortic valve is moderately calcified. Aortic Valve: Trace amount of aortic regu rgitation. Aortic Valve: Moderate aortic stenosis with peak/mean pressure gradient of 35.26 mmHg / 22.84mmHg, the aortic valve area by continuity equation is 1.2cm. Mitral Valve: The mitral valve is normal. Mitral Valve: Mild mitral regurgitation is present. Mitral Valv e: Moderate mitral annular calcification present. Tricuspid Valve: The tricuspid valve appea rs structurally normal. Tricuspid Valve: Mild tricuspid regurgitation present. Tricuspid Theresa ve: There is mild pulmonary hypertension. Tricuspid Valve: The right ventricular systolic pr essure (pulmonary artery systolic pressure), as measured by Doppler, is 36-41 mmHg. Pulmonic Valve: The pulmonic valve was not well visualized. Pulmonic Valve: Trace pulmonic regurgit ation. Pericardium: There is a trivial echo free space (possibly fat pad) or pericardial eff usion present. Pericardium: Anterior echo free space present. IVC/Hepatic Veins: The IVC is normal size (1.5-2.5cm) and collapses >50% with sniff, consistent with central venous pre ssures of 5-10mmHg. Contrast: Poor visualization. Definity was used to opacify the left vent ricular chamber and improve delineation of the endocardial border. General comments: Compare d to the findings of the prior study 02/2017, the degree of aortic stenosis has increased. M EASUREMENTS MOIRA Planimetry: 1.82 cm2 AVAI Planimetry: 0.00 cm2/m2 Ao asc: 2.54 cm Ao sinus: 3.[address] junct: 2.79 cm IVC: 2.01 cm LA Major: 5.03 cm EDV( Teich): 88.54 ml IVSd: 1.22 cm LVIDd: 4.41 cm LVPWd: 1.30 cm LVOT Diam: 2.11 cm %F S: 33.08 % EF(Teich): 61.85 % ESV(Teich): 33.77 ml IVSs: 1.41 cm LVIDs: 2.95 cm LV PWs: 1.61 cm SV(Teich): 54.77 ml RA Major: 4.34 cm RVIDd: 3.26 cm LAESV(A-L): 60.2 9 ml LAESV Index (A-L): 22.58 ml/m2 LAAs A2C: 19.85 cm2 LAESV A-L A2C: 61.06 ml LALs A 2C: 5.48 cm LAAs A4C: 19.60 cm2 LAESV A-L A4C: 57.28 ml LALs A4C: 5.69 cm Ao Diam: 4.03 cm AV Cusp: 1.26 cm LA Diam: 4.75 cm LA/Ao: 1.17 IVC diameter: 2.12 cm IVC col lapse: 0.84 cm IVC % collapse: 57.87 % HR: 95.98 BPM AV maxP.25 mmHg AV meanP.83 mmHg AV Vmax: 2.96 m/s AV Vmean: 2.31 m/s AV VTI: 66.03 cm MOIRA Vmax: 1.35 c m2 MOIRA (VTI): 1.17 cm2 AVAI Vmax: 0.00 cm2/m2 AVAI (VTI): 0.00 cm2/m2 LVCI Dopp: 2.8 5 l/minm2 LVCO Dopp: 7.63 l/min HR: 98.22 BPM LVOT maxP.26 mmHg LVOT meanP.3 7 mmHg LVSI Dopp: 29.11 ml/m2 LVSV Dopp: 77.72 ml LVOT Vmax: 1.14 m/s LVOT Vmean: 0. 87 m/s LVOT VTI: 22.19 cm MV maxP.60 mmHg MV meanP.70 mmHg MV Vmax: 2.21 m/ s MV Vmean: 1.39 m/s MV VTI: 39.72 cm MVA (VTI): 1.95 cm2 Septal e': 0.12 m/s Latera l e': 0.15 m/s HR: 95.98 BPM PV maxP.98 mmHg PV meanP.64 mmHg PV Vmax: 0.8 6 m/s PV Vmean: 0.60 m/s PV VTI: 15.97 cm RAP: 3 mmHg RVSP: 34.04 mmHg TR maxP 1.04 mmHg TR Vmax: 2.78 m/s Yield Loss Inspector: CHRISTOFER Authenticated by: Rosmery Shell MD Report Date /Time: 03-10-2018 17:45:14 1. This was a technically difficult study with suboptimal views. 2. Overall left ventricula r systolic function is normal with, an EF between 60 - 65 %. 3. The right ventricle is ryan l in size. 4. The left atrial size is normal. 5. Trace amount of aortic regurgitation. 6. Mo derate aortic stenosis with peak/mean pressure gradient of 35.26mmHg / 22.84mmHg, the aortic valve area by continuity equation is 1.2cm. 7. Mild mitral regurgitation is present. 8. There is mild pulmonary hypertension. 9. The right ventricular systolic pressure (pulmona ry artery systolic pressure), as measured by Doppler, is 36-41 mmHg. 10. Compared to the fin dings of the prior study 02/2017, the degree of aortic stenosis has increased. Patient's old records, imaging and labs were reviewed in detail and summarized. PROBLEM LIST Principal Problem: Slurred speech Active Problems: DM (diabetes mellitus) HTN (hypertension) Coronary artery disease involving coronary bypass graft of [place] heart with angina pecto ris (HCC) Chronic diastolic heart failure (HCC) Morbid obesity (HCC) CKD (chronic kidney disease) stage 3, GFR 30-59 ml/min ASSESSMENT & PLAN HYPERKALEMIA Severe potentially life threatening improved likely element of pre-renal/ urinary retention/ high potassium diet contributing Ruled out rhabdomyolysis nl cpk Ca gluconate/ Insulin/ Albuterol inhaler Kayexalate/ florinef Low k diet, change ada diet to renal ada diet Watch k level closely Lab Results Component Value Date K 4.7 03/12/2018 K 5.6 (H) 03/11/2018 K 5.4 (H) 03/11/2018 CKD-3 PER RECORDS REVIEWED Likely in the setting of HTN/ DM-2/ Vascular disease No HYDRONEPHROSIS per ct scan reviewed No RHABDOMYOLYSIS nl cpk Gonzalez placed 500 mls urine came out IV FLUIDS No ANAND-I/ ARBS Urine studies reviewed Strict I & O, Daily weights Daily RFP Renal diet AVOID NSAIDS/ MATTSON-2 INHIBITORS AVOID NEPHROTOXIC MEDS INCLUDING AMINOGLYCOSIDES/ IV CONTRAST Assess daily for need for hd Dose all meds per egfr Lab Results Component Value Date BUN 33 (H) 03/12/2018 BUN 37 (H) 03/11/2018 BUN 34 (H) 03/11/2018 BUN 29 (H) 03/10/2018 BUN 27 (H) 03/10/2018 CREATININE 1.5 (H) 03/12/2018 CREATININE 1.7 (H) 03/11/2018 CREATININE 1.7 (H) 03/11/2018 CREATININE 1.8 (H) 03/10/2018 CREATININE 1.8 (H) 03/10/2018 Lab Results Component Value Date MALBRX 2,800 (H) 03/10/2018 HYPONATREMIA improving likely Multifactorial in the setting of hypovolemia Iv fluids patient needs close serial monitoring of sodium levels Lab Results Component Value Date NA 133 (L) 03/12/2018 NA 130 (L) 03/11/2018 NA 137 03/11/2018 NA 134 (L) 03/10/2018 NA 134 (L) 03/10/2018 HYPERTENSION labile WATCH BP CLOSELY DURING HOSPITALIZATION LOW NA DIET Will adjust BP meds according to BP readings BP Readings from Last 3 Encounters: 03/12/18 162/72 04/30/17 120/58 03/06/17 101/54 ANEMIA none Lab Results Component Value Date HGB 14.2 03/10/2018 HGB 13.4 03/09/2018 HGB 12.1 (L) 04/30/2017 FERRITIN 12 (L) 12/24/2011 LABIRON 7 (L) 12/24/2011 Hypoalbuminemia Increase protein intake Lab Results Component Value Date ALB 2.8 (L) 04/30/2017 ALB 2.7 (L) 06/14/2016 ALB 3.1 (L) 12/08/2014 DM-2 OPTIMUM GLYCEMIC CONTROL PER PRIMARY TEAM CASE DISCUSSED IN DETAIL WITH PATIENT/ care team, ANSWERS ALL QUESTIONS IN DETAIL, VERBALIZ ES UNDERSTANDING WILL SIGN OFF, CALL US PRN FOR ANY QUESTIONS, THANKS FOR THE CONSULT SAI BLACKMON MD 03/12/2018 Vincent Finch Seen earlier and charting completed later Dictation software, Granify, used which may contain error for similar sounding words even af ter review. Personal communication requested for any clarification. Bruce Anne MD - 03/12/2018 7:54 AM PDTFormatting of this note may be different from the original. [facility]: Hospitalist Progress Note Hospital Day: LOS: 4 days Post-Op Day: * No surgery found * SUBJECTIVE Patient Summary: direct transfer and admitted for slurred speech concern for stroke. Events Overnight: 03/10 Patient denies any further speech problem since admission. Patient eating well. Midday patient complained of chest pain. EKG ordered. Troponin order. Morphine ordered. ove rnight patient had also chest pain and workup has been negative. 03/11 EKG with no changes; trop continues to be negative despite repeated complaint of chest pain, which is most likely esophageal spasms. He gets this after eating/drinking. 03/12: Patient feels well. Denies any complaint. Is wanting to go home rather than skilled n ursing facility. Physical therapy does not recommend SNIF at this time. ROS: 12 point ROS reviewed and negative other than above. Scheduled Medications aspirin 81 mg Oral Daily budesonide-formoterol 2 puff Inhalation BID buPROPion 200 mg Oral QAM carBAMazepine 200 mg Oral TID clopidogrel 75 mg Oral Daily docusate sodium 100 mg Oral BID famotidine 20 mg Oral BID Or famotidine 20 mg Intravenous BID fludrocortisone 0.1 mg Oral Daily FLUoxetine 20 mg Oral Daily insulin glargine 43 Units Subcutaneous Nightly insulin lispro (human) 0-14 Units Subcutaneous TID AC insulin lispro (human) 0-7 Units Subcutaneous Nightly insulin lispro (human) 30 Units Subcutaneous TID AC methylPREDNISolone 81.25 mg Intravenous Q12H nystatin Topical BID polyethylene glycol 17 g Oral BID ranolazine 500 mg Oral BID rosuvastatin 40 mg Oral Daily senna 1 tablet Oral BID tamsulosin 0.4 mg Oral after dinner urea Topical Daily Continuous Infusions dextrose sodium chloride (IV) 100 mL/hr at 03/12/182043 PRN Medications acetaminophen OR acetaminophen, aluminum-magnesium hydroxide-simethicone, calcium carbo wyatt, dextrose, dextrose, dextrose, lltabotnlaISSCS-wvvesq-uhpwvkgmh, glucagon, glucagon, ip ratropium-albuterol, morphine OR morphine OR morphine, nitroGLYCERIN, polyethylene g lycol, sodium chloride 0.9 % OBJECTIVE Vital Signs: BP 154/69 (BP Location: Right upper arm) | Pulse 103 | Temp 97.1 F (36.2 C) (Oral) | Resp 22 | Ht 1.829 m (6') | Wt 156 kg (343 lb 14.7 oz) | SpO2 98% | BMI 46.64 kg/m Physical Exam: General Appearance: Encountered patient in room 7122 sitting in bed eating and comfortable. No apparent distress. Conversive and appropriate to place and person. HEENT: Normocephalic, atraumatic, pupils EOMI, PERRLA. Nose: no septal deviation or dischar ge noted. Ears: normal size, location, and contour. Throat dry and without exudates. NECK: is supple, full ROM, nontender. LUNGS: relatively clear to auscultation bilaterally with no obvious wheezing, No rales or r honchi audible. None tachypnea. HEART: S1S2, Regular rate and rhythm without murmurs, gallops or rubs. ABDOMEN: Mcdonald obese Bowel sound is normoactive, abdomen is soft, non-tender non-distended ,no mass palpable. EXTREMITIES:No lower extermity edema, Muscle strength adequate bilaterally. NEURO: Cranial Nerves 2-12 appears intact, Gait not tested, PSYCH: Alert, awake and Oriente d x3. SKIN: No significant bruises, rashes, lesions, or ulcers. DATA Recent Labs Lab 03/10/18 0306 03/09/18 1434 WBC 9.23 6.22 RBC 4.37 4.17* HCT 42.3 40.1 MCV 96.8 96.3 MCH 32.6 32.2 MCHC 33.6 33.4 RDW 47.7 49.0 PLT 144* 120* MPV 10.1 8.0 DIFFTYPE AUTOMATED -- Recent Labs Lab 03/12/18 0818 03/11/18 1449 03/11/18 0510 K 4.7 5.6* 5.4* CL 100 97* 103 CO2 27 23 27 ANIONGAP 11 16 12 GLUF 230* 408* 341* BUN 33* 37* 34* CREATININE 1.5* 1.7* 1.7* BCR 22 22 20 CA 8.2* 8.5 8.3* EGFR 47* 40* 40* Recent Labs Lab 03/09/18 1433 MG 2.0 No results for input(s): APTT, INR, PTT in the last 168 hours. Recent Labs Lab 03/10/18 1319 03/10/18 0316 03/10/18 0000 03/09/18 2044 CKTOTAL -- -- -- 192 TROPONINI <0.020 <0.020 <0.[address] Head Without Contrast Result Date: 03/09/2018 This is a non-reportable procedure without a radiologist report and is used [facility] Brain Without Contrast Result Date: 03/10/2018 ADI A WHITE MRI BRAIN WO CONTRAST 03/10/2018 3:45 PM HISTORY: 67 years. Male. Amalia wright ech. Assess for stroke. TECHNIQUE: Imaging was performed on a 1.5 Karen MRI system. Multip lanar sequences were acquired according to a standard department protocol without contrast. COMPARISON: Outside CT head 03/09/2018 performed at [facility]. MRI stroke 0 09/15/2012 FINDINGS: Moderate diffuse cerebral atrophy is seen with enlarged cisterns and sul ci. The DWI sequence shows no evidence of acute ischemia or infarct. The T2* GRE sequence does not show low signal material to suggest microhemorrhages or calcification within the br ain parenchyma. A few scattered foci of chronic microvascular ischemic gliosis are noted in the bihemispheric frontal lobe white matter and central nicholas typical of the combination of long-standing hypertension and diabetes. This is concordant with the patient's medical hist ory and appears largely unchanged from September 2012. No extraaxial fluid collections are no nae. The midline structures including the corpus callosum, nicholas, cerebellar vermis, pineal gland and pituitary are normal. No masses are seen in the region of the cerebellopontine an gles or internal auditory canals. The orbits and their contents are normal. The paranasal sinuses are well aerated. No air-fluid levels or mucosal thickening is noted. No fluid see n in the mastoids. The osseous structures of the calvaria and upper cervical spine demonstr ate normal bone marrow signal intensity. The soft tissues of the oropharynx and upper neck appear normal on the sagittal sequences. The intracranial arteries demonstrate normal flow voids on the T2 sequence. No large aneurysm is noted. The dural venous sinuses also demons trate normal flow-voids. 1. No acute intracranial finding such as infarct, ischemia or hemorrhage. 2. Minimal yield loss inspector zenon microvascular ischemic scoliosis in the frontal lobe white matter and central nicholas large ly unchanged from September 2012. This is concordant with the patient's history of diabetes a nd hypertension. 3. Moderate cerebral atrophy. Xr Chest 1 View Result Date: 03/09/2018 ADI A WHITE XR CHEST 1 VIEW 03/09/2018 10:19 PM HISTORY: Chest pain. TECHNIQUE: Frontal marsha st radiograph 2209 hours. COMPARISON: Chest radiographs, most recent April 28, 2017. FINDIN GS: Low lung volumes. Mild strandy opacities at the lung bases suggesting subsegmental atele ctasis. No lung mass or significant focal region of consolidation. Normal pulmonary vasculat ure when accounting for low lung volumes. Intact median sternotomy wires and left mediastina l clips. Suture anchors in the right humerus proximally. Probable surgical foreshortening of the right distal clavicle. 1. Chronic findings, as above without acute disease. Us Kidneys And Bladder Result Date: 03/09/2018 ADI A WHITE US KIDNEYS AND BLADDER 03/09/2018 11:25 PM HISTORY: 67 years. Male. Acute vasile al insufficiency. TECHNIQUE: Sonographic evaluation of the kidneys and urinary bladder, usin g a 4-MHz curved array transducer. COMPARISON: CT abdomen dated October 13, 2012.. FINDINGS: Imaging is very limited due to patient body habitus and overlying bowel gas. Right Kidney: 12.1 cm greatest longitudinal dimension. There is no gross evidence of hydronephrosis or vasile al mass. No large nephroliths are identified. Left Kidney: 12.6 cm greatest longitudinal dim ension. There is no gross evidence of hydronephrosis or renal mass. No large nephroliths are identified. The urinary bladder is nondistended due to an indwelling Gonzalez catheter. 1. Very limited study due to patient body habitus and overlying bowel gas. 2. No gross ev idence of hydronephrosis. 3. Indwelling Gonzalez catheter with nondistended urinary bladder. E lectronically signed by Raf Holloway MD on 03/09/2018 11:35 PM Echo Cardiac Adult With Contrast Result Date: 03/10/2018 Patient Name: ADI FIORE Date of : 1950 Performing Physic bonifacio: Rosmery Shell MD INDIC ATIONS SHORTNESS OF BREATH CONCLUSIONS 1. This was a technically dif ficult study with suboptimal views. 2. Overall left ventricular systolic function is normal with, an EF between 60 - 65 %. 3. The right ventricle is normal in size. 4. The left atrial size is normal. 5. Trace amount of aortic regurgitation. 6. Moderate aortic stenosis with pe ak/mean pressure gradient of 35.26mmHg / 22.84mmHg, the aortic valve area by continuity equa tion is 1.2cm. 7. Mild mitral regurgitation is present. 8. There is mild pulmonary hyp ertension. 9. The right ventricular systolic pressure (pulmonary artery systolic pressure), as measured by Doppler, is 36-41 mmHg. 10. Compared to the findings of the prior study 03/04 17, the degree of aortic stenosis has increased. FINDINGS -------- ECG rhythm: Sinus rhythm. Study: A 2-dimensional transthoracic echocardiogram with m-mode, spectral and color flow Do ppler was perfomed. Study: This was a technically difficult study with suboptimal views. Lef t Ventricle: Overall left ventricular systolic function is normal with, an EF between 60 - 6 5 %. Left Ventricle: The left ventricle cavity size is normal. Left Ventricle: Left ventricu lar wall thickness is normal. Left Ventricle: Poor tissue doppler signal prevents accurate a ssessment of diastolic function. Right Ventricle: The right ventricle is normal in size. Lef t Atrium: The left atrial size is normal Left Atrium: , and the LA measures 4.8cm. Right Atr ium: The right atrium is normal in size. Aortic Valve: The aortic valve is trileaflet. Aorti c Valve: The aortic valve is moderately calcified. Aortic Valve: Trace amount of aortic regu rgitation. Aortic Valve: Moderate aortic stenosis with peak/mean pressure gradient of 35.26 mmHg / 22.84mmHg, the aortic valve area by continuity equation is 1.2cm. Mitral Valve: The mitral valve is normal. Mitral Valve: Mild mitral regurgitation is present. Mitral Valv e: Moderate mitral annular calcification present. Tricuspid Valve: The tricuspid valve appea rs structurally normal. Tricuspid Valve: Mild tricuspid regurgitation present. Tricuspid Theresa ve: There is mild pulmonary hypertension. Tricuspid Valve: The right ventricular systolic pr essure (pulmonary artery systolic pressure), as measured by Doppler, is 36-41 mmHg. Pulmonic Valve: The pulmonic valve was not well visualized. Pulmonic Valve: Trace pulmonic regurgit ation. Pericardium: There is a trivial echo free space (possibly fat pad) or pericardial eff usion present. Pericardium: Anterior echo free space present. IVC/Hepatic Veins: The IVC is normal size (1.5-2.5cm) and collapses >50% with sniff, consistent with central venous pre ssures of 5-10mmHg. Contrast: Poor visualization. Definity was used to opacify the left vent ricular chamber and improve delineation of the endocardial border. General comments: Compare d to the findings of the prior study 02/2017, the degree of aortic stenosis has increased. M EASUREMENTS MOIRA Planimetry: 1.82 cm2 AVAI Planimetry: 0.00 cm2/m2 Ao asc: 2.54 cm Ao sinus: 3.[address] junct: 2.79 cm IVC: 2.01 cm LA Major: 5.03 cm EDV( Teich): 88.54 ml IVSd: 1.22 cm LVIDd: 4.41 cm LVPWd: 1.30 cm LVOT Diam: 2.11 cm %F S: 33.08 % EF(Teich): 61.85 % ESV(Teich): 33.77 ml IVSs: 1.41 cm LVIDs: 2.95 cm LV PWs: 1.61 cm SV(Teich): 54.77 ml RA Major: 4.34 cm RVIDd: 3.26 cm LAESV(A-L): 60.2 9 ml LAESV Index (A-L): 22.58 ml/m2 LAAs A2C: 19.85 cm2 LAESV A-L A2C: 61.06 ml LALs A 2C: 5.48 cm LAAs A4C: 19.60 cm2 LAESV A-L A4C: 57.28 ml LALs A4C: 5.69 cm Ao Diam: 4.03 cm AV Cusp: 1.26 cm LA Diam: 4.75 cm LA/Ao: 1.17 IVC diameter: 2.12 cm IVC col lapse: 0.84 cm IVC % collapse: 57.87 % HR: 95.98 BPM AV maxP.25 mmHg AV meanP.83 mmHg AV Vmax: 2.96 m/s AV Vmean: 2.31 m/s AV VTI: 66.03 cm MOIRA Vmax: 1.35 c m2 MOIRA (VTI): 1.17 cm2 AVAI Vmax: 0.00 cm2/m2 AVAI (VTI): 0.00 cm2/m2 LVCI Dopp: 2.8 5 l/minm2 LVCO Dopp: 7.63 l/min HR: 98.22 BPM LVOT maxP.26 mmHg LVOT meanP.3 7 mmHg LVSI Dopp: 29.11 ml/m2 LVSV Dopp: 77.72 ml LVOT Vmax: 1.14 m/s LVOT Vmean: 0. 87 m/s LVOT VTI: 22.19 cm MV maxP.60 mmHg MV meanP.70 mmHg MV Vmax: 2.21 m/ s MV Vmean: 1.39 m/s MV VTI: 39.72 cm MVA (VTI): 1.95 cm2 Septal e': 0.12 m/s Latera l e': 0.15 m/s HR: 95.98 BPM PV maxP.98 mmHg PV meanP.64 mmHg PV Vmax: 0.8 6 m/s PV Vmean: 0.60 m/s PV VTI: 15.97 cm RAP: 3 mmHg RVSP: 34.04 mmHg TR maxP 1.04 mmHg TR Vmax: 2.78 m/s Yield Loss Inspector: CHRISTOFER Authenticated by: Rosmery Shell MD Report Date /Time: 03-10-2018 17:45:14 1. This was a technically difficult study with suboptimal views. 2. Overall left ventricula r systolic function is normal with, an EF between 60 - 65 %. 3. The right ventricle is ryan l in size. 4. The left atrial size is normal. 5. Trace amount of aortic regurgitation. 6. Mo derate aortic stenosis with peak/mean pressure gradient of 35.26mmHg / 22.84mmHg, the aortic valve area by continuity equation is 1.2cm. 7. Mild mitral regurgitation is present. 8. There is mild pulmonary hypertension. 9. The right ventricular systolic pressure (pulmona ry artery systolic pressure), as measured by Doppler, is 36-41 mmHg. 10. Compared to the fin dings of the prior study 02/2017, the degree of aortic stenosis has increased. PROBLEM LIST ASSESSMENT & PLAN Principal Problem: Slurred speech Active Problems: DM (diabetes mellitus) HTN (hypertension) Coronary artery disease involving coronary bypass graft of black[place] heart with angina pecto ris (HCC) Chronic diastolic heart failure (HCC) Morbid obesity (HCC) CKD (chronic kidney disease) stage 3, GFR 30-59 ml/min Slurred speech: Resolved on presentation yesterday. aspirin and Plavix that he has been azar ing from home. Pending MRI study. However renal status is compromised. Plan for MRI of the h ead 03/10. 03/11: MRI negative for acute strokes. 03/12 slurred speech has resolved very shortly after admission to our hospital. Hyperkalemia: 03/10 Status post Lasix and Kayexalate. Still elevated. Will give another dose of lasix and check pot at 1800 hours. 03/11 improved with lasix. Will give another dose today. Recheck bmp at 1500. MRI done and showed no acute ischemic changes. Can check BMP tomorrow since patient will be here . Renal insufficiency: On chronic kidney disease: 03/10 Continue IV fluids for now. 03/11 Stop IVFs, give another dose of lasix. Renal status improving. 03/12 check renal status tomorrow. It is improving slowly. Hypertension: Presently controlled at this time. Not elevated as would be expected in subac alutiiq stroke. Chest pain: Patient repeatedly complain of chest pain at times, workup has been negative; m ost likely esophageal spasms. Type II diabetes: Continue blood sugar checks; A1c 7.9. Consult diabetic education. History of Renal insufficiency; continue to monitor renal status. BS quite elevated; pt is also eating. Will start lantus 40 units bid. Pt takes 66 units NPH bid. 03/11: Blood sugar still quite elevated. We will add daytime insulin Humalog of 30 units for meals and decrease Lantus to daily bid 43 units. 03/12: Blood sugar still in the 200s. COPD exacerbation: We will start DuoNeb's. Add steroids IV. Improving. Changed to q12 hours .. Stable. Coronary artery disease with history of CABG 1998 5 vessels. Last echo was November 2014. Last heart catheter was February 2017. Repeated echo on 03/03/2017 shows normal EF with mild concentr ic left ventricular hypertrophy. Mild stenosis. Will repeat echo today. EF then was 60-65 percent. Disposition: Discharged today but he will back secondary to logistics. Patient need his whe elchair to be brought up from [facility], [place]. Hospital records reviewed. Labs and radiologic studies and reports reviewed. Discussed find ings with participating physicians. Old records reviewed on EMR. Condition guarded and high risk for cardiopulmonary decompensation due to underlying condit ions This report has been prepared using a voice recognition system. The report was reviewed for accuracy, however, sound-alike word errors, addition and/or deletions may occur. If there i s any question about this report please contact me. Disposition: inpatient Code Status: Full Code Bruce Anne MD 03/13/2018Sai Blackmon MD - 03/11/2018 3:28 PM PDTFormatting of this note may be different from the original. [facility] Service: NEPHROLOGY Progress Note Adi Fiore 67 y.o. [id number] male [facility] Day: LOS: 2 days 67-year-old male with past medical history significant for coronary artery disease status p ost CABG 4 vessels done in the past, history of multiple CVAs, COPD, hearing loss, type II diabetes, hypertension, history of seizures, CKD-3 per records reviewed transferred from [facility] in [facility] due to concern for CVA. Labs showed potassium 6.7, sodium 134, creatinine 1.7 Gonzalez placed 500 mls urine came out Nephrology consulted for evaluation and management of Hyperkalemia/ CKD-3 per records ONSET Acute severity severe, worsening potentially life threatening Associated with fluid electrolyte acid base imbalances RF: likely element of pre-renal/ urinary retention/ high potassium diet contributing Patient seen and examined Says feel weak, c/o chest pain overnight Denies any urinary symptoms Denies cp, sob, nausea, vomiting, diarrhea, fever, headache Past Medical History Diagnosis Date Anxiety Asbestosis(501) Asthma CHF (congestive heart failure) (HCC) CKD (chronic kidney disease) stage 3, GFR 30-59 ml/min 10/01/2013 COPD (chronic obstructive pulmonary disease) (HCC) Coronary artery disease Diabetes mellitus type II H/O asbestosis 07/12/2013 Hearing loss Hemorrhage of gastrointestinal tract, unspecified HLD (hyperlipidemia) 12/02/2014 Hypertension Joint pain TX, old Other chronic pain Seizure (HCC) 09/15/2012 Sleep apnea Unspecified visual disturbance Past Surgical History Procedure Laterality Date CARDIAC SURGERY CHOLECYSTECTOMY COLONOSCOPY COLONOSCOPY WITH EGD N/A 12/25/2011 Procedure: COLONOSCOPY W/ EGD; Surgeon: Keena Dye MD; Location: [facility]; Serv ice: Gastroenterology; Laterality: N/A; CORONARY ARTERY BYPASS GRAFT HARDWARE REMOVAL HERNIA REPAIR INGUINAL HERNIA REPAIR SHOULDER SURGERY TONSILLECTOMY undescended testicle surgery UNLISTED PROCEDURE ARTHROSCOPY r shoulder Prescriptions Prior to Admission Medication Sig Dispense Refill Last Dose nortriptyline (PAMELOR) 25 MG capsule Take 25 mg by mouth nightly. Taking at Unknown time acetaminophen (TYLENOL) 500 MG tablet Take 1,000 mg by mouth 3 (three) times daily. at unknown amLODIPine (NORVASC) 10 MG tablet Take 1 tablet by mouth daily. 30 tablet 11 at unknow n ammonium lactate (AMLACTIN) 12 % cream Apply topically daily. Apply to bilateral legs daily after cleaning with skin wipes. 385 g Unknown at Unknown time ascorbic acid (VITAMIN C) 500 MG tablet Take 500 mg by mouth daily. at unknown aspirin 81 MG tablet Take 81 mg by mouth daily. at unknown budesonide-formoterol (SYMBICORT) 160-4.5 MCG/ACT inhaler Inhale 2 puffs into the lungs 2 (two) times daily. at unknown buPROPion (WELLBUTRIN SR) 100 MG 12 hr tablet Take 200 mg by mouth every morning. at unknown carBAMazepine (TEGRETOL) 200 MG tablet Take 200 mg by mouth 3 (three) times daily. a t unknown Cholecalciferol 1000 UNITS capsule Take 1,000 Units by mouth 2 (two) times daily. at unknown clopidogrel (PLAVIX) 75 MG tablet Take 1 tablet by mouth daily. 30 tablet 0 cyanocobalamin (VITAMIN B-12) 500 MCG tablet Take 500 mcg by mouth daily. at unknown famotidine (PEPCID) 20 MG tablet Take 1 tablet by mouth 2 (two) times daily. (Patient t aking differently: Take 40 mg by mouth 2 (two) times daily.) 60 tablet 11 Unknown at Unknown time FERROUS SULFATE PO Take 325 mg by mouth 3 (three) times daily. at unknown fish oil-omega-3 fatty acids 1000 MG capsule Take 1 g by mouth 2 (two) times daily. at unknown fluoxetine (PROZAC) 20 MG tablet Take 20 mg by mouth daily. at unknown guaifenesin (MUCINEX) 600 MG 12 hr tablet Take 200 mg by mouth as needed. at unknown insulin aspart (NOVOLOG) 100 UNIT/ML injection Inject 36 Units into the skin 3 (three) times daily before meals. at unknown insulin NPH (NOVOLIN N) 100 UNIT/ML injection Inject 66 Units into the skin 2 (two) julia es daily before meals. Indications: Type 2 Diabetes (Patient taking differently: Inject 56 U nits into the skin 2 (two) times daily before meals. Indications: Type 2 Diabetes) 15 mL Un known at Unknown time ipratropium-albuterol (DUONEB) 0.5-2.5 mg/3mL Take 3 mLs by nebulization 4 (four) times daily as needed. at unknown isosorbide mononitrate (IMDUR) 120 MG 24 hr tablet Take 1 tablet by mouth daily. 30 tab let 11 at unknown liraglutide (VICTOZA) 18 MG/3ML injection Inject 1.2 mg into the skin daily. at unkn own metoprolol 75 MG TABS Take 150 mg by mouth 2 (two) times daily. 120 tablet 5 at unknow n Multiple Vitamin (MULTIVITAMIN) capsule Take 1 capsule by mouth daily. at unknown nitroGLYCERIN (NITROSTAT) 0.[address] 1 tablet under the tongue every 5 (fiv e) minutes as needed for Chest pain (hold for SBP less than 100). 30 tablet 0 omeprazole (PRILOSEC) 40 MG capsule Take 40 mg by mouth 2 (two) times daily before meal s. at unknown ranolazine (RANEXA) 500 MG 12 hr tablet Take 1 tablet by mouth 2 (two) times daily. 60 tablet 0 rosuvastatin (CRESTOR) 40 MG tablet Take 40 mg by mouth daily. at unknown senna (SENOKOT) 8.6 MG tablet Take 1 tablet by mouth 2 (two) times daily. at unknown Allergies Allergen Reactions Hydrochlorothiazide Other (See Comments) collapses Nitrous Oxide Anaphylaxis Soma [Carisoprodol] Hallucinations Metformin Other (See Comments) Unknown to pt Diltiazem Syncope Family History Problem Relation Age of Onset Coronary art dis Mother Kidney disease Mother required hd then stop it Coronary art dis Father Mother has hypertension and kidney disease, father had cancers 2 1st was lymphoma other time prostate, both Social History Social History Marital status: Spouse name: N/A Number of children: 3 Years of education: N/A Occupational History Not on file. Social History Main Topics Smoking status: Former Smoker Quit date: 12/23/1997 Smokeless tobacco: Never Used Alcohol use No Drug use: No Sexual activity: No Other Topics Concern Not on file Social History Narrative Lives in [facility], [place], with spouse, walker and wheel chair , had mechanical fall 3 wks ago, full code. 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 Scheduled Medications aspirin 81 mg Oral Daily budesonide-formoterol 2 puff Inhalation BID buPROPion 200 mg Oral QAM carBAMazepine 200 mg Oral TID clopidogrel 75 mg Oral Daily docusate sodium 100 mg Oral BID famotidine 20 mg Oral BID Or famotidine 20 mg Intravenous BID fludrocortisone 0.1 mg Oral Daily FLUoxetine 20 mg Oral Daily insulin glargine 43 Units Subcutaneous Nightly insulin lispro (human) 0-14 Units Subcutaneous TID AC insulin lispro (human) 0-7 Units Subcutaneous Nightly insulin lispro (human) 30 Units Subcutaneous TID AC methylPREDNISolone 81.25 mg Intravenous Q12H nystatin Topical BID polyethylene glycol 17 g Oral BID ranolazine 500 mg Oral BID rosuvastatin 40 mg Oral Daily senna 1 tablet Oral BID sodium chloride (PF) 10 mL Intravenous Q8H urea Topical Daily Continuous Infusions dextrose PRN Medications acetaminophen OR acetaminophen, aluminum-magnesium hydroxide-simethicone, calcium carbo wyatt, dextrose, dextrose, dextrose, draultolihHGTMK-izikex-roapfutzs, glucagon, glucagon, ip ratropium-albuterol, morphine OR morphine OR morphine, nitroGLYCERIN, polyethylene g lycol, sodium chloride 0.9 % Allergy: Allergies Allergen Reactions Hydrochlorothiazide Other (See Comments) collapses Nitrous Oxide Anaphylaxis Soma [Carisoprodol] Hallucinations Metformin Other (See Comments) Unknown to pt Diltiazem Syncope OBJECTIVE Vital Signs: BP 157/82 (BP Location: Right upper arm) | Pulse 93 | Temp 97.9 F (36.6 C) (Oral) | Resp 16 | Ht 1.829 m (6') | Wt 158.3 kg (348 lb 15.8 oz) | SpO2 95% | BMI 47.33 kg/m I&O Detailed Table: I/O last 3 completed shifts: In: 5146 [P.O.:3390; I.V.:1756] Out: 7620 [Urine:7620] Weight change: 3.578 kg (7 lb 14.2 oz) Examination: APPEARANCE: The patient is a pleasant lying in no apparent distress, awake and alert VITALS: Reviewed as listed. LUNGS: Clear to auscultation bilaterally, no respiratory distress HEART: S1, S2, no pericardial rub noted. ABDOMEN: obese, soft, no tenderness EXTREMITIES: no pedal edema/ chronic stasis changes noted. NEUROLOGIC: No gross focal motor deficit noted. PSYCH: The patient is alert and oriented x 3 LABS: Recent Results (from the past 24 hour(s)) POCT glucose Collection Time: 03/10/18 4:24 PM Result Value Ref Range GLUCOSE,POC SCREEN 342 (H) 65 - 99 mg/dL Potassium Collection Time: 03/10/18 5:53 PM Result Value Ref Range POTASSIUM 5.4 (H) 3.5 - 4.9 mmol/L POCT glucose Collection Time: 03/10/18 8:45 PM Result Value Ref Range GLUCOSE,POC SCREEN 400 (H) 65 - 99 mg/dL Confirmation glucose Collection Time: 03/10/18 9:00 PM Result Value Ref Range GLUCOSE 376 (H) 65 - 99 mg/dL POCT glucose Collection Time: 03/11/18 5:02 AM Result Value Ref Range GLUCOSE,POC SCREEN 327 (H) 65 - 99 mg/dL Basic metabolic panel Collection Time: 03/11/18 5:10 AM Result Value Ref Range SODIUM 137 135 - 145 mmol/L POTASSIUM 5.4 (H) 3.5 - 4.9 mmol/L CHLORIDE 103 99 - 109 mmol/L CO2 27 23 - 32 mmol/L ANION GAP AGAP 12 5 - 20 mmol/L GLUCOSE 341 (H) 65 - 99 mg/dL BUN 34 (H) 8 - 25 mg/dL CREATININE 1.7 (H) 0.70 - 1.30 mg/dL BUN/CREAT 20 CALCIUM 8.3 (L) 8.5 - 10.5 mg/dL EGFR 40 (L) >60 mL/min/1.73m2 POCT glucose Collection Time: 03/11/18 11:42 AM Result Value Ref Range GLUCOSE,POC SCREEN >400 (H) 65 - 99 mg/dL Confirmation glucose Collection Time: 03/11/18 12:08 PM Result Value Ref Range GLUCOSE 413 (H) 65 - 99 mg/dL IMAGING: Ct Head Without Contrast Result Date: 03/09/2018 This is a non-reportable procedure without a radiologist report and is used for image [employer] only Mri Brain Without Contrast Result Date: 03/10/2018 ADI A WHITE MRI BRAIN WO CONTRAST 03/10/2018 3:45 PM HISTORY: 67 years. Male. Amalia hwang. Assess for stroke. TECHNIQUE: Imaging was performed on a 1.5 Karen MRI system. Multip lanar sequences were acquired according to a standard department protocol without contrast. COMPARISON: Outside CT head 03/09/2018 performed at [facility]. MRI stroke 0 09/15/2012 FINDINGS: Moderate diffuse cerebral atrophy is seen with enlarged cisterns and sul ci. The DWI sequence shows no evidence of acute ischemia or infarct. The T2* GRE sequence does not show low signal material to suggest microhemorrhages or calcification within the br ain parenchyma. A few scattered foci of chronic microvascular ischemic gliosis are noted in the bihemispheric frontal lobe white matter and central nicholas typical of the combination of long-standing hypertension and diabetes. This is concordant with the patient's medical hist ory and appears largely unchanged from September 2012. No extraaxial fluid collections are no nae. The midline structures including the corpus callosum, nicholas, cerebellar vermis, pineal gland and pituitary are normal. No masses are seen in the region of the cerebellopontine an gles or internal auditory canals. The orbits and their contents are normal. The paranasal sinuses are well aerated. No air-fluid levels or mucosal thickening is noted. No fluid see n in the mastoids. The osseous structures of the calvaria and upper cervical spine demonstr ate normal bone marrow signal intensity. The soft tissues of the oropharynx and upper neck appear normal on the sagittal sequences. The intracranial arteries demonstrate normal flow voids on the T2 sequence. No large aneurysm is noted. The dural venous sinuses also demons trate normal flow-voids. 1. No acute intracranial finding such as infarct, ischemia or hemorrhage. 2. Minimal yield loss inspector zenon microvascular ischemic scoliosis in the frontal lobe white matter and central nicholas large ly unchanged from September 2012. This is concordant with the patient's history of diabetes a nd hypertension. 3. Moderate cerebral atrophy. Xr Chest 1 View Result Date: 03/09/2018 ADI FIORE XR CHEST 1 VIEW 03/09/2018 10:19 PM HISTORY: Chest pain. TECHNIQUE: Frontal marsha st radiograph 2209 hours. COMPARISON: Chest radiographs, most recent April 28, 2017. FINDIN GS: Low lung volumes. Mild strandy opacities at the lung bases suggesting subsegmental atele ctasis. No lung mass or significant focal region of consolidation. Normal pulmonary vasculat ure when accounting for low lung volumes. Intact median sternotomy wires and left mediastina l clips. Suture anchors in the right humerus proximally. Probable surgical foreshortening of the right distal clavicle. 1. Chronic findings, as above without acute disease. Us Kidneys And Bladder Result Date: 03/09/2018 ADI FIORE US KIDNEYS AND BLADDER 03/09/2018 11:25 PM HISTORY: 67 years. Male. Acute vasile al insufficiency. TECHNIQUE: Sonographic evaluation of the kidneys and urinary bladder, usin g a 4-MHz curved array transducer. COMPARISON: CT abdomen dated October 13, 2012.. FINDINGS: Imaging is very limited due to patient body habitus and overlying bowel gas. Right Kidney: 12.1 cm greatest longitudinal dimension. There is no gross evidence of hydronephrosis or vasile al mass. No large nephroliths are identified. Left Kidney: 12.6 cm greatest longitudinal dim ension. There is no gross evidence of hydronephrosis or renal mass. No large nephroliths are identified. The urinary bladder is nondistended due to an indwelling Gonzalez catheter. 1. Very limited study due to patient body habitus and overlying bowel gas. 2. No gross ev idence of hydronephrosis. 3. Indwelling Gonzalez catheter with nondistended urinary bladder. E lectronically signed by Raf Holloway MD on 03/09/2018 11:35 PM Echo Cardiac Adult With Contrast Result Date: 03/10/2018 Patient Name: ADI FIORE Date of : 1950 Performing Physic bonifacio: Rosmery Shell MD INDIC ATIONS SHORTNESS OF BREATH CONCLUSIONS 1. This was a technically dif ficult study with suboptimal views. 2. Overall left ventricular systolic function is normal with, an EF between 60 - 65 %. 3. The right ventricle is normal in size. 4. The left atrial size is normal. 5. Trace amount of aortic regurgitation. 6. Moderate aortic stenosis with pe ak/mean pressure gradient of 35.26mmHg / 22.84mmHg, the aortic valve area by continuity equa tion is 1.2cm. 7. Mild mitral regurgitation is present. 8. There is mild pulmonary hyp ertension. 9. The right ventricular systolic pressure (pulmonary artery systolic pressure), as measured by Doppler, is 36-41 mmHg. 10. Compared to the findings of the prior study 03/04 17, the degree of aortic stenosis has increased. FINDINGS -------- ECG rhythm: Sinus rhythm. Study: A 2-dimensional transthoracic echocardiogram with m-mode, spectral and color flow Do ppler was perfomed. Study: This was a technically difficult study with suboptimal views. Lef t Ventricle: Overall left ventricular systolic function is normal with, an EF between 60 - 6 5 %. Left Ventricle: The left ventricle cavity size is normal. Left Ventricle: Left ventricu lar wall thickness is normal. Left Ventricle: Poor tissue doppler signal prevents accurate a ssessment of diastolic function. Right Ventricle: The right ventricle is normal in size. Lef t Atrium: The left atrial size is normal Left Atrium: , and the LA measures 4.8cm. Right Atr ium: The right atrium is normal in size. Aortic Valve: The aortic valve is trileaflet. Aorti c Valve: The aortic valve is moderately calcified. Aortic Valve: Trace amount of aortic regu rgitation. Aortic Valve: Moderate aortic stenosis with peak/mean pressure gradient of 35.26 mmHg / 22.84mmHg, the aortic valve area by continuity equation is 1.2cm. Mitral Valve: The mitral valve is normal. Mitral Valve: Mild mitral regurgitation is present. Mitral Valv e: Moderate mitral annular calcification present. Tricuspid Valve: The tricuspid valve appea rs structurally normal. Tricuspid Valve: Mild tricuspid regurgitation present. Tricuspid Theresa ve: There is mild pulmonary hypertension. Tricuspid Valve: The right ventricular systolic pr essure (pulmonary artery systolic pressure), as measured by Doppler, is 36-41 mmHg. Pulmonic Valve: The pulmonic valve was not well visualized. Pulmonic Valve: Trace pulmonic regurgit ation. Pericardium: There is a trivial echo free space (possibly fat pad) or pericardial eff usion present. Pericardium: Anterior echo free space present. IVC/Hepatic Veins: The IVC is normal size (1.5-2.5cm) and collapses >50% with sniff, consistent with central venous pre ssures of 5-10mmHg. Contrast: Poor visualization. Definity was used to opacify the left vent ricular chamber and improve delineation of the endocardial border. General comments: Compare d to the findings of the prior study 02/2017, the degree of aortic stenosis has increased. M EASUREMENTS MOIRA Planimetry: 1.82 cm2 AVAI Planimetry: 0.00 cm2/m2 Ao asc: 2.54 cm Ao sinus: 3.[address] junct: 2.79 cm IVC: 2.01 cm LA Major: 5.03 cm EDV( Teich): 88.54 ml IVSd: 1.22 cm LVIDd: 4.41 cm LVPWd: 1.30 cm LVOT Diam: 2.11 cm %F S: 33.08 % EF(Teich): 61.85 % ESV(Teich): 33.77 ml IVSs: 1.41 cm LVIDs: 2.95 cm LV PWs: 1.61 cm SV(Teich): 54.77 ml RA Major: 4.34 cm RVIDd: 3.26 cm LAESV(A-L): 60.2 9 ml LAESV Index (A-L): 22.58 ml/m2 LAAs A2C: 19.85 cm2 LAESV A-L A2C: 61.06 ml LALs A 2C: 5.48 cm LAAs A4C: 19.60 cm2 LAESV A-L A4C: 57.28 ml LALs A4C: 5.69 cm Ao Diam: 4.03 cm AV Cusp: 1.26 cm LA Diam: 4.75 cm LA/Ao: 1.17 IVC diameter: 2.12 cm IVC col lapse: 0.84 cm IVC % collapse: 57.87 % HR: 95.98 BPM AV maxP.25 mmHg AV meanP.83 mmHg AV Vmax: 2.96 m/s AV Vmean: 2.31 m/s AV VTI: 66.03 cm MOIRA Vmax: 1.35 c m2 MOIRA (VTI): 1.17 cm2 AVAI Vmax: 0.00 cm2/m2 AVAI (VTI): 0.00 cm2/m2 LVCI Dopp: 2.8 5 l/minm2 LVCO Dopp: 7.63 l/min HR: 98.22 BPM LVOT maxP.26 mmHg LVOT meanP.3 7 mmHg LVSI Dopp: 29.11 ml/m2 LVSV Dopp: 77.72 ml LVOT Vmax: 1.14 m/s LVOT Vmean: 0. 87 m/s LVOT VTI: 22.19 cm MV maxP.60 mmHg MV meanP.70 mmHg MV Vmax: 2.21 m/ s MV Vmean: 1.39 m/s MV VTI: 39.72 cm MVA (VTI): 1.95 cm2 Septal e': 0.12 m/s Latera l e': 0.15 m/s HR: 95.98 BPM PV maxP.98 mmHg PV meanP.64 mmHg PV Vmax: 0.8 6 m/s PV Vmean: 0.60 m/s PV VTI: 15.97 cm RAP: 3 mmHg RVSP: 34.04 mmHg TR maxP 1.04 mmHg TR Vmax: 2.78 m/s Yield Loss Inspector: CHRISTOFER Authenticated by: Rosmery Shell MD Report Date /Time: 03-10-2018 17:45:14 1. This was a technically difficult study with suboptimal views. 2. Overall left ventricula r systolic function is normal with, an EF between 60 - 65 %. 3. The right ventricle is ryan l in size. 4. The left atrial size is normal. 5. Trace amount of aortic regurgitation. 6. Mo derate aortic stenosis with peak/mean pressure gradient of 35.26mmHg / 22.84mmHg, the aortic valve area by continuity equation is 1.2cm. 7. Mild mitral regurgitation is present. 8. There is mild pulmonary hypertension. 9. The right ventricular systolic pressure (pulmona ry artery systolic pressure), as measured by Doppler, is 36-41 mmHg. 10. Compared to the fin dings of the prior study 02/2017, the degree of aortic stenosis has increased. Patient's old records, imaging and labs were reviewed in detail and summarized. PROBLEM LIST Principal Problem: Slurred speech Active Problems: DM (diabetes mellitus) HTN (hypertension) Coronary artery disease involving coronary bypass graft of [place] heart with angina pecto ris (HCC) Chronic diastolic heart failure (HCC) Morbid obesity (HCC) CKD (chronic kidney disease) stage 3, GFR 30-59 ml/min ASSESSMENT & PLAN HYPERKALEMIA Severe potentially life threatening improving likely element of pre-renal/ urinary retention/ high potassium diet contributing Ruled out rhabdomyolysis nl cpk Iv fluids Ca gluconate/ Insulin/ Albuterol inhaler Kayexalate/ florinef Low k diet, change ada diet to renal ada diet Watch k level closely Telemetry Lab Results Component Value Date K 5.4 (H) 03/11/2018 K 5.4 (H) 03/10/2018 K 6.0 (H) 03/10/2018 CKD-3 PER RECORDS REVIEWED Likely in the setting of HTN/ DM-2/ Vascular disease No HYDRONEPHROSIS per ct scan reviewed No RHABDOMYOLYSIS nl cpk Gonzalez placed 500 mls urine came out IV FLUIDS No ANAND-I/ ARBS Urine studies ordered US Renal R.O hydropnephrosis Strict I & O, Daily weights Daily RFP Renal diet AVOID NSAIDS/ MATTSON-2 INHIBITORS AVOID NEPHROTOXIC MEDS INCLUDING AMINOGLYCOSIDES/ IV CONTRAST Assess daily for need for hd Dose all meds per egfr Lab Results Component Value Date BUN 34 (H) 03/11/2018 BUN 29 (H) 03/10/2018 BUN 27 (H) 03/10/2018 BUN 28 (H) 03/09/2018 BUN 26 (H) 03/09/2018 CREATININE 1.7 (H) 03/11/2018 CREATININE 1.8 (H) 03/10/2018 CREATININE 1.8 (H) 03/10/2018 CREATININE 1.7 (H) 03/09/2018 CREATININE 1.4 (H) 03/09/2018 Lab Results Component Value Date MALBRX 2,800 (H) 03/10/2018 HYPONATREMIA improving likely Multifactorial in the setting of hypovolemia Iv fluids patient needs close serial monitoring of sodium levels Lab Results Component Value Date NA 137 03/11/2018 NA 134 (L) 03/10/2018 NA 134 (L) 03/10/2018 NA 134 (L) 03/09/2018 NA 137 03/09/2018 HYPERTENSION improving WATCH BP CLOSELY DURING HOSPITALIZATION LOW NA DIET Will adjust BP meds according to BP readings BP Readings from Last 3 Encounters: 03/11/18 157/82 04/30/17 120/58 03/06/17 101/54 ANEMIA Watch hgb closely Consider transfusion per primary team for hgb less than 7.0 Lab Results Component Value Date HGB 14.2 03/10/2018 HGB 13.4 03/09/2018 HGB 12.1 (L) 04/30/2017 FERRITIN 12 (L) 12/24/2011 LABIRON 7 (L) 12/24/2011 Hypoalbuminemia Increase protein intake Lab Results Component Value Date ALB 2.8 (L) 04/30/2017 ALB 2.7 (L) 06/14/2016 ALB 3.1 (L) 12/08/2014 DM-2 OPTIMUM GLYCEMIC CONTROL PER PRIMARY TEAM CASE DISCUSSED IN DETAIL WITH PATIENT/ care team, ANSWERS ALL QUESTIONS IN DETAIL, VERBALIZ ES UNDERSTANDING SAI BLACKMON MD 03/11/2018 Vincent Finch Seen earlier and charting completed later Dictation software, Granify, used which may contain error for similar sounding words even af ter review. Personal communication requested for any clarification. Bruce Anne MD - 03/11/2018 8:01 AM PDTFormatting of this note may be different from the original. [facility]: Hospitalist Progress Note Hospital Day: LOS: 2 days Post-Op Day: * No surgery found * SUBJECTIVE Patient Summary: direct transfer and admitted for slurred speech concern for stroke. Events Overnight: 03/10 Patient denies any further speech problem since admission. Patient eating well. Midday patient complained of chest pain. EKG ordered. Troponin order. Morphine ordered. ove rnight patient had also chest pain and workup has been negative. 03/11 EKG with no changes; trop continues to be negative despite repeated complaint of chest pain, which is most likely esophageal spasms. He gets this after eating/drinking. ROS: 12 point ROS reviewed and negative other than above. Scheduled Medications aspirin 81 mg Oral Daily budesonide-formoterol 2 puff Inhalation BID buPROPion 200 mg Oral QAM carBAMazepine 200 mg Oral TID clopidogrel 75 mg Oral Daily docusate sodium 100 mg Oral BID famotidine 20 mg Oral BID Or famotidine 20 mg Intravenous BID fludrocortisone 0.1 mg Oral Daily FLUoxetine 20 mg Oral Daily furosemide 40 mg Intravenous Once insulin glargine 43 Units Subcutaneous BID insulin lispro (human) 0-14 Units Subcutaneous TID AC insulin lispro (human) 0-7 Units Subcutaneous Nightly methylPREDNISolone 81.25 mg Intravenous Q12H nystatin Topical BID polyethylene glycol 17 g Oral BID ranolazine 500 mg Oral BID rosuvastatin 40 mg Oral Daily senna 1 tablet Oral BID sodium chloride (PF) 10 mL Intravenous Q8H urea Topical Daily Continuous Infusions dextrose PRN Medications acetaminophen OR acetaminophen, aluminum-magnesium hydroxide-simethicone, calcium carbo wyatt, dextrose, dextrose, dextrose, glucagon, glucagon, ipratropium-albuterol, morphine OR morphine OR morphine, nitroGLYCERIN, polyethylene glycol, sodium chloride 0.9 % OBJECTIVE Vital Signs: BP 174/75 (BP Location: Right forearm) | Pulse 89 | Temp 97.8 F (36.6 C) (Oral) | Re sp 17 | Ht 1.829 m (6') | Wt 158.3 kg (348 lb 15.8 oz) | SpO2 96% | BMI 47.33 kg/m Physical Exam: General Appearance: Encountered patient in room 7122 sitting in bed eating and comfortable. No apparent distress. Conversive and appropriate to place and person. HEENT: Normocephalic, atraumatic, pupils EOMI, PERRLA. Nose: no septal deviation or dischar ge noted. Ears: normal size, location, and contour. Throat dry and without exudates. NECK: is supple, full ROM, nontender. LUNGS: relatively clear to auscultation bilaterally with no obvious wheezing, No rales or r honchi audible. HEART: S1S2, Regular rate and rhythm without murmurs, gallops or rubs. ABDOMEN: Mcdonald obese Bowel sound is normoactive, abdomen is soft, non-tender non-distended ,no mass palpable. EXTREMITIES:No lower extermity edema, Muscle strength adequate bilaterally. NEURO: Cranial Nerves 2-12 appears intact, Gait not tested, PSYCH: Alert, awake and Oriente d x3. SKIN: No significant bruises, rashes, lesions, or ulcers. DATA Recent Labs Lab 03/10/18 0306 03/09/18 1434 WBC 9.23 6.22 RBC 4.37 4.17* HCT 42.3 40.1 MCV 96.8 96.3 MCH 32.6 32.2 MCHC 33.6 33.4 RDW 47.7 49.0 PLT 144* 120* MPV 10.1 8.0 DIFFTYPE AUTOMATED -- Recent Labs Lab 03/11/18 0510 03/10/18 1753 03/10/18 0955 03/10/18 0451 K 5.4* 5.4* 6.0* 6.1* CL 103 -- 103 102 CO2 27 -- 23 23 ANIONGAP 12 -- 13 14 GLUF 341* -- 348* 362* BUN 34* -- 29* 27* CREATININE 1.7* -- 1.8* 1.8* BCR 20 -- 16 15 CA 8.3* -- 8.6 8.6 EGFR 40* -- 38* 38* Recent Labs Lab 03/09/18 1433 MG 2.0 No results for input(s): APTT, INR, PTT in the last 168 hours. Recent Labs Lab 03/10/18 1319 03/10/18 0316 03/10/18 0000 03/09/18 2044 CKTOTAL -- -- -- 192 TROPONINI <0.020 <0.020 <0.[address] Head Without Contrast Result Date: 03/09/2018 This is a non-reportable procedure without a radiologist report and is used [facility] image [facility] only Mri Brain Without Contrast Result Date: 03/10/2018 ADI A WHITE MRI BRAIN WO CONTRAST 03/10/2018 3:45 PM HISTORY: 67 years. Male. Amalia hwang. Assess for stroke. TECHNIQUE: Imaging was performed on a 1.5 Karen MRI system. Multip lanar sequences were acquired according to a standard department protocol without contrast. COMPARISON: Outside CT head 03/09/2018 performed at [facility]. MRI stroke 0 09/15/2012 FINDINGS: Moderate diffuse cerebral atrophy is seen with enlarged cisterns and sul ci. The DWI sequence shows no evidence of acute ischemia or infarct. The T2* GRE sequence does not show low signal material to suggest microhemorrhages or calcification within the br ain parenchyma. A few scattered foci of chronic microvascular ischemic gliosis are noted in the bihemispheric frontal lobe white matter and central nicholas typical of the combination of long-standing hypertension and diabetes. This is concordant with the patient's medical hist ory and appears largely unchanged from September 2012. No extraaxial fluid collections are no nae. The midline structures including the corpus callosum, nicholas, cerebellar vermis, pineal gland and pituitary are normal. No masses are seen in the region of the cerebellopontine an gles or internal auditory canals. The orbits and their contents are normal. The paranasal sinuses are well aerated. No air-fluid levels or mucosal thickening is noted. No fluid see n in the mastoids. The osseous structures of the calvaria and upper cervical spine demonstr ate normal bone marrow signal intensity. The soft tissues of the oropharynx and upper neck appear normal on the sagittal sequences. The intracranial arteries demonstrate normal flow voids on the T2 sequence. No large aneurysm is noted. The dural venous sinuses also demons trate normal flow-voids. 1. No acute intracranial finding such as infarct, ischemia or hemorrhage. 2. Minimal yield loss inspector zenon microvascular ischemic scoliosis in the frontal lobe white matter and central nicholas large ly unchanged from September 2012. This is concordant with the patient's history of diabetes a nd hypertension. 3. Moderate cerebral atrophy. Xr Chest 1 View Result Date: 03/09/2018 ADI A WHITE XR CHEST 1 VIEW 03/09/2018 10:19 PM HISTORY: Chest pain. TECHNIQUE: Frontal marsha st radiograph 2209 hours. COMPARISON: Chest radiographs, most recent April 28, 2017. FINDIN GS: Low lung volumes. Mild strandy opacities at the lung bases suggesting subsegmental atele ctasis. No lung mass or significant focal region of consolidation. Normal pulmonary vasculat ure when accounting for low lung volumes. Intact median sternotomy wires and left mediastina l clips. Suture anchors in the right humerus proximally. Probable surgical foreshortening of the right distal clavicle. 1. Chronic findings, as above without acute disease. Us Kidneys And Bladder Result Date: 03/09/2018 ADI A WHITE US KIDNEYS AND BLADDER 03/09/2018 11:25 PM HISTORY: 67 years. Male. Acute vasile al insufficiency. TECHNIQUE: Sonographic evaluation of the kidneys and urinary bladder, in g a 4-MHz curved array transducer. COMPARISON: CT abdomen dated October 13, 2012.. FINDINGS: Imaging is very limited due to patient body habitus and overlying bowel gas. Right Kidney: 12.1 cm greatest longitudinal dimension. There is no gross evidence of hydronephrosis or vasile al mass. No large nephroliths are identified. Left Kidney: 12.6 cm greatest longitudinal dim ension. There is no gross evidence of hydronephrosis or renal mass. No large nephroliths are identified. The urinary bladder is nondistended due to an indwelling Gonzalez catheter. 1. Very limited study due to patient body habitus and overlying bowel gas. 2. No gross ev idence of hydronephrosis. 3. Indwelling Gonzalez catheter with nondistended urinary bladder. E lectronically signed by Raf Holloway MD on 03/09/2018 11:35 PM Echo Cardiac Adult With Contrast Result Date: 03/10/2018 Patient Name: ADI FIORE Date of : 1950 Performing Physic bonifacio: Rosmery Shell MD INDIC ATIONS SHORTNESS OF BREATH CONCLUSIONS 1. This was a technically dif ficult study with suboptimal views. 2. Overall left ventricular systolic function is normal with, an EF between 60 - 65 %. 3. The right ventricle is normal in size. 4. The left atrial size is normal. 5. Trace amount of aortic regurgitation. 6. Moderate aortic stenosis with pe ak/mean pressure gradient of 35.26mmHg / 22.84mmHg, the aortic valve area by continuity equa tion is 1.2cm. 7. Mild mitral regurgitation is present. 8. There is mild pulmonary hyp ertension. 9. The right ventricular systolic pressure (pulmonary artery systolic pressure), as measured by Doppler, is 36-41 mmHg. 10. Compared to the findings of the prior study 03/04 17, the degree of aortic stenosis has increased. FINDINGS -------- ECG rhythm: Sinus rhythm. Study: A 2-dimensional transthoracic echocardiogram with m-mode, spectral and color flow Do ppler was perfomed. Study: This was a technically difficult study with suboptimal views. Lef t Ventricle: Overall left ventricular systolic function is normal with, an EF between 60 - 6 5 %. Left Ventricle: The left ventricle cavity size is normal. Left Ventricle: Left ventricu lar wall thickness is normal. Left Ventricle: Poor tissue doppler signal prevents accurate a ssessment of diastolic function. Right Ventricle: The right ventricle is normal in size. Lef t Atrium: The left atrial size is normal Left Atrium: , and the LA measures 4.8cm. Right Atr ium: The right atrium is normal in size. Aortic Valve: The aortic valve is trileaflet. Aorti c Valve: The aortic valve is moderately calcified. Aortic Valve: Trace amount of aortic regu rgitation. Aortic Valve: Moderate aortic stenosis with peak/mean pressure gradient of 35.26 mmHg / 22.84mmHg, the aortic valve area by continuity equation is 1.2cm. Mitral Valve: The mitral valve is normal. Mitral Valve: Mild mitral regurgitation is present. Mitral Valv e: Moderate mitral annular calcification present. Tricuspid Valve: The tricuspid valve appea rs structurally normal. Tricuspid Valve: Mild tricuspid regurgitation present. Tricuspid Theresa ve: There is mild pulmonary hypertension. Tricuspid Valve: The right ventricular systolic pr essure (pulmonary artery systolic pressure), as measured by Doppler, is 36-41 mmHg. Pulmonic Valve: The pulmonic valve was not well visualized. Pulmonic Valve: Trace pulmonic regurgit ation. Pericardium: There is a trivial echo free space (possibly fat pad) or pericardial eff usion present. Pericardium: Anterior echo free space present. IVC/Hepatic Veins: The IVC is normal size (1.5-2.5cm) and collapses >50% with sniff, consistent with central venous pre ssures of 5-10mmHg. Contrast: Poor visualization. Definity was used to opacify the left vent ricular chamber and improve delineation of the endocardial border. General comments: Compare d to the findings of the prior study 02/2017, the degree of aortic stenosis has increased. M EASUREMENTS MOIRA Planimetry: 1.82 cm2 AVAI Planimetry: 0.00 cm2/m2 Ao asc: 2.54 cm Ao sinus: 3.[address] junct: 2.79 cm IVC: 2.01 cm LA Major: 5.03 cm EDV( Teich): 88.54 ml IVSd: 1.22 cm LVIDd: 4.41 cm LVPWd: 1.30 cm LVOT Diam: 2.11 cm %F S: 33.08 % EF(Teich): 61.85 % ESV(Teich): 33.77 ml IVSs: 1.41 cm LVIDs: 2.95 cm LV PWs: 1.61 cm SV(Teich): 54.77 ml RA Major: 4.34 cm RVIDd: 3.26 cm LAESV(A-L): 60.2 9 ml LAESV Index (A-L): 22.58 ml/m2 LAAs A2C: 19.85 cm2 LAESV A-L A2C: 61.06 ml LALs A 2C: 5.48 cm LAAs A4C: 19.60 cm2 LAESV A-L A4C: 57.28 ml LALs A4C: 5.69 cm Ao Diam: 4.03 cm AV Cusp: 1.26 cm LA Diam: 4.75 cm LA/Ao: 1.17 IVC diameter: 2.12 cm IVC col lapse: 0.84 cm IVC % collapse: 57.87 % HR: 95.98 BPM AV maxP.25 mmHg AV meanP.83 mmHg AV Vmax: 2.96 m/s AV Vmean: 2.31 m/s AV VTI: 66.03 cm MOIRA Vmax: 1.35 c m2 MOIRA (VTI): 1.17 cm2 AVAI Vmax: 0.00 cm2/m2 AVAI (VTI): 0.00 cm2/m2 LVCI Dopp: 2.8 5 l/minm2 LVCO Dopp: 7.63 l/min HR: 98.22 BPM LVOT maxP.26 mmHg LVOT meanP.3 7 mmHg LVSI Dopp: 29.11 ml/m2 LVSV Dopp: 77.72 ml LVOT Vmax: 1.14 m/s LVOT Vmean: 0. 87 m/s LVOT VTI: 22.19 cm MV maxP.60 mmHg MV meanP.70 mmHg MV Vmax: 2.21 m/ s MV Vmean: 1.39 m/s MV VTI: 39.72 cm MVA (VTI): 1.95 cm2 Septal e': 0.12 m/s Latera l e': 0.15 m/s HR: 95.98 BPM PV maxP.98 mmHg PV meanP.64 mmHg PV Vmax: 0.8 6 m/s PV Vmean: 0.60 m/s PV VTI: 15.97 cm RAP: 3 mmHg RVSP: 34.04 mmHg TR maxP 1.04 mmHg TR Vmax: 2.78 m/s Yield Loss Inspector: CHRISTOFER Authenticated by: Rosmery Shell MD Report Date /Time: 03-10-2018 17:45:14 1. This was a technically difficult study with suboptimal views. 2. Overall left ventricula r systolic function is normal with, an EF between 60 - 65 %. 3. The right ventricle is ryan l in size. 4. The left atrial size is normal. 5. Trace amount of aortic regurgitation. 6. Mo derate aortic stenosis with peak/mean pressure gradient of 35.26mmHg / 22.84mmHg, the aortic valve area by continuity equation is 1.2cm. 7. Mild mitral regurgitation is present. 8. There is mild pulmonary hypertension. 9. The right ventricular systolic pressure (pulmona ry artery systolic pressure), as measured by Doppler, is 36-41 mmHg. 10. Compared to the fin dings of the prior study 02/2017, the degree of aortic stenosis has increased. PROBLEM LIST ASSESSMENT & PLAN Principal Problem: Slurred speech Active Problems: DM (diabetes mellitus) HTN (hypertension) Coronary artery disease involving coronary bypass graft of [place] heart with angina pecto ris (HCC) Chronic diastolic heart failure (HCC) Morbid obesity (HCC) CKD (chronic kidney disease) stage 3, GFR 30-59 ml/min Slurred speech: Resolved on presentation yesterday. aspirin and Plavix that he has been azar ing from home. Pending MRI study. However renal status is compromised. Plan for MRI of the h ead 03/10. 03/11: MRI negative for acute strokes. Hyperkalemia: 03/10 Status post Lasix and Kayexalate. Still elevated. Will give another dose of lasix and check pot at 1800 hours. 03/11 improved with lasix. Will give another dose today. Recheck bmp at 1500. MRI done and showed no acute ischemic changes. Renal insufficiency: On chronic kidney disease: 03/10 Continue IV fluids for now. 03/11 Stop IVFs, give another dose of lasix. Renal status improving. Hypertension: Presently controlled at this time. Not elevated as would be expected in subac alutiiq stroke. Chest pain: Patient repeatedly complain of chest pain at times, workup has been negative; m ost likely esophageal spasms. Type II diabetes: Continue blood sugar checks; A1c 7.9. Consult diabetic education. History of Renal insufficiency; continue to monitor renal status. BS quite elevated; pt is also eating. Will start lantus 40 units bid. Pt takes 66 units NPH bid. 03/11: Blood sugar still quite elevated. We will add daytime insulin Humalog of 30 units for meals and decrease Lantus to daily bid 43 units. COPD exacerbation: We will start DuoNeb's. Add steroids IV. Improving. Changed to q12 hours .. Stable. Coronary artery disease with history of CABG 1998 5 vessels. Last echo was November 2014. Last heart catheter was February 2017. Repeated echo on 03/03/2017 shows normal EF with mild concentr ic left ventricular hypertrophy. Mild stenosis. Will repeat echo today. EF then was 60-65 percent. Disposition: resolution of renal function and hyperkalemia, possibly 03/12. Hospital records reviewed. Labs and radiologic studies and reports reviewed. Discussed find ings with participating physicians. Old records reviewed on EMR. Condition guarded and high risk for cardiopulmonary decompensation due to underlying condit ions This report has been prepared using a voice recognition system. The report was reviewed for accuracy, however, sound-alike word errors, addition and/or deletions may occur. If there i s any question about this report please contact me. Disposition: inpatient Code Status: Full Code Bruce Anne MD 03/11/2018Bruce Anne MD - 03/10/2018 1:12 PM PDTFormatting of this note may be different from the original. [facility]: Hospitalist Progress Note Hospital Day: LOS: 1 day Post-Op Day: * No surgery found * SUBJECTIVE Patient Summary: direct transfer and admitted for slurred speech concern for stroke. Events Overnight: Patient denies any further speech problem since admission. Patient eating well. Midday patient complained of chest pain. EKG ordered. Troponin order. Morphine ordered. ove rnight patient had also chest pain and workup has been negative. ROS: 12 point ROS reviewed and negative other than above. Scheduled Medications aspirin 81 mg Oral Daily budesonide-formoterol 2 puff Inhalation BID buPROPion 200 mg Oral QAM carBAMazepine 200 mg Oral TID clopidogrel 75 mg Oral Daily docusate sodium 100 mg Oral BID famotidine 20 mg Oral BID Or famotidine 20 mg Intravenous BID fludrocortisone 0.1 mg Oral Daily FLUoxetine 20 mg Oral Daily insulin lispro (human) 0-14 Units Subcutaneous TID AC insulin lispro (human) 0-7 Units Subcutaneous Nightly ipratropium-albuterol 3 mL Nebulization Q4H WA methylPREDNISolone 81.25 mg Intravenous Q8H morphine 2 mg Intravenous Once ranolazine 500 mg Oral BID rosuvastatin 40 mg Oral Daily senna 1 tablet Oral BID sodium chloride (PF) 10 mL Intravenous Q8H Continuous Infusions dextrose sodium chloride (IV) 125 mL/hr at 03/09/18 2228 PRN Medications acetaminophen OR acetaminophen, aluminum-magnesium hydroxide-simethicone, calcium carbo wyatt, dextrose, dextrose, dextrose, glucagon, glucagon, morphine OR morphine OR morp danyell, nitroGLYCERIN, polyethylene glycol, sodium chloride 0.9 % OBJECTIVE Vital Signs: BP (!) 166/92 (BP Location: Right forearm) | Pulse 96 | Temp 98.8 F (37.1 C) (Oral) | Resp 20 | Ht 1.829 m (6') | Wt 158.8 kg (350 lb 3.2 oz) | SpO2 96% | BMI 47.50 kg/m Physical Exam: General Appearance: Encountered patient in room 7122 sitting in bed comfortable. No apparen t distress. Conversive and appropriate to place and person. HEENT: Normocephalic, atraumatic, pupils EOMI, PERRLA. Nose: no septal deviation or dischar ge noted. Ears: normal size, location, and contour. Throat dry and without exudates. NECK: is supple, full ROM, nontender. LUNGS: relatively clear to auscultation bilaterally with no obvious wheezing, No rales or r honchi audible. HEART: S1S2, Regular rate and rhythm without murmurs, gallops or rubs. ABDOMEN: Mcdonald obese Bowel sound is normoactive, abdomen is soft, non-tender non-distended ,no mass palpable. EXTREMITIES:No lower extermity edema, Muscle strength adequate bilaterally. NEURO: Cranial Nerves 2-12 appears intact, Gait not tested, PSYCH: Alert, awake and Oriente d x3. SKIN: No significant bruises, rashes, lesions, or ulcers. DATA Recent Labs Lab 03/10/18 0306 03/09/18 1434 WBC 9.23 6.22 RBC 4.37 4.17* HCT 42.3 40.1 MCV 96.8 96.3 MCH 32.6 32.2 MCHC 33.6 33.4 RDW 47.7 49.0 PLT 144* 120* MPV 10.1 8.0 DIFFTYPE AUTOMATED -- Recent Labs Lab 03/10/18 0955 03/10/18 0451 03/10/18 0000 03/09/18 2044 K 6.0* 6.1* 6.2* 6.7* CL 103 102 -- 105 CO2 23 23 -- 25 ANIONGAP 13 14 -- 13 GLUF 348* 362* -- 285* BUN 29* 27* -- 28* CREATININE 1.8* 1.8* -- 1.7* BCR 16 15 -- 16 CA 8.6 8.6 -- 8.5 EGFR 38* 38* -- 40* Recent Labs Lab 03/09/18 1433 MG 2.0 No results for input(s): APTT, INR, PTT in the last 168 hours. Recent Labs Lab 03/10/18 0316 03/10/18 0000 03/09/18 2044 CKTOTAL -- -- 192 TROPONINI <0.020 <0.[address] Head Without Contrast Result Date: 03/09/2018 This is a non-reportable procedure without a radiologist report and is used for image [facility] only Xr Chest 1 View Result Date: 03/09/2018 ADI A WHITE XR CHEST 1 VIEW 03/09/2018 10:19 PM HISTORY: Chest pain. TECHNIQUE: Frontal marsha st radiograph 2209 hours. COMPARISON: Chest radiographs, most recent April 28, 2017. FINDIN GS: Low lung volumes. Mild strandy opacities at the lung bases suggesting subsegmental atele ctasis. No lung mass or significant focal region of consolidation. Normal pulmonary vasculat ure when accounting for low lung volumes. Intact median sternotomy wires and left mediastina l clips. Suture anchors in the right humerus proximally. Probable surgical foreshortening of the right distal clavicle. 1. Chronic findings, as above without acute disease. Us Kidneys And Bladder Result Date: 03/09/2018 ADI FIORE US KIDNEYS AND BLADDER 03/09/2018 11:25 PM HISTORY: 67 years. Male. Acute vasile al insufficiency. TECHNIQUE: Sonographic evaluation of the kidneys and urinary bladder, usin g a 4-MHz curved array transducer. COMPARISON: CT abdomen dated October 13, 2012.. FINDINGS: Imaging is very limited due to patient body habitus and overlying bowel gas. Right Kidney: 12.1 cm greatest longitudinal dimension. There is no gross evidence of hydronephrosis or vasile al mass. No large nephroliths are identified. Left Kidney: 12.6 cm greatest longitudinal dim ension. There is no gross evidence of hydronephrosis or renal mass. No large nephroliths are identified. The urinary bladder is nondistended due to an indwelling Gonzalez catheter. 1. Very limited study due to patient body habitus and overlying bowel gas. 2. No gross ev idence of hydronephrosis. 3. Indwelling Gonzalez catheter with nondistended urinary bladder. E lectronically signed by Raf Holloway MD on 03/09/2018 11:35 PM PROBLEM LIST ASSESSMENT & PLAN Principal Problem: Slurred speech Active Problems: DM (diabetes mellitus) HTN (hypertension) Coronary artery disease involving coronary bypass graft of [place] heart with angina pecto ris (HCC) Chronic diastolic heart failure (HCC) Morbid obesity (HCC) CKD (chronic kidney disease) stage 3, GFR 30-59 ml/min Slurred speech: Resolved on presentation yesterday. aspirin and Plavix that he has been azar ing from home. Pending MRI study. However renal status is compromised. Plan for MRI of the h ead today. Hyperkalemia: Status post Lasix and Kayexalate. Still elevated. Will give another dose of l asix and check pot at 1800 hours. Renal insufficiency: On chronic kidney disease: Continue IV fluids for now. Hypertension: Presently controlled at this time. Not elevated as would be expected in subac alutiiq stroke. Chest pain: Patient repeatedly complain of chest pain at times, workup has been negative at this time. Type II diabetes: Continue blood sugar checks; A1c 7.9. Consult diabetic education. History of Renal insufficiency; continue to monitor renal status. BS quite elevated; pt is also eating. Will start lantus 40 units bid. Pt takes 66 units NPH bid. COPD exacerbation: We will start DuoNeb's. Add steroids IV. Improving. Changed to q12 hours .. Coronary artery disease with history of CABG 1998 5 vessels. Last echo was November 2014. Last heart catheter was February 2017. Repeated echo on 03/03/2017 shows normal EF with mild concentr ic left ventricular hypertrophy. Mild stenosis. Will repeat echo today. EF then was 60-65 percent. Hospital records reviewed. Labs and radiologic studies and reports reviewed. Discussed find ings with participating physicians. Old records reviewed on EMR. Condition guarded and high risk for cardiopulmonary decompensation due to underlying condit ions This report has been prepared using a voice recognition system. The report was reviewed for accuracy, however, sound-alike word errors, addition and/or deletions may occur. If there i s any question about this report please contact me. Disposition: inpatient Code Status: Full Code Bruce Anne MD 03/10/2018Sai Blackmon MD - 03/10/2018 12:27 PM PDTFormatting of this note may be different from the original. [facility] Service: NEPHROLOGY Progress Note Adi Fiore 67 y.o. [id number] male [facility] Day: LOS: 1 day 67-year-old male with past medical history significant for coronary artery disease status p ost CABG 4 vessels done in the past, history of multiple CVAs, COPD, hearing loss, type II diabetes, hypertension, history of seizures, CKD-3 per records reviewed transferred from [facility] in [facility] due to concern for CVA. Labs showed potassium 6.7, sodium 134, creatinine 1.7 Gonzalez placed 500 mls urine came out Nephrology consulted for evaluation and management of Hyperkalemia/ CKD-3 per records ONSET Acute severity severe, worsening potentially life threatening Associated with fluid electrolyte acid base imbalances RF: likely element of pre-renal/ urinary retention/ high potassium diet contributing Patient seen and examined Says feel weak Denies any urinary symptoms Denies cp, sob, nausea, vomiting, diarrhea, fever, headache Past Medical History Diagnosis Date Anxiety Asbestosis(501) Asthma CHF (congestive heart failure) (HCC) CKD (chronic kidney disease) stage 3, GFR 30-59 ml/min 10/01/2013 COPD (chronic obstructive pulmonary disease) (HCC) Coronary artery disease Diabetes mellitus type II H/O asbestosis 07/12/2013 Hearing loss Hemorrhage of gastrointestinal tract, unspecified HLD (hyperlipidemia) 12/02/2014 Hypertension Joint pain TX, old Other chronic pain Seizure (HCC) 09/15/2012 Sleep apnea Unspecified visual disturbance Past Surgical History Procedure Laterality Date CARDIAC SURGERY CHOLECYSTECTOMY COLONOSCOPY COLONOSCOPY WITH EGD N/A 12/25/2011 Procedure: COLONOSCOPY W/ EGD; Surgeon: Keena Dye MD; Location: [facility]; Serv ice: Gastroenterology; Laterality: N/A; CORONARY ARTERY BYPASS GRAFT HARDWARE REMOVAL HERNIA REPAIR INGUINAL HERNIA REPAIR SHOULDER SURGERY TONSILLECTOMY undescended testicle surgery UNLISTED PROCEDURE ARTHROSCOPY r shoulder Prescriptions Prior to Admission Medication Sig Dispense Refill Last Dose nortriptyline (PAMELOR) 25 MG capsule Take 25 mg by mouth nightly. Taking at Unknown time acetaminophen (TYLENOL) 500 MG tablet Take 1,000 mg by mouth 3 (three) times daily. at unknown amLODIPine (NORVASC) 10 MG tablet Take 1 tablet by mouth daily. 30 tablet 11 at unknow n ammonium lactate (AMLACTIN) 12 % cream Apply topically daily. Apply to bilateral legs daily after cleaning with skin wipes. 385 g Unknown at Unknown time ascorbic acid (VITAMIN C) 500 MG tablet Take 500 mg by mouth daily. at unknown aspirin 81 MG tablet Take 81 mg by mouth daily. at unknown budesonide-formoterol (SYMBICORT) 160-4.5 MCG/ACT inhaler Inhale 2 puffs into the lungs 2 (two) times daily. at unknown buPROPion (WELLBUTRIN SR) 100 MG 12 hr tablet Take 200 mg by mouth every morning. at unknown carBAMazepine (TEGRETOL) 200 MG tablet Take 200 mg by mouth 3 (three) times daily. a t unknown Cholecalciferol 1000 UNITS capsule Take 1,000 Units by mouth 2 (two) times daily. at unknown clopidogrel (PLAVIX) 75 MG tablet Take 1 tablet by mouth daily. 30 tablet 0 cyanocobalamin (VITAMIN B-12) 500 MCG tablet Take 500 mcg by mouth daily. at unknown famotidine (PEPCID) 20 MG tablet Take 1 tablet by mouth 2 (two) times daily. (Patient t aking differently: Take 40 mg by mouth 2 (two) times daily.) 60 tablet 11 Unknown at Unknown time FERROUS SULFATE PO Take 325 mg by mouth 3 (three) times daily. at unknown fish oil-omega-3 fatty acids 1000 MG capsule Take 1 g by mouth 2 (two) times daily. at unknown fluoxetine (PROZAC) 20 MG tablet Take 20 mg by mouth daily. at unknown guaifenesin (MUCINEX) 600 MG 12 hr tablet Take 200 mg by mouth as needed. at unknown insulin aspart (NOVOLOG) 100 UNIT/ML injection Inject 36 Units into the skin 3 (three) times daily before meals. at unknown insulin NPH (NOVOLIN N) 100 UNIT/ML injection Inject 66 Units into the skin 2 (two) julia es daily before meals. Indications: Type 2 Diabetes (Patient taking differently: Inject 56 U nits into the skin 2 (two) times daily before meals. Indications: Type 2 Diabetes) 15 mL Un known at Unknown time ipratropium-albuterol (DUONEB) 0.5-2.5 mg/3mL Take 3 mLs by nebulization 4 (four) times daily as needed. at unknown isosorbide mononitrate (IMDUR) 120 MG 24 hr tablet Take 1 tablet by mouth daily. 30 tab let 11 at unknown liraglutide (VICTOZA) 18 MG/3ML injection Inject 1.2 mg into the skin daily. at unkn own metoprolol 75 MG TABS Take 150 mg by mouth 2 (two) times daily. 120 tablet 5 at unknow n Multiple Vitamin (MULTIVITAMIN) capsule Take 1 capsule by mouth daily. at unknown nitroGLYCERIN (NITROSTAT) 0.[address] 1 tablet under the tongue every 5 (fiv e) minutes as needed for Chest pain (hold for SBP less than 100). 30 tablet 0 omeprazole (PRILOSEC) 40 MG capsule Take 40 mg by mouth 2 (two) times daily before meal s. at unknown ranolazine (RANEXA) 500 MG 12 hr tablet Take 1 tablet by mouth 2 (two) times daily. 60 tablet 0 rosuvastatin (CRESTOR) 40 MG tablet Take 40 mg by mouth daily. at unknown senna (SENOKOT) 8.6 MG tablet Take 1 tablet by mouth 2 (two) times daily. at unknown Allergies Allergen Reactions Hydrochlorothiazide Other (See Comments) collapses Nitrous Oxide Anaphylaxis Soma [Carisoprodol] Hallucinations Metformin Other (See Comments) Unknown to pt Diltiazem Syncope Family History Problem Relation Age of Onset Coronary art dis Mother Kidney disease Mother required hd then stop it Coronary art dis Father Mother has hypertension and kidney disease, father had cancers 2 1st was lymphoma other time prostate, both Social History Social History Marital status: Spouse name: N/A Number of children: 3 Years of education: N/A Occupational History Not on file. Social History Main Topics Smoking status: Former Smoker Quit date: 12/23/1997 Smokeless tobacco: Never Used Alcohol use No Drug use: No Sexual activity: No Other Topics Concern Not on file Social History Narrative Lives in [place], [place], with spouse, walker and wheel chair , had mechanical fall 3 wks ago, full code. 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 Scheduled Medications aspirin 81 mg Oral Daily budesonide-formoterol 2 puff Inhalation BID buPROPion 200 mg Oral QAM carBAMazepine 200 mg Oral TID clopidogrel 75 mg Oral Daily docusate sodium 100 mg Oral BID famotidine 20 mg Oral BID Or famotidine 20 mg Intravenous BID fludrocortisone 0.1 mg Oral Daily FLUoxetine 20 mg Oral Daily insulin lispro (human) 0-14 Units Subcutaneous TID AC insulin lispro (human) 0-7 Units Subcutaneous Nightly ipratropium-albuterol 3 mL Nebulization Q4H [place] methylPREDNISolone 81.25 mg Intravenous Q8H ranolazine 500 mg Oral BID rosuvastatin 40 mg Oral Daily senna 1 tablet Oral BID sodium chloride (PF) 10 mL Intravenous Q8H Continuous Infusions dextrose sodium chloride (IV) 125 mL/hr at 03/09/18 2228 PRN Medications acetaminophen OR acetaminophen, aluminum-magnesium hydroxide-simethicone, calcium carbo wyatt, dextrose, dextrose, dextrose, glucagon, glucagon, morphine OR morphine OR morp danyell, nitroGLYCERIN, polyethylene glycol, sodium chloride 0.9 % Allergy: Allergies Allergen Reactions Hydrochlorothiazide Other (See Comments) collapses Nitrous Oxide Anaphylaxis Soma [Carisoprodol] Hallucinations Metformin Other (See Comments) Unknown to pt Diltiazem Syncope OBJECTIVE Vital Signs: BP (!) 166/92 (BP Location: Right forearm) | Pulse 96 | Temp 98.8 F (37.1 C) (Oral) | Resp 20 | Ht 1.829 m (6') | Wt 158.8 kg (350 lb 3.2 oz) | SpO2 96% | BMI 47.50 kg/m I&O Detailed Table: I/O last 3 completed shifts: In: 2098 [P.O.:1210; I.V.:888] Out: 2820 [Urine:2820] Weight change: Examination: APPEARANCE: The patient is a pleasant lying in no apparent distress. VITALS: Reviewed as listed. HEAD: NC/AT. LUNGS: Clear to auscultation bilaterally. HEART: S1, S2, no pericardial rub noted. ABDOMEN: obese, soft, no tenderness. Bowel sounds are present. EXTREMITIES: no pedal edema/ chronic stasis changes noted. NEUROLOGIC: No gross focal motor deficit noted. PSYCH: The patient is alert and oriented x 3 +ve gonzalez catheter LABS: Recent Results (from the past 24 hour(s)) POCT glucose Collection Time: 03/09/18 2:08 PM Result Value Ref Range GLUCOSE,POC SCREEN 197 (H) 65 - 99 mg/dL Magnesium Collection Time: 03/09/18 2:33 PM Result Value Ref Range MAGNESIUM 2.0 1.7 - 2.4 mg/dL Phosphorus Collection Time: 03/09/18 2:33 PM Result Value Ref Range PHOSPHORUS 3.4 2.3 - 4.8 mg/dL CBC w/no Diff Collection Time: 03/09/18 2:34 PM Result Value Ref Range WBC 6.22 3.80 - 11.00 K/uL RBC 4.17 (L) 4.20 - 5.70 M/uL HGB 13.4 13.2 - 17.0 g/dL HCT 40.1 39.0 - 50.0 % MCV 96.3 80.0 - 100.0 fl MCH 32.2 27.0 - 34.0 pg MCHC 33.4 32.0 - 35.5 g/dL RDW SD 49.0 37 - 53 fl PLT 120 (L) 150 - 400 K/uL MPV 8.0 fl Basic metabolic panel Collection Time: 03/09/18 2:34 PM Result Value Ref Range SODIUM 137 135 - 145 mmol/L POTASSIUM 5.8 (H) 3.5 - 4.9 mmol/L CHLORIDE 106 99 - 109 mmol/L CO2 24 23 - 32 mmol/L ANION GAP AGAP 13 5 - 20 mmol/L GLUCOSE 158 (H) 65 - 99 mg/dL BUN 26 (H) 8 - 25 mg/dL CREATININE 1.4 (H) 0.70 - 1.30 mg/dL BUN/CREAT 19 CALCIUM 8.3 (L) 8.5 - 10.5 mg/dL EGFR 50 (L) >60 mL/min/1.73m2 Procalcitonin Collection Time: 03/09/18 3:26 PM Result Value Ref Range PROCALCITONIN <0.05 <0.5 ng/mL POCT glucose Collection Time: 03/09/18 4:24 PM Result Value Ref Range GLUCOSE,POC SCREEN 208 (H) 65 - 99 mg/dL EKG STANDARD 12 LEAD Collection Time: 03/09/18 8:37 PM Result Value Ref Range Ventricular Rate 88 BPM Atrial Rate 88 BPM P-R Interval 288 ms QRS Duration 116 ms Q-T Interval 384 ms QTC Calculation (Bezet) 464 ms Calculated P [place] 1 degrees Calculated R [place] -37 degrees Calculated T [place] 84 degrees Diagnosis Sinus rhythm with 1st degree A-V block Left axis deviation Abnormal ECG When compared with ECG of 09-MAR-2018 20:36, No significant change was found Troponin I Collection Time: 03/09/18 8:44 PM Result Value Ref Range TROPONIN I <0.020 0.00 - 0.10 ng/mL Basic metabolic panel Collection Time: 03/09/18 8:44 PM Result Value Ref Range SODIUM 134 (L) 135 - 145 mmol/L POTASSIUM 6.7 (HH) 3.5 - 4.9 mmol/L CHLORIDE 105 99 - 109 mmol/L CO2 25 23 - 32 mmol/L ANION GAP AGAP 13 5 - 20 mmol/L GLUCOSE 285 (H) 65 - 99 mg/dL BUN 28 (H) 8 - 25 mg/dL CREATININE 1.7 (H) 0.70 - 1.30 mg/dL BUN/CREAT 16 CALCIUM 8.5 8.5 - 10.5 mg/dL EGFR 40 (L) >60 mL/min/1.73m2 CPK Collection Time: 03/09/18 8:44 PM Result Value Ref Range CPK 192 55 - 400 U/L POCT glucose Collection Time: 03/09/18 9:38 PM Result Value Ref Range GLUCOSE,POC SCREEN 296 (H) 65 - 99 mg/dL EKG STANDARD 12 LEAD Collection Time: 03/09/18 10:10 PM Result Value Ref Range Ventricular Rate 87 BPM Atrial Rate 87 BPM P-R Interval 216 ms QRS Duration 118 ms Q-T Interval 376 ms QTC Calculation (Bezet) 452 ms Calculated R [place] -29 degrees Calculated T [place] 88 degrees Diagnosis Sinus rhythm with 1st degree A-V block Non-specific intra-ventricular conduction delay Nonspecific ST and T wave abnormality Abnormal ECG When compared with ECG of 09-MAR-2018 20:37, No significant change was found Troponin I Collection Time: 03/10/18 12:00 AM Result Value Ref Range TROPONIN I <0.020 0.00 - 0.10 ng/mL Potassium Collection Time: 03/10/18 12:00 AM Result Value Ref Range POTASSIUM 6.2 (H) 3.5 - 4.9 mmol/L POCT glucose Collection Time: 03/10/18 12:48 AM Result Value Ref Range GLUCOSE,POC SCREEN 295 (H) 65 - 99 mg/dL Albumin / creat ratio Collection Time: 03/10/18 1:05 AM Result Value Ref Range ALBUMIN/CREAT RATIO 2,800 (H) <30 mg/g CBC W/Auto Diff (Reflex to Manual) Collection Time: 03/10/18 3:06 AM Result Value Ref Range WBC 9.23 3.80 - 11.00 K/uL RBC 4.37 4.20 - 5.70 M/uL HGB 14.2 13.2 - 17.0 g/dL HCT 42.3 39.0 - 50.0 % MCV 96.8 80.0 - 100.0 fl MCH 32.6 27.0 - 34.0 pg MCHC 33.6 32.0 - 35.5 g/dL RDW SD 47.7 37 - 53 fl PLT 144 (L) 150 - 400 K/uL MPV 10.1 fl DIFF TYPE AUTOMATED NEUTROPHILS 89.64 % LYMPHOCYTES 8.27 % MONOCYTES 1.59 % EOSINOPHILS 0.33 % BASOPHILS 0.17 % NEUTROPHILS ABS 8.27 (H) 1.90 - 7.40 K/uL LYMPHOCYTES ABS 0.76 (L) 1.00 - 3.90 K/uL MONOCYTES ABS 0.15 0.00 - 0.80 K/uL EOSINOPHILS ABS 0.03 0.00 - 0.50 K/uL BASOPHILS ABS 0.02 0.00 - 0.10 K/uL MORPHOLOGY RBC AND PLT MORPHOLOGY APPEAR NORMAL Diff Comment SLIDE SCANNED, AGREES WITH AUTOMATED RESULTS. Glycohemoglobin A1c Collection Time: 03/10/18 3:16 AM Result Value Ref Range HEMOGLOBIN A1C 7.6 (H) 4.0 - 6.0 % ESTIMATED AVG GLUCOSE 171 mg/dL Troponin I Collection Time: 03/10/18 3:16 AM Result Value Ref Range TROPONIN I <0.020 0.00 - 0.10 ng/mL Basic metabolic panel Collection Time: 03/10/18 4:51 AM Result Value Ref Range SODIUM 134 (L) 135 - 145 mmol/L POTASSIUM 6.1 (H) 3.5 - 4.9 mmol/L CHLORIDE 102 99 - 109 mmol/L CO2 23 23 - 32 mmol/L ANION GAP AGAP 14 5 - 20 mmol/L GLUCOSE 362 (H) 65 - 99 mg/dL BUN 27 (H) 8 - 25 mg/dL CREATININE 1.8 (H) 0.70 - 1.30 mg/dL BUN/CREAT 15 CALCIUM 8.6 8.5 - 10.5 mg/dL EGFR 38 (L) >60 mL/min/1.73m2 POCT glucose Collection Time: 03/10/18 5:38 AM Result Value Ref Range GLUCOSE,POC SCREEN 369 (H) 65 - 99 mg/dL Basic metabolic panel Collection Time: 03/10/18 9:55 AM Result Value Ref Range SODIUM 134 (L) 135 - 145 mmol/L POTASSIUM 6.0 (H) 3.5 - 4.9 mmol/L CHLORIDE 103 99 - 109 mmol/L CO2 23 23 - 32 mmol/L ANION GAP AGAP 13 5 - 20 mmol/L GLUCOSE 348 (H) 65 - 99 mg/dL BUN 29 (H) 8 - 25 mg/dL CREATININE 1.8 (H) 0.70 - 1.30 mg/dL BUN/CREAT 16 CALCIUM 8.6 8.5 - 10.5 mg/dL EGFR 38 (L) >60 mL/min/1.73m2 IMAGING: Ct Head Without Contrast Result Date: 03/09/2018 This is a non-reportable procedure without a radiologist report and is used for image stora ge only Xr Chest 1 View Result Date: 03/09/2018 ADI A WHITE XR CHEST 1 VIEW 03/09/2018 10:19 PM HISTORY: Chest pain. TECHNIQUE: Frontal marsha st radiograph 2209 hours. COMPARISON: Chest radiographs, most recent April 28, 2017. FINDIN GS: Low lung volumes. Mild strandy opacities at the lung bases suggesting subsegmental atele ctasis. No lung mass or significant focal region of consolidation. Normal pulmonary vasculat ure when accounting for low lung volumes. Intact median sternotomy wires and left mediastina l clips. Suture anchors in the right humerus proximally. Probable surgical foreshortening of the right distal clavicle. 1. Chronic findings, as above without acute disease. Us Kidneys And Bladder Result Date: 03/09/2018 ADI A WHITE US KIDNEYS AND BLADDER 03/09/2018 11:25 PM HISTORY: 67 years. Male. Acute vasile al insufficiency. TECHNIQUE: Sonographic evaluation of the kidneys and urinary bladder, usin g a 4-MHz curved array transducer. COMPARISON: CT abdomen dated October 13, 2012.. FINDINGS: Imaging is very limited due to patient body habitus and overlying bowel gas. Right Kidney: 12.1 cm greatest longitudinal dimension. There is no gross evidence of hydronephrosis or vasile al mass. No large nephroliths are identified. Left Kidney: 12.6 cm greatest longitudinal dim ension. There is no gross evidence of hydronephrosis or renal mass. No large nephroliths are identified. The urinary bladder is nondistended due to an indwelling Gonzalez catheter. 1. Very limited study due to patient body habitus and overlying bowel gas. 2. No gross ev idence of hydronephrosis. 3. Indwelling Gonzalez catheter with nondistended urinary bladder. E lectronically signed by Raf Holloway MD on 03/09/2018 11:35 PM Patient's old records, imaging and labs were reviewed in detail and summarized. PROBLEM LIST Principal Problem: Slurred speech Active Problems: DM (diabetes mellitus) HTN (hypertension) Coronary artery disease involving coronary bypass graft of [place] heart with angina pecto ris (HCC) Chronic diastolic heart failure (HCC) Morbid obesity (HCC) CKD (chronic kidney disease) stage 3, GFR 30-59 ml/min ASSESSMENT & PLAN HYPERKALEMIA Severe potentially life threatening likely element of pre-renal/ urinary retention/ high potassium diet contributing Ruled out rhabdomyolysis nl cpk Iv fluids Given Ca gluconate/ Insulin/ Albuterol inhaler Kayexalate/ florinef Low k diet, change ada diet to renal ada diet Watch k level closely Telemetry Lab Results Component Value Date K 6.0 (H) 03/10/2018 K 6.1 (H) 03/10/2018 K 6.2 (H) 03/10/2018 CKD-3 PER RECORDS REVIEWED Likely in the setting of HTN/ DM-2/ Vascular disease Ruled out HYDRONEPHROSIS per us renal reviewed No RHABDOMYOLYSIS nl cpk Gonzalez placed 500 mls urine came out IV FLUIDS No ANAND-I/ ARBS Urine studies reviewed Strict I & O, Daily weights Daily RFP Renal diet AVOID NSAIDS/ MATTSON-2 INHIBITORS AVOID NEPHROTOXIC MEDS INCLUDING AMINOGLYCOSIDES/ IV CONTRAST Assess daily for need for hd Dose all meds per egfr Lab Results Component Value Date BUN 29 (H) 03/10/2018 BUN 27 (H) 03/10/2018 BUN 28 (H) 03/09/2018 BUN 26 (H) 03/09/2018 BUN 21 11/21/2017 CREATININE 1.8 (H) 03/10/2018 CREATININE 1.8 (H) 03/10/2018 CREATININE 1.7 (H) 03/09/2018 CREATININE 1.4 (H) 03/09/2018 CREATININE 1.66 (H) 11/21/2017 Lab Results Component Value Date MALBRX 2,800 (H) 03/10/2018 HYPONATREMIA likely Multifactorial in the setting of hypovolemia Iv fluids patient needs close serial monitoring of sodium levels Lab Results Component Value Date NA 134 (L) 03/10/2018 NA 134 (L) 03/10/2018 NA 134 (L) 03/09/2018 NA 137 03/09/2018 NA 137 04/30/2017 HYPERTENSION WATCH BP CLOSELY DURING HOSPITALIZATION LOW NA DIET Will adjust BP meds according to BP readings BP Readings from Last 3 Encounters: 03/10/18 (!) 166/92 04/30/17 120/58 03/06/17 101/54 ANEMIA Watch hgb closely Consider transfusion per primary team for hgb less than 7.0 Lab Results Component Value Date HGB 14.2 03/10/2018 HGB 13.4 03/09/2018 HGB 12.1 (L) 04/30/2017 FERRITIN 12 (L) 12/24/2011 LABIRON 7 (L) 12/24/2011 Hypoalbuminemia Increase protein intake Lab Results Component Value Date ALB 2.8 (L) 04/30/2017 ALB 2.7 (L) 06/14/2016 ALB 3.1 (L) 12/08/2014 DM-2 OPTIMUM GLYCEMIC CONTROL PER PRIMARY TEAM CASE DISCUSSED IN DETAIL WITH PATIENT/ care team, ANSWERS ALL QUESTIONS IN DETAIL, VERBALIZ ES UNDERSTANDING SAI BLACKMON MD 03/10/2018 Vincent Finch Seen earlier and charting completed later Dictation software, Granify, used which may contain error for similar sounding words even af ter review. Personal communication requested for any clarification. in this encounter Plan of Treatment + +--------+ + + | Name | Priori | Associated Diagnoses | Order Schedule | | | ty | | | + +--------+ + + | Basic metabolic panel | Routin | Hyperkalemia | Expected: | | | e | | 03/19/2018, Expires: | | | | | 03/12/2019 | + +--------+ + + as of [...] + +--------+ + + + | CT THORACIC LUMBAR | Routin | 05/31/2016 | Diagnosis unknown | Results for this | | WO CONTRAST | e | 1:06 PM | | procedure are in the | | | | PDT | | results section. | + +--------+ + + + | CT HEAD WO CONTRAST | Routin | 05/31/2016 | Diagnosis unknown | Results for this | | | e | 1:05 PM | | procedure are in the | | | | PDT | | results section. | + +--------+ + + + in this encounter Results Basic metabolic panel (03/13/2018 8:05 AM) + + + + + | Component | Value | Ref Range | Performed At | + + + + + | SODIUM | 133 (L) | 135 - 145 mmol/L | [facility] | + + + + + | POTASSIUM | 5.0 (H)Comment: SLT | 3.5 - 4.9 mmol/L | [facility] | | | HEMOLYSIS | | | + + + + + | CHLORIDE | 101 | 99 - 109 mmol/L | [facility] | + + + + + | CO2 | 23 | 23 - 32 mmol/L | [facility] | + + + + + | ANION GAP AGAP | 14 | 5 - 20 mmol/L | [facility] | + + + + + | GLUCOSE | 348 (H) | 65 - 99 mg/dL | [facility] | + + + + + | BUN | 32 (H) | 8 - 25 mg/dL | [facility] | + + + + + | CREATININE | 1.5 (H) | 0.70 - 1.30 mg/dL | [facility] | + + + + + | BUN/CREAT | 22 | | [facility] | + + + + + | CALCIUM | 8.0 (L) | 8.5 - 10.5 mg/dL | [facility] | + + + + + | EGFR | 47 (L)Comment: GFR <60: | >60 mL/min/1.73m2 | [facility] | | | CHRONIC KIDNEY [...] | | | | | performed at [facility];[address] | | | | | [address];[place] | | | | | [address] | | | + + + + + + + | Specimen | + + | Blood | + + + + + + + | Performing | Address | City/State/Zipcode | Phone Number | | Organization | | | | + + + + + | [facility] | [address] | [place] [address] | | + + + + + POCT glucose (03/13/2018 5:39 AM) + + + + + | Component | Value | Ref Range | Performed At | + + + + + | GLUCOSE,POC SCREEN | 265 (H)Comment: Testing | 65 - 99 mg/dL | [facility] | | | performed at [facility];[address] | | | | | [address] [facility];[place], [place] | | | | | [address] | | | + + + + + + + + + + | Performing | Address | City/State/Zipcode | Phone Number | | Organization | | | | + + + + + | [facility] | [address] | [place] [address] | | + + + + + POCT glucose (03/12/2018 9:47 PM) + + + + + | Component | Value | Ref Range | Performed At | + + + + + | GLUCOSE,POC SCREEN | 193 (H)Comment: Testing | 65 - 99 mg/dL | [facility] | | | performed at [facility];[address] | [address];[place] | | | | | [address] | | | + + + + + + + + + + | Performing | Address | City/State/Zipcode | Phone Number | | Organization | | | | + + + + + | [facility] | [address] | [place] [address] | | + + + + + POCT glucose (03/12/2018 5:38 PM) + + + + + | Component | Value | Ref Range | Performed At | + + + + + | GLUCOSE,POC SCREEN | 291 (H)Comment: Testing | 65 - 99 mg/dL | [facility] | | | performed at [facility];[address] | [address];[place], [place] | | | | | [address] | | | + + + + + + + + + + | Performing | Address | City/State/Zipcode | Phone Number | | Organization | | | | + + + + + | [facility] | [address] | [facility] [address] | | + + + + + POCT glucose (03/12/2018 4:44 PM) + + + + + | Component | Value | Ref Range | Performed At | + + + + + | GLUCOSE,POC SCREEN | 300 (H)Comment: Testing | 65 - 99 mg/dL | [facility] | | | performed at [facility];[address] | | | | | [address];[place] | | | | | [address] | | | + + + + + + + + + + | Performing | Address | City/State/Zipcode | Phone Number | | Organization | | | | + + + + + | [facility] | [address] | [place] [address] | | + + + + + POCT glucose (03/12/2018 1:04 PM) + + + + + | Component | Value | Ref Range | Performed At | + + + + + | GLUCOSE,POC SCREEN | 372 (H)Comment: Testing | 65 - 99 mg/dL | [facility] | | | performed at [facility];[address] | | | | | [address];[place] | | | | | [address] | | | + + + + + + + + + + | Performing | Address | City/State/Zipcode | Phone Number | | Organization | | | | + + + + + | [facility] | [address] | [place] [address] | | + + + + + POCT glucose (03/12/2018 11:16 AM) + + + + + | Component | Value | Ref Range | Performed At | + + + + + | GLUCOSE,POC SCREEN | 233 (H)Comment: Testing | 65 - 99 mg/dL | [facility] | | | performed at [facility];[address] | [address];[place] | | | | | [address] | | | + + + + + + + + + + | Performing | Address | City/State/Zipcode | Phone Number | | Organization | | | | + + + + + | [facility] | [address] | [facility] [address] | | + + + + + Basic metabolic panel (03/12/2018 8:18 AM) + + + + + | Component | Value | Ref Range | Performed At | + + + + + | SODIUM | 133 (L) | 135 - 145 mmol/L | [facility] | + + + + + | POTASSIUM | 4.7 | 3.5 - 4.9 mmol/L | [facility] | + + + + + | CHLORIDE | 100 | 99 - 109 mmol/L | [facility] | + + + + + | CO2 | 27 | 23 - 32 mmol/L | [facility] | + + + + + | ANION GAP AGAP | 11 | 5 - 20 mmol/L | [facility] | + + + + + | GLUCOSE | 230 (H) | 65 - 99 mg/dL | [facility] | + + + + + | BUN | 33 (H) | 8 - 25 mg/dL | [facility] | + + + + + | CREATININE | 1.5 (H) | 0.70 - 1.30 mg/dL | [facility] | + + + + + | BUN/CREAT | 22 | | [facility] | + + + + + | CALCIUM | 8.2 (L) | 8.5 - 10.5 mg/dL | [facility] | + + + + + | EGFR | 47 (L)Comment: GFR <60: | >60 mL/min/1.73m2 | [facility] | | | CHRONIC KIDNEY [...] | | | | | performed at [facility] | | | | | [facility];[place], [place] | | | | | [address] | | | + + + + + + + | Specimen | + + | Blood | + + + + + + + | Performing | Address | City/State/Zipcode | Phone Number | | Organization | | | | + + + + + | [facility] | [address] | [place] [address] | | + + + + + POCT glucose (03/12/2018 5:38 AM) + + + + + | Component | Value | Ref Range | Performed At | + + + + + | GLUCOSE,POC SCREEN | 233 (H)Comment: Testing | 65 - 99 mg/dL | [facility] | | | performed at [facility];[address] | | [address];[place] | | | | | [address] | | | + + + + + + + + + + | Performing | Address | City/State/Zipcode | Phone Number | | Organization | | | | + + + + + | [facility] | [address] | [place] [address] | | + + + + + POCT glucose (03/11/2018 9:02 PM) + + + + + | Component | Value | Ref Range | Performed At | + + + + + | GLUCOSE,POC SCREEN | 275 (H)Comment: Testing | 65 - 99 mg/dL | [facility] | | | performed at [facility];[address] | | | | | [address] [facility];[place], [place] | | | | | [address] | | | + + + + + + + + + + | Performing | Address | City/State/Zipcode | Phone Number | | Organization | | | | + + + + + | [facility] | [address] | [place] [address] | | + + + + + Confirmation glucose (03/11/2018 4:50 PM) + + + + + | Component | Value | Ref Range | Performed At | + + + + + | GLUCOSE | 450 (H)Comment: Testing | 65 - 99 mg/dL | [facility] | | | performed at [facility];[address];[place] | | | | | [address] | | | + + + + + + + + + + | Performing | Address | City/State/Zipcode | Phone Number | | Organization | | | | + + + + + | [facility] | [address] | [place] [address] | | + + + + + POCT glucose (03/11/2018 4:31 PM) + + + + + | Component | Value | Ref Range | Performed At | + + + + + | GLUCOSE,POC SCREEN | >400 (H)Comment: Testing | 65 - 99 mg/dL | [facility] | | | performed at [facility];[address] | | | | | [address];[place] | | | | | [address] | | | + + + + + + + + + + | Performing | Address | City/State/Zipcode | Phone Number | | Organization | | | | + + + + + | [facility] | [address] | [place] [address] | | + + + + + Basic metabolic panel (03/11/2018 2:49 PM) + + + + + | Component | Value | Ref Range | Performed At | + + + + + | SODIUM | 130 (L) | 135 - 145 mmol/L | [facility] | | | | | [facility] | + + + + + | POTASSIUM | 5.6 (H)Comment: SPECIMEN | 3.5 - 4.9 mmol/L | [facility] | | | SL[facility] | | LABORATORY | + + + + + | CHLORIDE | 97 (L) | 99 - 109 mmol/L | [facility] | | | | | [facility] | + + + + + | CO2 | 23 | 23 - 32 mmol/L | [facility] | | | | | [facility] | + + + + + | ANION GAP AGAP | 16 | 5 - 20 mmol/L | [facility] | | | | | [facility]ORY | + + + + + | GLUCOSE | 408 (H)Comment: SPECIMEN | 65 - 99 mg/dL | [facility] | | | SLIGHTLY HEMOLYZ[facility] | | LABORATORY | + + + + + | BUN | 37 (H) | 8 - 25 mg/dL | [facility] | | | | | LABORATORY | + + + + + | CREATININE | 1.7 (H)Comment: SPECIMEN | 0.70 - 1.30 mg/dL | [facility] | | | SLIGHTLY HEMOLY[facility] | | LABORATORY | + + + + + | BUN/CREAT | 22 | | [facility] | | | | | LABORATORY | + + + + + | CALCIUM | 8.5 | 8.5 - 10.5 mg/dL | [facility] | | | | | [facility]OR[facility]ORY | + + + + + | EGFR | 40 (L)Comment: GFR <60: | >60 mL/min/1.73m2 | [facility] | | | CHRONIC KIDNEY DISEASE, | [...] traceable | | | | | equation. PLEASE NOTE | | | | | NEW CALCULATION | | | | | EFFECTIVE 02/10/2018 | | | | | Testing performed at | | | | | [facility], [address] | | | | | [place], | | | | | [place] [address] | | | + + + + + + + | Specimen | + + | Blood | + + + + + + + | Performing | Address | City/State/Zipcode | Phone Number | | Organization | | | | + + + + + | [facility] | [address] | [place] [address] | [phone] | | LABORATORY | [address] | | | + + + + + Confirmation glucose (03/11/2018 12:08 PM) + + + + + | Component | Value | Ref Range | Performed At | + + + + + | GLUCOSE | 413 (H)Comment: Testing | 65 - 99 mg/dL | [facility] | | | performed at [facility];[address];[place], [place] | | | | | [address] | | | + + + + + + + + + + | Performing | Address | City/State/Zipcode | Phone Number | | Organization | | | | + + + + + | [facility] | [address] | [place] [address] | | + + + + + POCT glucose (03/11/2018 11:42 AM) + + + + + | Component | Value | Ref Range | Performed At | + + + + + | GLUCOSE,POC SCREEN | >400 (H)Comment: Testing | 65 - 99 mg/dL | [facility] | | | performed at [facility];[address];[place] | | | | | [address] | | | + + + + + + + + + + | Performing | Address | City/State/Zipcode | Phone Number | | Organization | | | | + + + + + | [facility] | [address] | [place] [address] | | + + + + + Basic metabolic panel (03/11/2018 5:10 AM) + + + + + | Component | Value | Ref Range | Performed At | + + + + + | SODIUM | 137 | 135 - 145 mmol/L | [facility] | | | | | [facility] | + + + + + | POTASSIUM | 5.4 (H) | 3.5 - 4.9 mmol/L | [facility] [...] + + + + | GLUCOSE | 341 (H) | 65 - 99 mg/dL | [facility] | | | | | LABORATORY | + + + + + | BUN | 34 (H) | 8 - 25 mg/dL | [facility] | | | | | LABORATORY | + + + + + | CREATININE | 1.7 (H) | 0.70 - 1.30 mg/dL | [facility] | | | | | LABOR[facility]ORY | + + + + + | BUN/CREAT | 20 | | [facility] | | | | | LABORATORY | + + + + + | CALCIUM | 8.3 (L) | 8.5 - 10.5 mg/dL | [facility] | | | | | LABORATORY | + + + + + | EGFR | 40 (L)Comment: GFR <60: | >60 mL/min/1.73m2 | [facility] | | | CHRONIC KIDNEY DISEASE, | [...] traceable | | | | | equation. PLEASE NOTE | | | | | NEW CALCULATION | | | | | EFFECTIVE 02/10/2018 | | | | | Testing performed at | | | | | [facility], [address] | | | | | [place], | | | | | [place] [address] | | | + + + + + + + | Specimen | + + | Blood | + + + + + + + | Performing | Address | City/State/Zipcode | Phone Number | | Organization | | | | + + + + + | [facility] | [address] | [place] [address] | [phone] | | LABORATORY | [address] | | | + + + + + POCT glucose (03/11/2018 5:02 AM) + + + + + | Component | Value | Ref Range | Performed At | + + + + + | GLUCOSE,POC SCREEN | 327 (H)Comment: Testing | 65 - 99 mg/dL | [facility] | | | performed at [facility];[address] | | | [address];[place] | | | | | [address] | | | + + + + + + + + + + | Performing | Address | City/State/Zipcode | Phone Number | | Organization | | | | + + + + + | [facility] | [address] | [place] [address] | | + + + + + Confirmation glucose (03/10/2018 9:00 PM) + + + + + | Component | Value | Ref Range | Performed At | + + + + + | GLUCOSE | 376 (H)Comment: Testing | 65 - 99 mg/dL | [facility] | | | performed at [facility];[address] | | [address];[place] | | | | | [address] | | | + + + + + + + + + + | Performing | Address | City/State/Zipcode | Phone Number | | Organization | | | | + + + + + | [facility] | [address] | [facility] [place] [address] | | + + + + + POCT glucose (03/10/2018 8:45 PM) + + + + + | Component | Value | Ref Range | Performed At | + + + + + | GLUCOSE,POC SCREEN | 400 (H)Comment: Testing | 65 - 99 mg/dL | [facility] | | | performed at [facility];[address] | | | | | [address];[place] | | | | | [address] | | | + + + + + + + + + + | Performing | Address | City/State/Zipcode | Phone Number | | Organization | | | | + + + + + | [facility] | [address] | [place] [address] | | + + + + + Potassium (03/10/2018 5:53 PM) + + + + + | Component | Value | Ref Range | Performed At | + + + + + | POTASSIUM | 5.4 (H)Comment: SLT | 3.5 - 4.9 mmol/L | [facility] | | | HEMOLYSISTesting | | | | | performed at [facility];[address] | | | | | [address];[place] | | | | | [address] | | | + + + + + + + | Specimen | + + | Blood | + + + + + + + | Performing | Address | City/State/Zipcode | Phone Number | | Organization | | | | + + + + + | [facility] | [address] | [place] [address] | | + + + + + POCT glucose (03/10/2018 4:24 PM) + + + + + | Component | Value | Ref Range | Performed At | + + + + + | GLUCOSE,POC SCREEN | 342 (H)Comment: Testing | 65 - 99 mg/dL | [facility] | | | performed at [facility];[address] | | [address];[place] | | | | | [address] | | | + + + + + + + + + + | Performing | Address | City/State/Zipcode | Phone Number | | Organization | | | | + + + + + | [facility] | [address] | [place] [address] | | + + + + + [...] | | | head 03/09/2018 performed at [facility]. MRI stroke | | | 09/15/2012 FINDINGS: [...] Procedure Note | + + | Ad, Steven Results In - 03/10/2018 4:43 PM PDT ADI A WHITEMRI BRAIN WO | | CONTRAST03/10/2018 3:45 PMHISTORY:67 years. Male. Garbled speech. Assess for | | stroke.TECHNIQUE:Imaging was performed on a 1.5 Karen MRI system. Multiplanar sequences | | were acquired according to a standard department protocol without | | contrast.COMPARISON:Outside CT head 03/09/2018 performed at [facility]. | | MRI stroke 09/15/2012FINDINGS:Moderate diffuse cerebral [...] | + + + + + | [facility] | [address] | [place] [address] | | + + + + + Brain natriuretic peptide (03/10/2018 2:01 PM) + + + + + | Component | Value | Ref Range | Performed At | + + + + + | BRAIN NATRIURETIC | 480 (H)Comment: Testing | 0 - 100 pg/mL | [facility] | | PEPTIDE | performed at [facility];[address] | | [address];[place] | | | | | [address] | | | + + + + + + + | Specimen | + + | Blood | + + + + + + + | Performing | Address | City/State/Zipcode | Phone Number | | Organization | | | | + + + + + | [facility] | [address] | [place] [address] | | + + + + + EKG STANDARD 12 LEAD (03/10/2018 1:26 PM) + + + + + | Component | Value | Ref Range | Performed At | + + + + + | Ventricular Rate | 98 | BPM | [facility] | + + + + + | Atrial Rate | 98 | BPM | [facility] | + + + + + | P-R Interval | 240 | ms | [facility] | + + + + + | QRS Duration | 108 | ms | [facility] | + + + + + | Q-T Interval | 346 | ms | [facility] | + + + + + | QTC Calculation | 441 | ms | [facility] | | (Bezet) | | | | + + + + + | Calculated P [place] | 27 | degrees | [facility] | + + + + + | Calculated R [place] | -21 | degrees | [facility] | + + + + + | Calculated T [place] | 93 | degrees | [facility] | + + + + + | Diagnosis | Sinus rhythm with 1st | | [facility] | | | degree A-V blockLow | | | | | voltage limb leads | | | | | onlyIncomplete left | | | | | bundle branch | | | | | blockNonspecific ST and | | | | | T wave | | | | | abnormalityAbnormal | | | | | ECGWhen compared with | | | | | ECG of 09-MAR-2018 | | | | | 22:10,No significant | | | | | change was | | | | | foundConfirmed by | | | | | ROSMERY SHELL MD ([id number]) | | | | | on 03/10/2018 8:14:23 PM | | | + + + + + + + + + + | Performing | Address | City/State/Zipcode | Phone Number | | Organization | | | | + + + + + | [facility] | [address] | [place] [address] | | + + + + + Troponin I (03/10/2018 1:19 PM) + + + + + | Component | Value | Ref Range | Performed At | + + + + + | TROPONIN I | <0.020Comment: 0.00 to | 0.00 - 0.10 ng/mL | [facility] | | | 0.10 CONSISTENT [...] | | | | CRITERIA FOR ACUTE [place] | | | | | Testing performed at | | | | | [facility];[address] [place] [address] | | | | | [facility];[place] [address] | | | + + + + + + + | Specimen | + + | Blood | + + + + + + + | Performing | Address | City/State/Zipcode | Phone Number | | Organization | | | | + + + + + | [facility] | [address] | [place] [address] | | + + + + + POCT glucose (03/10/2018 11:35 AM) + + + + + | Component | Value | Ref Range | Performed At | + + + + + | GLUCOSE,POC SCREEN | 392 (H)Comment: Testing | 65 - 99 mg/dL | [facility] | | | performed at [facility];[address] | | [address];[place] | | | | | [address] | | | + + + + + + + + + + | Performing | Address | City/State/Zipcode | Phone Number | | Organization | | | | + + + + + | [facility] | [address] | [place] [place] [place] [address] | | + + + + + POCT glucose (03/10/2018 11:28 AM) + + + + + | Component | Value | Ref Range | Performed At | + + + + + | GLUCOSE,POC SCREEN | >400 (H)Comment: Testing | 65 - 99 mg/dL | [facility] | | | performed at [facility];[address] | [address];[place] | | | | | [address] | | | + + + + + + + + + + | Performing | Address | City/State/Zipcode | Phone Number | | Organization | | | | + + + + + | [facility] | [address] | [place] [address] | | + + + + + Echo cardiac adult with contrast (03/10/2018 10:15 AM) + +-------+ + + | Component | Value | Ref Range | Performed At | + +-------+ + + | LV EF | 65 | 50 - 70 % | [facility] | | | | | RADIOLOGY | [...] ADI FIORE Date of : 1950 | [facility] | | Performing Physician: Rosmery Shell MD | RADIOLOGY | | | [...] | | | TR Vmax: 2.78 m/s Yield Loss Inspector: CHRISTOFER Authenticated by: Rosmery | | | Suleman [place] Report Date/Time: 03-10-2018 17:45:14 | | + + + + + | Procedure Note | + + | Steven Duong In - 03/10/2018 5:50 PM PDT Patient Name: Kevin FIORE of | | : 9Accession: [id number] Physician: Rosmery Shell | | MD INDICATIONS S | [...] has increased.MEASUREMENTS MOIRA Planimetry: 1.82 | | [id number] Planimetry: 0.00 cm2/m2Ao asc: 2.54 cmAo sinus: [...] (A-L): 22.58 ml/m2LAAs A2C: | | 19.85 [id number] A-L A2C: 61.06 mlLALs A2C: 5.48 cmLAAs A4C: 19.60 [id number] A-L | | A4C: 57.28 mlLALs A4C: 5.69 cmAo Diam: 4.03 cmAV Cusp: 1.26 cmLA Diam: 4.75 | | cmLA/Ao: 1.17 IVC diameter: 2.12 cmIVC collapse: 0.84 cmIVC % collapse: 57.87 | | %HR: 95.98 BPMAV maxP.25 mmHgAV meanP.83 mmHgAV Vmax: 2.96 m/Silva | | Vmean: 2.31 m/Silva VTI: 66.03 cmAVA Vmax: 1.35 cm2AVA (VTI): 1.17 [id number] Vmax: | | 0.00 cm2/m2AVAI (VTI): 0.00 cm2/m2LVCI Dopp: 2.85 l/spmh4TWVA Dopp: 7.63 l/minHR: | | 98.22 BPMLVOT maxP.26 mmHgLVOT meanP.37 mmHgLVSI Dopp: 29.11 ml/m2LVSV | | Dopp: 77.72 mlLVOT Vmax: 1.14 m/sLVOT Vmean: 0.87 m/sLVOT VTI: 22.19 cmMV maxPG: | | 19.60 mmHgMV meanP.70 mmHgMV Vmax: 2.21 m/sMV Vmean: 1.39 m/sMV VTI: | | 39.72 cmMVA (VTI): 1.95 ru5Lacziy e': 0.12 m/sLateral e': 0.15 m/sHR: 95.98 | | BPMPV maxP.98 mmHgPV meanP.64 mmHgPV Vmax: 0.86 m/sPV Vmean: 0.60 m/sPV | | VTI: 15.97 cmRAP: 3 mmHgRVSP: 34.04 mmHgTR maxP.04 mmHgTR Vmax: 2.78 | | m/sSonographer: KVWAuthenticated by: Rosmery Shell MDReport Date/Time: 03-10-2018 | | 17:45:14IMPRESSION:1. [...] |TR Vmax: 2.78 m/s | | | |Yield Loss Inspector: KVW | |Authenticated by: Rosmery Shell MD | |Report Date/Time: 03-10-2018 17:45:14 [...] | + + + + + | [facility] | [address] | [place] [address] | | + + + + + Basic metabolic panel (03/10/2018 9:55 AM) + + + + + | Component | Value | Ref Range | Performed At | + + + + + | SODIUM | 134 (L) | 135 - 145 mmol/L | [facility] | + + + + + | POTASSIUM | 6.0 (H)Comment: SLT | 3.5 - 4.9 mmol/L | [facility] | | | HEMOLYSIS | | | + + + + + | CHLORIDE | 103 | 99 - 109 mmol/L | [facility] | + + + + + | CO2 | 23 | 23 - 32 mmol/L | [facility] | + + + + + | ANION GAP AGAP | 13 | 5 - 20 mmol/L | [facility] | + + + + + | GLUCOSE | 348 (H) | 65 - 99 mg/dL | [facility] | + + + + + | BUN | 29 (H) | 8 - 25 mg/dL | [facility] | + + + + + | CREATININE | 1.8 (H) | 0.70 - 1.30 mg/dL | [facility] | + + + + + | BUN/CREAT | 16 | | [facility] | + + + + + | CALCIUM | 8.6 | 8.5 - 10.5 mg/dL | [facility] | + + + + + | EGFR | 38 (L)Comment: GFR <60: | >60 mL/min/1.73m2 | [facility] | | | CHRONIC KIDNEY [...] the | | | | | MDRD [facility] traceable | | | | | equation. PLEASE NOTE | | | | | NEW CALCULATION | | | | | EFFECTIVE 02/10/2018 | | | | | Testing performed at | | | | | [facility];[address] [place] [address] | | | | | [facility];[place] [address] | | | + + + + + + + + + + | Performing | Address | City/State/Zipcode | Phone Number | | Organization | | | | + + + + + | [facility] | [address] | [place] [address] | | + + + + + POCT glucose (03/10/2018 5:38 AM) + + + + + | Component | Value | Ref Range | Performed At | + + + + + | GLUCOSE,POC SCREEN | 369 (H)Comment: Testing | 65 - 99 mg/dL | [facility] | | | performed at [facility];[address];[place] | | | | | [address] | | | + + + + + + + + + + | Performing | Address | City/State/Zipcode | Phone Number | | Organization | | | | + + + + + | [facility] | [address] | [facility] [address] | | + + + + + Basic metabolic panel (03/10/2018 4:51 AM) + + + + + | Component | Value | Ref Range | Performed At | + + + + + | SODIUM | 134 (L) | 135 - 145 mmol/L | [facility] | + + + + + | POTASSIUM | 6.1 (H) | 3.5 - 4.9 mmol/L | [facility] | + + + + + | CHLORIDE | 102 | 99 - 109 mmol/L | [facility] | + + + + + | CO2 | 23 | 23 - 32 mmol/L | [facility] | + + + + + | ANION GAP AGAP | 14 | 5 - 20 mmol/L | [facility] | + + + + + | GLUCOSE | 362 (H) | 65 - 99 mg/dL | [facility] | + + + + + | BUN | 27 (H) | 8 - 25 mg/dL | [facility] | + + + + + | CREATININE | 1.8 (H) | 0.70 - 1.30 mg/dL | [facility] | + + + + + | BUN/CREAT | 15 | | [facility] | + + + + + | CALCIUM | 8.6 | 8.5 - 10.5 mg/dL | [facility] | + + + + + | EGFR | 38 (L)Comment: GFR <60: | >60 mL/min/1.73m2 | [facility] | | | CHRONIC KIDNEY [...] traceable | | | | | equation. PLEASE NOTE | | | | | NEW CALCULATION | | | | | EFFECTIVE 02/10/2018 | | | | | Testing performed at | | | | | [facility];[address] [place] [address] | | | | | [facility];[place] [address] | | | + + + + + + + | Specimen | + + | Blood | + + + + + + + | Performing | Address | City/State/Zipcode | Phone Number | | Organization | | | | + + + + + | [facility] | [address] | [place] [address] | | + + + + + Troponin I (03/10/2018 3:16 AM) + + + + + | Component | Value | Ref Range | Performed At | + + + + + | TROPONIN I | <0.020Comment: 0.00 to | 0.00 - 0.10 ng/mL | [facility] | | | 0.10 CONSISTENT [...] | | | | CRITERIA FOR ACUTE [place] | | | | | Testing performed at | | | | | [facility];[address] | | | | | [facility];[place] [address] | | | + + + + + + + | Specimen | + + | Blood | + + + + + + + | Performing | Address | City/State/Zipcode | Phone Number | | Organization | | | | + + + + + | [facility] | [address] | [place] [address] | | + + + + + Glycohemoglobin A1c (03/10/2018 3:16 AM) + + + + + | Component | Value | Ref Range | Performed At | + + + + + | HEMOGLOBIN A1C | 7.6 (H)Comment: The | 4.0 - 6.0 % | [facility] | | | [place] Diabetes | | LABORATORY | | | [...] + + + | ESTIMATED AVG | 171Comment: The ADA | mg/dL | [facility] | | GLUCOSE | considers an eAG [...] | | | | | performed at [facility], [address] | | | | [facility], | | | | | [place], [place] [address] | | | + + + + + + + | Specimen | + + | Blood | + + + + + + + | Performing | Address | City/State/Zipcode | Phone Number | | Organization | | | | + + + + + | [facility] | [address] | [place] [address] | [phone] | | LABORATORY | [address] | | | + + + + + CBC W/Auto Diff (Reflex to Manual) (03/10/2018 3:06 AM) + + + + + | Component | Value | Ref Range | Performed At | + + + + + | WBC | 9.23 | 3.80 - 11.00 K/uL | [facility] | + + + + + | RBC | 4.37 | 4.20 - 5.70 M/uL | [facility] | + + + + + | HGB | 14.2 | 13.2 - 17.0 g/dL | [facility] | + + + + + | HCT | 42.3 | 39.0 - 50.0 % | [facility] | + + + + + | MCV | 96.8 | 80.0 - 100.0 fl | [facility] | + + + + + | MCH | 32.6 | 27.0 - 34.0 pg | [facility] | + + + + + | MCHC | 33.6 | 32.0 - 35.5 g/dL | [facility] | + + + + + | RDW SD | 47.7 | 37 - 53 fl | [facility] | + + + + + | PLT | 144 (L) | 150 - 400 K/uL | [facility] | + + + + + | MPV | 10.1 | fl | [facility] | + + + + + | DIFF TYPE | AUTOMATED | | [facility] | + + + + + | NEUTROPHILS | 89.64 | % | [facility] | + + + + + | LYMPHOCYTES | 8.27 | % | [facility] | + + + + + | MONOCYTES | 1.59 | % | [facility] | + + + + + | EOSINOPHILS | 0.33 | % | [facility] | + + + + + | BASOPHILS | 0.17 | % | [facility] | + + + + + | NEUTROPHILS ABS | 8.27 (H) | 1.90 - 7.40 K/uL | [facility] | + + + + + | LYMPHOCYTES ABS | 0.76 (L) | 1.00 - 3.90 K/uL | [facility] | + + + + + | MONOCYTES ABS | 0.15 | 0.00 - 0.80 K/uL | [facility] | + + + + + | EOSINOPHILS ABS | 0.03 | 0.00 - 0.50 K/uL | [facility] | + + + + + | BASOPHILS ABS | 0.02 | 0.00 - 0.10 K/uL | [facility] | + + + + + | MORPHOLOGY | RBC AND PLT MORPHOLOGY | | [facility] | | | APPEAR NORMAL | | | + + + + + | Diff Comment | SLIDE SCANNED, AGREES | | [facility] | | | WITH AUTOMATED | | | | | RESULTS.Comment: | | | | | PLATELETS CLUMPED, | | | | | APPEAR ADEQUATETesting | | | | | performed at [facility] | | | | | [address];[place], [place] | | | | | [address] | | | + + + + + + + + + + | Performing | Address | City/State/Zipcode | Phone Number | | Organization | | | | + + + + + | [facility] | [address] | [place] [address] | | + + + + + [...] | | | | | performed at [facility], [address] | | | | [facility], | | | | | [place] [address] | | | + + + + + + + | Specimen | + + | Urine - Urine, | | Catheter | + + + + + + + | Performing | Address | City/State/Zipcode | Phone Number | | Organization | | | | + + + + + | [facility] | [address] | [place] [address] | [phone] | | LABORATORY | [place]. | | | + + + + + POCT glucose (03/10/2018 12:48 AM) + + + + + | Component | Value | Ref Range | Performed At | + + + + + | GLUCOSE,POC SCREEN | 295 (H)Comment: Testing | 65 - 99 mg/dL | [facility] | | | performed at [facility];[address] | | | | | [address];[place] | | | | | [address] | | | + + + + + + + + + + | Performing | Address | City/State/Zipcode | Phone Number | | Organization | | | | + + + + + | [facility] | [address] | [place] [address] | | + + + + + Potassium (03/10/2018) + + + + + | Component | Value | Ref Range | Performed At | + + + + + | POTASSIUM | 6.2 (H)Comment: Testing | 3.5 - 4.9 mmol/L | [facility] | | | performed at [facility];[address] | | | | | [address];[place], [place] | | | | | [address] | | | + + + + + + + + + + | Performing | Address | City/State/Zipcode | Phone Number | | Organization | | | | + + + + + | [facility] | [address] | [place] [address] | | + + + + + Troponin I (03/10/2018) + + + + + | Component | Value | Ref Range | Performed At | + + + + + | TROPONIN I | <0.020Comment: 0.00 to | 0.00 - 0.10 ng/mL | [facility] | | | 0.10 CONSISTENT [...] | | | | CRITERIA FOR ACUTE [place] | | | | | Testing performed at | | | | | [facility];[address] | | | | | [facility];[place] [address] | | | + + + + + + + | Specimen | + + | Blood | + + + + + + + | Performing | Address | City/State/Zipcode | Phone Number | | Organization | | | | + + + + + | [email or web address] | [address] | [place] [address] | | + + + + + US kidneys and bladder (03/09/2018 11:25 PM) + + + | Impressions | Performed At | + + + | 1. Very limited study due to patient body habitus and overlying | [facility] | | bowel gas. 2. No gross evidence of hydronephrosis. | [facility] | | 3. Indwelling Gonzalez catheter with nondistended urinary bladder. | | | | | + + + + + + | Narrative | Performed At | + + + | ADI A WHITE US KIDNEYS AND BLADDER 03/09/2018 11:25 PM | [facility] | | HISTORY: 67 years. Male. Acute [...] due to an | | | indwelling Gonzalez catheter. | | + + + + [...] nondistended due to an | | indwelling Gonzalez catheter.IMPRESSION:1. Very limited study due to patient body habitus | | and overlying bowel gas.2. No gross evidence of hydronephrosis.3. Indwelling Gonzalez | | catheter with nondistended urinary bladder. [...] bladder is nondistended due to an indwelling Gonzalez catheter. | | | |IMPRESSION: | |1. Very limited study due to patient body habitus and overlying bowel gas. | | | |2. No gross evidence of hydronephrosis. | | | |3. Indwelling Gonzalez catheter with nondistended urinary bladder. | | | | | + + + + + + + | Performing | Address | City/State/Zipcode | Phone Number | | Organization | | | | + + + + + | [facility] | [address] | [facility] [address] | | + + + + + XR chest 1 view (03/09/2018 10:19 PM) + + + | Impressions | Performed At | + + + | 1. Chronic findings, as above without acute disease. | [facility] | | | RADIOLOGY | + + + + + + | Narrative | Performed At | + + + | ADI A WHITE XR CHEST 1 VIEW 03/09/2018 10:19 PM HISTORY: | [facility] | | Chest pain. TECHNIQUE: Frontal chest [...] | | 10:19 PMHISTORY:Chest pain.TECHNIQUE:Frontal chest radiograph 2209 | | hours.COMPARISON:Chest radiographs, most recent April [...] | + + + + + | [facility] | [address] | [facility] [address] | | + + + + + EKG STANDARD 12 LEAD (03/09/2018 10:10 PM) + + + + + | Component | Value | Ref Range | Performed At | + + + + + | Ventricular Rate | 87 | BPM | [facility] | + + + + + | Atrial Rate | 87 | BPM | [facility] | + + + + + | P-R Interval | 216 | ms | [facility] | + + + + + | QRS Duration | 118 | ms | [facility] | + + + + + | Q-T Interval | 376 | ms | [facility] | + + + + + | QTC Calculation | 452 | ms | [facility] | | (Bezet) | | | | + + + + + | Calculated R [place] | -30 | degrees | [facility] | + + + + + | Calculated T [place] | 88 | degrees | [facility] | + + + + + | Diagnosis | Sinus rhythm with 1st | | [facility] | | | degree A-V blockLow | | | | | voltage limb leads | | | | | onlyLeft anterior | | | | | fascicular | | | | | blockNonspecific ST and | | | | | T wave | | | | | abnormalityAbnormal | | | | | ECGWhen compared with | | | | | ECG of 09-MAR-2018 | | | | | 20:37,No significant | | | | | change was | | | | | foundConfirmed by | | | | | ROSMERY SHELL MD ([id number]) | | | | | on 03/10/2018 7:46:22 PM | | | + + + + + + + + + + | Performing | Address | City/State/Zipcode | Phone Number | | Organization | | | | + + + + + | [facility] | [address] | [place] [address] | | + + + + + POCT glucose (03/09/2018 9:38 PM) + + + + + | Component | Value | Ref Range | Performed At | + + + + + | GLUCOSE,POC SCREEN | 296 (H)Comment: Testing | 65 - 99 mg/dL | [facility] | | | performed at [facility];[address] | | | | | [address];[place] | | | | | [address] | | | + + + + + + + + + + | Performing | Address | City/State/Zipcode | Phone Number | | Organization | | | | + + + + + | [facility] | [address] | [place] [address] | | + + + + + CPK (03/09/2018 8:44 PM) + + + + + | Component | Value | Ref Range | Performed At | + + + + + | CPK | 192Comment: Testing | 55 - 400 U/L | [facility] | | | performed at [facility];[address] | | | | | [address];[place] | | | | | [address] | | | + + + + + + + + + + | Performing | Address | City/State/Zipcode | Phone Number | | Organization | | | | + + + + + | [facility] | [address] | [place] [address] | | + + + + + Basic metabolic panel (03/09/2018 8:44 PM) + + + + + | Component | Value | Ref Range | Performed At | + + + + + | SODIUM | 134 (L) | 135 - 145 mmol/L | [facility] | + + + + + | POTASSIUM | 6.7 ()Comment: RESULT | 3.5 - 4.9 mmol/L | [facility] | | | READ BACK BY:MYLENE Ty/EMMY | | | | | AT 2122 BY RAFFAELE | | | | |MYLENE Ty/EMMY AT 2122 BY RAFFAELE | | | | | | | | + + + + + | CHLORIDE | 105 | 99 - 109 mmol/L | [facility] | + + + + + | CO2 | 25 | 23 - 32 mmol/L | [facility] | + + + + + | ANION GAP AGAP | 13 | 5 - 20 mmol/L | [facility] | + + + + + | GLUCOSE | 285 (H) | 65 - 99 mg/dL | [facility] | + + + + + | BUN | 28 (H) | 8 - 25 mg/dL | [facility] | + + + + + | CREATININE | 1.7 (H) | 0.70 - 1.30 mg/dL | [facility] | + + + + + | BUN/CREAT | 16 | | [facility] | + + + + + | CALCIUM | 8.5 | 8.5 - 10.5 mg/dL | [facility] | + + + + + | EGFR | 40 (L)Comment: GFR <60: | >60 mL/min/1.73m2 | [facility] | | | CHRONIC KIDNEY [...] the | | | | | MDRD [facility] traceable | | | | | equation. PLEASE NOTE | | | | | NEW CALCULATION | | | | | EFFECTIVE 02/10/2018 | | | | | Testing performed at | | | | | [facility];[address] [place] [address] | | | | | [facility];[place] [address] | | | + + + + + + + | Specimen | + + | Blood | + + + + + + + | Performing | Address | City/State/Zipcode | Phone Number | | Organization | | | | + + + + + | [facility] | [address] | [facility] [address] | | + + + + + Troponin I (03/09/2018 8:44 PM) + + + + + | Component | Value | Ref Range | Performed At | + + + + + | TROPONIN I | <0.020Comment: 0.00 to | 0.00 - 0.10 ng/mL | [facility] | | | 0.10 CONSISTENT [...] | | | | CRITERIA FOR ACUTE [place] | | | | | Testing performed at | | | | | [facility];[address];[place] [address] | | | + + + + + + + | Specimen | + + | Blood | + + + + + + + | Performing | Address | City/State/Zipcode | Phone Number | | Organization | | | | + + + + + | [facility] | [address] | [place] [address] | | + + + + + EKG STANDARD 12 LEAD (03/09/2018 8:37 PM) + + + + + | Component | Value | Ref Range | Performed At | + + + + + | Ventricular Rate | 88 | BPM | [facility] | + + + + + | Atrial Rate | 88 | BPM | [facility] | + + + + + | P-R Interval | 288 | ms | [facility] | + + + + + | QRS Duration | 116 | ms | [facility] | + + + + + | Q-T Interval | 384 | ms | [facility] | + + + + + | QTC Calculation | 464 | ms | [facility] | | (Bezet) | | | | + + + + + | Calculated P [place] | 1 | degrees | [facility] | + + + + + | Calculated R [place] | -37 | degrees | [facility] | + + + + + | Calculated T [place] | 84 | degrees | [facility] | + + + + + | Diagnosis | Sinus rhythm with 1st | | [facility] | | | degree A-V blockLow | | | | | voltage limb leads | | | | | onlyLeft axis | | | | | deviationNonspecific ST | | | | | and/or T wave | | | | | abnormalitiesProlonged | | | | | Q-T intervalAbnormal | | | | | ECGWhen compared with | | | | | ECG of 09-MAR-2018 | | | | | 20:36,No significant | | | | | change was | | | | | foundConfirmed by | | | | | ROSMERY SHELL MD ([id number]) | | | | | on 03/10/2018 7:45:22 PM | | | + + + + + + + + + + | Performing | Address | City/State/Zipcode | Phone Number | | Organization | | | | + + + + + | [facility] | [address] | [place] [address] | | + + + + + POCT glucose (03/09/2018 4:24 PM) + + + + + | Component | Value | Ref Range | Performed At | + + + + + | GLUCOSE,POC SCREEN | 208 (H)Comment: Testing | 65 - 99 mg/dL | [facility] | | | performed at [facility];[address] | | | [address];[place] | | | | | [address] | | | + + + + + + + + + + | Performing | Address | City/State/Zipcode | Phone Number | | Organization | | | | + + + + + | [facility] | [address] | [place] [address] | | + + + + + PROCALCITONIN (03/09/2018 3:26 PM) + + + + + | Component | Value | Ref Range | Performed At | + + + + + | PROCALCITONIN | <0.05Comment: | <0.5 ng/mL | [facility] | | | INTERPRETIVE | | [...] performed | | | | | at [facility];[address] [place] [address] | | | | | [facility];[place] [address] | | | + + + + + + + + + + | Performing | Address | City/State/Zipcode | Phone Number | | Organization | | | | + + + + + | [facility] | [address] | [place] [address] | | + + + + + Basic metabolic panel (03/09/2018 2:34 PM) + + + + + | Component | Value | Ref Range | Performed At | + + + + + | SODIUM | 137 | 135 - 145 mmol/L | [facility] | + + + + + | POTASSIUM | 5.8 (H) | 3.5 - 4.9 mmol/L | [facility] | + + + + + | CHLORIDE | 106 | 99 - 109 mmol/L | [facility] | + + + + + | CO2 | 24 | 23 - 32 mmol/L | [facility] | + + + + + | ANION GAP AGAP | 13 | 5 - 20 mmol/L | [facility] | + + + + + | GLUCOSE | 158 (H) | 65 - 99 mg/dL | [facility] | + + + + + | BUN | 26 (H) | 8 - 25 mg/dL | [facility] | + + + + + | CREATININE | 1.4 (H) | 0.70 - 1.30 mg/dL | [facility] | + + + + + | BUN/CREAT | 19 | | [facility] | + + + + + | CALCIUM | 8.3 (L) | 8.5 - 10.5 mg/dL | [facility] | + + + + + | EGFR | 50 (L)Comment: GFR <60: | >60 mL/min/1.73m2 | [facility] | | | CHRONIC KIDNEY [...] the | | | | | MDRD [facility] traceable | | | | | equation. PLEASE NOTE | | | | | NEW CALCULATION | | | | | EFFECTIVE 02/10/2018 | | | | | Testing performed at | | | | | [facility];[address] | | | | | [address];[place] [address] | | | + + + + + + + | Specimen | + + | Blood | + + + + + + + | Performing | Address | City/State/Zipcode | Phone Number | | Organization | | | | + + + + + | [facility] | [address] | [place] [address] | | + + + + + CBC w/no Diff (03/09/2018 2:34 PM) + + + + + | Component | Value | Ref Range | Performed At | + + + + + | WBC | 6.22 | 3.80 - 11.00 K/uL | [facility] | + + + + + | RBC | 4.17 (L) | 4.20 - 5.70 M/uL | [facility] | + + + + + | HGB | 13.4 | 13.2 - 17.0 g/dL | [facility] | + + + + + | HCT | 40.1 | 39.0 - 50.0 % | [facility] | + + + + + | MCV | 96.3 | 80.0 - 100.0 fl | [facility] | + + + + + | MCH | 32.2 | 27.0 - 34.0 pg | [facility] | + + + + + | MCHC | 33.4 | 32.0 - 35.5 g/dL | [facility] | + + + + + | RDW SD | 49.0 | 37 - 53 fl | [facility] | + + + + + | PLT | 120 (L) | 150 - 400 K/uL | [facility] | + + + + + | MPV | 8.0Comment: Testing | fl | [facility] | | | performed at [facility];[address];[place] | | | | | [address] | | | + + + + + + + + + + | Performing | Address | City/State/Zipcode | Phone Number | | Organization | | | | + + + + + | [facility] | [address] | [place] [address] | | + + + + + Phosphorus (03/09/2018 2:33 PM) + + + + + | Component | Value | Ref Range | Performed At | + + + + + | PHOSPHORUS | 3.4Comment: Testing | 2.3 - 4.8 mg/dL | [facility] | | | performed at [facility];[address] | | | | | [facility], [place] | | | | | [address] | | | + + + + + + + | Specimen | + + | Blood | + + + + + + + | Performing | Address | City/State/Zipcode | Phone Number | | Organization | | | | + + + + + | [facility] | [address] | [place] [address] | | + + + + + Magnesium (03/09/2018 2:33 PM) + + + + + | Component | Value | Ref Range | Performed At | + + + + + | MAGNESIUM | 2.0Comment: Testing | 1.7 - 2.4 mg/dL | [facility] | | | performed at [facility] | | | | | [address] [facility];[place], [place] | | | | | [address] | | | + + + + + + + | Specimen | + + | Blood | + + + + + + + | Performing | Address | City/State/Zipcode | Phone Number | | Organization | | | | + + + + + | [facility] | [address] | [place] [address] | | + + + + + POCT glucose (03/09/2018 2:08 PM) + + + + + | Component | Value | Ref Range | Performed At | + + + + + | GLUCOSE,POC SCREEN | 197 (H)Comment: Testing | 65 - 99 mg/dL | [facility] | | | performed at [facility];[address] | | | | | [facility];[place] | | | | | [address] | | | + + + + + + + + + + | Performing | Address | City/State/Zipcode | Phone Number | | Organization | | | | + + + + + | [facility] | [address] | [place] [address] | | + + + + + CT thoracic lumbar without contrast (05/31/2016 1:06 PM) + + + | Narrative | [...] | + + + + + | [facility] | [address] | [place] [address] | | + + + + + CT head without contrast (05/31/2016 1:05 PM) + + + | Narrative | Performed At | + + + | This is a non-reportable procedure without a radiologist report and | [facility] | | is used for image storage only | [facility] | + + + + + + + + | Performing | Address | City/State/Zipcode | Phone Number | | Organization | | | | + + + + + | [facility] | [address] | [place] [address] | | + + + + + in this encounter Visit Diagnoses + + | Diagnosis | + + | Slurred speech - Primary | + + | Other speech disturbance | + + | Diagnosis unknown | + + | Other unknown and unspecified cause of morbidity or mortality | + + | Hyperkalemia | + + | Hyperpotassemia | + + | Seizure disorder (HCC) | + + | Unspecified epilepsy without mention of intractable epilepsy | + + | HTN (hypertension) | + + | Unspecified essential hypertension | + + | Chronic diastolic heart failure (HCC) | + + | Chronic diastolic heart failure | + + | DM (diabetes mellitus) | + + | Type II or unspecified type diabetes mellitus without mention of complication, not | | stated as uncontrolled | + + | 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) | + + | Morbid obesity (HCC) | + + | Morbid obesity | + + | CKD (chronic kidney disease) stage 3, GFR 30-59 ml/min | + + | Chronic kidney disease, Stage III (moderate) | + + Admitting Diagnoses + + | Diagnosis | + + | Hyperkalemia | + + | Hyperpotassemia | + + | Diagnosis unknown | + + | Other unknown and unspecified cause of morbidity or mortality | + + | stroke | + + Administered Medications + +--------+---------+------+------+------+ [...] (1-3), Fever, Starting Mon | | | 03/09/18 at 1342 | | + +---+ | | | + +---+ + +-------+ +--------+---+---+ | acetaminophen (TYLENOL) tablet | Given | | 650 mg | | | | 650 mg 650 mg, Oral, Every 6 | | 8 03:21 | | | | | Hours PRN, Mild Pain (1-3), | | PDT | | | | | Fever, Starting 03/09/18 at | | | | | | | 1342 | | | | | | + +-------+ +--------+---+---+ +---+---+ | | | +---+---+ + +-------+ +--------+---+---+ | albuterol (PROVENTIL) nebulizer | Given | | 2.5 mg | | | | solution 2.5 mg 2.5 mg, | | 8 05:45 | | | | | Nebulization, Once, 03/10/18 | | PDT | | | | | at 0230, For 1 dose | | | | | | + +-------+ +--------+---+---+ +---+---+ | | | +---+---+ + +-------+ +------+---+---+ | albuterol (PROVENTIL) nebulizer | Given | | 5 mg | | | | solution 5 mg 5 mg, | | 8 23:52 | | | | | Nebulization, Once, 03/09/18 | | PDT | | | | | at 2230, For 1 dose | | | | | | + +-------+ +------+---+---+ +---+---+ | | | +---+---+ + +-------+ +--------+---+---+ | aluminum-magnesium | Given | | 30 mLs | | | | hydroxide-simethicone (MAALOX) | | 8 15:05 | | | | | 200-200-20 MG/5ML suspension 30 | | PDT | | | | | mL 30 mL, Oral, Every 6 Hours | | | | | | | PRN, Indigestion, Starting Mon | | | | | | | 03/09/18 at 1342 | | | | | | + +-------+ +--------+---+---+ +-------+ +--------+---+---+ | Given | | 30 mLs | | | | | 8 21:59 | | | | | | PDT | | | | +-------+ +--------+---+---+ | Given | | 30 mLs | | | | | 8 08:14 | | | | | | PDT | | | | +-------+ +--------+---+---+ +---+---+ | | | +---+---+ + +-------+ +-------+---+---+ | aspirin EC tablet 81 mg 81 mg, | Given | | 81 mg | | | | Oral, Daily, First dose on Mon | | 8 09:30 | | | | | 03/09/18 at 1500 | | PDT | | | | + +-------+ +-------+---+---+ +-------+ +-------+---+---+ | Given | | 81 mg | | | | | 8 08:49 | | | | | | PDT | | | | +-------+ +-------+---+---+ | Given | | 81 mg | | | | | 8 07:49 | | | | | | PDT | | | | +-------+ +-------+---+---+ +---+---+ | | | +---+---+ + +-------+ +---------+---+---+ | budesonide-formoterol | Given | | 2 puffs | | | | (SYMBICORT) 160-4.5 MCG/ACT | | 8 08:48 | | | | | inhaler 2 puff 2 puff, | | PDT | | | | | Inhalation, 2 Times Daily, First | | | | | | | dose on 03/09/18 at 2100 | | | | | | + +-------+ +---------+---+---+ +-------+ +---------+---+---+ | Given | | 2 puffs | | | | | 8 20:32 | | | | | | PDT | | | | +-------+ +---------+---+---+ | Given | | 2 puffs | | | | | 8 07:47 | | | | | | PDT | | | | +-------+ +---------+---+---+ +---+---+ | | | +---+---+ + +-------+ +--------+---+---+ | buPROPion (WELLBUTRIN SR) 12 hr | Given | | 200 mg | | | | tablet 200 mg 200 mg, Oral, | | 8 09:30 | | | | | Every Morning, First dose on Fri | | PDT | | | | | 03/10/18 at 0900 | | | | | | + +-------+ +--------+---+---+ +-------+ +--------+---+---+ | Given | | 200 mg | | | | | 8 08:50 | | | | | | PDT | | | | +-------+ +--------+---+---+ | Given | | 200 mg | | | | | 8 07:47 | | | | | | PDT | | | | +-------+ +--------+---+---+ +---+---+ | | | +---+---+ + +-------+ + +---+---+ | calcium carbonate (TUMS) | Given | | 1,000 mg | | | | chewable tablet 1,000 mg 1,000 | | 8 08:14 | | | | | mg, Oral, Every 6 Hours PRN, | | PDT | | | | | Indigestion, Starting 03/09/18 | | | | | | | at 1342 | | | | | | + +-------+ + +---+---+ +---+---+ | | | +---+---+ + +---------+ + +-------+---+ | calcium gluconate 1,000 mg in | New Bag | | 1,000 mg | 100 | | | dextrose 5 % 100 mL IVPB 1,000 | | 8 22:28 | | mL/hr | | | mg (1 g), Intravenous, Administer | | PDT | | | | | over 60 Minutes, Once, Mon | | | | | | | 03/09/18 at 2230, For 1 dose | | | | | | + +---------+ + +-------+---+ +---+---+ | | | +---+---+ + +-------+ + +---+---+ | calcium gluconate 10 % | Given | | 1,000 mg | | | | injection 1,000 mg 1,000 mg (1 | | 8 03:22 | | | | | g), Intravenous, Once, Tue | | PDT | | | | | 03/10/18 at 0300, For 1 dose | | | | | | + +-------+ + +---+---+ +---+---+ | | | +---+---+ + +-------+ +--------+---+---+ | carBAMazepine (TEGretol) tablet | Given | | 200 mg | | | | 200 mg 200 mg, Oral, 3 Times | | 8 13:09 | | | | | Daily, First dose on Fri03/09/18 | | PDT | | | | | at 1630 | | | | | | + +-------+ +--------+---+---+ +-------+ +--------+---+---+ | Given | | 200 mg | | | | | 8 20:32 | | | | | | PDT | | | | +-------+ +--------+---+---+ | Given | | 200 mg | | | | | 8 05:01 | | | | | | PDT | | | | +-------+ +--------+---+---+ +---+---+ | | | +---+---+ + +-------+ +-------+---+---+ | clopidogrel (PLAVIX) tablet 75 | Given | | 75 mg | | | | mg 75 mg, Oral, Daily, First | | 8 09:30 | | | | | dose on 03/09/18 at 1500 | | PDT | | | | + +-------+ +-------+---+---+ +-------+ +-------+---+---+ | Given | | 75 mg | | | | | 8 08:50 | | | | | | PDT | | | | +-------+ +-------+---+---+ | Given | | 75 mg | | | | | 8 07:50 | | | | | | PDT | | | | +-------+ +-------+---+---+ + +---+ | | | + +---+ | dextrose 10 % infusion at | | | 0-100 mL/hr, Intravenous, | | | Continuous PRN, Hypoglycemia, | | | Starting Fri03/09/18 at 1421, For | | | BG 70 or less run infusion at | | | 100 mL/ hr. Discontinue when BG | | | increases to 100 mg/dl or greater | | | x 2-3 hours and patient is | | | eating. Call provider if BG not | | | maintained after 2-3 hours. | | + +---+ | | | + +---+ | dextrose 50 % solution 12 mL | | | 12 mL, Intravenous, PRN, | | | Hypoglycemia (BG < 70 mg/dL), | | | Starting 03/09/18 at 1421 | | + +---+ | | | + +---+ + +-------+ +------+---+---+ | dextrose 50 % solution 25 g 25 | Given | | 25 g | | | | g, Intravenous, Once, Mon | | 8 22:30 | | | | | 03/09/18 at 2230, For 1 dose | | PDT | | | | + +-------+ +------+---+---+ +---+---+ | | | +---+---+ + +-------+ +------+---+---+ | dextrose 50 % solution 25 g 25 | Given | | 25 g | | | | g, Intravenous, Once, Tue | | 8 03:09 | | | | | 03/10/18 at 0230, For 1 dose | | PDT | | | | + +-------+ +------+---+---+ + +---+ | | | + +---+ | dextrose 50 % solution 25 mL | | | 25 mL, Intravenous, PRN, | | | Hypoglycemia (BG < 70 mg/dL), | | | Starting 03/09/18 at 1421 | | + +---+ | | | + +---+ + +-------+ +--------+---+---+ | | Given | | 15 mLs | | | | [id number] | | 8 18:46 | | | | | oral solution 15 mL 15 mL, Swish | | PDT | | | | | & Spit, Every 6 Hours Abril RALPH | | | | | | | Throat, Starting 03/11/18 at | | | | | | | 1318 | | | | | | + +-------+ +--------+---+---+ +---+---+ | | | +---+---+ + +-------+ +--------+---+---+ | docusate sodium (COLACE) | Given | | 100 mg | | | | capsule 100 mg 100 mg, Oral, 2 | | 8 08:50 | | | | | Times Daily, First dose on Mon | | PDT | | | | | 03/09/18 at 1430 | | | | | | + +-------+ +--------+---+---+ +-------+ +--------+---+---+ | Given | | 100 mg | | | | | 8 20:31 | | | | | | PDT | | | | +-------+ +--------+---+---+ | Given | | 100 mg | | | | | 8 07:50 | | | | | | PDT | | | | +-------+ +--------+---+---+ + +---+ | | | + +---+ | famotidine (PEPCID) IVPB 20 mg | | | 20 mg, Intravenous, Administer | | | over 30 Minutes, 2 Times Daily, | | | First dose on Fri03/09/18 at 1430 | | + +---+ | | | + +---+ + +-------+ +-------+---+---+ | famotidine (PEPCID) tablet 20 | Given | | 20 mg | | | | mg 20 mg, Oral, 2 Times Daily, | | 8 08:50 | | | | | First dose on Fri03/09/18 at 1430 | | PDT | | | | + +-------+ +-------+---+---+ +-------+ +-------+---+---+ | Given | | 20 mg | | | | | 8 20:32 | | | | | | PDT | | | | +-------+ +-------+---+---+ | Given | | 20 mg | | | | | 8 07:50 | | | | | | PDT | | | | +-------+ +-------+---+---+ +---+---+ | | | +---+---+ + +-------+ +--------+---+---+ | fludrocortisone (FLORINEF) | Given | | 0.1 mg | | | | tablet 0.1 mg 0.1 mg, Oral, | | 8 09:30 | | | | | Daily, First dose on Fri03/09/18 | | PDT | | | | | at 2230 | | | | | | + +-------+ +--------+---+---+ +-------+ +--------+---+---+ | Given | | 0.1 mg | | | | | 8 08:50 | | | | | | PDT | | | | +-------+ +--------+---+---+ | Given | | 0.1 mg | | | | | 8 07:49 | | | | | | PDT | | | | +-------+ +--------+---+---+ +---+---+ | | | +---+---+ + +-------+ +--------+---+---+ | fludrocortisone (FLORINEF) | Given | | 0.1 mg | | | | tablet 0.1 mg 0.1 mg, Oral, | | 8 02:30 | | | | | Once, 03/11/18 at 2300, For 1 | | PDT | | | | | dose | | | | | | + +-------+ +--------+---+---+ +---+---+ | | | +---+---+ + +-------+ +-------+---+---+ | FLUoxetine (PROzac) capsule 20 | Given | | 20 mg | | | | mg 20 mg, Oral, Daily, First | | 8 09:30 | | | | | dose on 03/09/18 at 1500 | | PDT | | | | + +-------+ +-------+---+---+ +-------+ +-------+---+---+ | Given | | 20 mg | | | | | 8 08:50 | | | | | | PDT | | | | +-------+ +-------+---+---+ | Given | | 20 mg | | | | | 8 07:50 | | | | | | PDT | | | | +-------+ +-------+---+---+ +---+---+ | | | +---+---+ + +-------+ +-------+---+---+ | furosemide (LASIX) injection 20 | Given | | 20 mg | | | | mg 20 mg, Intravenous, Once, | | 8 23:43 | | | | | 03/09/18 at 2230, For 1 dose, | | PDT | | | | | After the bolus NS | | | | | | + +-------+ +-------+---+---+ +---+---+ | | | +---+---+ + +-------+ +-------+---+---+ | furosemide (LASIX) injection 40 | Given | | 40 mg | | | | mg 40 mg, Intravenous, Once, | | 8 17:01 | | | | | 03/10/18 at 1600, For 1 dose | | PDT | | | | + +-------+ +-------+---+---+ +---+---+ | | | +---+---+ + +-------+ +-------+---+---+ | furosemide (LASIX) injection 40 | Given | | 40 mg | | | | mg 40 mg, Intravenous, Once, | | 8 09:26 | | | | | 03/11/18 at 0830, For 1 dose | | PDT | | | | + +-------+ +-------+---+---+ + +---+ | | | + +---+ | glucagon (GLUCAGEN) injection | | | 0.5 mg 0.5 mg, Intramuscular, | | | PRN, Hypoglycemia, (BG < 70 | | | mg/dL), Starting Fri03/09/18 at | | | 1421 | | + +---+ | | | + +---+ | glucagon (GLUCAGEN) injection 1 | | | mg 1 mg, Intramuscular, PRN, | | | Hypoglycemia, (BG < 70 mg/dL), | | | Starting Fri03/09/18 at 1421 | | + +---+ | | | + +---+ + +-------+ + +---+---+ | insulin glargine (LANTUS) | Given | | 40 Units | | | | injection 40 Units 40 Units, | | 8 22:44 | | | | | Subcutaneous, 2 Times Daily, | | PDT | | | | | First dose on Fri03/10/18 at 1800 | | | | | | + +-------+ + +---+---+ +---+---+ | | | +---+---+ + +-------+ + +---+---+ | insulin glargine (LANTUS) | Given | | 43 Units | | | | injection 43 Units 43 Units, | | 8 09:31 | | | | | Subcutaneous, 2 Times Daily, | | PDT | | | | | First dose on Fri03/11/18 at 0900 | | | | | | + +-------+ + +---+---+ +---+---+ | | | +---+---+ + +-------+ + +---+---+ | insulin glargine (LANTUS) | Given | | 43 Units | | | | injection 43 Units 43 Units, | | 8 21:49 | | | | | Subcutaneous, Nightly, First dose | | PDT | | | | | on Fri03/11/18 at 2200 | | | | | | + +-------+ + +---+---+ +-------+ + +---+---+ | Given | | 43 Units | | | | | 8 22:14 | | | | | | PDT | | | | +-------+ + +---+---+ +---+---+ | | | +---+---+ + +-------+ + +---+---+ | insulin lispro (human) | Given | | 11 Units | | | | (HUMALOG) injection 0-14 Units | | 8 13:05 | | | | | 0-14 Units, Subcutaneous, 3 Times | | PDT | | | | | Daily Before Meals, First dose | | | | | | | on 03/09/18 at 1630 | | | | | | + +-------+ + +---+---+ +-------+ +---------+---+---+ | Given | | 7 Units | | | | | 8 17:51 | | | | | | PDT | | | | +-------+ +---------+---+---+ | Given | | 7 Units | | | | | 8 06:15 | | | | | | PDT | | | | +-------+ +---------+---+---+ +---+---+ | | | +---+---+ + +-------+ +---------+---+---+ | insulin lispro (human) | Given | | 3 Units | | | | (HUMALOG) injection 0-7 Units | | 8 22:28 | | | | | 0-7 Units, Subcutaneous, Nightly, | | PDT | | | | | First dose on 03/09/18 at | | | | | | | 2200 | | | | | | + +-------+ +---------+---+---+ +-------+ +---------+---+---+ | Given | | 5 Units | | | | | 8 21:48 | | | | | | PDT | | | | +-------+ +---------+---+---+ | Given | | 3 Units | | | | | 8 21:49 | | | | | | PDT | | | | +-------+ +---------+---+---+ +---+---+ | | | +---+---+ + +-------+ + +---+---+ | insulin lispro (human) | Given | | 30 Units | | | | (HUMALOG) injection 30 Units 30 | | 8 13:07 | | | | | Units, Subcutaneous, 3 Times | | PDT | | | | | Daily Before Meals, First dose on | | | | | | | 03/11/18 at 1430 | | | | | | + +-------+ + +---+---+ +-------+ + +---+---+ | Given | | 30 Units | | | | | 8 17:53 | | | | | | PDT | | | | +-------+ + +---+---+ | Given | | 30 Units | | | | | 8 06:17 | | | | | | PDT | | | | +-------+ + +---+---+ +---+---+ | | | +---+---+ + +-------+ + +---+---+ | insulin regular (HUMULIN R) | Given | | 10 Units | | | | injection 10 Units 10 Units, | | 8 22:29 | | | | | Intravenous, Once, 03/09/18 at | | PDT | | | | | 2230, For 1 dose | | | | | | + +-------+ + +---+---+ +---+---+ | | | +---+---+ + +-------+ + +---+---+ | insulin regular (HUMULIN R) | Given | | 10 Units | | | | injection 10 Units 10 Units, | | 8 03:09 | | | | | Intravenous, Once, 03/10/18 at | | PDT | | | | | 0230, For 1 dose | | | | | | + +-------+ + +---+---+ +---+---+ | | | +---+---+ + +-------+ +-------+---+---+ | ipratropium-albuterol (DUO-NEB) | Given | | 3 mLs | | | | 0.5-2.5 mg/3mL nebulizer | | 8 23:49 | | | | | solution 3 mL 3 mL, | | PDT | | | | | Nebulization, Every 4 Hours While | | | | | | | Awake, First dose on Fri03/09/18 | | | | | | | at 1430 | | | | | | + +-------+ +-------+---+---+ +-------+ +-------+---+---+ | Given | | 3 mLs | | | | | 8 07:59 | | | | | | PDT | | | | +-------+ +-------+---+---+ | Given | | 3 mLs | | | | | 8 12:01 | | | | | | PDT | | | | +-------+ +-------+---+---+ +---+---+ | | | +---+---+ + +-------+ +-------+---+---+ | ipratropium-albuterol (DUO-NEB) | Given | | 3 mLs | | | | 0.5-2.5 mg/3mL nebulizer | | 8 07:58 | | | | | solution 3 mL 3 mL, | | PDT | | | | | Nebulization, 4 Times Daily PRN, | | | | | | | Wheezing, Starting Tu03/10/18 at | | | | | | | 1330 | | | | | | + +-------+ +-------+---+---+ +-------+ +-------+---+---+ | Given | | 3 mLs | | | | | 8 19:54 | | | | | | PDT | | | | +-------+ +-------+---+---+ | Given | | 3 mLs | | | | | 8 05:47 | | | | | | PDT | | | | +-------+ +-------+---+---+ +---+---+ | | | +---+---+ + +-------+ +--------+---+---+ | methylPREDNISolone | Given | | 125 mg | | | | (Solu-MEDROL) injection 125 mg | | 8 15:26 | | | | | 125 mg, Intravenous, Once, Mon | | PDT | | | | | 03/09/18 at 1430, For 1 dose | | | | | | + +-------+ +--------+---+---+ +---+---+ | | | +---+---+ + +-------+ + +---+---+ | methylPREDNISolone | Given | | 81.25 mg | | | | (Solu-MEDROL) injection 81.25 mg | | 8 21:17 | | | | | 81.25 mg (rounded from 80 mg), | | PDT | | | | | Intravenous, Every 8 Hours, First | | | | | | | dose on Fri03/09/18 at 2230 | | | | | | + +-------+ + +---+---+ +-------+ + +---+---+ | Given | | 81.25 mg | | | | | 8 05:54 | | | | | | PDT | | | | +-------+ + +---+---+ +---+---+ | | | +---+---+ + +-------+ + +---+---+ | methylPREDNISolone | Given | | 81.25 mg | | | | (Solu-MEDROL) injection 81.25 mg | | 8 05:48 | | | | | 81.25 mg (rounded from 80 mg), | | PDT | | | | | Intravenous, Every 12 Hours, | | | | | | | First dose on Fri03/10/18 at 1800 | | | | | | + +-------+ + +---+---+ +-------+ + +---+---+ | Given | | 81.25 mg | | | | | 8 17:50 | | | | | | PDT | | | | +-------+ + +---+---+ | Given | | 81.25 mg | | | | | 8 05:01 | | | | | | PDT | | | | +-------+ + +---+---+ +---+---+ | | | +---+---+ + +-------+ +------+---+---+ | morphine (PF) injection 2 mg 2 | Given | | 2 mg | | | | mg, Intravenous, Every 2 Hours | | 8 23:05 | | | | | PRN, For pain scale 4 to 5, | | PDT | | | | | Starting 03/09/18 at 1342 | | | | | | + +-------+ +------+---+---+ +-------+ +------+---+---+ | Given | | 2 mg | | | | | 8 09:28 | | | | | | PDT | | | | +-------+ +------+---+---+ | Given | | 2 mg | | | | | 8 04:57 | | | | | | PDT | | | | +-------+ +------+---+---+ +---+---+ | | | +---+---+ + +-------+ +------+---+---+ | morphine (PF) injection 2 mg 2 | Given | | 2 mg | | | | mg, Intravenous, Once, Tue | | 8 13:12 | | | | | 03/10/18 at 1330, For 1 dose | | PDT | | | | + +-------+ +------+---+---+ +---+---+ | | | +---+---+ + +-------+ +------+---+---+ | morphine injection 3 mg 3 mg, | Given | | 3 mg | | | | Intravenous, Every 2 Hours PRN, | | 8 20:17 | | | | | For pain scale 6 to 7, Starting | | PDT | | | | | 03/09/18 at 1342 | | | | | | + +-------+ +------+---+---+ +---+---+ | | | +---+---+ + +-------+ +------+---+---+ | morphine injection 4 mg 4 mg, | Given | | 4 mg | | | | Intravenous, Every 2 Hours PRN, | | 8 17:48 | | | | | For pain scale 8 to 10, Starting | | PDT | | | | | 03/09/18 at 1342 | | | | | | + +-------+ +------+---+---+ +-------+ +------+---+---+ | Given | | 4 mg | | | | | 8 20:33 | | | | | | PDT | | | | +-------+ +------+---+---+ | Given | | 4 mg | | | | | 8 00:38 | | | | | | PDT | | | | +-------+ +------+---+---+ +---+---+ | | | +---+---+ + +-------+ +--------+---+---+ | nitroGLYCERIN (NITROSTAT) SL | Given | | 0.4 mg | | | | tablet 0.4 mg 0.4 mg, | | 8 20:03 | | | | | Sublingual, Every 5 Min PRN, | | PDT | | | | | Chest pain, Starting 03/09/18 | | | | | | | at 2018 | | | | | | + +-------+ +--------+---+---+ +-------+ +--------+---+---+ | Given | | 0.4 mg | | | | | 8 20:19 | | | | | | PDT | | | | +-------+ +--------+---+---+ | Given | | 0.4 mg | | | | | 8 21:44 | | | | | | PDT | | | | +-------+ +--------+---+---+ +---+---+ | | | +---+---+ + +-------+ +---+---+---+ | nystatin (MYCOSTATIN) powder | Given | | | | | | Topical, 2 Times Daily, First | | 8 08:49 | | | | | dose on 03/10/18 at 2100 | | PDT | | | | + +-------+ +---+---+---+ +-------+ +---+---+---+ | Given | | | | | | | 8 20:33 | | | | | | PDT | | | | +-------+ +---+---+---+ | Given | | | | | | | 8 07:52 | | | | | | PDT | | | | +-------+ +---+---+---+ +---+---+ | | | +---+---+ + +-------+ +-------+---+---+ | perflutren lipid microspheres | Given | | 2 mLs | | | | (DEFINITY) injection 2 mL 2 mL, | | 8 10:30 | | | | | Intravenous, Img Once PRN, Other, | | PDT | | | | | during echo, Starting Tue | | | | | | | 03/10/18 at 1013, For 1 dose | | | | | | + +-------+ +-------+---+---+ + +---+ | | | + +---+ | polyethylene glycol (GLYCOLAX) | | | packet 17 g 17 g, Oral, Daily | | | PRN, Constipation, Starting Mon | | | 03/09/18 at 1342 | | + +---+ | | | + +---+ + +-------+ +------+---+---+ | polyethylene glycol (GLYCOLAX) | Given | | 17 g | | | | packet 17 g 17 g, Oral, 2 Times | | 8 20:50 | | | | | Daily, First dose on 03/10/18 | | PDT | | | | | at 1400 | | | | | | + +-------+ +------+---+---+ +-------+ +------+---+---+ | Given | | 17 g | | | | | 8 08:48 | | | | | | PDT | | | | +-------+ +------+---+---+ | Given | | 17 g | | | | | 8 20:33 | | | | | | PDT | | | | +-------+ +------+---+---+ +---+---+ | | | +---+---+ + +-------+ +--------+---+---+ | ranolazine (RANEXA) 12 hr | Given | | 500 mg | | | | tablet 500 mg 500 mg, Oral, 2 | | 8 08:50 | | | | | Times Daily, First dose on Mon | | PDT | | | | | 03/09/18 at 2100 | | | | | | + +-------+ +--------+---+---+ +-------+ +--------+---+---+ | Given | | 500 mg | | | | | 8 20:31 | | | | | | PDT | | | | +-------+ +--------+---+---+ | Given | | 500 mg | | | | | 8 07:48 | | | | | | PDT | | | | +-------+ +--------+---+---+ +---+---+ | | | +---+---+ + +-------+ +-------+---+---+ | rosuvastatin (CRESTOR) tablet | Given | | 40 mg | | | | 40 mg 40 mg, Oral, Daily, First | | 8 09:30 | | | | | dose on 03/09/18 at 1500 | | PDT | | | | + +-------+ +-------+---+---+ +-------+ +-------+---+---+ | Given | | 40 mg | | | | | 8 08:54 | | | | | | PDT | | | | +-------+ +-------+---+---+ | Given | | 40 mg | | | | | 8 07:48 | | | | | | PDT | | | | +-------+ +-------+---+---+ +---+---+ | | | +---+---+ + +-------+ +--------+---+---+ | senna (SENOKOT) 8.6 MG tablet | Given | | 8.6 mg | | | | 8.6 mg 8.6 mg (1 tablet), Oral, | | 8 08:50 | | | | | 2 Times Daily, First dose on Mon | | PDT | | | | | 03/09/18 at 2100 | | | | | | + +-------+ +--------+---+---+ +-------+ +--------+---+---+ | Given | | 8.6 mg | | | | | 8 20:31 | | | | | | PDT | | | | +-------+ +--------+---+---+ | Given | | 8.6 mg | | | | | 8 07:49 | | | | | | PDT | | | | +-------+ +--------+---+---+ +---+---+ | | | +---+---+ + +-------+ +---------+---+---+ | sodium chloride (bolus) 0.9 % | Given | | 500 mLs | | | | 500 mL 500 mL, Intravenous, | | 8 22:28 | | | | | Administer over 60 Minutes, Once, | | PDT | | | | | 03/09/18 at 2230, For 1 dose | | | | | | + +-------+ +---------+---+---+ +---+---+ | | | +---+---+ + +-------+ +--------+---+---+ | sodium chloride (PF) 0.9 % | Given | | 10 mLs | | | | flush 10 mL 10 mL, Intravenous, | | 8 16:50 | | | | | Every 8 Hours, First dose on Mon | | PDT | | | | | 03/09/18 at 1430 | | | | | | + +-------+ +--------+---+---+ +-------+ +--------+---+---+ | Given | | 10 mLs | | | | | 8 21:55 | | | | | | PDT | | | | +-------+ +--------+---+---+ | Given | | 10 mLs | | | | | 8 05:50 | | | | | | PDT | | | | +-------+ +--------+---+---+ +---+---+ | | | +---+---+ + +-------+ +--------+---+---+ | sodium chloride 0.9 % flush 10 | Given | | 10 mLs | | | | mL 10 mL, Intravenous, PRN, Line | | 8 10:31 | | | | | Care, Starting 03/10/18 at | | PDT | | | | | 1013 | | | | | | + +-------+ +--------+---+---+ +---+---+ | | | +---+---+ + +---------+ +---+-------+---+ | sodium chloride 0.9 % infusion | New Bag | | | 125 | | | at 125 mL/hr, Intravenous, | | 8 22:28 | | mL/hr | | | Continuous, Starting 03/09/18 | | PDT | | | | | at 2230 | | | | | | + +---------+ +---+-------+---+ +---------+ +---+-------+---+ | New Bag | | | 125 | | | | 8 17:06 | | mL/hr | | | | PDT | | | | +---------+ +---+-------+---+ | New Bag | | | 125 | | | | 8 01:12 | | mL/hr | | | | PDT | | | | +---------+ +---+-------+---+ +---+---+ | | | +---+---+ + +---------+ +---+-------+---+ | sodium chloride 0.9 % infusion | New Bag | | | 100 | | | at 100 mL/hr, Intravenous, | | 8 23:05 | | mL/hr | | | Continuous, Starting 03/11/18 | | PDT | | | | | at 2300 | | | | | | + +---------+ +---+-------+---+ +---------+ +---+-------+---+ | New Bag | | | 100 | | | | 8 20:44 | | mL/hr | | | | PDT | | | | +---------+ +---+-------+---+ +---+---+ | | | +---+---+ + +-------+ +------+---+---+ | sodium polystyrene sulfonate | Given | | 15 g | | | | (KAYEXALATE) 15 GM/60ML | | 8 03:09 | | | | | suspension 15 g 15 g, Oral, | | PDT | | | | | Once, Laurie 03/10/18 at 0230, For 1 | | | | | | | dose | | | | | | + +-------+ +------+---+---+ +---+---+ | | | +---+---+ + +-------+ +------+---+---+ | sodium polystyrene sulfonate | Given | | 15 g | | | | (KAYEXALATE) 15 GM/60ML | | 8 23:00 | | | | | suspension 15 g 15 g, Oral, | | PDT | | | | | Once, 03/11/18 at 2300, For 1 | | | | | | | dose | | | | | | + +-------+ +------+---+---+ +---+---+ | | | +---+---+ + +-------+ +--------+---+---+ | tamsulosin (FLOMAX) capsule 0.4 | Given | | 0.4 mg | | | | mg 0.4 mg, Oral, After Dinner, | | 8 13:02 | | | | | First dose on [facility] 03/12/18 at 1130 | | PDT | | | | + +-------+ +--------+---+---+ +---+---+ | | | +---+---+ + +-------+ +---+---+---+ | urea (CARMOL) 20 % cream | Given | | | | | | Topical, Daily, First dose on Fri | | 8 09:31 | | | | | 03/11/18 at 1000, Apply to | | PDT | | | | | bilateral feet and legs daily or | | | | | | | PRN when dry. | | | | | | + +-------+ +---+---+---+ +-------+ +---+---+---+ | Given | | | | | | | 8 08:48 | | | | | | PDT | | | | +-------+ +---+---+---+ | Given | | | | | | | 8 07:53 | | | | | | PDT | | | | +-------+ +---+---+---+ +---+---+ | | | +---+---+ in this encounter"
--- OUTSIDE RECORDS SUMMARY | ~2018-05-07 | XMS | Clinical Summary ---
Demographics + + + | Address | [address] | | | [place] [address] | + + + | Home Phone | | + + + | Preferred Language | Unknown | + + + | Marital Status | | + + + | Orthodox Affiliation | 1073 | + + + | Race | Unknown | + + + | Ethnic Group | Unknown | + + + Author + + + | Author | Courtney Invodo | + + + | Organization | [facility] | + + + | Address | Unknown | + + + | Phone | Unavailable | + + + Support + + + + + | Name | Relationship | Address | Phone | + + + + + | Rosa Fiore | ECON | [address] | | | | | [place] [address] | | + + + + + Care Team Providers + +------+ + | Care Answering Service Operator Name | Role | Phone | + [...] 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 In | | | [place] | | | last was | | [...] | | | pain | | | NE, old | | | | | | [...] | | | [facility] | | | 03/10/08295 | | | 6 | | | 03/09/53715 | | | 4 WBC 9.23 | [...] | | performed | | | at [facility] [facility] | | | [...] | | | Accession: | | | [id number] | | | Performing | | | [...] | | 2.78 m/s | | | Call Worker | | | : KVW | | [...] | | | PA[address] | | | [place] | | | DriveWalla | | | [place] | | | [phone] | | | [phone] [phone] | | | weekPatrick | | | W Jamel, | | | [address] | | | [address] | | | [address] | | | [place] | | | [phone] | | | [phone] 1 | | | weekurinary | | | | | | retentionFa | | | napoleon Arif, | | | MD[address] | | | [place] | | | [place] | | | [place] | | | [phone] | | | [phone] 2 | | [...] | | Results for this | | ([facility] ONLY) | | 7:25 PM | [...] Testing | 65 - 99 mg/dL | [facility] | | | performed at [facility] | | | | | [address];[place] | | | | | [address] | | | + + + + + + + + + + | Performing | Address | City/State/Zipcode | Phone Number | | Organization | | | | + + + + + | [facility] | [address] | [place] [address] | | + + + + + Troponin I (03/18/2018 11:51 AM)Only the most recent of 7 results within the time period is included. + + + + + | Component | Value | Ref Range | Performed At | + + + + + | TROPONIN I | <0.020Comment: 0.00 to | 0.00 - 0.10 ng/mL | [facility] | | | 0.10 CONSISTENT [...] | | | | CRITERIA FOR ACUTE NE | | | | | Testing performed at | | | | | [facility];[address] [place] [address] | | | | | [facility];[place] [address] | | | + + + + + + + | Specimen | + + | Blood | + + + + + + + | Performing | Address | City/State/Zipcode | Phone Number | | Organization | | | | + + + + + | [facility] | [address] | [place] [address] | | + + + + + [...] | [facility] | | | performed at [facility], [address] | | LABORATORY | | | [address], | | | | | [place] [address] | | | + + + + + + + | Specimen | + + | Blood | + + + + + + + | Performing | Address | City/State/Zipcode | Phone Number | | Organization | | | | + + + + + | [facility] | [address] | [place] [address] | [phone] | | LABORATORY | [address] | | [...] (H) | 0.70 - 1.30 mg/dL | [facility] | | | | | LABORATORY | + + + + + | BUN/CREAT | 22 | | [facility] | | | | | LABORATORY | + + + + + | CALCIUM | 8.7 | 8.5 - 10.5 mg/dL | [facility] | | | | | LABORATORY | + + + + + | EGFR | 47 (L)Comment: GFR <60: | >60 mL/min/1.73m2 | [facility] | | | CHRONIC KIDNEY DISEASE, | [...] | | | | | performed at [facility], [address] | | | | | [facility], | | | | | [place] [address] | | | + + + + + + + | Specimen | + + | Blood | + + + + + + + | Performing | Address | City/State/Zipcode | Phone Number | | Organization | | | | + + + + + | [facility] | [address] | [place] [address] | [phone] | | LABORATORY | [address] | | [...] + + + + | Calculated P [place] | 47 | degrees | [facility] | + + + + + | Calculated R [place] | -7 | degrees | [facility] | + + + + + | Calculated T [place] | 109 | degrees | [facility] [...] | + + + + + | [facility] | [address] | [place] [address] | | + + + + + Phosphorus (03/17/2018 5:58 AM)Only the most recent of 2 results within the time period is included. + + + + + | Component | Value | Ref Range | Performed At | + + + + + | PHOSPHORUS | 4.2Comment: Testing | 2.3 - 4.8 mg/dL | [facility] | | | performed at [facility], [address] | | LABORATORY | | | [facility] [address], | | | | | [place] [address] | | | + + + + + + + | Specimen | + + | Blood | + + + + + + + | Performing | Address | City/State/Zipcode | Phone Number | | Organization | | | | + + + + + | [facility] | [address] | [place] [address] | [phone] | | LABORATORY | Blvd. | | [...] | [facility] | | | performed at [facility], [address] | | LABORATORY | | | [facility], | | | | | [place] [address] | | | + + + + + + + | Specimen | + + | Blood | + + + + + + + | Performing | Address | City/State/Zipcode | Phone Number | | Organization | | | | + + + + + | [facility] | [address] | [place] [address] | [phone] | | LABORATORY | Blvd. | | [...] 6.0 % | [facility] | | | [facility] | | LABORATORY | | | [...] | | | | | performed at [facility], [address] | | | | | [facility], | | | | | [place] [address] | | | + + + + + + + | Specimen | + + | Blood | + + + + + + + | Performing | Address | City/State/Zipcode | Phone Number | | Organization | | | | + + + + + | [facility] | [address] | [place] [address] | [phone] | | LABORATORY | Blvd[address] | | [...] | [address] | [place] [address] | | + + + + + [facility] Cardiac Panel ([facility]) (03/16/2018 7:25 PM) + + + + + | Component | Value | Ref Range | Performed At | + + + + + | WBC | 14.98 (H) | 3.80 - 11.00 K/uL | [facility] | + + + + + | RBC | 3.72 (L) | 4.20 - 5.70 M/uL | [facility] | + + + + + | HGB | 12.0 (L) | 13.2 - 17.0 g/dL | [facility] | + + + + + | HCT | 35.9 (L) | 39.0 - 50.0 % | [facility] | + + + + + | MCV | 96.4 | 80.0 - 100.0 fl | [facility] | + + + + + | MCH | 32.2 | 27.0 - 34.0 pg | [facility] | + + + + + | MCHC | 33.4 | 32.0 - 35.5 g/dL | [facility] | + + + + + | RDW SD | 49.0 | 37 - 53 fl | [facility] | + + + + + | PLT | 110 (L) | 150 - 400 K/uL | [facility] | + + + + + | MPV | 8.4 | fl | [facility] | + + + + + | DIFF TYPE | AUTOMATED | | [facility] | + + + + + [...] | RBC AND PLT MORPHOLOGY | | [facility] | | | APPEAR NORMAL | | | + + + + + | Platelet Estimate | ADEQUATE | | [facility] | + + + + + | Diff Comment | SLIDE SCANNED, AGREES | | [facility] | | | WITH AUTOMATED RESULTS. | | | + + + + + | SODIUM | 137 | 135 - 145 mmol/L | [facility] | + + + + [...] 3.4 | 1.3 - 4.9 g/dL | [facility] | + + + + + | A/G | 0.8 (L) | 1.0 - 2.4 | [facility] | + + + + + | TBIL | 0.2 | 0.1 - 1.5 mg/dL | [facility] | + + + + + | ALK PHOS | 88 | 35 - 115 U/L | [facility] | + + + + + | AST | 29 | 10 - 45 U/L | [facility] | + + + + + | ALT | 51 | 10 - 65 U/L | [facility] | + + + + + | EGFR | 47 (L)Comment: GFR <60: | >60 mL/min/1.73m2 | [facility] | | | CHRONIC KIDNEY [...] 149 | 55 - 400 U/L | [facility] | + + + + + | TROPONIN I | 0.02Comment: 0.00 to | 0.00 - 0.10 ng/mL | [facility] | | | 0.10 CONSISTENT WITH | | | | | NORMAL POPULATION0.11 | | | | | to 0.60 CONSISTENT | | | | | WITH INCREASED RISK FOR | | | | | ADVERSE OUTCOMES> | | | | | 0.60 | | | | | CONSISTENT WITH WHO | | | | | CRITERIA FOR ACUTE NE | | | + + + + + | INR | 0.9Comment: REFERENCE | | [facility] | | | RANGE:0.9 - [...] 26 | 23 - 32 seconds | [facility] | + + + + + | MMB | 7.4 (H) | 0.5 - 3.6 ng/mL | [facility] | + + + + + | CK-MB Index | 5.0Comment: CK INDEX | | [facility] | | | INTERPRETATION: | [...] performed at [facility];[employer] | | | | | [address];[place], [place] | | | | | [address] | | | + + + + + + + + + + | Performing | Address | City/State/Zipcode | Phone Number | | Organization | | | | + + + + + | [facility] | [address] | [place] [address] | | + + + + + [...] + + + + | Calculated P [place] | 49 | degrees | [facility] | + + + + + | Calculated R [place] | -31 | degrees | [facility] | + + + + + | Calculated T [place] | 81 | degrees | [facility] [...] -COMPUTER (500), | | | | | assistant film editor Jak Davis | | | | | Tristan (123) on 03/17/2018 | | | | | 2:29:46 AM | | | + + + + + + + + + + | Performing | Address | City/State/Zipcode | Phone Number | | Organization | | | | + + + + + | [facility] | [address] | [place] [address] | | + + + + + Urinalysis (reflex to microscopic/reflex to culture) (03/16/2018 6:44 PM) + + + + + | Component | Value | Ref Range | Performed At | + + + + + | COLOR UA | YELLOW | | [facility] | + + + + + | CLARITY | CLOUDY | | [facility] | + + + + + | Specific Irene, UA | 1.018 | 1.002 - 1.030 | [facility] | + + + + + | LEUKOCYTE ESTERASE | LARGE (A) | NEGATIVE | [facility] | + + + + + | NITRITE | NEGATIVE | NEGATIVE | [facility] | + + + + + | UROBILINOGEN | NORMAL | <1.1 mg/dL | [facility] | + + + + + [...] EPITHELIAL | 11-15Comment: Testing | /lpf | [facility] | | | performed at [facility];[address] | | | | | [address];[place] | | | | | [address] | | | + + + + + + + | Specimen | + + | Urine, Catheter | + + + + + + + | Performing | Address | City/State/Zipcode | Phone Number | | Organization | | | | + + + + + | [facility] | [address] | [place] [address] | | + + + + + [...] | + + + + + | [facility] | [address] | [place] [address] | [phone] | | LABORATORY | [address]vd[address] | | | + + + + + ED INFORMATION EXCHANGE (03/16/2018 5:44 PM) + + + | Narrative | Performed At | + + + | [id number] This patient has registered at the | ED | | [facility] Emergency Department For more | INFORMATION | | information visit: | EXCHANGE | | [email or web address] | | | [phone] Security Events No recent Security Events currently on file | | | ED Care Guidelines from [facility] Last | | | Updated: 01/28/17 1:11 PM Care Coordination: This patient has | | | been identified as havingor moreDepartment visits in this calendar | | | year.Patient requires education on appropriate ED usage.Emphasize the | | | importance of using outpatient medical services for the treatment of | | | chronic conditions. [facility], | | | at [phone] or [phone] if patient is seen in ED. These are | | | guidelines and the provider should exercise clinical judgment when | | | providing care. Recent Emergency Department Visit Summary Admit | | | Date Facility City State Type Major Type Diagnoses or Chief Complaint | | | [facility] [place] [facility] [place] [facility] Emergency Chief Complaint: | | | [facility]ED [facility] [place] 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 Emergency Emergency Chief | | | Complaint: CHEST PAIN [facility] 08[facility] [place] [facility] 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 | | | Emergency Emergency Chief Complaint: CHEST PAIN January 25, | | | 2017 [facility] 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 | | | Visit Count (12 mo.) Facility Visits Low Acuity [facility] | | | [facility] 6 0 [facility] 1 0 [facility] | | | [facility] [address] [facility] | | | 1 0 [facility] 1 0 Total 25 0 Note: Visits | | | indicate total known visits. Medicaid Low Acuity Dx are the number of | | | primary diagnoses on the Medicaid's Low Acuity dx list. Recent | | | Inpatient Visit Summary Admit Date Facility City State Type Major | | | Type Diagnoses or Chief Complaint Mar 09, 2018 [facility] | | | [facility] Inpatient stroke | | | Illness, unspecified Hyperkalemia PDMP Report PDMP | | | query found no report. Care Providers Provider PRC Type Phone Fax | | | Service Dates YORDY Mike Case or Digital Production Manager | | | Current Known Aliases [...] for additional information. | | | 2018 [email or web address] - [place], [place] - | | | [email or web address] | | + + + + + | Procedure Note | + + | Interface, Lab - 03/16/2018 5:44 PM PDT Formatting of this note may be different | | from the original.[id number] patient has registered at the [facility] | | [facility] Emergency Department For more information visit: | | [email or web address] Security | | EventsNo recent Security Events currently on fileED Care Guidelines from [facility] | | [facility] Updated: 01/28/17 1:11 PM Care Coordination:This patient has been | | identified as havingor moreDepartment visits in this calendar year.Patient requires | | education on appropriate ED usage.Emphasize the importance of using outpatient medical | | services for the treatment of chronic conditions.Please contact Community Health Worker, | | Summer, at [phone] or [phone] if patient is seen in ED.These are guidelines | | and the provider should exercise clinical judgment when providing care.Recent Emergency | | Department Visit SummaryAdmit Date Facility City State Type Major Type Diagnoses or | | Chief Complaint Mar 16, 2018 [facility] [place] Emergency Emergency [place] | | 2017 [facility] [place] Emergency Emergency Chief Complaint: | | NOSEBLEED Mar 09, 2018 [facility] [place] Emergency Emergency | | Headache Type 2 diabetes mellitus with hypoglycemia without coma Cerebral | | infarction, unspecified Chronic obstructive pulmonary disease, unspecified Long | | term (current) use of insulin Gastro-esophageal reflux disease without esophagitis | | Localized edema Essential (primary) hypertension Hyperlipidemia, unspecified | | Atherosclerotic heart disease of minto coronary artery without angina pectoris Mar 02, | | 2017 [facility] [place] Emergency Emergency Gastro-esophageal | | reflux disease without esophagitis Allergy status to other drugs, medicaments and | | biological substances status Hyperlipidemia, unspecified Other shelter (current) | | drug therapy Chronic obstructive pulmonary disease, unspecified Type 2 diabetes | | mellitus without complications ehs specialist (current) use of aspirin Localized edema | | prison (current) use of insulin Venous insufficiency (chronic) (peripheral) | | Feb 17, 2018 [facility] [place] Emergency Emergency Chief | | Complaint: CHEST PAIN February 08, 2018 [facility] [place] Emergency | | Emergency Chronic obstructive pulmonary disease, unspecified Atherosclerotic heart | | disease of minto coronary artery without angina pectoris Other chest pain Cough | | Type 2 diabetes mellitus without complications Hyperlipidemia, unspecified | | Other shelter (current) drug therapy Venous insufficiency (chronic) (peripheral) | | Localized edema Allergy status to other drugs, medicaments and biological substances | | status January 27, 2018 [facility] [place] Emergency Emergency | | Chief Complaint: CHEST PAIN January 25, 2018 [facility] 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 Emergency Emergency Unspecified open wound, | | unspecified foot, initial encounter prison (current) use of insulin prison | | (current) use of aspirin Other chest pain Atherosclerotic heart disease of minto | | coronary artery without angina pectoris Dyspnea, unspecified Other shelter | | (current) drug therapy Type 2 diabetes mellitus without complications | | Atrioventricular block, first degree Chronic obstructive pulmonary disease, | | unspecified Dec 28, 2017 [facility] 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 Emergency Emergency | | Acute upper respiratory infection, unspecified Dependence on supplemental oxygen | | Atherosclerotic heart disease of minto coronary artery without angina pectoris | | Hyperlipidemia, unspecified Other crankshaft straightener (current) drug therapy Chronic | | obstructive pulmonary disease, unspecified Dyspnea, unspecified Gastro-esophageal | | reflux disease without esophagitis prison (current) use of insulin Acute | | tracheitis without obstruction E.D. Visit Count (12 mo.)Facility Visits Low Acuity [facility] | | [facility] 6 0 [facility] [address] [facility] | | [facility] [address] [facility] 1 0 [facility] | | 1 0 Total 25 0 Note: Visits indicate total known visits. Medicaid Low Acuity Dx are the | | number of primary diagnoses on the Medicaid's Low Acuity dx list. Recent Inpatient | | Visit SummaryAdmit Date Facility City State Type Major Type Diagnoses or Chief Complaint | | Mar 09, 2018 [facility] | | Illness, unspecified Hyperkalemia PDMP ReportPDMP query found no report.Care | | ProvidersProvider PRC Type Phone Fax Service Dates YORDY Mike Case or Care | | Policy Service Coordinator Current Known AliasesNo known aliases. Criteria | [...] facilities for | | additional information. 2018 [employer] [place], [place] | | - [email or web address] | | Dyspnea, unspecified | | Other crankshaft straightener (current) drug therapy | | Type 2 diabetes mellitus without complications | | Atrioventricular block, first degree | | Chronic obstructive pulmonary disease, unspecified | | | |[facility] [place] [place] [facility] | | Other crankshaft straightener (current) drug therapy | | Chronic obstructive pulmonary disease, unspecified | | Atherosclerotic heart disease of minto coronary artery without angina pectoris | | Type 2 diabetes mellitus without complications | | ehs specialist (current) use of insulin | | Other specified symptoms and signs involving the circulatory and respiratory systems | | Dependence on supplemental oxygen | | Wheezing | | Cough | | Hyperlipidemia, unspecified | | | |Dec 20, 2017 [facility] [place] [facility] Emergency | | Acute upper respiratory infection, unspecified | | Dependence on supplemental oxygen | | Atherosclerotic heart disease of minto coronary artery without angina pectoris | | Hyperlipidemia, unspecified | | Other crankshaft straightener (current) drug therapy | | Chronic obstructive pulmonary disease, unspecified | | Dyspnea, unspecified | | Gastro-esophageal reflux disease without esophagitis | | prison (current) use of insulin | | Acute tracheitis without obstruction | | | | | | | |E.D. Visit Count (12 mo.) | |Facility Visits Low Acuity | |[facility] 6 0 | |[facility] 1 0 | |[facility] 16 0 | |[facility] 1 0 | |[facility] 1 0 | |Total 25 0 | |Note: Visits indicate total known visits. Medicaid Low Acuity Dx are the number of primary diagnoses on the Medicaid's Low Acuity dx list. | | | |Recent Inpatient Visit Summary | |Admit Date Facility City State Type Major Type Diagnoses or Chief Complaint | |Mar 09, 2018 [facility] Kevin Trivedi. [place] General Medicine Inpatient | | stroke | | Illness, unspecified | | Hyperkalemia | | | | | | | |PDMP Report | |PDMP query found no report. | | | |Care Providers | |Provider PRC Type Phone Fax Service Dates | |YORDY Mike Case or Digital Production Manager Current | | | |Known Aliases [...] aforementioned facilities for additional information. | |2018 [employer] - [place], [place] - [email or web address] | + + + +---------+ + + [...] Testing | 65 - 99 mg/dL | [facility] | | | performed at [facility] | | | | [address];[place] | | | | | [address] | | | + + + + + + + + + + | Performing | Address | City/State/Zipcode | Phone Number | | Organization | | | | + + + + + | [facility] | [address] | [place] [address] | | + + + + + Potassium (03/10/2018 5:53 PM)Only the most recent of 2 results within the time period is included. + + + + + | Component | Value | Ref Range | Performed At | + + + + + | POTASSIUM | 5.4 (H)Comment: SLT | 3.5 - 4.9 mmol/L | [facility] | | | HEMOLYSISTesting | | | | | performed at [facility] | | | | | [address];[place] | | | | | [address] | | | + + + + + + + | Specimen | + + | Blood | + + + + + + + | Performing | Address | City/State/Zipcode | Phone Number | | Organization | | | | + + + + + | [facility] | [address] | [place] [address] | | + + + + + [...] | | | head 03/09/2018 performed at [facility]. MRI stroke | | | 09/15/2012 [...] | contrast.COMPARISON:Outside CT head 03/09/2018 performed at [facility]. | | MRI stroke 09/15/2012FINDINGS:Moderate diffuse [...] | + + + + + | [facility] | [address] | [place] [address] | | + + + + + Brain natriuretic peptide (03/10/2018 2:01 PM) + + + + + | Component | Value | Ref Range | Performed At | + + + + + | BRAIN NATRIURETIC | 480 (H)Comment: Testing | 0 - 100 pg/mL | [facility] | | PEPTIDE | performed at [facility];[address] | | | | | [address];[place] | | | | | [address] | | | + + + + + + + | Specimen | + + | Blood | + + + + + + + | Performing | Address | City/State/Zipcode | Phone Number | | Organization | | | | + + + + + | [facility] | [address] | [place] [address] | | + + + + + [...] ADI FIORE Date of : 1950 | [facility] | | Performing Physician: Dejan Shell [...] | | | TR Vmax: 2.78 m/s Call Worker: CHRISTOFER Authenticated by: Dejan | | | Suleman WASSERMAN Report Date/Time: 03-10-2018 17:45:14 | | + + + + + | Procedure Note | + + | Steven Duong In - 03/10/2018 5:50 PM PDT Patient Name: Kevin FIORE of | | : 1950ccession: [id number] Physician: Dejan Shell | | MD INDICATIONS [...] has increased.MEASUREMENTS MOIRA Planimetry: 1.82 | | [id number] Planimetry: 0.00 cm2/m2Ao asc: 2.54 cmAo sinus: [...] (A-L): 22.58 ml/m2LAAs A2C: | | 19.85 [id number] A-L A2C: 61.06 mlLALs A2C: 5.48 cmLAAs A4C: 19.60 [id number] A-L | | A4C: 57.28 mlLALs A4C: 5.69 cmAo Diam: 4.03 cmAV Cusp: 1.26 cmLA Diam: 4.75 | | cmLA/Ao: 1.17 IVC diameter: 2.12 cmIVC collapse: 0.84 cmIVC % collapse: 57.87 | | %HR: 95.98 BPMAV maxP.25 mmHgAV meanP.83 mmHgAV Vmax: 2.96 m/Silva | | Vmean: 2.31 m/Silva VTI: 66.03 cmAVA Vmax: 1.35 cm2AVA (VTI): 1.17 [id number] Vmax: | | 0.00 cm2/m2AVAI (VTI): 0.00 cm2/m2LVCI Dopp: 2.85 l/[id number] Dopp: 7.63 l/minHR: | | 98.22 BPMLVOT maxP.26 mmHgLVOT meanP.37 mmHgLVSI Dopp: 29.11 ml/m2LVSV | | Dopp: 77.72 mlLVOT Vmax: 1.14 m/sLVOT Vmean: 0.87 m/sLVOT VTI: 22.19 cmMV maxPG: | | 19.60 mmHgMV meanP.70 mmHgMV Vmax: 2.21 m/sMV Vmean: 1.39 m/sMV VTI: | | 39.72 cmMVA (VTI): 1.95 lh9Cjurre e': 0.12 m/sLateral e': 0.15 m/sHR: 95.98 [...] |TR Vmax: 2.78 m/s | | | |Call Worker: KVW | |Authenticated by: Dejan Shell MD [...] [facility] | [address] | [place] [address] | | + + + + + [...] | | | | | performed at [facility], [address] | | | | [facility], | | | | | [place] [address] | | | + + + + + + + | Specimen | + + | Urine - Urine, | | Catheter | + + + + + + + | Performing | Address | City/State/Zipcode | Phone Number | | Organization | | | | + + + + + | [facility] | [address] [facility] | [place] [address] | [phone] | | LABORATORY | [address] | | [...] | + + + + + | [facility] | [address] | [place] [address] | | + + + + + [...] + + + + + | [facility] | [address] | [place] [address] | | + + + + + CPK (03/09/2018 8:44 PM) + + + + + | Component | Value | Ref Range | Performed At | + + + + + | CPK | 192Comment: Testing | 55 - 400 U/L | [facility] | | | performed at [facility];[address];[place] | | | | | [address] | | | + + + + + + + + + + | Performing | Address | City/State/Zipcode | Phone Number | | Organization | | | | + + + + + | [facility] | [address] | [place] [address] | | + + + + + PROCALCITONIN (03/09/2018 3:26 PM) + + + + + | Component | Value | Ref Range | Performed At | + + + + + | PROCALCITONIN | <0.05Comment: | <0.5 ng/mL | [facility] | | | INTERPRETIVE | [...] performed | | | | | at [facility];[address] [place] [address] | | | | | Blvd;[place] [address] | | | + + + + + + + + + + | Performing | Address | City/State/Zipcode | Phone Number | | Organization | | | | + + + + + | [facility] | [address] | [facility] [place] [address] | | + + + + + CBC w/no Diff (03/09/2018 2:34 PM) + + + + + | Component | Value | Ref Range | Performed At | + + + + + | WBC | 6.22 | 3.80 - 11.00 K/uL | [facility] | + + + + + | RBC | 4.17 (L) | 4.20 - 5.70 M/uL | [facility] | + + + + + | HGB | 13.4 | 13.2 - 17.0 g/dL | [facility] | + + + + + | HCT | 40.1 | 39.0 - 50.0 % | [facility] | + + + + + | MCV | 96.3 | 80.0 - 100.0 fl | [facility] | + + + + + | MCH | 32.2 | 27.0 - 34.0 pg | [facility] | + + + + + | MCHC | 33.4 | 32.0 - 35.5 g/dL | [facility] | + + + + + | RDW SD | 49.0 | 37 - 53 fl | [facility] | + + + + + | PLT | 120 (L) | 150 - 400 K/uL | [facility] | + + + + + | MPV | 8.0Comment: Testing | fl | [facility] | | | performed at [facility];[address] | | | | | [address];[place] | | | | | [address] | | | + + + + + + + + + + | Performing | Address | City/State/Zipcode | Phone Number | | Organization | | | | + + + + + | [facility] | [address] | [place] [address] | | + + + + + [...] [facility] | [address] | [place] [address] | | + + + + + [...] + + | V[facility]ERANS | [facility] | [phone] | | [phone]- | [employer] [employer] [id number] | | ADMINISTRATION | [place] | | | [phone] | | | [address] | | | | [address] [place], [place] | | | STRATI | | | | [address] | | | ON | | | | | + +--------+ +------+ + + | [place] | [place] | [phone] | | +- | [employer] [id number] | | ADMINISTRATION | CHOICE | | | [phone] | | | | | | | [address] [place], [place] | | | | | | | [address] | + +--------+ +------+ + + | MEDICARE | MEDICA | [id number] | | | [address] | | | RE | | | | [place] [phone] | | | PART A | | | | | | | ONLY | | | | | + +--------+ +------+ + + | [place] | [place] | [phone] | | [phone] | [employer] [address] | | ADMINISTRATION | CHOICE | | | [phone] | | | | | | | [address] [place] | | | | | | | [phone] | + +--------+ +------+ + + + [...] | | al/Fam | | 1950 | [phone] | [place] | | | kaye | | | [phone] | [phone] | + +--------+ +--------+ + + | ADI FIORE | Person | Self | [birth year] | Home: | [address] | | | al/Fam | | 1950 | +- | [place], [place] | | | kaye | | | [address] | [phone] | + +--------+ +--------+ + + | ADI FIORE | Vetera | Self | [birth year] | Home: | [address] | | | ns | | 1950 | +- | [place], [place] | | | Admini | | | [address] | [phone] | | | strati | | | | | | | on | | | | | + +--------+ +--------+ + +"
--- OUTSIDE RECORDS SUMMARY | ~2018-05-07 | XMS | Clinical Summary ---
Demographics + + + | Address | [address] | | | [place] [address] | + + + | Home Phone | | + + + | Preferred Language | Unknown | + + + | Marital Status | | + + + | Quaker Affiliation | BAP | + + + [...] Team Providers + +------+ + | Care Trim Mechanic Name | Role | Phone | + +------+ + | No Pcp Per Patient | PP | Unavailable | + +------+ + Source Comments LEXII is fully live on both [facility] Ambulatory and [facility] InPatient.[facility] Allergies Not on File Current Medications Not [...] | [place] | xxxxxxxxx | Agency | [phone] [address] | | ADMINISTRATION | COMMUN | | | [phone] | [place] [address] | | | ITY | | | [...] | 9 | +- | [place] [address] | | | kaye | | | [address] | | + +--------+ +--------+ + + | ADI KHAN | [place] | Self | [birth year] | Home: | [address] | | | [place] | | 1950 | +- | [place] [address] | | | red | | | [address] | | + +--------+ +--------+ + +"
--- OUTSIDE RECORDS SUMMARY | ~2018-05-07 | XMS | Encounter Summary ---
Demographics + + + | Address | [address] | | | [place] [address] | + + + | Home Phone | | + + + | Preferred Language | Unknown | + + + | Marital Status | | + + + | Mormonism Affiliation | [id number] | + + + | Race | Unknown | + + + | Ethnic Group | Unknown | + + + Author + + + | Author | Courtney Fidbacks | + + + | Organization | [facility] [employer] | + + + | Address | Unknown | + + + | Phone | Unavailable | + + + Support + + + + + | Name | Relationship | Address | Phone | + + + + + | Rosa Fiore | ECON | [address] | | | | | [place] [address] | | + + + + + Care Team Providers + +------+ + | Care Revenue Integrity Analyst Name | Role | Phone | + [...] | | Internal | Diagnoses | | [facility] | | | | Medicine | Diagnosis | | [place] | | | | | unknown | | [address] | | | | | stroke | | [address] | | | | | | | [place] | | | | | | | [address] Phone: | | | | | | | [phone] | +--------+--------+ + + + + Encounter Details +--------+ + + + + | Date | Type | Department | Care Team | Description | +--------+ + + + + | 03/09/ | Hospital | Located Within [facility] | Bruce Anne MD | Hyperkalemia | | 2018 - | Encounter | [address] | [address] | (Primary Dx); | | | | [facility] | [place] [address] | Diagnosis unknown | | 03/13/ | | [address] | [phone] | | | 2018 | | [place] [address] | | | | | | [phone] | | | +--------+ + + + [...] note may be different from the original. [facility] Service: Hospitalist Discharge Summary Date of Admission: 03/09/2018 Date of Discharge: 03/12/2018. Discharge Provider: Bruce Anne MD Treatment Team: Consulting Physician: Sai Blackmon MD Admitting Provider: Bruce Anne MD Discharge Diagnoses: Principal Problem: Slurred speech Active Problems: DM (diabetes mellitus) HTN (hypertension) Coronary artery disease involving coronary bypass graft of [place] heart with angina pecto ris (HCC) Chronic [...] stage III, presented with direct transfer from [facility] in [facility] for the concern of stroke. There was also concern that it could also be hypoglycemic event. There's no MRI capability there and so pt came to [facility] for MRI capability. He started having garbled speech since night, and presented to ER in [place] around 0300 hours with significant garbled speech. [...] chills, wt l oss, wt gain. In [place] last was done and shows CK of [...] elevated as would be expected in subac [place] stroke. Urinary retention: We will need to [...] Coronary artery disease with history of CABG 19496 vessels.Last echo was November 2014. La st [...] unspecified HLD (hyperlipidemia) 12/02/2014 Hypertension Joint pain MA, old Other chronic pain Seizure (HCC) 09/15/2012 Sleep apnea Unspecified visual disturbance Past Surgical History Procedure Laterality Date CARDIAC SURGERY CHOLECYSTECTOMY COLONOSCOPY COLONOSCOPY WITH EGD N/A 12/25/2011 Procedure: COLONOSCOPY W/ EGD; Surgeon: Keena Dye MD; Location: [facility]; Serv ice: Gastroenterology; Laterality: N/A; CORONARY [...] COMPARISON: Outside CT head 03/09/2018 performed at [facility]. MRI stroke 0 09/15/2012 FINDINGS: Moderate diffuse [...] as infarct, ischemia or hemorrhage. 2. Minimal heel builder zenon microvascular ischemic scoliosis in the frontal [...] maxP 1.04 mmHg TR Vmax: 2.78 m/s Accounting Associate: CHRISTOFER Authenticated by: Rosmery Shell MD Report [...] Date: 03/12/19 Follow up: JESSE Oliver [address] [facility] [id number] In 1 week Allen Mccullough DO [address] [facility] [address] [facility] [phone] In 1 week urinary retention Sai Blackmon MD [address] [facility] [address] In 2 weeks CKD Medication List [...] the urine, orfoul-smelling urine Date Last Reviewed: 09/15/201619991455-4280 [employer]. [address] [place] [address], [place] [address]. All righ ts reserved. This information is [...] a CAUTI (see above). Date Last Reviewed: 09/15/201619990253-4144 [employer]. [address] [place] [address]. All righ ts reserved. This information is [...] note may be different from the original. [facility] Service: NEPHROLOGY Progress Note Adi Fiore 67 y.o. [id number] 7122/7122-1 male [facility] Day: LOS: 3 days 67-year-old male with past medical history significant for coronary artery disease status p ost CABG 4 vessels done in the past, history of multiple CVAs, COPD, hearing loss, type II diabetes, hypertension, history of seizures, CKD-3 per records reviewed transferred from [facility] in [facility] due to concern for CVA. Labs showed [...] Anxiety Asbestosis(501) Asthma CHF (congestive heart failure) ([facility]) CKD (chronic kidney disease) stage 3, GFR 30-59 ml/min 10/01/2013 COPD (chronic obstructive pulmonary disease) ([facility]) Coronary artery disease Diabetes mellitus type II H/O asbestosis 07/12/2013 Hearing loss Hemorrhage of gastrointestinal tract, unspecified HLD (hyperlipidemia) 12/02/2014 Hypertension Joint pain MA, old Other chronic pain Seizure ([facility]) 09/15/2012 Sleep apnea Unspecified visual disturbance Past Surgical History Procedure Laterality Date CARDIAC SURGERY CHOLECYSTECTOMY COLONOSCOPY COLONOSCOPY WITH EGD N/A 12/25/2011 Procedure: COLONOSCOPY W/ EGD; Surgeon: Keena Dye MD; Location: [facility]; Serv ice: Gastroenterology; Laterality: N/A; CORONARY [...] on file Social History Narrative Lives in [facility], with spouse, walker and wheel chair , had mechanical fall 3 wks ago, full code. 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 Male. Garbled spe ech. Assess for stroke. TECHNIQUE: Imaging was performed on a 1.5 Karen MRI system. Multip lanar sequences were acquired according to a standard department protocol without contrast. COMPARISON: Outside CT head 03/09/2018 performed at [facility]. MRI stroke 0 09/15/2012 FINDINGS: Moderate diffuse [...] as infarct, ischemia or hemorrhage. 2. Minimal heel builder zenon microvascular ischemic scoliosis in the frontal [...] maxP 1.04 mmHg TR Vmax: 2.78 m/s Accounting Associate: CHRISTOFER Authenticated by: Rosmery Shell MD Report [...] artery disease involving coronary bypass graft of [place] heart with angina pecto ris (HCC) Chronic [...] earlier and charting completed later Dictation software, Imagimod, used which may contain error for similar sounding words even af ter review. Personal communication requested for any clarification. Bruce Anne MD - 03/12/2018 7:54 AM PDTFormatting of this note may be different from the original. [facility] Service: Hospitalist Progress Note Hospital Day: [...] hydroxide-simethicone, calcium carbo wyatt, dextrose, dextrose, dextrose, kfkievezwqKEBTD-qunkeg-jlwkjxxvj, glucagon, glucagon, ip ratropium-albuterol, morphine OR morphine [...] rhythm without murmurs, gallops or rubs. ABDOMEN: [place] obese Bowel sound is normoactive, abdomen is [...] radiologist report and is used for image [facility] only Mri Brain Without Contrast Result Date: 03/10/2018 ADI A WHITE MRI BRAIN WO CONTRAST 03/10/2018 3:45 PM HISTORY: 67 years. Male. Amalia wright ech. Assess for stroke. TECHNIQUE: Imaging was performed on a 1.5 Karen MRI system. Multip lanar sequences were acquired according to a standard department protocol without contrast. COMPARISON: Outside CT head 03/09/2018 performed at [facility]. MRI stroke 0 09/15/2012 FINDINGS: Moderate diffuse [...] as infarct, ischemia or hemorrhage. 2. Minimal heel builder zenon microvascular ischemic scoliosis in the frontal [...] maxP 1.04 mmHg TR Vmax: 2.78 m/s Accounting Associate: CHRISTOFER Authenticated by: Rosmery Shell MD Report [...] artery disease involving coronary bypass graft of [place] heart with angina pecto ris (HCC) Chronic [...] elevated as would be expected in subac absent[place]-shawnee stroke. Chest pain: Patient repeatedly complain of [...] whe elchair to be brought up from [facility]. Hospital records reviewed. Labs and radiologic studies [...] note may be different from the original. [facility] Service: NEPHROLOGY Progress Note Adi Fiore 67 y.o. [id number] 7122/7122-1 male [facility] Hospital Day: LOS: 2 days 67-year-old male with past medical history significant for coronary artery disease status p ost CABG 4 vessels done in the past, history of multiple CVAs, COPD, hearing loss, type II diabetes, hypertension, history of seizures, CKD-3 per records reviewed transferred from [facility] in [facility] due to concern for CVA. Labs showed [...] unspecified HLD (hyperlipidemia) 12/02/2014 Hypertension Joint pain MA, old Other chronic pain Seizure (HCC) 09/15/2012 Sleep apnea Unspecified visual disturbance Past Surgical History Procedure Laterality Date CARDIAC SURGERY CHOLECYSTECTOMY COLONOSCOPY COLONOSCOPY WITH EGD N/A 12/25/2011 Procedure: COLONOSCOPY W/ EGD; Surgeon: Keena Dye MD; Location: [facility]; Serv ice: Gastroenterology; Laterality: N/A; CORONARY [...] on file Social History Narrative Lives in [facility], with spouse, walker and wheel chair , had mechanical fall 3 wks ago, full code. 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 Male. Amalia hwang. Assess for stroke. TECHNIQUE: Imaging was performed on a 1.5 Karen MRI system. Multip lanar sequences were acquired according to a standard department protocol without contrast. COMPARISON: Outside CT head 03/09/2018 performed at [facility]. MRI stroke 0 09/15/2012 FINDINGS: Moderate diffuse [...] as infarct, ischemia or hemorrhage. 2. Minimal heel builder zenon microvascular ischemic scoliosis in the frontal [...] Vmean: 2.31 m/s AV VTI: 66.03 cm MIORA Vmax: 1.35 c m2 MOIRA (VTI): 1.17 [...] maxP 1.04 mmHg TR Vmax: 2.78 m/s Accounting Associate: CHRISTOFER Authenticated by: Rosmery Shell MD Report [...] artery disease involving coronary bypass graft of [place] heart with angina pecto ris (HCC) Chronic [...] earlier and charting completed later Dictation software, Imagimod, used which may contain error for similar sounding words even af ter review. Personal communication requested for any clarification. Bruce Anne MD - 03/11/2018 8:01 AM PDTFormatting of this note may be different from the original. [facility] Service: Hospitalist Progress Note Hospital Day: [...] rhythm without murmurs, gallops or rubs. ABDOMEN: [place] obese Bowel sound is normoactive, abdomen is [...] radiologist report and is used for image [facility] only Mri Brain Without Contrast Result Date: 03/10/2018 ADI A WHITE MRI BRAIN WO CONTRAST 03/10/2018 3:45 PM HISTORY: 67 years. Male. Amalia hwang. Assess for stroke. TECHNIQUE: Imaging was performed on a 1.5 Karen MRI system. Multip lanar sequences were acquired according to a standard department protocol without contrast. COMPARISON: Outside CT head 03/09/2018 performed at [facility]. MRI stroke 0 09/15/2012 FINDINGS: Moderate diffuse [...] as infarct, ischemia or hemorrhage. 2. Minimal heel builder zenon microvascular ischemic scoliosis in the frontal [...] maxP 1.04 mmHg TR Vmax: 2.78 m/s Accounting Associate: CHRISTOFER Authenticated by: Rosmery Shell MD Report [...] artery disease involving coronary bypass graft of [place] heart with angina pecto ris (HCC) Chronic [...] elevated as would be expected in subac absentee-shawnee stroke. Chest pain: Patient repeatedly complain of [...] note may be different from the original. [facility] Service: Hospitalist Progress Note Hospital Day: [...] rhythm without murmurs, gallops or rubs. ABDOMEN: [place] obese Bowel sound is normoactive, abdomen is [...] report and is used for image [facility] [employer] only Xr Chest 1 View Result Date: [...] artery disease involving coronary bypass graft of [place] heart with angina pecto ris (HCC) Chronic [...] elevated as would be expected in subac [place] stroke. Chest pain: Patient repeatedly complain of [...] note may be different from the original. [facility] Service: NEPHROLOGY Progress Note Adi Fiore 67 y.o. [id number] 7122/7122-1 male [facility] Day: LOS: 1 day 67-year-old male with past medical history significant for coronary artery disease status p ost CABG 4 vessels done in the past, history of multiple CVAs, COPD, hearing loss, type II diabetes, hypertension, history of seizures, CKD-3 per records reviewed transferred from [facility] in [facility] due to concern for CVA. Labs showed [...] unspecified HLD (hyperlipidemia) 12/02/2014 Hypertension Joint pain MA, old Other chronic pain Seizure (HCC) 09/15/2012 Sleep apnea Unspecified visual disturbance Past Surgical History Procedure Laterality Date CARDIAC SURGERY CHOLECYSTECTOMY COLONOSCOPY COLONOSCOPY WITH EGD N/A 12/25/2011 Procedure: COLONOSCOPY W/ EGD; Surgeon: Keena Dye MD; Location: [facility]; Serv ice: Gastroenterology; Laterality: N/A; CORONARY [...] on file Social History Narrative Lives in [facility], with spouse, walker and wheel chair , had mechanical fall 3 wks ago, full code. 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 aspirin 81 mg Oral Daily [...] QTC Calculation (Bezet) 464 ms Calculated P Black 1 degrees Calculated R Black -37 degrees Calculated T Black 84 degrees Diagnosis Sinus rhythm with 1st [...] QTC Calculation (Bezet) 452 ms Calculated R Black -29 degrees Calculated T Black 88 degrees Diagnosis Sinus rhythm with 1st [...] artery disease involving coronary bypass graft of [place] heart with angina pecto ris (HCC) Chronic [...] earlier and charting completed later Dictation software, Imagimod, used which may contain error for similar [...] (L) | 135 - 145 mmol/L | [facility] | + + + + + | POTASSIUM | 5.0 (H)Comment: SLT | 3.5 - 4.9 mmol/L | [facility] | | | HEMOLYSIS | | | + + + + + | CHLORIDE | 101 | 99 - 109 mmol/L | [facility] | + + + + + | CO2 | 23 | 23 - 32 mmol/L | [facility] | + + + + + | ANION GAP AGAP | 14 | 5 - 20 mmol/L | [facility] | + + + + + | GLUCOSE | 348 (H) | 65 - 99 mg/dL | [facility] | + + + + + | BUN | 32 (H) | 8 - 25 mg/dL | [facility] | + + + + + | CREATININE | 1.5 (H) | 0.70 - 1.30 mg/dL | [facility] | + + + + + | BUN/CREAT | 22 | | [facility] | + + + + + | CALCIUM | 8.0 (L) | 8.5 - 10.5 mg/dL | [facility] | + + + + + | EGFR | 47 (L)Comment: GFR <60: | >60 mL/min/1.73m2 | [facility] | | | CHRONIC [...] | | | | | performed at [facility];[address] | | | | | [address];[place] | | | | | [address] | | | + + + + + + + | Specimen | + + | Blood | + + + + + + + | Performing | Address | City/State/Zipcode | Phone Number | | Organization | | | | + + + + + | [facility] | [address] | [place] [address] | | + + + + + POCT glucose (03/13/2018 5:39 AM) + + + + + | Component | Value | Ref Range | Performed At | + + + + + | GLUCOSE,POC SCREEN | 265 (H)Comment: Testing | 65 - 99 mg/dL | [facility] | | | performed at [facility];[address] | | | | | [address] [facility];[place], [place] | | | | | [address] | | | + + + + + + + + + + | Performing | Address | City/State/Zipcode | Phone Number | | Organization | | | | + + + + + | [facility] | [address] | [place] [address] | | + + + + + POCT glucose (03/12/2018 9:47 PM) + + + + + | Component | Value | Ref Range | Performed At | + + + + + | GLUCOSE,POC SCREEN | 193 (H)Comment: Testing | 65 - 99 mg/dL | [facility] | | | performed at [facility];[address] | | [address];[place] | | | | | [address] | | | + + + + + + + + + + | Performing | Address | City/State/Zipcode | Phone Number | | Organization | | | | + + + + + | [facility] | [address] | [place] [address] | | + + + + + POCT glucose (03/12/2018 5:38 PM) + + + + + | Component | Value | Ref Range | Performed At | + + + + + | GLUCOSE,POC SCREEN | 291 (H)Comment: Testing | 65 - 99 mg/dL | [facility] | | | performed at [facility];[address] | [address];[place], [place] | | | | | [address] | | | + + + + + + + + + + | Performing | Address | City/State/Zipcode | Phone Number | | Organization | | | | + + + + + | [facility] | [address] | [facility] [address] | | + + + + + POCT glucose (03/12/2018 4:44 PM) + + + + + | Component | Value | Ref Range | Performed At | + + + + + | GLUCOSE,POC SCREEN | 300 (H)Comment: Testing | 65 - 99 mg/dL | [facility] | | | performed at [facility];[address] | | | | | [address];[place] | | | | | [address] | | | + + + + + + + + + + | Performing | Address | City/State/Zipcode | Phone Number | | Organization | | | | + + + + + | [facility] | [address] | [place] [address] | | + + + + + POCT glucose (03/12/2018 1:04 PM) + + + + + | Component | Value | Ref Range | Performed At | + + + + + | GLUCOSE,POC SCREEN | 372 (H)Comment: Testing | 65 - 99 mg/dL | [facility] | | | performed at [facility];[address] | | | | | [address];[place] | | | | | [address] | | | + + + + + + + + + + | Performing | Address | City/State/Zipcode | Phone Number | | Organization | | | | + + + + + | [facility] | [address] | [place] [address] | | + + + + + POCT glucose (03/12/2018 11:16 AM) + + + + + | Component | Value | Ref Range | Performed At | + + + + + | GLUCOSE,POC SCREEN | 233 (H)Comment: Testing | 65 - 99 mg/dL | [facility] | | | performed at [facility];[address] | | [address];[place] | | | | | [address] | | | + + + + + + + + + + | Performing | Address | City/State/Zipcode | Phone Number | | Organization | | | | + + + + + | [facility] | [address] | [facility] [place] [address] | | + + + + + Basic metabolic panel (03/12/2018 8:18 AM) + + + + + | Component | Value | Ref Range | Performed At | + + + + + | SODIUM | 133 (L) | 135 - 145 mmol/L | [facility] | + + + + + | POTASSIUM | 4.7 | 3.5 - 4.9 mmol/L | [facility] | + + + [...] (H) | 0.70 - 1.30 mg/dL | [facility] | + + + + + | BUN/CREAT | 22 | | [facility] | + + + + + | CALCIUM | 8.2 (L) | 8.5 - 10.5 mg/dL | [facility] | + + + + + | EGFR | 47 (L)Comment: GFR <60: | >60 mL/min/1.73m2 | [facility] | | | CHRONIC [...] | | | | | performed at [facility] | | | | | [facility];[place], [place] | | | | | [address] | | | + + + + + + + | Specimen | + + | Blood | + + + + + + + | Performing | Address | City/State/Zipcode | Phone Number | | Organization | | | | + + + + + | [facility] | [address] | [place] [address] | | + + + + + POCT glucose (03/12/2018 5:38 AM) + + + + + | Component | Value | Ref Range | Performed At | + + + + + | GLUCOSE,POC SCREEN | 233 (H)Comment: Testing | 65 - 99 mg/dL | [facility] | | | performed at [facility];[address] | | | | | [address];[place] | | | | | [address] | | | + + + + + + + + + + | Performing | Address | City/State/Zipcode | Phone Number | | Organization | | | | + + + + + | [facility] | [address] | [place] [address] | | + + + + + POCT glucose (03/11/2018 9:02 PM) + + + + + | Component | Value | Ref Range | Performed At | + + + + + | GLUCOSE,POC SCREEN | 275 (H)Comment: Testing | 65 - 99 mg/dL | [facility] | | | performed at [facility];[address] | | | | | [address] [facility];[place], [place] | | | | | [address] | | | + + + + + + + + + + | Performing | Address | City/State/Zipcode | Phone Number | | Organization | | | | + + + + + | [facility] | [address] | [place] [address] | | + + + + + Confirmation glucose (03/11/2018 4:50 PM) + + + + + | Component | Value | Ref Range | Performed At | + + + + + | GLUCOSE | 450 (H)Comment: Testing | 65 - 99 mg/dL | [facility] | | | performed at [facility];[address] | [address] | | | [address];[place] | | | | | [address] | | | + + + + + + + + + + | Performing | Address | City/State/Zipcode | Phone Number | | Organization | | | | + + + + + | [facility] | [address] | [place] [address] | | + + + + + POCT glucose (03/11/2018 4:31 PM) + + + + + | Component | Value | Ref Range | Performed At | + + + + + | GLUCOSE,POC SCREEN | >400 (H)Comment: Testing | 65 - 99 mg/dL | [facility] | | | performed at [facility];[address] | | | | | [address];[place] | | | | | [address] | | | + + + + + + + + + + | Performing | Address | City/State/Zipcode | Phone Number | | Organization | | | | + + + + + | [facility] | [address] | [place] [address] | | + + + + + [...] (L)Comment: GFR <60: | >60 mL/min/1.73m2 | [facility] | | | CHRONIC KIDNEY [...] performed at | | | | | [facility], [address] [facility] | | | | | [place], | | | | | [place] [address] | | | + + + + + + + | Specimen | + + | Blood | + + + + + + + | Performing | Address | City/State/Zipcode | Phone Number | | Organization | | | | + + + + + | [facility] | [address] [facility] | [place] [address] | [phone] | | LABORATORY | [address] | | | + + + + + Confirmation glucose (03/11/2018 12:08 PM) + + + + + | Component | Value | Ref Range | Performed At | + + + + + | GLUCOSE | 413 (H)Comment: Testing | 65 - 99 mg/dL | [facility] | | | performed at [facility];[address] | | | | | [address];[place], [place] | | | | | [address] | | | + + + + + + + + + + | Performing | Address | City/State/Zipcode | Phone Number | | Organization | | | | + + + + + | [facility] | [address] | [place] [address] | | + + + + + POCT glucose (03/11/2018 11:42 AM) + + + + + | Component | Value | Ref Range | Performed At | + + + + + | GLUCOSE,POC SCREEN | >400 (H)Comment: Testing | 65 - 99 mg/dL | [facility] | | | performed at [facility];[address];[place] | | | | | [address] | | | + + + + + + + + + + | Performing | Address | City/State/Zipcode | Phone Number | | Organization | | | | + + + + + | [facility] | [address] | [place] [address] | | + + + + + [...] (L)Comment: GFR <60: | >60 mL/min/1.73m2 | [facility] | | | CHRONIC KIDNEY [...] performed at | | | | | [facility], [address] | | | | | [place], | | | | | [place] [address] | | | + + + + + + + | Specimen | + + | Blood | + + + + + + + | Performing | Address | City/State/Zipcode | Phone Number | | Organization | | | | + + + + + | [facility] | [address] | [place] [address] | [phone] | | LABORATORY | [address] | | | + + + + + POCT glucose (03/11/2018 5:02 AM) + + + + + | Component | Value | Ref Range | Performed At | + + + + + | GLUCOSE,POC SCREEN | 327 (H)Comment: Testing | 65 - 99 mg/dL | [facility] | | | performed at [facility];[address] | | | | | [address];[place] | | | | | [address] | | | + + + + + + + + + + | Performing | Address | City/State/Zipcode | Phone Number | | Organization | | | | + + + + + | [facility] | [address] | [place] [address] | | + + + + + Confirmation glucose (03/10/2018 9:00 PM) + + + + + | Component | Value | Ref Range | Performed At | + + + + + | GLUCOSE | 376 (H)Comment: Testing | 65 - 99 mg/dL | [facility] | | | performed at [facility];[address] | | [address];[place] | | | | | [address] | | | + + + + + + + + + + | Performing | Address | City/State/Zipcode | Phone Number | | Organization | | | | + + + + + | [facility] | [address] | [facility] [place] [address] | | + + + + + POCT glucose (03/10/2018 8:45 PM) + + + + + | Component | Value | Ref Range | Performed At | + + + + + | GLUCOSE,POC SCREEN | 400 (H)Comment: Testing | 65 - 99 mg/dL | [facility] | | | performed at [facility];[address] | | | | | [address];[place] | | | | | [address] | | | + + + + + + + + + + | Performing | Address | City/State/Zipcode | Phone Number | | Organization | | | | + + + + + | [facility] | [address] | [place] [address] | | + + + + + Potassium (03/10/2018 5:53 PM) + + + + + | Component | Value | Ref Range | Performed At | + + + + + | POTASSIUM | 5.4 (H)Comment: SLT | 3.5 - 4.9 mmol/L | [facility] | | | HEMOLYSISTesting | | | | | performed at [facility];[address] | | | | | [address];[place] | | | | | [address] | | | + + + + + + + | Specimen | + + | Blood | + + + + + + + | Performing | Address | City/State/Zipcode | Phone Number | | Organization | | | | + + + + + | [facility] | [address] | [place] [address] | | + + + + + POCT glucose (03/10/2018 4:24 PM) + + + + + | Component | Value | Ref Range | Performed At | + + + + + | GLUCOSE,POC SCREEN | 342 (H)Comment: Testing | 65 - 99 mg/dL | [facility] | | | performed at [facility];[address];[place] | | | | | [address] | | | + + + + + + + + + + | Performing | Address | City/State/Zipcode | Phone Number | | Organization | | | | + + + + + | [facility] | [address] | [place] [address] | | + + + + + [...] | | | head 03/09/2018 performed at [facility]. MRI stroke | | | [...] | contrast.COMPARISON:Outside CT head 03/09/2018 performed at [facility]. | | MRI stroke 09/15/2012FINDINGS:Moderate [...] + + | [facility] | [address] | [place] [address] | | + + + + + Brain natriuretic peptide (03/10/2018 2:01 PM) + + + + + | Component | Value | Ref Range | Performed At | + + + + + | BRAIN NATRIURETIC | 480 (H)Comment: Testing | 0 - 100 pg/mL | [facility] | | PEPTIDE | performed at [facility];[address] | | [address];[place] | | | | | [address] | | | + + + + + + + | Specimen | + + | Blood | + + + + + + + | Performing | Address | City/State/Zipcode | Phone Number | | Organization | | | | + + + + + | [facility] | [address] | [place] [address] | | + + + + + [...] + + + + | Calculated P Black | 27 | degrees | [facility] | + + + + + | Calculated R Black | -21 | degrees | [facility] | + + + + + | Calculated T Black | 93 | degrees | [facility] | + + + + + | Diagnosis | Sinus rhythm with 1st | | [facility] | | | degree A-V blockLow [...] + + + + + | [facility] | [address] | [place] [address] | | + + + + + Troponin I (03/10/2018 1:19 PM) + + + + + | Component | Value | Ref Range | Performed At | + + + + + | TROPONIN I | <0.020Comment: 0.00 to | 0.00 - 0.10 ng/mL | [facility] | | | 0.10 [...] | | | | CRITERIA FOR ACUTE MA | | | | | Testing performed at | | | | | [facility];[address] [place] [address] | | | | | [facility];[place] [address] | | | + + + + + + + | Specimen | + + | Blood | + + + + + + + | Performing | Address | City/State/Zipcode | Phone Number | | Organization | | | | + + + + + | [facility] | [address] | [place] [address] | | + + + + + POCT glucose (03/10/2018 11:35 AM) + + + + + | Component | Value | Ref Range | Performed At | + + + + + | GLUCOSE,POC SCREEN | 392 (H)Comment: Testing | 65 - 99 mg/dL | [facility] | | | performed at [facility];[address];[place] | | | | | [address] | | | + + + + + + + + + + | Performing | Address | City/State/Zipcode | Phone Number | | Organization | | | | + + + + + | [facility] | [address] | [facility] [address] | | + + + + + POCT glucose (03/10/2018 11:28 AM) + + + + + | Component | Value | Ref Range | Performed At | + + + + + | GLUCOSE,POC SCREEN | >400 (H)Comment: Testing | 65 - 99 mg/dL | [facility] | | | performed at [facility];[address];[place] | | | | | [address] | | | + + + + + + + + + + | Performing | Address | City/State/Zipcode | Phone Number | | Organization | | | | + + + + + | [facility] | [address] | [place] [address] | | + + + + + [...] ADI FIORE Date of : 1950 | [facility] | | Performing Physician: Rosmery [...] | | | TR Vmax: 2.78 m/s Accounting Associate: CHRISTOFER Authenticated by: Rosmery | | | Suleman WASSERMAN Report Date/Time: 03-10-2018 17:45:14 | | + + + + + | Procedure Note | + + | Steven Duong In - 03/10/2018 5:50 PM PDT Patient Name: Kevin FIORE of | | : 9Accession: [id number] Physician: Rosmery Shell | | MD INDICATIONS [...] has increased.MEASUREMENTS MOIRA Planimetry: 1.82 | | [id number] Planimetry: 0.00 cm2/m2Ao asc: 2.54 cmAo sinus: [...] (A-L): 22.58 ml/m2LAAs A2C: | | 19.85 [id number] A-L A2C: 61.06 mlLALs A2C: 5.48 cmLAAs A4C: 19.60 [id number] A-L | | A4C: 57.28 mlLALs A4C: 5.69 cmAo Diam: 4.03 cmAV Cusp: 1.26 cmLA Diam: 4.75 | | cmLA/Ao: 1.17 IVC diameter: 2.12 cmIVC collapse: 0.84 cmIVC % collapse: 57.87 | | %HR: 95.98 BPMAV maxP.25 mmHgAV meanP.83 mmHgAV Vmax: 2.96 m/Silva | | Vmean: 2.31 m/Silva VTI: 66.03 cmAVA Vmax: 1.35 cm2AVA (VTI): 1.17 bd0APNQ Vmax: | | 0.00 cm2/m2AVAI (VTI): 0.00 cm2/m2LVCI Dopp: 2.85 l/hsxj3CGLV Dopp: 7.63 l/minHR: | | 98.22 BPMLVOT maxP.26 mmHgLVOT meanP.37 mmHgLVSI Dopp: 29.11 ml/m2LVSV | | Dopp: 77.72 mlLVOT Vmax: 1.14 m/sLVOT Vmean: 0.87 m/sLVOT VTI: 22.19 cmMV maxPG: | | 19.60 mmHgMV meanP.70 mmHgMV Vmax: 2.21 m/sMV Vmean: 1.39 m/sMV VTI: | | 39.72 cmMVA (VTI): 1.95 vt5Fjqjfx e': 0.12 m/sLateral e': 0.15 m/sHR: 95.98 [...] |TR Vmax: 2.78 m/s | | | |Accounting Associate: KVW | |Authenticated by: Rosmery Shell MD [...] + + + + + | [facility] | [address] | [place] [address] | | + + + + + [...] SLT | 3.5 - 4.9 mmol/L | [facility] | | | HEMOLYSIS | | [...] + | BUN/CREAT | 16 | | [facility] | + + + + + | CALCIUM | 8.6 | 8.5 - 10.5 mg/dL | [facility] | + + + + + | EGFR | 38 (L)Comment: GFR <60: | >60 mL/min/1.73m2 | [facility] | | | CHRONIC [...] the | | | | | MDRD [facility] traceable | | | | | equation. PLEASE NOTE | | | | | NEW CALCULATION | | | | | EFFECTIVE 02/10/2018 | | | | | Testing performed at | | | | | [facility];[address] [place] [address] | | | | | [facility];[place] [address] | | | + + + + + + + + + + | Performing | Address | City/State/Zipcode | Phone Number | | Organization | | | | + + + + + | [facility] | [address] | [place] [address] | | + + + + + POCT glucose (03/10/2018 5:38 AM) + + + + + | Component | Value | Ref Range | Performed At | + + + + + | GLUCOSE,POC SCREEN | 369 (H)Comment: Testing | 65 - 99 mg/dL | [facility] | | | performed at [facility];[address];[place] | | | | | [address] | | | + + + + + + + + + + | Performing | Address | City/State/Zipcode | Phone Number | | Organization | | | | + + + + + | [facility] | [address] | [facility] [address] | | + + + + + [...] GFR <60: | >60 mL/min/1.73m2 | [facility] | | | CHRONIC [...] performed at | | | | | [facility];[address] [place] [address] | | | | | [facility];[place] [address] | | | + + + + + + + | Specimen | + + | Blood | + + + + + + + | Performing | Address | City/State/Zipcode | Phone Number | | Organization | | | | + + + + + | [facility] | [address] | [place] [address] | | + + + + + Troponin I (03/10/2018 3:16 AM) + + + + + | Component | Value | Ref Range | Performed At | + + + + + | TROPONIN I | <0.020Comment: 0.00 to | 0.00 - 0.10 ng/mL | [facility] | | | 0.10 [...] | | | | CRITERIA FOR ACUTE MA | | | | | Testing performed at | | | | | [facility];[address] | | | | | [facility];[place] [address] | | | + + + + + + + | Specimen | + + | Blood | + + + + + + + | Performing | Address | City/State/Zipcode | Phone Number | | Organization | | | | + + + + + | [facility] | [address] | [place] [address] | | + + + + + Glycohemoglobin A1c (03/10/2018 3:16 AM) + + + + + | Component | Value | Ref Range | Performed At | + + + + + | HEMOGLOBIN A1C | 7.6 (H)Comment: The | 4.0 - 6.0 % | [facility] | | | Congolese Diabetes | | LABORATORY | | | [...] | 171Comment: The ADA | mg/dL | [facility] | | GLUCOSE | considers [...] | | | | | performed at [facility], [address] | | | | [facility], | | | | | [place], [place] [address] | | | + + + + + + + | Specimen | + + | Blood | + + + + + + + | Performing | Address | City/State/Zipcode | Phone Number | | Organization | | | | + + + + + | [facility] | [address] | [place] [address] | [phone] | | LABORATORY | [address] | | [...] 32.6 | 27.0 - 34.0 pg | [facility] | + + + + + | MCHC | 33.6 | 32.0 - 35.5 g/dL | [facility] | + + + + + | RDW SD | 47.7 | 37 - 53 fl | [facility] | + + + + + | PLT | 144 (L) | 150 - 400 K/uL | [facility] | + + + + + | MPV | 10.1 | fl | [facility] | + + + + + [...] 0.02 | 0.00 - 0.10 K/uL | [facility] | + + + + + | MORPHOLOGY | RBC AND PLT MORPHOLOGY | | [facility] | | | APPEAR NORMAL | | | + + + + + | Diff Comment | SLIDE SCANNED, AGREES | | [facility] | | | WITH AUTOMATED | | | | | RESULTS.Comment: | | | | | PLATELETS CLUMPED, | | | | | APPEAR ADEQUATETesting | | | | | performed at [facility] | | | | | [address];[place], [place] | | | | | [address] | | | + + + + + + + + + + | Performing | Address | City/State/Zipcode | Phone Number | | Organization | | | | + + + + + | [facility] | [address] | [place] [address] | | + + + + + [...] | | | | | performed at [facility], [address] | | | | | [facility], | | | | | [place] [address] | | | + + + + + + + | Specimen | + + | Urine - Urine, | | Catheter | + + + + + + + | Performing | Address | City/State/Zipcode | Phone Number | | Organization | | | | + + + + + | [facility] | [address] | [place] [address] | [phone] | | LABORATORY | [address] | | | + + + + + POCT glucose (03/10/2018 12:48 AM) + + + + + | Component | Value | Ref Range | Performed At | + + + + + | GLUCOSE,POC SCREEN | 295 (H)Comment: Testing | 65 - 99 mg/dL | [facility] | | | performed at [facility];[address] | | | | | [address];[place] | | | | | [address] | | | + + + + + + + + + + | Performing | Address | City/State/Zipcode | Phone Number | | Organization | | | | + + + + + | [facility] | [address] | [place] [address] | | + + + + + Potassium (03/10/2018) + + + + + | Component | Value | Ref Range | Performed At | + + + + + | POTASSIUM | 6.2 (H)Comment: Testing | 3.5 - 4.9 mmol/L | [facility] | | | performed at [facility];[address] | | | | | [address];[place], [place] | | | | | [address] | | | + + + + + + + + + + | Performing | Address | City/State/Zipcode | Phone Number | | Organization | | | | + + + + + | [facility] | [address] | [place] [address] | | + + + + + Troponin I (03/10/2018) + + + + + | Component | Value | Ref Range | Performed At | + + + + + | TROPONIN I | <0.020Comment: 0.00 to | 0.00 - 0.10 ng/mL | [facility] | | | 0.10 [...] | | | | CRITERIA FOR ACUTE MA | | | | | Testing performed at | | | | | [facility];[address] | | | | | [facility];[place] [address] | | | + + + + + + + | Specimen | + + | Blood | + + + + + + + | Performing | Address | City/State/Zipcode | Phone Number | | Organization | | | | + + + + + | [facility] | [address] | [place] [address] | | + + + + + [...] [facility] | [address] | [facility] [address] | | + + + + + [...] [facility] | [address] | [facility] [address] | | + + + + + [...] + + + + | Calculated R Black | -30 | degrees | [facility] | + + + + + | Calculated T Black | 88 | degrees | [facility] [...] + + + + + | [facility] | [address] | [place] [address] | | + + + + + POCT glucose (03/09/2018 9:38 PM) + + + + + | Component | Value | Ref Range | Performed At | + + + + + | GLUCOSE,POC SCREEN | 296 (H)Comment: Testing | 65 - 99 mg/dL | [facility] | | | performed at [facility];[address] | | | | | [address];[place] | | | | | [address] | | | + + + + + + + + + + | Performing | Address | City/State/Zipcode | Phone Number | | Organization | | | | + + + + + | [facility] | [address] | [place] [address] | | + + + + + CPK (03/09/2018 8:44 PM) + + + + + | Component | Value | Ref Range | Performed At | + + + + + | CPK | 192Comment: Testing | 55 - 400 U/L | [facility] | | | performed at [facility];[address] | | | | | [address];[place] | | | | | [address] | | | + + + + + + + + + + | Performing | Address | City/State/Zipcode | Phone Number | | Organization | | | | + + + + + | [facility] | [address] | [place] [address] | | + + + + + Basic metabolic panel (03/09/2018 8:44 PM) + + + + + | Component | Value | Ref Range | Performed At | + + + + + | SODIUM | 134 (L) | 135 - 145 mmol/L | [facility] | + + + + + | POTASSIUM | 6.7 ()Comment: RESULT | 3.5 - 4.9 mmol/L | [facility] | | | READ BACK BY:MYLENE Ty/EMMY | | | | | AT 2122 BY RAFFAELE | | | | |MYLENE Ty/EMMY AT 2122 BY RAFFAELE | | | | | | | | + + + + + | CHLORIDE | 105 | 99 - 109 mmol/L | [facility] | + + + [...] + | BUN/CREAT | 16 | | [facility] | + + + + + | CALCIUM | 8.5 | 8.5 - 10.5 mg/dL | [facility] | + + + + + | EGFR | 40 (L)Comment: GFR <60: | >60 mL/min/1.73m2 | [facility] | | | CHRONIC [...] the | | | | | MDRD [facility] traceable | | | | | equation. PLEASE NOTE | | | | | NEW CALCULATION | | | | | EFFECTIVE 02/10/2018 | | | | | Testing performed at | | | | | [facility];[address] [place] [address] | | | | | [facility];[place] [address] | | | + + + + + + + | Specimen | + + | Blood | + + + + + + + | Performing | Address | City/State/Zipcode | Phone Number | | Organization | | | | + + + + + | [facility] | [address] | [facility] [address] | | + + + + + Troponin I (03/09/2018 8:44 PM) + + + + + | Component | Value | Ref Range | Performed At | + + + + + | TROPONIN I | <0.020Comment: 0.00 to | 0.00 - 0.10 ng/mL | [facility] | | | 0.10 [...] | | | | CRITERIA FOR ACUTE MA | | | | | Testing performed at | | | | | [facility];[address];[place] [address] | | | + + + + + + + | Specimen | + + | Blood | + + + + + + + | Performing | Address | City/State/Zipcode | Phone Number | | Organization | | | | + + + + + | [facility] | [address] | [place] [address] | | + + + + + [...] + + + + | Calculated P Black | 1 | degrees | [facility] | + + + + + | Calculated R Black | -37 | degrees | [facility] | + + + + + | Calculated T Black | 84 | degrees | [facility] | + + + + + | Diagnosis | Sinus rhythm with 1st | | [facility] | | | degree A-V blockLow [...] + + + + + | [facility] | [address] | [place] [address] | | + + + + + POCT glucose (03/09/2018 4:24 PM) + + + + + | Component | Value | Ref Range | Performed At | + + + + + | GLUCOSE,POC SCREEN | 208 (H)Comment: Testing | 65 - 99 mg/dL | [facility] | | | performed at [facility];[address] | | | | [address];[place] | | | | | [address] | | | + + + + + + + + + + | Performing | Address | City/State/Zipcode | Phone Number | | Organization | | | | + + + + + | [facility] | [address] | [place] [address] | | + + + + + PROCALCITONIN (03/09/2018 3:26 PM) + + + + + | Component | Value | Ref Range | Performed At | + + + + + | PROCALCITONIN | <0.05Comment: | <0.5 ng/mL | [facility] | | | INTERPRETIVE [...] performed | | | | | at [facility];[address] [place] [address] | | | | | [facility];[place] [address] | | | + + + + + + + + + + | Performing | Address | City/State/Zipcode | Phone Number | | Organization | | | | + + + + + | [facility] | [address] | [place] [address] | | + + + + + Basic metabolic panel (03/09/2018 2:34 PM) + + + + + | Component | Value | Ref Range | Performed At | + + + + + | SODIUM | 137 | 135 - 145 mmol/L | [facility] | + + + + + | POTASSIUM | 5.8 (H) | 3.5 - 4.9 mmol/L | [facility] | + + + [...] (H) | 0.70 - 1.30 mg/dL | [facility] | + + + + + | BUN/CREAT | 19 | | [facility] | + + + + + | CALCIUM | 8.3 (L) | 8.5 - 10.5 mg/dL | [facility] | + + + + + | EGFR | 50 (L)Comment: GFR <60: | >60 mL/min/1.73m2 | [facility] | | | CHRONIC [...] the | | | | | MDRD [facility] traceable | | | | | equation. PLEASE NOTE | | | | | NEW CALCULATION | | | | | EFFECTIVE 02/10/2018 | | | | | Testing performed at | | | | | [facility];[address] | | | | | [place] [address] | | | + + + + + + + | Specimen | + + | Blood | + + + + + + + | Performing | Address | City/State/Zipcode | Phone Number | | Organization | | | | + + + + + | [facility] | [address] | [place] [address] | | + + + + + CBC w/no Diff (03/09/2018 2:34 PM) + + + + + | Component | Value | Ref Range | Performed At | + + + + + | WBC | 6.22 | 3.80 - 11.00 K/uL | [facility] | + + + + + | RBC | 4.17 (L) | 4.20 - 5.70 M/uL | [facility] | + + + + + | HGB | 13.4 | 13.2 - 17.0 g/dL | [facility] | + + + + + | HCT | 40.1 | 39.0 - 50.0 % | [facility] | + + + + + | MCV | 96.3 | 80.0 - 100.0 fl | [facility] | + + + + + | MCH | 32.2 | 27.0 - 34.0 pg | [facility] | + + + + + | MCHC | 33.4 | 32.0 - 35.5 g/dL | [facility] | + + + + + | RDW SD | 49.0 | 37 - 53 fl | [facility] | + + + + + | PLT | 120 (L) | 150 - 400 K/uL | [facility] | + + + + + | MPV | 8.0Comment: Testing | fl | [facility] | | | performed at [facility];[address];[place] | | | | | [address] | | | + + + + + + + + + + | Performing | Address | City/State/Zipcode | Phone Number | | Organization | | | | + + + + + | [facility] | [address] | [place] [address] | | + + + + + Phosphorus (03/09/2018 2:33 PM) + + + + + | Component | Value | Ref Range | Performed At | + + + + + | PHOSPHORUS | 3.4Comment: Testing | 2.3 - 4.8 mg/dL | [facility] | | | performed at [facility];[address] | | | | | [facility], [place] | | | | | [address] | | | + + + + + + + | Specimen | + + | Blood | + + + + + + + | Performing | Address | City/State/Zipcode | Phone Number | | Organization | | | | + + + + + | [facility] | [address] | [place] [address] | | + + + + + Magnesium (03/09/2018 2:33 PM) + + + + + | Component | Value | Ref Range | Performed At | + + + + + | MAGNESIUM | 2.0Comment: Testing | 1.7 - 2.4 mg/dL | [facility] | | | performed at [facility] | | | | | [address] [facility];[place], [place] | | | | | [address] | | | + + + + + + + | Specimen | + + | Blood | + + + + + + + | Performing | Address | City/State/Zipcode | Phone Number | | Organization | | | | + + + + + | [facility] [facility] | [address] | [place] [address] | | + + + + + POCT glucose (03/09/2018 2:08 PM) + + + + + | Component | Value | Ref Range | Performed At | + + + + + | GLUCOSE,POC SCREEN | 197 (H)Comment: Testing | 65 - 99 mg/dL | [facility] | | | performed at [facility];[address] | | | | | [facility];[place] | | | | | [address] | | | + + + + + + + + + + | Performing | Address | City/State/Zipcode | Phone Number | | Organization | | | | + + + + + | [facility] | [address] | [place] [address] | | + + + + + [...] [facility] | [address] | [place] [address] | | + + + + + [...] [facility] | [address] | [place] [address] | | + + + + + [...] 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
--- OUTSIDE RECORDS SUMMARY | ~2018-05-07 | XMS | Clinical Summary ---
Demographics + + + | Address | [address] | | | [place] [address] | + + + | Home Phone | | + + + | Preferred Language | Unknown | + + + | Marital Status | | + + + | Worship Affiliation | 1009 | + + + | Race | Unknown | + + + | Ethnic Group | Unknown | + + + Author + + + | Author | [facility] | | | and [place] | + + + | Organization | [facility] | | | and [place] | + + + | Address | Unknown | + + + | Phone | Unavailable | + + + Support + + + + + | Name | Relationship | Address | Phone | + + + + + | Rosa Khan | [place] | [address] | | | | | [place] [address] | | + + + + + Care Team Providers + +------+ + | Care Content Engineer Name | Role | Phone | + +------+ + | Doug Servin | PP | | + +------+ + Allergies + + + + + + | Active Allergy | Reactions | Severity | Noted | Comments | | | | | Date | | + + + + + + | Carisoprodol | | High | 12/24/19 | Other reaction(s): | | | | | 12 | Hallucinations | + + + + + + | Diltiazem | | Low | 09/15/19 | Other reaction(s): | | | | | 13 | Syncope | + + + + + + | Hydrochlorothiazide | | High | 12/24/19 | Other reaction(s): | | | | | 12 | Other (See | | | | | | Comments) collapses | + + + + + + | Metformin | Other (See Comments) | Medium | 01/01/20 | Unknown to pt | | | | | 14 | | + + + + + + | Nitrous Oxide | Anaphylaxis | High | 12/24/19 | | | | | | 12 | | + + + + + + | Trazodone | | | 06/08/20 | Paradoxical | | | | | 14 | reaction | + + + + + + Current Medications + + +--------+---------+------+------+-------+ | Prescription | Sig. | Disp. | Refills | Star | End | Statu | | | | | | t | Date | s | | | | | | Date | | | + + +--------+---------+------+------+-------+ | carBAMazepine | Take 200 mg by mouth | | | | | Activ | | (TEGRETOL XR) 200 mg | 3 times daily. For | | | | | e | | 12 hr tablet | mood | | | | | | + + +--------+---------+------+------+-------+ | buPROPion | Take 200 mg by mouth | | | | | Activ | | (WELLBUTRIN SR) 200 | Daily. | | | | | e | | MG 12 hr tablet | | | | | | | + + +--------+---------+------+------+-------+ | rosuvastatin | Take 40 mg by mouth | | | | | Activ | | (CRESTOR) 40 MG | nightly. | | | | | e | | tablet | | | | | | | + + +--------+---------+------+------+-------+ | cyanocobalamin | Take 500 mcg by | | | | | Activ | | (VITAMIN B-12) 500 | mouth Daily. | | | | | e | | mcg tablet | | | | | | | + + +--------+---------+------+------+-------+ | metoprolol | Take 100 mg by mouth | | | | | Activ | | succinate | Daily. | | | | | e | | (TOPROL-XL) 200 mg | | | | | | | | ER tablet | | | | | | | + + +--------+---------+------+------+-------+ | insulin NPH | Inject 56 Units | | | | | Activ | | (HUMULIN N KWIKPEN) | under the skin 2 | | | | | e | | 100 units/mL | times daily (before | | | | | | | injection pen | meals). Recent | | | | | | | | reduction in dose to | | | | | | | | 40 units twice | | | | | | | | daily | | | | | | + + +--------+---------+------+------+-------+ | insulin aspart | Inject 38 Units | | | | | Activ | | (NOVOLOG PENFILL) | under the skin 3 | | | | | e | | 100 units/mL | times daily (before | | | | | | | injection cartridge | meals). 07/19/17 - | | | | | | | | recent reduction in | | | | | | | | dose to 25 units TID | | | | | | | | with meals | | | | | | + + +--------+---------+------+------+-------+ | docusate-senna | Take 1 tablet by | | | | | Activ | | (SENOKOT-S) 50-8.6 | mouth Twice daily | | | | | e | | mg per tablet | breakfast/Bedtime. | | | | | | + + +--------+---------+------+------+-------+ | ferrous sulfate | Take 325 mg by mouth | | | | | Activ | | 325 mg tablet | 3 times daily. | | | | | e | + + +--------+---------+------+------+-------+ | ascorbic acid | Take 500 mg by mouth | | | | | Activ | | (VITAMIN C) 500 mg | Daily. | | | | | e | | tablet | | | | | | | + + +--------+---------+------+------+-------+ | cholecalciferol | Take 1,000 Units by | | | | | Activ | | (VITAMIN D-3) 1,000 | mouth 2 times daily. | | | | | e | | units capsule | | | | | | | + + +--------+---------+------+------+-------+ | fish oil 1,000 mg | Take 1,000 mg by | | | | | Activ | | capsule | mouth 2 times daily. | | | | | e | + + +--------+---------+------+------+-------+ | | Inhale 2 puffs into | | | | | Activ | | budesonide-formotero | the lungs 2 times | | | | | e | | l (SYMBICORT) | daily. | | | | | | | 160-4.5 mcg/puff | | | | | | | | inhaler | | | | | | | + + +--------+---------+------+------+-------+ | | Inhale 1 puff into | | | | | Activ | | Ipratropium-Albutero | the lungs 4 times | | | | | e | | l (COMBIVENT IN) | daily. May take 2 | | | | | | | | extra puffs per day | | | | | | | | as needed | | | | | | + + +--------+---------+------+------+-------+ | | Take 3 mLs by | | | | | Activ | | albuterol-ipratropiu | nebulization 4 times | | | | | e | | m (DUONEB) 2.5-0.5 | daily as needed. | | | | | | | mg/3 mL SOLN | | | | | | | + + +--------+---------+------+------+-------+ | isosorbide | Take 120 mg by mouth | | | | | Activ | | mononitrate (IMDUR) | Daily. | | | | | e | | 60 mg ER tablet | | | | | | | + + +--------+---------+------+------+-------+ | pantoprazole | Take 40 mg by mouth | | | | | Activ | | (PROTONIX) 40 mg | 2 times daily | | | | | e | | tablet | (before meals). | | | | | | + + +--------+---------+------+------+-------+ | aspirin 81 MG | Take 81 mg by mouth | | | | | Activ | | tablet | 2 times daily. | | | | | e | + + +--------+---------+------+------+-------+ | liraglutide | Inject 1.2 mg under | | | | | Activ | | (VICTOZA) 18 mg/3 mL | the skin Daily. | | | | | e | | injection | | | | | | | + + +--------+---------+------+------+-------+ | Multiple Vitamin | Take 1 capsule by | | | | | Activ | | (MULTIVITAMIN) | mouth Daily. | | | | | e | | capsule | | | | | | | + + +--------+---------+------+------+-------+ | torsemide | Take 1 tablet by | 30 | 4 | 07/2 | | Activ | | (DEMADEX) 10 mg | mouth Daily. | tablet | | 4/20 | | e | | tablet | | | | 17 | | | + + +--------+---------+------+------+-------+ | nortriptyline | Take 25 mg by mouth | | | | | Activ | | (PAMELOR) 25 mg | nightly. | | | | | e | | capsule | | | | | | | + + +--------+---------+------+------+-------+ | FLUoxetine | Take 20 mg by mouth | | | | | Activ | | (PROZAC) 20 mg | every morning. | | | | | e | | capsule | | | | | | | + + +--------+---------+------+------+-------+ | nitroglycerin | Place 0.4 mg under | | | | | Activ | | (NITROSTAT) 0.4 mg | the tongue every 5 | | | | | e | | SL tablet | minutes as needed | | | | | | | | for Chest pain. | | | | | | + + +--------+---------+------+------+-------+ | morphine (MSIR) 15 | Take 0.5-1 tablets | 30 | 0 | 11/0 | | Activ | | mg tablet | by mouth every 4 | tablet | | 5/20 | | e | | | hours as needed for | | | 17 | | | | | Pain. | | | | | | + + +--------+---------+------+------+-------+ Active Problems + + + | Problem | Noted Date | + + + | Angina at rest (HCC) | 07/20/2017 | + + + | NSTEMI (non-ST elevated myocardial infarction) (HCC) | 04/03/2017 | + + + | CORDELL (obstructive sleep apnea) | 04/03/2017 | + + + | Chronic kidney disease, stage 3 (moderate) | 03/03/2017 | + + + | Local infection of skin and subcutaneous tissue | 03/03/2017 | + + + | Chronic diastolic heart failure (HCC) | 06/13/2016 | + + + | Atherosclerosis of coronary artery bypass graft | 06/13/2016 | + + + | Venous stasis ulcer of lower extremity (HCC) | 06/13/2016 | + + + | Osteoarthritis | 12/02/2014 | + + + | Hyperlipidemia | 12/02/2014 | + + + | Syncope and collapse | 04/19/2014 | + + + + + | Last Assessment & Plan: He presented with syncope and loss of | | consciousness. He is back close to his baseline now, but had | | some mild confusion initially. He has no history of seizures or | | any evidence of tonic-clonic movements. There are number of | | reasons he should have this. He may be mildly hypovolemic, his | | creatinine is 1.6 up from baseline 1. He has severe neuropathy | | and diabetes. Initially there was concern for a stroke, although | | his symptoms basically have resolved at this point and the CT | | did not show anything new.An echocardiogram from 2012 showed no | | significant valvular disease, and a normal ejection fraction and | | we'll repeat at this time.Will monitor on telemetry, give gentle | | fluids. We'll have physical therapy see him while he is here. | | Will consider brain MRI and carotid ultrasound. | + + + + + | Coronary artery disease | 04/19/2014 | + + + + + | Last Assessment & Plan: No acute issues, will plan to restart | | clopidogrel. Continue metoprolol, hold losartan. Continue | | statin. | + + + + + | Subconjunctival hemorrhage, non-traumatic | 04/19/2014 | + + + + + | Last Assessment & Plan: Restart clopidogrel and monitor. | + + + + + | Hypertension | 04/19/2014 | + + + + + | Last Assessment & Plan: Continue metoprolol, hold losartan. | | Given the concern for stroke, avoid overtreatment. | + + + + + | Diabetes mellitus with neuropathy (HCC) | 04/19/2014 | + + + + + | Last Assessment & Plan: He says he does not check his blood | | sugars, and he seems to be basically uncontrolled at this point. | | Will continue his home dose, slightly adjusted down given that | | he is in the hospital. Continue insulin and sliding scale. | + + + + + | Hyperkalemia | 04/19/2014 | + + + + + | Last Assessment & Plan: Likely due to losartan and mild | | hypovolemia. We'll give gentle fluids, and hold losartan for now | | and recheck in the morning. | + + + + + | Morbid obesity (HCC) | 04/19/2014 | + + + + + | Last Assessment & Plan: BMI of nearly 50, likely contributed | | to the fall today. | + + + + + | COPD (chronic obstructive pulmonary disease) ([facility]) | 04/19/2014 | + + + + + | Last Assessment & Plan: He is on 3 L of oxygen constantly, | | and there are no acute problems at this time. | + + + + + | History of respiratory system disease | 07/12/2013 | + + + Encounters +--------+ + + + + | Date | Type | Specialty | Care Team | Description | +--------+ + + + + | 05/06/ | Emergency | | Masoud Lamb, | Chest pain at rest | | 2018 - | | | MD | (Primary Dx) | | | | | | | | 05/07/ | | | | | | 2017 | | | | | +--------+ + + + + from Last 3 Months Immunizations + + + + | Name | Dates Previously Given | Next Due | + + + + | INFLUENZA PF | 06/15/2016 | | | QUAD(PED/ADOL/ADULT) | | | | ,PSKT or VIAL | | | + + + + | INFLUENZA PF | 07/11/2013 | | | TRIVALENT(PED/ADOL/A | | | | DULT), PSKT | | | + + + + Social History + [...] + | Blood Pressure | 143/68 | 05/07/2018 0300 PDT | + + + + | Pulse | 78 | 05/07/20187 PDT | + + + + | Temperature | 36.6 C (97.9 F) | 05/07/2018 0009 PDT | + + + + | [...] 05/07/20188 PDT | + + + + Plan of Treatment + + + + + | Health Maintenance | Due Date | Last Done | Comments | + + + + + | Hepatitis C | | | | | Screening | 9 | | | + + + + + | Diabetic Eye Exam | | | | | (Bi-Annually) | 7 | | | + + + + + | Diabetic Foot Exam | | | | | | 7 | | | + + + + + | Vaccine: | | | | | Dtap/Tdap/Td (1 - | 8 | | | | Tdap) | | | | + + + + + | Colorectal Cancer | | | | | Screening | 9 | | | | (Colonoscopy) | | | | + + + + + | Vaccine: Zoster (1 | | | | | of 2) | 9 | | | + + + + + | Vaccine: | | | | | Pneumococcal 65+ | 4 | | | | Low/Medium Risk (1 | | | | | of 2 - PCV13) | | | | + + + + + | Hemoglobin A1c Q3 | | 04/19/2014 | | | Months | 4 | | | + + + + + | Vaccine: Influenza | | 06/15/2016, 07/11/2013, | | | (#1) | 8 | 07/11/2013 | | + + + + + [...] | | n - | | | 05/07/ | | | 2018 | | | 0003 | | | [...] | | | ADI | | | [id number] | | | [id number] | | | This | | | [...] | | | [email or web address] | | | m/madeleine | | | ent/2a | | | [id number] | | | -[id number]- | | | [...] | | | d: | | | 5/16/ | | | 7 1:11 | | [...] | | e of | | | [place] | | | | | | fletcher [...] | | e of | | | [place] | | | | | | fletcher [...] | | e of | | | [place] | | | | | | fletcher [...] the | | | | | | plan manager | | | al | | | cause | | | | | | Athero | | | sclero | | | tic | | | heart | | | diseas | | | e of | | | [place] | | | | | | fletcher [...] | | e of | | | [place] | | | | | | fletcher [...] | | | pulmon | | | igdeon | | | diseas | | | [...] | | e of | | | [place] | | | | | | fletcher [...] | | e of | | | [place] | | | | | | fletcher [...] | | e of | | | [place] | | | | | | fletcher [...] | | | St. | | | [place] | | | y | | | [...] | [email or web address] | | | | +---+--------+ from Last 3 Months Results Troponin I (05/07/2018 0233)Only the most recent of 2 results within the time period is inc luded. + + + + + | Component | Value | Ref Range | Performed At | + + + + + | Troponin I | 0.01Comment: Reference | <0.06 ng/mL | [facility] | | | Ranges:0.00-0.06 = | [...] infarction. | | | | | [employer] | | | | | [...] + | [facility] | [address] | [place], [place] | [phone] | | [facility] | | [address] | | | - LABORATORY | | | | + + + + + | [facility] | [address] | [place], [place] | | | [facility] | | [address] | | | - LABORATORY | | [...] | | | Dictated and Signed by: Yyao Mota MD | | Electronically signed: 05/07/2018 [...] [facility] | | | | | [facility] | | | | | CENTER - | | | | | LABORATORY | + +-------+ + + + + | Specimen | + + | Blood | + + + + + + + | Performing | Address | City/State/Zipcode | Phone Number | | Organization | | | | + + + + + | [facility] | [address] | [place] | [phone] | | [facility] | | [address] | | | - LABORATORY | | | | + + + + + | [facility] | [address] | [place] | | | [facility] | | [address] | | | - LABORATORY | | | | + + + + + ECG 12 lead (05/07/201824) + + + + + | Component | Value | Ref Range | Performed At | + + + + + | VENTRICULAR RATE EKG | 92 | BPM | [facility] | + + + + + | ATRIAL RATE | 92 | BPM | [facility] | + + + [...] UMANZOR MD | | | | | ([id number]) on 05/07/2018 | | | | | [...] | | | + +---------+ + + CBC with Differential (05/07/201814) + + + + + | [...] [facility] | | | | | [facility] | | | | | CENTER - | | | | | LABORATORY | + + + + + + + | Specimen | + + | Blood | + + + + + + + | Performing | Address | City/State/Zipcode | Phone Number | | Organization | | | | + + + + + | [facility] | [address] | [place] | [phone] | | [facility] | | [address] | | | - LABORATORY | | | | + + + + + | [facility] | [address] | [place], [place] | | | [facility] | | [address] | | | - LABORATORY | | | | + + + + + B Type Natriuretic Peptide (05/07/2018 0015) + +-------+ + + | Component | Value | Ref Range | Performed At | + +-------+ + + | BNP | 94 | <100 pg/mL | [facility] | | | | | [facility] | | | | | CENTER - | | | | | LABORATORY | + +-------+ + + + + | Specimen | + + | Blood | + + + + + + + | Performing | Address | City/State/Zipcode | Phone Number | | Organization | | | | + + + + + | [facility] | [address] | [place] | [phone] | | [facility] | | [address] | | | - LABORATORY | | | | + + + + + | [facility] | [address] | [place] | | | [facility] | | [address] | | | - LABORATORY | | | | + + + + + Comprehensive Metabolic Panel (05/07/2018 0015) + + + + + | Component | Value | Ref Range | Performed At | + + + + + | NA | 139 | 136 - 149 mmol/L | [facility] | | | [...] 15 | 7 - 18 mg/dL | [facility] | | | | | [facility] | | | | | CENTER - | | | | | LABORATORY | + + + + + | Creatinine, | 1.29 | 0.60 - 1.30 mg/dL | [facility] | | Serum/Plasma | | | [facility] | | | | | CENTER - | | | | | LABORATORY | + + + + + | eGFR if not | 55 (L)Comment: | >=60 mL/min/1.73m2 | [facility] | | FIJIAN | GLOMERULAR FILTRATION | | [facility] | | | RATE,ESTIMATED mL/min | | CENTER - | | | /1.37b1Cofk than 60 | | LABORATORY | | [...] [facility] | | | | | [facility] | | | | | CENTER - | | | | | LABORATORY | + + + + + | ALBUMIN | 2.9 (L) | 3.2 - 5.0 g/dL | [facility] | | | | | [facility] | | | | | CENTER - [...] | | appended report. These | | [facility] | | | results have been [...] 2.8 | 2.1 - 3.8 g/dL | [facility] | | | | | [facility] | | | | | CENTER - | | | | | LABORATORY | + + + + + | Albumin/Globulin | 1.0 | 0.8 - 2.0 | [facility] | | ratio | | | [facility] | | | | | CENTER - | | | | | LABORATORY | + + + + + | BUN/CREA | 11.6 | | [facility] | | | [...] + | [facility] | [address] | [place] | [phone] | | [facility] | | [address] | | | - LABORATORY | | | | + + + + + | [facility] | [address] | [place] | | | [facility] | | [address] | | | - LABORATORY | | | | + + + + + from Last 3 Months Insurance + +--------+ +--------+ +---------+ | Payer | Benefi | Subscriber | Type | Phone | Address | | | t Plan | ID | | | | | | / | | | | | | | Group | | | | | + +--------+ +--------+ +---------+ | [employer] | [employer] | [id number] | Indemn | | | | | NS | | ity | | | | | ADMIN | | | | | | | [place] | | | | | | | [place] | | | | | + +--------+ +--------+ +---------+ | MEDICARE | MEDICA | [id number] | Medica | [phone] | | | RE | | re | [phone] | | | | PART A | | | | | + +--------+ +--------+ +---------+ + +--------+ +--------+ + + | Guarantor [...] | | al/Fam | | 1950 | [phone] | [place] [address] | | | kaye | | | [phone] | | + +--------+ +--------+ + + | ADI KHAN | Veto | Self | [birth year] | Home: | [address] | | | l | | 1950 | [phone] | [place] [address] | | | [place] | | | [phone] | | | | es | | | | | + +--------+ +--------+ + +"
--- OUTSIDE RECORDS SUMMARY | ~2018-05-07 | XMS | Encounter Summary ---
Demographics + + + | Address | [address] | | | [place] [address] | + + + | Home Phone | | + + + | Preferred Language | Unknown | + + + | Marital Status | | + + + | Synagogue Affiliation | 1073 | + + + | Race | Unknown | + + + | Ethnic Group | Unknown | + + + Author + + + | Author | [facility] | + + + | Organization | [facility] | + + + | Address | Unknown | + + + | Phone | Unavailable | + + + Support + + + + + | Name | Relationship | Address | Phone | + + + + + | Rosa Fiore | ECON | [address] | | | | | [place] [address] | | + + + + + Care Team Providers + +------+ + | Care Venetian Blind Washer Name | Role | Phone | + +------+ + | Vincent Finch | PCP | | + +------+ + Reason for Referral MRI/CAT Scan (Routine) + +--------+ + + [...] + + + + | 03/09/ | Ancillary | [facility] | See, Medical | Other headache | | 2018 | [facility] CT | Record | syndrome | | | | [address] | | | | | | [place] [address] | | | | | | [phone] | | | +--------+ + + + [...] + + + as of this encounter Plan of Treatment Not on fileas of this encounter Results CT head without contrast [...] [facility] | [address] | [place] [address] | | + + + + + in this encounter Visit Diagnoses + + | Diagnosis | + + | Other headache syndrome | + +"
--- OUTSIDE RECORDS SUMMARY | ~2018-05-07 | XMS | Clinical Summary ---
Demographics + + + | Address | [address] | | | [place] [address] | + + + | Home Phone | | + + + | Preferred Language | Unknown | + + + | Marital Status | | + + + | Baptism Affiliation | 1009 | + + + | Race | Unknown | + + + | Ethnic Group | Unknown | + + + Author + + + | Author | [facility] | | | and [place] | + + + | Organization | [facility] | | | and [...] | | | | | [place] [address] | | + + + + + Care Team Providers + +------+ + | Care Early Childhood Lead Teacher Name | Role | Phone | + [...] + | COPD (chronic obstructive pulmonary disease) ([facility]) | 04/19/2014 | + + + + [...] | | | ADI | | | [id number] | | | [id number] | | | This | | | [...] | | | ent/2a | | | [id number] | | | -[id number]- | | | [...] | | e of | | | [place] | | | | | | fletcher [...] | | e of | | | [place] | | | | | | fletcher [...] | | e of | | | [place] | | | | | | fletcher [...] the | | | | | | political worker | | | al | | | cause | | | | | | Athero | | | sclero | | | tic | | | heart | | | diseas | | | e of | | | [place] | | | | | | fletcher [...] | | e of | | | [place] | | | | | | fletcher [...] | | e of | | | [place] | | | | | | fletcher [...] | | e of | | | [place] | | | | | | fletcher [...] | | e of | | | [place] | | | | | | fletcher [...] | | | St. | | | Early | | | y | | | [...] | 0.01Comment: Reference | <0.06 ng/mL | [facility] | | | Ranges:0.00-0.06 = | [...] infarction. | | | | | [employer] | | | | | [...] + | [facility] | [address] | [place], [place] | [phone] | | [facility] | | [address] | | | - LABORATORY | | | | + + + + + | [facility] | [address] | [place], [place] | | | [facility] | | [address] | | | - LABORATORY | | [...] [facility] | | | | | [facility] | | | | | CENTER - | | | | | LABORATORY | + +-------+ + + + + | Specimen | + + | Blood | + + + + + + + | Performing | Address | City/State/Zipcode | Phone Number | | Organization | | | | + + + + + | [facility] | [address] | [place] | [phone] | | [facility] | | [address] | | | - LABORATORY | | | | + + + + + | [facility] | [address] | [place] | | | [facility] | | [address] | | | - LABORATORY | | [...] UMANZOR MD | | | | | ([id number]) on 05/07/2018 | | | | | [...] [facility] | | | | | [facility] | | | | | CENTER [address] | [place] | [phone] | | [facility] | | [address] | | | - LABORATORY | | | | + + + + + | [facility] | [address] | [place], [place] | | | [facility] | | [address] | | | - LABORATORY | | | | + + + + + B Type Natriuretic Peptide (05/07/2018 0015) + +-------+ + + | Component | Value | Ref Range | Performed At | + +-------+ + + | BNP | 94 | <100 pg/mL | [facility] | | | | | [facility] | | | | | CENTER - | | | | | LABORATORY | + +-------+ + + + + | Specimen | + + | Blood | + + + + + + + | Performing | Address | City/State/Zipcode | Phone Number | | Organization | | | | + + + + + | [facility] | [address] | [place] | [phone] | | [facility] | | [address] | | | - LABORATORY | | | | + + + + + | [facility] | [address] | [place] | | | [facility] | | [address] | | | - LABORATORY | | [...] | 55 (L)Comment: | >=60 mL/min/1.73m2 | [facility] | | [employer] | GLOMERULAR FILTRATION | | [facility] | | | RATE,ESTIMATED mL/min | | CENTER - | | | /[id number] than 60 | | LABORATORY | | [...] [facility] | | | | | [facility] | | | | | CENTER - | | | | | LABORATORY | + + + + + | ALBUMIN | 2.9 (L) | 3.2 - 5.0 g/dL | [facility] | | | | | [facility] | | | | | CENTER [...] | | appended report. These | | [facility] | | | results have been [...] + | [facility] | [address] | [place] | [phone] | | [facility] | | [address] | | | - LABORATORY | | | | + + + + + | [facility] | [address] | [place] | | | [facility] | | [address] | | | - LABORATORY | | [...] +---------+ | [employer] [facility] | [facility] | [id number] | Indemn | | | | | NS | | ity | | | | | ADMIN | | | | | | | [place] | | | | | | | [place] | | | | | + +--------+ +--------+ +---------+ | MEDICARE | MEDICA | [id number] | Medica | [phone] | | [...] | | al/Fam | | 1950 | [phone] | [place] [address] | | | kaye | | | 5551 | | + +--------+ +--------+ + + | ADI KHAN | Veto | Self | [birth year] | Home: | [address] | | | l | | 1950 | [phone] | [place] [address] | | | [place] | | | [address] | | | | es | | | | | + +--------+ +--------+ + +"
--- OUTSIDE RECORDS SUMMARY | ~2018-05-07 | XMS | Encounter Summary ---
Demographics + + + | Address | [address] | | | [place] [address] | + + + | Home Phone | | + + + | Preferred Language | Unknown | + + + | Marital Status | | + + + | Uatsdin Affiliation | 1009 | + + + | Race | Unknown | + + + | Ethnic Group | Unknown | + + + Author + + + | Author | [facility] | | | and [place] | + + + | Organization | [facility] | | | and [...] | | | | | [place] [address] | | + + + + + Care Team Providers + +------+ + | Care Parakeet Raiser Name | Role | Phone | + [...] | | | | CENTER [address] | [place], [place] | | | 05/07/ | | [place], [place] | [address] | | | 2017 | | [address] | | | | | | [phone] | | | +--------+ + + + [...] | | | ADI | | | [id number] | | | [id number] | | | This | | | [...] | | | ent/2a | | | [id number] | | | -a3ce- | | | [...] | | e of | | | [place] | | | | | | fletcher [...] | | e of | | | [place] | | | | | | fletcher [...] | | e of | | | [place] | | | | | | fletcher [...] the | | | | | | research physicist | | | al | | | cause | | | | | | Athero | | | sclero | | | tic | | | heart | | | diseas | | | e of | | | [place] | | | | | | fletcher [...] | | e of | | | [place] | | | | | | fletcher [...] | | e of | | | [place] | | | | | | fletcher [...] | | e of | | | [place] | | | | | | fletcher [...] | | e of | | | [place] | | | | | | fletcher [...] | | | St. | | | [place] | | | y | | | [...] infarction. | | | | | [employer] | | | | | [...] + | [facility] | [address] | [place], [place] | [phone] | | [facility] | | [address] | | | - LABORATORY | | | | + + + + + | [facility] | [address] | [place], [place] | | | [facility] | | [address] | | | - LABORATORY | | [...] + + | Performing | Address | City/State/[facility] | Phone Number | | Organization [...] + | [facility] | [address] | [place] | [phone] | | [facility] | | [address] | | | - LABORATORY | | | | + + + + + | [facility] | [address] | [place] | | | [facility] | | [address] | | | - LABORATORY | | [...] UMANZOR MD | | | | | ([id number]) on 05/07/2018 | | | | | [...] infarction. | | | | | [employer] | | | | | [...] + | [facility] | [address] | [place] | [phone] | | [facility] | | [address] | | | - LABORATORY | | | | + + + + + | [facility] | [address] | [place], [place] | | | [facility] | | [address] | | | - LABORATORY | | | | + + + + + B Type Natriuretic Peptide (05/07/2018 0015) + +-------+ + + | Component | Value | Ref Range | Performed At | + +-------+ + + | BNP | 94 | <100 pg/mL | [facility] | | | | | [facility] | | | | | [...] + | [facility] | [address] | [place] | [phone] | | [facility] | | [address] | | | - LABORATORY | | | | + + + + + | [facility] | [address] | [place] | | | [facility] | | [address] | | | - LABORATORY | | [...] 15 | 7 - 18 mg/dL | [facility]. | | | | | [facility] | | | | | CENTER - | | | | | LABORATORY | + + + + + | Creatinine, | 1.29 | 0.60 - 1.30 mg/dL | [facility]. | | Serum/Plasma | | | [facility] | | | | | CENTER - | | | | | LABORATORY | + + + + + | eGFR if not | 55 (L)Comment: | >=60 mL/min/1.73m2 | [facility]. | | SAMMARINESE | GLOMERULAR FILTRATION | | [facility] | | | RATE,ESTIMATED mL/min | | CENTER - | | | /1.59h3Lqqx than 60 | | LABORATORY | | [...] | | appended report. These | | [facility] | | | results have been | | CENTER - | | | appended to a previously | | LABORATORY | | | preliminary verified | | | | | report. | | | + + + + + | GLOBULIN | 2.8 | 2.1 - 3.8 g/dL | [facility] | | | | | [facility] | | | | | CENTER - | | | | | LABORATORY | + + + + + | Albumin/Globulin | 1.0 | 0.8 - 2.0 | [facility] | | ratio | | | [facility] | | | | | CENTER - | | | | | LABORATORY | + + + + + | BUN/CREA | 11.6 | | [facility] | | | | | [facility] | | | | | [...] + | [facility] | [address] | [place], [place] | [phone] | | [facility] | | [address] | | | - LABORATORY | | | | + + + + + | [facility] | [address] | [place], [place] | | | [facility] | | [address] | | | - LABORATORY | | [...] ST. | [address] | [place] | [phone] | | [facility] | | [address] | | | - LABORATORY | | | | + + + + + | [facility] | [address] | [place] | | | [facility] | | [address] | | | - LABORATORY | | [...]
--- OUTSIDE RECORDS SUMMARY | ~2018-05-07 | XMS | Encounter Summary ---
Demographics + + + | Address | [address] | | | [place] [address] | + + + | Home Phone | | + + + | Preferred Language | Unknown | + + + | Marital Status | | + + + | Samaritan Affiliation | 1073 | + + + | Race | Unknown | + + + | Ethnic Group | Unknown | + + + Author + + + | Author | [facility] | + + + | Organization | [facility] | + + + | Address | Unknown | + + + | Phone | Unavailable | + + + Support + + + + + | Name | Relationship | Address | Phone | + + + + + | Rosa Fiore | ECON | [address] | | | | | [place] [address] | | + + + + + Care Team Providers + +------+ + | Care Restoration Ecologist Name | Role | Phone | + +------+ + | Vincent Finch | PCP | | + +------+ + Encounter Details +--------+ + + + + | Date | Type | Department | Care Team | Description | +--------+ + + + + | 03/09/ | Procedure | [facility] | | | | 2018 | Pass | [address] | | | | | | Floor [place] | | | | | | [address] | | | | | | [place] [address] | | | | | | [phone] | | | +--------+ + + + [...] Treatment Not on fileas of this encounter Visit Diagnoses Not on filein this encounter"
--- OUTSIDE RECORDS SUMMARY | ~2018-05-07 | XMS | Encounter Summary ---
Demographics + + + | Address | [address] | | | [place] [address] | + + + | Home Phone | | + + + | Preferred Language | Unknown | + + + | Marital Status | | + + + | Mormon Affiliation | 1073 | + + + | Race | Unknown | + + + | Ethnic Group | Unknown | + + + Author + + + | Author | [facility] | + + + | Organization | [facility] [employer] [facility] | + + + | Address | Unknown | + + + | Phone | Unavailable | + + + Support + + + + + | Name | Relationship | Address | Phone | + + + + + | Rosa Fiore | ECON | [address] | | | | | [place] [address] | | + + + + + Care Team Providers + +------+ + | Care French Pastry Cook Name | Role | Phone | + +------+ + | Vincent Finch | PCP | | + +------+ + Encounter Details +--------+ + + + + | Date | Type | Department | Care Team | Description | +--------+ + + + + | 03/09/ | Procedure | [facility] | | | | 2018 | Pass | [address] | | | | | | Floor [place] | | | | | | [address] [facility] | | | | | | [place] [address] | | | | | | [phone] | | | +--------+ + + + [...]
--- OUTSIDE RECORDS SUMMARY | ~2018-05-07 | XMS | Encounter Summary ---
Demographics + + + | Address | [address] | | | [place] [address] | + + + | Home Phone | | + + + | Preferred Language | Unknown | + + + | Marital Status | | + + + | Gnosticism Affiliation | 1073 | + + + | Race | Unknown | + + + | Ethnic Group | Unknown | + + + Author + + + | Author | [facility] [employer] [facility] [employer] [facility] | + + + | Organization | [facility] [facility] | + + + | Address | Unknown | + + + | Phone | Unavailable | + + + Support + + + + + | Name | Relationship | Address | Phone | + + + + + | Rosa Fiore | ECON | [address] | | | | | [place] [address] | | + + + + + Care Team Providers + +------+ + | Care Carcass Splitter Name | Role | Phone | + [...] + + | 03/09/ | Hospital | [facility] | See, Medical | Other headache | | 2018 | Encounter | [facility] | Record | syndrome | | | | RADIOLOGY [address] | | | | | | [place] [address] | | | | | | [phone] | | | +--------+ + + + [...] procedure without a radiologist report and | [facility] | | is used for image storage only | RADIOLOGY | + + + + + + + + | Performing | Address | City/State/Zipcode | Phone Number | | Organization | | | | + + + + + | [facility] | [address] | [place] [address] | | + + + + + in this encounter Visit Diagnoses + + | Diagnosis | + + | Other headache syndrome | + +"
--- OUTSIDE RECORDS SUMMARY | ~2018-05-07 | XMS | Encounter Summary ---
Demographics + + + | Address | [address] | | | [place] [address] | + + + | Home Phone | | + + + | Preferred Language | Unknown | + + + | Marital Status | | + + + | Druze Affiliation | 1073 | + + + | Race | Unknown | + + + | Ethnic Group | Unknown | + + + Author + + + | Author | [facility] | + + + | Organization | [facility] [facility] | + + + | Address | Unknown | + + + | Phone | Unavailable | + + + Support + + + + + | Name | Relationship | Address | Phone | + + + + + | Rosa Fiore | ECON | [address] | | | | | [place] [address] | | + + + + + Care Team Providers + +------+ + | Care Linux System Engineer Name | Role | Phone | [...] + + | 03/09/ | Ancillary | [facility] | See, Medical | Other headache | | 2018 | [facility] [place] | Record | syndrome | | | | [address] | | | | | | [place] [address] | | | | | | [phone] | | | +--------+ + + + [...] | [address] | [place] [address] | | + + + + + in this encounter Visit Diagnoses + + | Diagnosis | + + | Other headache syndrome | + +"
[2018-05-07] MEDS ORDERED: METOPROLOL SUC100 MG PO (18:33)
[2018-05-07] MEDS ORDERED: NORTRIPTYLINE H25 MG PO (18:33)
[2018-05-07] MEDS ORDERED: MAG-OXIDE400 MG PO (18:33)
[2018-05-07] MEDS ORDERED: [UNRECOGNIZED DRUG - OTHER] PO (18:34)
[2018-05-07] MEDS ORDERED: FLUOXETINE HCL20 MG PO (18:35)
[2018-05-07] MEDS ORDERED: BUPROPION HCL200 MG PO (18:35)
[2018-05-07] MEDS ORDERED: RANITIDINE HCL150 MG PO (18:35)
[2018-05-07] MEDS ORDERED: VICTOZA 3-0.6 MG/0.1 SUB-Q (18:36)
[2018-05-07] MEDS ORDERED: FERROUS SULFAT325 MG PO (18:36)
[2018-05-07] MEDS ORDERED: NOVOLIN 70100 UNIT/1 SUB-Q (18:37)
[2018-05-07] MEDS ORDERED: NOVOLOG100 UNIT/2 SUB-Q (18:37)
[2018-05-07] MEDS ORDERED: CARBAMAZEPINE200 MG PO (18:38)
[2018-05-07] MEDS ORDERED: PANTOPRAZOLE SO40 MG PO ×2 (18:38→18:42)
[2018-05-07] MEDS ORDERED: VITAMIN B-121000 MCG PO (18:38)
[2018-05-07] MEDS ORDERED: ASPIR 8181 MG PO (18:39)
[2018-05-07] MEDS ORDERED: MULTIVITAMINS1 EAC7 PO (18:39)
[2018-05-07] MEDS ORDERED: VITAMIN D31000 UNIT PO (18:39)
[2018-05-07] MEDS ORDERED: ALEVE220 M1 PO (18:40)
[2018-05-07] MEDS ORDERED: MAPAP500 M1 PO (18:40)
[2018-05-07] MEDS ORDERED: CRESTOR40 MG NG (18:40)
[2018-05-07] MEDS ORDERED: ISOSORBIDE MONO60 MG PO (18:41)
--- NOTE | 2018-05-08 14:28 | EKG ---
[facility] [address] [facility] [place], [place] [address] Signed Normal sinus rhythm Nonspecific T wave abnormality Abnormal ECG When compared with ECG of 18-JUL-2017 17:31, RI interval has decreased Confirmed by ABHISHEK CHOPRA DO ([id number]) on 05/08/2018 2:28:37 PM Electronically Signed By: ABHISHEK CHOPRA DO 05/08/18 1428 PATIENT NAME: ADI KHAN Electrocardiogram DATE OF : 48 PHYSICIAN: ABHISHEK CHOPRA DO REPORT #: [id number] REPORT IS CONFIDENTIAL AND NOT TO BE RELEASED WITHOUT AUTHORIZATION
== END 2018-05-07 20:40 | disposition home or self-care (01) ==
LOC: ED 17:43
DX: R07.9 Chest pain, unspecified (principal); M79.672 Pain in left foot; M79.671 Pain in right foot; N18.6 End stage renal disease; I25.2 Old myocardial infarction; Z79.899 Other long term (current) drug therapy
CPT/HCPCS: 71045; 80053; 83880; 84484; 85025; 93005; 93010; 94640; 99285

== ENCOUNTER 2020-03-16 21:31 | Emergency (ER) | payer OTHER ==
[~2020-03-16] VITALS: Ht 182.9 cm; Wt 145.2 kg
[~2020-03-16 21:31] MED LIST: ALEVE220 M1 PO; ASPIR 8181 MG PO; BUPROPION HCL200 MG PO; CARBAMAZEPINE200 MG PO; CRESTOR40 MG NG; FERROUS SULFAT325 MG PO; FLUOXETINE HCL20 MG PO; ISOSORBIDE MONO60 MG PO; MAG-OXIDE400 MG PO; MAPAP500 M1 PO; METOPROLOL SUC100 MG PO; MULTIVITAMINS1 EAC7 PO; NORTRIPTYLINE H25 MG PO; NOVOLIN 70100 UNIT/1 SUB-Q; NOVOLOG100 UNIT/2 SUB-Q; PANTOPRAZOLE SO40 MG PO; RANITIDINE HCL150 MG PO; VICTOZA 3-0.6 MG/0.1 SUB-Q; VITAMIN B-121000 MCG PO; VITAMIN D31000 UNIT PO; [UNRECOGNIZED DRUG - OTHER] PO
--- OUTSIDE RECORDS SUMMARY | 2020-03-16 21:34 | XMS ---
PreManage Notification: ADI KHAN Security Fbi Sharpshooter Events No recent Security Events currently on file CRITERIA MET - 6 ED Visits in 6 Months - History of Sepsis Dx - [facility] - 3 Facilities in 90 Days - [facility] - 2 Visits in 30 Days CARE PROVIDERS Piter [facility] Worker 07/21/2019-Current PHONE: [phone] BELÉN [facility] Current PHONE: [phone] Care Guidelines exist for the following facilities: [facility] ( 03/22/2019 ) Heidi [facility] (12 MO.) [facility] TOTAL 20 NOTE: Visits indicate total known visits. ED/UCC VISIT TRACKING (12 MO.) 03/16/2020 21:32 MELANIE Garcia [place] TYPE: Emergency COMPLAINT: - CHEST PAIN, KIDNEY PAIN, BLOOD SUGAR ISSUE [facility]2020 18[facility] [place] [facility] DIAGNOSES: - CP - Chronic obstructive pulmonary disease with (acute) exacerbati - Chest pain, unspecified 03/08/2020 01:14 [facility] [place] TYPE: Emergency DIAGNOSES: - Chronic obstructive pulmonary disease with (acute) exacerbati - sob 02/10/2020 08:15 [facility] [place] TYPE: Emergency COMPLAINT: - L ARM PAIN, SWELLING, BILATERAL KIDNEY PAIN DIAGNOSES: - Tachycardia, unspecified - Cellulitis of right toe - manager terminal (current) use of insulin - Tachycardia, unspecified - Unspecified thoracic, thoracolumbar and lumbosacral intervert - Gastro-esophageal reflux disease without esophagitis - Pain in right forearm - Cellulitis of right lower limb - Cellulitis of right toe - Klebsiella pneumoniae [K. pneumoniae] as the cause of disease - Chest pain, unspecified - Cellulitis of right lower limb - Essential (primary) hypertension - Essential (primary) hypertension - Functional urinary incontinence - Other intermediate project manager (current) drug therapy - Acute kidney failure, unspecified - Pain in right forearm - Cellulitis of left lower limb - Type 2 diabetes mellitus without complications - Atherosclerotic heart disease of [place] coronary artery witho - Acute kidney failure, unspecified - Heart disease, unspecified - Other nursing home (current) drug therapy - Unspecified thoracic, thoracolumbar and lumbosacral intervert - Dehydration - manager terminal (current) use of insulin - Precordial pain - Functional urinary incontinence - Type 2 diabetes mellitus without complications - Allergy status to other drugs, medicaments and biological sub - Dehydration - Atherosclerotic heart disease of [place] coronary artery witho - Heart disease, unspecified - Gastro-esophageal reflux disease without esophagitis - Acute kidney failure, unspecified - Cellulitis of left lower limb - Allergy status to other drugs, medicaments and biological sub 02/03/2020 18:41 [facility] [place] TYPE: Emergency DIAGNOSES: - Cellulitis of left lower limb - Cutaneous abscess of right foot - Cellulitis of right lower limb - Cellulitis of right toe - BILAT LEG PAIN 01/04/2020 09:08 [facility] [place] TYPE: Emergency COMPLAINT: - Dizziness, fell out of chair DIAGNOSES: - Hyperlipidemia, unspecified - Atherosclerotic heart disease of [place] coronary artery witho - Chronic obstructive pulmonary disease, unspecified - long-term (current) use of insulin - Type 2 diabetes mellitus without complications - Atrioventricular block, first degree - Dizziness and giddiness - Other nursing home (current) drug therapy - Type 2 diabetes mellitus without complications - Atherosclerotic heart disease of [place] coronary artery witho - Dizziness and giddiness - Atrioventricular block, first degree - Presence of aortocoronary bypass graft - Chronic obstructive pulmonary disease, unspecified 11/03/2019 22:56 [facility] [place] TYPE: Emergency DIAGNOSES: - Chest Pain - Chest pain, unspecified - Atherosclerotic heart disease of [place] coronary artery with 10/27/2019 15:27 [facility] [place] TYPE: Emergency DIAGNOSES: - Chronic obstructive pulmonary disease with (acute) exacerbati - Type 2 diabetes mellitus with diabetic neuropathy, unspecifie - Acute on chronic diastolic (congestive) heart failure - Shortness of Breath - manager terminal (current) use of insulin 10/19/2019 17:40 [facility] [place] TYPE: Emergency DIAGNOSES: - Acute on chronic systolic (congestive) heart failure - HARD TIME BREATHING 10/06/2019 00:38 [facility] [place] TYPE: Emergency DIAGNOSES: - Other forms of angina pectoris - CHEST PAIN 09/06/2019 00:10 [facility] [place] TYPE: Emergency DIAGNOSES: - Chest pain, unspecified - Chronic obstructive pulmonary disease with (acute) exacerbati - Dizziness - Type 2 diabetes mellitus with diabetic neuropathy, unspecifie - manager terminal (current) use of insulin - Chest Pain 08/31/2019 11:23 [facility] [place] TYPE: Emergency DIAGNOSES: - R HAND LACERATION - Laceration without foreign body of right hand, initial encoun 08/05/2019 21:35 [facility] [place] TYPE: Emergency DIAGNOSES: - CHEST PAIN - Acute ischemic heart disease, unspecified 07/25/2019 19:05 [facility] [place] TYPE: Emergency COMPLAINT: - burning with urination, kidney pain DIAGNOSES: - Non-pressure chronic ulcer of other part of left foot with un - Chronic obstructive pulmonary disease, unspecified - Gastro-esophageal reflux disease without esophagitis - Urinary tract infection, site not specified - Non-pressure chronic ulcer of other part of right foot with u - Type 2 diabetes mellitus with foot ulcer - long-term (current) use of insulin - Atherosclerotic heart disease of [place] coronary artery witho - Type 2 diabetes mellitus with other skin ulcer - Hyperlipidemia, unspecified - Other intermediate project manager (current) drug therapy - Urinary tract infection, site not specified 07/20/2019 22:33 [facility] [place] TYPE: Emergency DIAGNOSES: - Chronic obstructive pulmonary disease with (acute) exacerbati - SHORTNESS OF BREATH 06/26/2019 13:10 [facility] [place] TYPE: Emergency COMPLAINT: - DIZZY DIAGNOSES: - Hyperkalemia - Dizziness and giddiness - Other chronic pain - Gastro-esophageal reflux disease without esophagitis - Elevated white blood cell count, unspecified - Type 2 diabetes mellitus with other circulatory complications - Elevated white blood cell count, unspecified - Allergy status to other drugs, medicaments and biological sub - Other nursing home (current) drug therapy - Hypo-osmolality and hyponatremia - long-term (current) use of insulin - Atherosclerotic heart disease of [place] coronary artery witho - Dizziness and giddiness - Unspecified thoracic, thoracolumbar and lumbosacral intervert - manager terminal (current) use of insulin - Hyperkalemia - Strain of muscle, fascia and tendon at neck level, subsequent - Allergy status to other drugs, medicaments and biological sub - Strain of muscle, fascia and tendon at neck level, subsequent - Type 2 diabetes mellitus with other circulatory complications - Acute kidney failure, unspecified - Gastro-esophageal reflux disease without esophagitis - Chronic obstructive pulmonary disease, unspecified - Hypo-osmolality and hyponatremia - Other chronic pain - Chronic obstructive pulmonary disease, unspecified - Acute kidney failure, unspecified - Other intermediate project manager (current) drug therapy - Unspecified thoracic, thoracolumbar and lumbosacral intervert - Atherosclerotic heart disease of [place] coronary artery witho 06/25/2019 18:25 [facility] [place] TYPE: Emergency COMPLAINT: - FALL DIAGNOSES: - Sidewalk as the place of occurrence of the external cause - Venous insufficiency (chronic) (peripheral) - Type 2 diabetes mellitus without complications - Fall on same level from slipping, tripping and stumbling with - Cervicalgia - Hyperlipidemia, unspecified - Hyperlipidemia, unspecified - Cervicalgia - Fall on same level from slipping, tripping and stumbling with - Other chronic pain - Type 2 diabetes mellitus without complications - Atherosclerotic heart disease of [place] coronary artery witho - Chronic obstructive pulmonary disease, unspecified - Other intermediate project manager (current) drug therapy - Other chronic pain - Unspecified thoracic, thoracolumbar and lumbosacral intervert - Atherosclerotic heart disease of [place] coronary artery witho - Unspecified thoracic, thoracolumbar and lumbosacral intervert - Venous insufficiency (chronic) (peripheral) - Chronic obstructive pulmonary disease, unspecified - Sidewalk as the place of occurrence of the external cause - Other intermediate project manager (current) drug therapy 05/06/2019 09:39 [place] [facility] [place] [facility] [place] [facility]: [facility] DIAGNOSES: - Other acute osteomyelitis, right ankle and foot - Foot Swelling - Pain in right foot - Other specified abnormal findings of blood chemistry - Right Pain/Swelling - Pain, unspecified - Sepsis, unspecified organism - Anemia, unspecified - Cellulitis of right lower limb 04/16/2019 18:26 [facility] [place] TYPE: Emergency DIAGNOSES: - Angina pectoris, unspecified - SOB - Chronic obstructive pulmonary disease with (acute) exacerbati 03/23/2019 14:13 [facility] Mary Kevin [place] TYPE: Emergency DIAGNOSES: - Altered mental status, unspecified - Syncope and collapse - Altered Mental Status - Type 2 diabetes mellitus with diabetic neuropathy, unspecifie - Slurred speech - code stroke - Atherosclerotic heart disease of [place] coronary artery with - Weakness - long-term (current) use of insulin Plus 1 More Visit INPATIENT VISIT TRACKING (12 MO.) [facility]2019 [facility] DIAGNOSES: - Acute on chronic diastolic (congestive) heart failure - Chronic obstructive pulmonary disease with (acute) exacerbati - Chronic obstructive pulmonary disease with (acute) exacerbati - manager terminal (current) use of insulin - Type 2 diabetes mellitus with foot ulcer - Type 2 diabetes mellitus with diabetic neuropathy, unspecifie - Non-pressure chronic ulcer of other part of right foot limite 08/06/2019 05:17 Aaron[facility] Steve [place] TYPE: Medical Surgical COMPLAINT: - ACUTE CORONARY SYNDROME DIAGNOSES: 0. Chest pain, unspecified 1. Chest pain, unspecified 2. Other specified mycoses 3. Hypertensive heart and chronic kidney disease with heart fail 4. Body mass index (BMI) 40.0-44.9, adult 5. Chronic diastolic (congestive) heart failure 6. Atherosclerotic heart disease of [place] coronary artery witho 7. Old myocardial infarction 8. Nonrheumatic aortic (valve) stenosis 9. Type 2 diabetes mellitus with diabetic chronic kidney disease 10. Type 2 diabetes mellitus with hyperglycemia 11. Type 2 diabetes mellitus with diabetic polyneuropathy 12. Chronic kidney disease, stage 3 (moderate) 13. Obstructive sleep apnea (adult) (pediatric) 14. Anxiety disorder, unspecified 15. Other specified disorders of veins 16. Morbid (severe) obesity due to excess calories 17. Chronic obstructive pulmonary disease, unspecified 18. Presence of aortocoronary bypass graft 19. Presence of coronary angioplasty implant and graft 20. Dependence on supplemental oxygen 21. Personal history of nicotine dependence 22. Allergy status to other drugs, medicaments and biological sub 23. long-term (current) use of aspirin 24. manager terminal (current) use of insulin 25. Other nursing home (current) drug therapy 06/26/2019 17:00 [facility] [place] TYPE: Medical Surgical COMPLAINT: - DEHYDRATION DIAGNOSES: - Localized edema - long-term (current) use of insulin - Unspecified thoracic, thoracolumbar and lumbosacral intervert - Personal history of nicotine dependence - Dizziness and giddiness - Unspecified thoracic, thoracolumbar and lumbosacral intervert - Acute kidney failure, unspecified - Acquired absence of other right toe(s) - Type 2 diabetes mellitus with hyperglycemia - Acute kidney failure, unspecified - Dizziness and giddiness - Peripheral vascular disease, unspecified - Acquired absence of other right toe(s) - Chronic obstructive pulmonary disease, unspecified - Other intermediate project manager (current) drug therapy - Chronic obstructive pulmonary disease, unspecified - Strain of muscle, fascia and tendon at neck level, subsequent - Morbid (severe) obesity due to excess calories - Morbid (severe) obesity due to excess calories - Allergy status to other drugs, medicaments and biological sub - Type 2 diabetes mellitus with hyperglycemia - Hyperlipidemia, unspecified - Allergy status to other drugs, medicaments and biological sub - Atherosclerotic heart disease of [place] coronary artery witho - Atherosclerotic heart disease of [place] coronary artery witho - Gastro-esophageal reflux disease without esophagitis - Other nursing home (current) drug therapy - Acute kidney failure, unspecified - Hyperlipidemia, unspecified - Peripheral vascular disease, unspecified - Hypo-osmolality and hyponatremia - Hyperkalemia - Hyperkalemia - Localized edema - Gastro-esophageal reflux disease without esophagitis - long-term (current) use of insulin - Personal history of nicotine dependence - Strain of muscle, fascia and tendon at neck level, subsequent - Hypo-osmolality and hyponatremia 05/06/2019 09:39 [facility] [place] TYPE: Surgical Services DIAGNOSES: - Essential (primary) hypertension - Pain in right foot - Other acute osteomyelitis, unspecified ankle and foot - Chronic respiratory failure with hypoxia - Other acute osteomyelitis, right ankle and foot - Sepsis, unspecified organism - Anemia, unspecified - Other specified abnormal findings of blood chemistry - Cellulitis of right lower limb - Chronic kidney disease, stage 3 (moderate) - Pain, unspecified 03/23/2019 14:13 [facility] [place] TYPE: Surgical Services DIAGNOSES: - Non-pressure chronic ulcer of unspecified part of right lower - Varicose veins of left lower extremity with ulcer of unspecif - Morbid (severe) obesity due to excess calories - Obstructive sleep apnea (adult) (pediatric) - Atherosclerotic heart disease of [place] coronary artery with - Varicose veins of right lower extremity with ulcer of unspeci - Non-pressure chronic ulcer of unspecified part of left lower - Altered mental status, unspecified - manager terminal (current) use of insulin - Type 2 diabetes mellitus with diabetic neuropathy, unspecifie - Syncope and collapse - Essential (primary) hypertension - Slurred speech [email or web address]
--- NOTE | 2020-03-17 15:39 | EKG ---
[facility] [address] [place] [address] Signed Sinus rhythm with 1st degree AV block Nonspecific ST abnormality Abnormal ECG When compared with ECG of 07-MAY-2018 17:58, CA interval has increased Nonspecific T wave abnormality no longer evident in Lateral leads Confirmed by ROJELIO ALANIZ MD ([id number] on 03/17/2020 3:39:03 PM Electronically Signed By: ROJELIO ALANIZ MD 03/17/20 1539 PATIENT NAME: ADI KHAN Electrocardiogram DATE OF : 48 PHYSICIAN: ROJELIO ALANIZ MD REPORT #: [id number] REPORT IS CONFIDENTIAL AND NOT TO BE RELEASED WITHOUT AUTHORIZATION
== END 2020-03-17 01:41 | disposition home or self-care (01) ==
LOC: ED 21:31
DX: E11.65 Type 2 diabetes mellitus with hyperglycemia (principal); T38.3X5A Adverse effect of insulin and oral hypoglycemic [antidiabetic] drugs, initial encounter; R07.9 Chest pain, unspecified; G89.29 Other chronic pain; M54.9 Dorsalgia, unspecified; I25.2 Old myocardial infarction; I50.9 Heart failure, unspecified; E11.22 Type 2 diabetes mellitus with diabetic chronic kidney disease; N18.3 Chronic kidney disease, stage 3 (moderate); J44.9 Chronic obstructive pulmonary disease, unspecified; Z87.891 Personal history of nicotine dependence; Z88.8 Allergy status to other drugs, medicaments and biological substances; Z79.899 Other long term (current) drug therapy; Z79.4 Long term (current) use of insulin; Z79.82 Long term (current) use of aspirin
CPT/HCPCS: 71045; 80053; 81001; 82010; 82140; 82800; 83735; 84484; 85025; 85610; 93005; 93010; 99285-25; J1815